=== PATIENT | female | born 1945 | race Hispanic/Latino ===

== ENCOUNTER 2018-08-16 10:21 | Inpatient (IN) | payer MEDICARE, OTHER ==
[2018-08-16 10:22] VITALS: BMI 50.1
[2018-08-16] MEDS ORDERED: Tranexamic Acid 1,000 MG in Sodium Chloride 0.9% 50 ML IV STA (11:57)
[2018-08-16 12:41] LABS: BASO # 0.1 K/uL (0.0-0.2); BASO % 1.1 % (0.0-2.0); EOS # 0.2 K/uL (0.0-0.7); EOS % 2.8 % (0.0-4.0); HEMOGLOBIN 9.1 g/dL (11.0-16.0); LYMPH # 1.7 K/uL (1.0-4.3); LYMPH % 23.5 % (20.0-40.0); MEAN CELL VOLUME 94.6 fL (81.0-99.0); MEAN CORPUSCULAR HEMOGLOBIN 31.5 pg (27.0-31.0); MEAN CORPUSCULAR HGB CONC 33.3 g/dL (33.0-37.0); MEAN PLATELET VOLUME 9.6 fL (7.2-11.7); MONO # 0.5 K/uL (0.0-0.8); MONO % 6.7 % (0.0-10.0); NEUT # 4.9 K/uL (1.8-7.0); NEUT % 65.9 % (50.0-75.0); NRBC % 0.1 % (0.0-2.0); RBC 2.9 Mil/uL (3.80-5.20); WHITE BLOOD COUNT 7.4 K/uL (4.8-10.8)
--- NOTE | 2018-08-16 12:41 | RAD ---
Date of service: 08/16/2018 PROCEDURE: CHEST RADIOGRAPH, 1 VIEW HISTORY: chest pain COMPARISON: 11/30/2017 FINDINGS: LUNGS: Right basilar opacity silhouetting right heart border and right hemidiaphragm. Likely pleural effusion. Cannot rule out superimposed consolidation. No left pleural effusion. No pneumothorax.. PLEURA: No pneumothorax or pleural fluid seen. CARDIOVASCULAR: No aortic atherosclerotic calcification present. Normal. OSSEOUS STRUCTURES: No significant abnormalities. VISUALIZED UPPER ABDOMEN: Normal. OTHER FINDINGS: None. IMPRESSION: Small right pleural effusion. Cannot rule out superimposed infiltrate.
--- NOTE | 2018-08-16 12:42 | C.PDOC ---
History Of Present Illness 72 y/o female presents to ED complaining she had a dry nose and started having a nosebleed this morning. Patient was seen at a hospital in May for stroke. She is now on CPAP. Denies fever, cough, chest pain, SOB, nausea, or vomiting. States that she didnt wear CPAP last night because she noticed some dry blood. Time Seen by Provider: 08/16/18 10:41 Chief Complaint (Nursing): ENT Problem History Per: Patient History/Exam Limitations: None Onset/Duration Of Symptoms: Hrs Current Symptoms Are (Timing): Still Present Past Medical History Reviewed: Historical Data, Nursing Documentation, Vital Signs Vital Signs: Last Vital Signs Temp 97.1 F L 08/16/18 10:33 Pulse 109 H 08/16/18 10:33 Resp 22 08/16/18 10:33 BP Pulse Ox 87 L 08/16/18 11:10 Primary Care Provider: Demetrius Armstrong - Medical History PMH: Asthma, COPD, Emphysema, HTN, Hypercholesterolemia Denies: Depression - [facility] Procedures NEBULIZER THERAPY (04/03/12) Family History: States: No Known Family Hx - Social History Hx Tobacco Use: No Hx Alcohol Use: No Hx Substance Use: No - Immunization History Hx Tetanus Toxoid Vaccination: No Hx Influenza Vaccination: No Hx Pneumococcal Vaccination: No Review Of Systems Except As Marked, All Systems Reviewed And Found Negative. Constitutional: Negative for: Fever, Chills ENT: Positive for: Nose Discharge (nosebleed) Cardiovascular: Negative for: Chest Pain Respiratory: Negative for: Shortness of Breath Gastrointestinal: Negative for: Nausea, Vomiting Physical Exam - Physical Exam Appears: Non-toxic, No Acute Distress Skin: Warm, Dry Head: Normacephalic Eye(s): bilateral: Normal Inspection Nose: Other (bleeding from left nare) Oral Mucosa: Moist Neck: Supple Cardiovascular: Rhythm Regular, No Murmur Respiratory: Normal Breath Sounds, No Rales, No Rhonchi, No Wheezing Extremity: Bilateral: Atraumatic Neurological/Psych: Oriented x3, Normal Speech, Normal Cognition ED Course And Treatment - Laboratory Results Result Diagrams: 08/22/18 18:25 08/22/18 05:39 ECG: Interpreted By Me, Viewed By Me ECG Rhythm: Atrial Fibrillation (w/rvr) Interpretation Of ECG: Atrial fibrillation with RVR. No ST elevation. Rate From EC O2 Sat by Pulse Oximetry: 87 (RA) Pulse Ox Interpretation: Abnormal - Other Rad CXR X-Ray: Read By Radiologist Interpretation: FINDINGS: LUNGS: Right basilar opacity silhouetting right heart border and right hemidiaphragm. Likely pleural effusion. Cannot rule out superimposed consolidation. No left pleural effusion. No pneumothorax.. PLEURA: No pneumothorax or pleural fluid seen. CARDIOVASCULAR: No aortic atherosclerotic calcification present. Normal. OSSEOUS STRUCTURES: No significant abnormalities. VISUALIZED UPPER ABDOMEN: Normal. OTHER FINDINGS: None. IMPRESSION: Small right pleural effusion. Cannot rule out superimposed infiltrate. Critical Care Time - Critical Care Note Total Time (in mins): 150 Documented critical care: time excludes all time spent performing seperately billable procedures. Medical Decision Making Medical Decision Making: Plan: --Labs --EKG --Chest XR --Tranexamic acid Patient having nosebleed again. Bloodwork ordered. Hemoglobin at 3 in May. Patient is tachycardic and has a history of a-fib. 13:12 Dr. Abner Rodriguez accepts patient for admission. 13:[address] Nelson, wants 7.5 rhinorocket. 13:25 7.5 rhinorocket placed in left nare. Left nare still w/oozing. 13:40 D/w Dr. Nelson who states he will come see patient. Requests abx. Dr. Nelson came to ED to evaluate patient. Placed device. Bleeding subsided. Patient w/2 episodes of rectal bleeding in ED. Patient denies abdominal pain. Labs significant for hgb of 9.1. 15:[address] Frazier, interventional neurologist, who will evaluate patient as inpatient. 15:[address] Augustine, disability insurance hearing officer preparation room manager, will come see patient. 16:05 Dr. Augustine recommends 2 units of FFP and will admit patient to the unit overnight. Disposition Counseled Patient/Family Regarding: Studies Performed, Diagnosis - Disposition Disposition: HOSPITALIZED Disposition Time: 16:00 Condition: STABLE - Clinical Impression Clinical Impression: Nasal hemorrhage, GIB (gastrointestinal bleeding), Afib - Scribe Statement The provider has reviewed the documentation as recorded by the Jessica Ortiz Provider Attestation: All medical record entries made by the Jessica were at my direction and personally dictated by me. I have reviewed the chart and agree that the record accurately reflects my personal performance of the history, physical exam, medical decision making, and the department course for this patient. I have also personally directed, reviewed, and agree with the discharge instructions and disposition.
[2018-08-16] MEDS ORDERED: TRANEXAMIC ACID TOP ONE (13:00)
[2018-08-16 13:53] LABS: ALB/GLOB RATIO 1.2 (1.0-2.1); ALBUMIN 3.4 g/dL (3.5-5.0); ALT/SGPT 16 U/L (9-52); AST/SGOT 32 U/L (14-36); BLOOD UREA NITROGEN 21 mg/dL (7-17); CALCIUM 9.3 mg/dl (8.6-10.4); GFR NON-AFRICAN AMERICAN 44
[2018-08-16] MEDS ORDERED: Clindamycin 600mg/50ml D5W 600 MG/50 ML VIAL IVPB SCH (15:30)
--- NOTE | 2018-08-16 16:11 | CP.PCM.CON ---
<RoslynTyler - Last Filed: 08/16/18 18:08> History of Present Illness - History of Present Illness History of Present Illness: PGY-1 Critical Care Consult Note for Dr. 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 Patient states she has not been on xarelto for weeks now because unable to fill out script. Bleeding persistent despite anterior and posterior packing. Patient to undergo b/l internal maxillary artery and L facial artery embolization. Will transfer FFP x2, pRBC x 1. To monitor in ICU. PMHx: as above PSHx: stent placement x 3, brain aneurysm repair, hysterectomy for ovarian cancer Allergies: PCN, Ambien, Benadryl Home Medications: need verification Social Hx: no alcohol, tobacco, illicit drug use Family Hx: unknown Psychology Lecturer: Dr. Wilkins Review of Systems - Review of Systems All systems: reviewed and no additional remarkable complaints except Review of Systems: as per HPI Past Patient History - Infectious Disease Hx of Infectious Diseases: None - Past Social History Smoking Status: Never Smoked - CARDIAC Hx Hypercholesterolemia: Yes Hx Hypertension: Yes - PULMONARY Hx Asthma: Yes Hx Chronic Obstructive Pulmonary Disease (COPD): Yes Hx Emphysema: Yes - NEUROLOGICAL HX Cerebrovascular Accident: Yes (lt side weak) - PSYCHIATRIC Hx Depression: No Hx Substance Use: No - SURGICAL HISTORY Hx Surgeries: Yes Other/Comment: Cardiac stents x 3 - ANESTHESIA Hx Anesthesia: Yes Hx Anesthesia Reactions: No Hx Malignant Hyperthermia: No Meds Allergies/Adverse Reactions: Allergies Allergy/AdvReac Type Severity Reaction Status Date / Time diphenhydramine Allergy Intermediate Verified 08/16/18 10:42 [From Benadryl] Penicillins Allergy Intermediate Verified 08/16/18 10:42 zolpidem [From Ambien] Allergy Intermediate Verified 08/16/18 10:42 - Medications Medications: Current Medications Clindamycin Phosphate (Cleocin 600mg/50ml Ns) 600 mg in 50 mls @ 100 mls/hr IVPB STAT ONE; Protocol Stop: 08/16/18 16:44 Physical Exam - Constitutional Appears: Non-toxic - Head Exam Head Exam: ATRAUMATIC, NORMAL INSPECTION, NORMOCEPHALIC - Eye Exam Eye Exam: EOMI, Normal appearance Pupil Exam: NORMAL ACCOMODATION - ENT Exam Additional comments: Bleeding from L nare internal packing inserted - Neck Exam Neck exam: Positive for: Normal Inspection - Respiratory Exam Respiratory Exam: Rales, NORMAL BREATHING PATTERN. absent: Accessory Muscle Use, Respiratory Distress - Cardiovascular Exam Cardiovascular Exam: Tachycardia, +S1, +S2 - GI/Abdominal Exam GI & Abdominal Exam: Normal Bowel Sounds, Soft - Extremities Exam Extremities exam: Positive for: normal capillary refill, normal inspection, pedal pulses present - Neurological Exam Neurological exam: Alert, Oriented x3 - Psychiatric Exam Psychiatric exam: Anxious - Skin Skin Exam: Normal Color, Warm Results - Vital Signs Recent Vital Signs: Last Vital Signs Temp 97.1 F L 08/16/18 10:33 Pulse 109 H 08/16/18 10:33 Resp 22 08/16/18 10:33 BP 106/70 08/16/18 12:00 Pulse Ox 87 L 08/16/18 16:06 - Labs Result Diagrams: 08/16/18 16:08 08/16/18 13:38 Labs: Laboratory Results - last 24 hr 08/16/18 08/16/18 08/16/18 12:29 12:29 13:38 WBC 7.4 RBC 2.90 L Hgb 9.1 L Hct 27.4 L MCV 94.6 MCH 31.5 H MCHC 33.3 RDW 16.0 H Plt Count 234 MPV 9.6 Neut % (Auto) 65.9 Lymph % (Auto) 23.5 [place] % (Auto) 6.7 Eos % (Auto) 2.8 Baso % (Auto) 1.1 Neut # (Auto) 4.9 Lymph # (Auto) 1.7 [place] # (Auto) 0.5 Eos # (Auto) 0.2 Baso # (Auto) 0.1 Sodium 142 Potassium 4.0 Chloride 97 L Carbon Dioxide 33 H Anion Gap 16 BUN 21 H Creatinine 1.2 Est GFR ( Amer) 54 Est GFR (Non-Af Amer) 44 Random Glucose 84 Calcium 9.3 Total Bilirubin 1.3 AST 32 ALT 16 Alkaline Phosphatase 121 Troponin I < 0.0120 Total Protein 6.3 Albumin 3.4 L Globulin 2.8 Albumin/Globulin Ratio 1.2 Blood Type O POSITIVE Antibody Screen Negative Assessment & Plan - Assessment and Plan (Free Text) Plan: Epistasis Active bleeding, acute -H/H: 01/03 -on home xarelto -Acute epistaxis of L nares with bleeding despite ant and posterior packing -to undergo bilateral internal maxillary artery embolization and left facial artery embolization CAD s/p stent placement Hx of AK Hx of CHF -Cardiology (Dr. Figueroa) consulted -verify home meds -f/u recs Infiltrate, Pleural Effusion -CXR: Small R pleural effusion, superimposed R infiltrate -aztreonam for empiric HCAP coverage d/t pcn allergy Case discussed with Dr. Davide Mcgowan DO, PGY-1 <Malik Augustine S - Last Filed: 08/16/18 18:37> Meds - Medications Medications: Current Medications Aztreonam 1 gm/ Sodium (Chloride) 100 mls @ 100 mls/hr IVPB Q8H SYED; Protocol Results - Vital Signs Recent Vital Signs: Last Vital Signs Temp 98 F 08/16/18 15:40 Pulse 128 H 08/16/18 16:45 Resp 24 08/16/18 16:45 BP 134/89 08/16/18 16:45 Pulse Ox 87 L 08/16/18 17:33 - Labs Result Diagrams: 08/16/18 16:08 08/16/18 13:38 Labs: Laboratory Results - last 24 hr 08/16/18 08/16/18 08/16/18 12:29 12:29 13:38 WBC 7.4 RBC 2.90 L Hgb 9.1 L Hct 27.4 L MCV 94.6 MCH 31.5 H MCHC 33.3 RDW 16.0 H Plt Count 234 MPV 9.6 Neut % (Auto) 65.9 Lymph % (Auto) 23.5 [place] % (Auto) 6.7 Eos % (Auto) 2.8 Baso % (Auto) 1.1 Neut # (Auto) 4.9 Lymph # (Auto) 1.7 [place] # (Auto) 0.5 Eos # (Auto) 0.2 Baso # (Auto) 0.1 PT INR APTT Sodium 142 Potassium 4.0 Chloride 97 L Carbon Dioxide 33 H Anion Gap 16 BUN 21 H Creatinine 1.2 Est GFR ( Amer) 54 Est GFR (Non-Af Amer) 44 Random Glucose 84 Calcium 9.3 Total Bilirubin 1.3 AST 32 ALT 16 Alkaline Phosphatase 121 Troponin I < 0.0120 Total Protein 6.3 Albumin 3.4 L Globulin 2.8 Albumin/Globulin Ratio 1.2 Blood Type O POSITIVE Antibody Screen Negative 08/16/18 08/16/18 16:08 16:08 WBC 8.6 RBC 2.92 L Hgb 9.0 L Hct 27.7 L MCV 94.7 MCH 30.9 MCHC 32.6 L RDW 15.8 H Plt Count 263 MPV 9.1 Neut % (Auto) 69.4 Lymph % (Auto) 21.1 [place] % (Auto) 7.0 Eos % (Auto) 1.7 Baso % (Auto) 0.8 Neut # (Auto) 6.0 Lymph # (Auto) 1.8 [place] # (Auto) 0.6 Eos # (Auto) 0.1 Baso # (Auto) 0.1 PT 16.1 H INR 1.5 APTT 32.3 Sodium Potassium Chloride Carbon Dioxide Anion Gap BUN Creatinine Est GFR ( Amer) Est GFR (Non-Af Amer) Random Glucose Calcium Total Bilirubin AST ALT Alkaline Phosphatase Troponin I Total Protein Albumin Globulin Albumin/Globulin Ratio Blood Type Antibody Screen Attending/Attestation - Attestation I have personally seen and examined this patient.: Yes I have fully participated in the care of the patient.: Yes I have reviewed all pertinent clinical information: Yes Notes (Text): 08/16/18 18:22 Patient seen and examined 72-year-old female with history of atrial fibrillation on Xarelto admitted with epistaxis and rectal bleeding Seen by neuro interventional and the plan is for embolization of the maxillary and facial artery for epistaxis GI consult for rectal bleeding Transfuse packed RBCs Protonix Monitor CBC every 4 to 6 hours
[2018-08-16 16:14] LABS: BASO # 0.1 K/uL (0.0-0.2); BASO % 0.8 % (0.0-2.0); EOS # 0.1 K/uL (0.0-0.7); EOS % 1.7 % (0.0-4.0); LYMPH # 1.8 K/uL (1.0-4.3); LYMPH % 21.1 % (20.0-40.0); MEAN CELL VOLUME 94.7 fL (81.0-99.0); MEAN CORPUSCULAR HEMOGLOBIN 30.9 pg (27.0-31.0); MEAN CORPUSCULAR HGB CONC 32.6 g/dL (33.0-37.0); MEAN PLATELET VOLUME 9.1 fL (7.2-11.7); MONO # 0.6 K/uL (0.0-0.8); NEUT % 69.4 % (50.0-75.0); RBC 2.92 Mil/uL (3.80-5.20); RED CELL DISTRIBUTION WIDTH 15.8 % (11.5-14.5); WHITE BLOOD COUNT 8.6 K/uL (4.8-10.8)
[2018-08-16] MEDS ORDERED: Clindamycin 600mg/50ml NS 600 MG/50 ML BAG IVPB ONE ×2 (16:15→16:23)
[2018-08-16 16:22] LABS: INR 1.5; PARTIAL THROMBOPLASTIN TIME 32.3 SECONDS (21-34); PROTHROMBIN TIME 16.1 SECONDS (9.7-12.2)
[2018-08-16] MEDS ORDERED: Lidocaine 2% MPF (5 ml) Inj ONE (16:57)
[2018-08-16] MEDS ORDERED: Rocuronium 10 mg/ml (5 ml) ONE (17:30)
[2018-08-16] MEDS ORDERED: Midazolam 2 MG/2 ML VIAL ONE ×2 (17:30→20:26)
[2018-08-16] MEDS ORDERED: Succinylcholine Chloride 20 mg/ml Syr (5 ml) IV ONE (17:30)
[2018-08-16] MEDS ORDERED: Etomidate 20 mg/10ml Inj IV ONE (17:30)
[2018-08-16] MEDS ORDERED: ePHEDrine 50 mg/ml Inj ONE (17:31)
[2018-08-16] MEDS ORDERED: Albuterol HFA 90 mcg/actuation (8 g) ONE (17:31)
--- NOTE | 2018-08-16 17:41 | PCM.IRPREO ---
Pre Procedure Note - Previous Medical/Surgical History Cardiac: Hypertension, ASHD/CAD, Hx of CHF, Other (Atrial Fibrillation) Pulmonary: Emphysema/COPD, Dyspnea (dyspnea on exertion) Neuro: TIA/CVA (Prior aneurysm clipping 1981) Misc: Other (history of ovarian CA) Pain: 0. No Pain - Pre Procedure Were any radiologic studies performed in the last 12 months: Yes List of radiologic studies performed: CXR Was medical management performed in the past 24 months: Yes List of medical management performed: Recently admitted to [facility] for COPD exacerbation, CHF Clinical indication for the procedure: epistaxis Have risks and benefits been explained to the patient: Yes Risks and benefits been explained to the patient: Planned procedure, benefits, and risks including but not limitd to groin groin infection, arterial occlusion, injury, renal imapairment,CVA, resulting in irreversible neurological deficits and even were explained to in detail. She agrees to proceed and informed consent was obtained. Have alternatives to surgery explained to the patient as applicable: Yes - Allergies Allergies: Allergies diphenhydramine [From Benadryl] Allergy (Intermediate, Verified 08/16/18 10:42) Penicillins Allergy (Intermediate, Verified 08/16/18 10:42) zolpidem [From Ambien] Allergy (Intermediate, Verified 08/16/18 10:42) - Physical Exam Vital Signs: Vital Signs 08/16/18 08/16/18 08/16/18 10:33 11:10 12:00 Temperature 97.1 F L Pulse Rate 109 H Respiratory 22 Rate Blood Pressure 106/70 O2 Sat by Pulse 92 L 87 L Oximetry 08/16/18 08/16/18 08/16/18 14:00 14:30 15:40 Temperature 98 F Pulse Rate 120 H 120 H 119 H Respiratory 28 H 25 H 24 Rate Blood Pressure 126/69 142/82 106/79 O2 Sat by Pulse 92 L Oximetry 08/16/18 08/16/18 16:45 17:33 Temperature Pulse Rate 128 H Respiratory 24 Rate Blood Pressure 134/89 O2 Sat by Pulse 90 L 87 L Oximetry Mental Status: Alert & Oriented x3 Neuro: WNL Heart: Other (Atrial Fibrillation) Lungs: Other (SOB on exeration) - Specialist Directed Exam FIRE EATER: Other (Ovarian CA) - Impression Pt. Evaluated Today:Candidate for Anesthesia & Procedure: yes - Date & Time Date: 08/16/18 Time: 17:40
--- NOTE | 2018-08-16 17:41 | CP.PCM.CON ---
History of Present Illness - History of Present Illness History of Present Illness: 72 year old woman with history of Afib/copd/cad/htn/prior brain aneurysm /chf on eliquis with nose bleeding from the left nare. Despite packing posterior and anterior she continue to bleed She was seen by ent and embolization has been recomended. [facility] and chf Today she complains of continual bleeding and some sob on exertion She has had two prior stent CAd in 1996 Prior brain surgery 1981 at [facility] brain aneurysm Prior hysterectomy for ovarian CA Review of Systems - Review of Systems Systems not reviewed;Unavailable: Respiratory Distress Past Patient History - Infectious Disease Hx of Infectious Diseases: None - Past Medical History & Family History Past Medical History?: Yes - Past Social History Smoking Status: Former Smoker - CARDIAC Hx Cardiac Disorders: Yes Hx Atrial Fibrillation: Yes Hx Circulatory Problems: Yes Hx Congestive Heart Failure: Yes Hx Hypercholesterolemia: Yes Hx Hypertension: Yes - PULMONARY Hx Asthma: Yes Hx Chronic Obstructive Pulmonary Disease (COPD): Yes Hx Emphysema: Yes - NEUROLOGICAL HX Cerebrovascular Accident: Yes (lt side weak) - PSYCHIATRIC Hx Depression: No Hx Substance Use: No - SURGICAL HISTORY Hx Surgeries: Yes Hx Cardiac Catheterization: Yes Hx Hysterectomy: Yes Other/Comment: Cardiac stents x 3 - ANESTHESIA Hx Anesthesia: Yes Hx Anesthesia Reactions: No Hx Malignant Hyperthermia: No Meds Allergies/Adverse Reactions: Allergies Allergy/AdvReac Type Severity Reaction Status Date / Time diphenhydramine Allergy Intermediate Verified 08/16/18 10:42 [From Benadryl] Penicillins Allergy Intermediate Verified 08/16/18 10:42 zolpidem [From Ambien] Allergy Intermediate Verified 08/16/18 10:42 Physical Exam - Constitutional Appears: In Acute Distress Results - Vital Signs Recent Vital Signs: Last Vital Signs Temp 98 F 08/16/18 15:40 Pulse 128 H 08/16/18 16:45 Resp 24 08/16/18 16:45 BP 134/89 08/16/18 16:45 Pulse Ox 90 L 08/16/18 16:45 - Labs Result Diagrams: 08/16/18 16:08 08/16/18 13:38 Labs: Laboratory Results - last 24 hr 08/16/18 08/16/18 08/16/18 12:29 12:29 13:38 WBC 7.4 RBC 2.90 L Hgb 9.1 L Hct 27.4 L MCV 94.6 MCH 31.5 H MCHC 33.3 RDW 16.0 H Plt Count 234 MPV 9.6 Neut % (Auto) 65.9 Lymph % (Auto) 23.5 [place] % (Auto) 6.7 Eos % (Auto) 2.8 Baso % (Auto) 1.1 Neut # (Auto) 4.9 Lymph # (Auto) 1.7 [place] # (Auto) 0.5 Eos # (Auto) 0.2 Baso # (Auto) 0.1 PT INR APTT Sodium 142 Potassium 4.0 Chloride 97 L Carbon Dioxide 33 H Anion Gap 16 BUN 21 H Creatinine 1.2 Est GFR ( Amer) 54 Est GFR (Non-Af Amer) 44 Random Glucose 84 Calcium 9.3 Total Bilirubin 1.3 AST 32 ALT 16 Alkaline Phosphatase 121 Troponin I < 0.0120 Total Protein 6.3 Albumin 3.4 L Globulin 2.8 Albumin/Globulin Ratio 1.2 Blood Type O POSITIVE Antibody Screen Negative 08/16/18 08/16/18 16:08 16:08 WBC 8.6 RBC 2.92 L Hgb 9.0 L Hct 27.7 L MCV 94.7 MCH 30.9 MCHC 32.6 L RDW 15.8 H Plt Count 263 MPV 9.1 Neut % (Auto) 69.4 Lymph % (Auto) 21.1 [place] % (Auto) 7.0 Eos % (Auto) 1.7 Baso % (Auto) 0.8 Neut # (Auto) 6.0 Lymph # (Auto) 1.8 [place] # (Auto) 0.6 Eos # (Auto) 0.1 Baso # (Auto) 0.1 PT 16.1 H INR 1.5 APTT 32.3 Sodium Potassium Chloride Carbon Dioxide Anion Gap BUN Creatinine Est GFR ( Amer) Est GFR (Non-Af Amer) Random Glucose Calcium Total Bilirubin AST ALT Alkaline Phosphatase Troponin I Total Protein Albumin Globulin Albumin/Globulin Ratio Blood Type Antibody Screen - Impressions Impression: Acute epistaxis with bleeding despite ant and posterior packing for bilateral internal maxillary artery embolization and left facial artery embolization Risks and benefits discussed with son and patient and they understand the emergency nature if josé miguel procedure as well as possible risks including but not limited to stroke, failure to control bleeding , contrast injury and risks of general anesthesia They have agreed to proeed infromend consent signed
[2018-08-16] MEDS ORDERED: Piperacill/Tazo 3.375gm in Dex 3.375 GM/50 ML BAG IVPB SCH ×2 (18:00→19:00)
--- NOTE | 2018-08-16 18:00 | PCM.OP ---
Operative Report - Operative Report Date of Surgery/Procedure: 08/16/18 Time of Surgery/Procedure: 18:20 Surgeon: Dr.Jeffrey Frazier Anesthesia/Sedation: GETA Pre-Operative Diagnosis: Posterior epistaxis left Post-Operative Diagnosis: Same Indication for Surgery: episatxis Operative Findings: right ACOM aneurysm status post clip small residual ; right hypoplastic ICA Procedure/Operation Description: Cerebral and Head and Neck Angiogram with emboloization of left sphenopalatine artery. 3-5, 5-7 particles complete occlusion Estimated Blood Loss: 35cc Blood Replaced: none Complications: None Specimen: none Discharge & Condition: Transferred to ICU on ventilator, sedated
[2018-08-16] MEDS ORDERED: Esmolol 100 mg/10ml Inj IV ONE (18:06)
[2018-08-16] MEDS ORDERED: Labetalol 5mg/ml (4ml) ONE (18:07)
[2018-08-16] MEDS ORDERED: Iodixanol 320 MG/ML 200 ML BOTTLE IV ONE (18:19)
[2018-08-16] MEDS ORDERED: Absorbable Gelatin Sponge Size 12-7 ONE (18:52)
--- NOTE | 2018-08-16 19:10 | CP.PCM.HP ---
History of Present Illness - History of Present Illness History of Present Illness: 72-year-old female patient presents to the ED complaining of dry nose and started nosebleeding this morning.patient was seen in in the hospital for stroke in May.she is now on CPAP.she states that she did not wear CPAP last night because she noticed some dry blood.past medical history of trauma, COPD, emphysema, hypertension, hypercholesterolemia.no history of fever, chills, chest pain, shortness of breath, nausea, vomiting.no history of abdominal pain, headache, weakness, numbness. Past Medical History Reviewed: Historical Data, Nursing Documentation, Vital Signs Vital Signs: Last Vital Signs Temp 97.1 F L 08/16/18 10:33 Pulse 109 H 08/16/18 10:33 Resp 22 08/16/18 10:33 BP Pulse Ox 87 L 08/16/18 11:10 - Medical History PMH: Asthma, COPD, Emphysema, HTN, Hypercholesterolemia Denies: Depression - [facility] Procedures NEBULIZER THERAPY (04/03/12) Family History: States: No Known Family Hx - Social History Hx Tobacco Use: No Hx Alcohol Use: No Hx Substance Use: No - Immunization History Hx Tetanus Toxoid Vaccination: No Hx Influenza Vaccination: No Hx Pneumococcal Vaccination: No Review Of Systems Except As Marked, All Systems Reviewed And Found Negative. Constitutional: Negative for: Fever, Chills ENT: Positive for: Nose Discharge (nosebleed) Cardiovascular: Negative for: Chest Pain Respiratory: Negative for: Shortness of Breath Gastrointestinal: Negative for: Nausea, Vomiting Neuro - no headache,weakness,numbness. Past Patient History - Infectious Disease Hx of Infectious Diseases: None - Past Medical History & Family History Past Medical History?: Yes - Past Social History Smoking Status: Never Smoked - CARDIAC Hx Hypercholesterolemia: Yes Hx Hypertension: Yes - PULMONARY Hx Asthma: Yes Hx Chronic Obstructive Pulmonary Disease (COPD): Yes Hx Emphysema: Yes - NEUROLOGICAL HX Cerebrovascular Accident: Yes (lt side weak) - PSYCHIATRIC Hx Depression: No Hx Substance Use: No - SURGICAL HISTORY Hx Surgeries: Yes Other/Comment: Cardiac stents x 3 - ANESTHESIA Hx Anesthesia: Yes Hx Anesthesia Reactions: No Hx Malignant Hyperthermia: No Meds Home Medications: Home Medication List Medication Instructions Recorded Confirmed Type Albuterol/Ipratropium [Duoneb 3 3 ml INH RQ6 neb 08/28/18 Rx mg/0.5 mg (3 ml) UD] Apixaban [Eliquis] 2.5 mg PO BID tab 08/28/18 Rx Furosemide [Lasix] 40 mg PO DAILY 30 Days #30 tablet 08/28/18 Rx Methylprednisolone [Medrol Dose 4 mg PO DAILY #21 mg 08/28/18 Rx Pack (21 tabs)] Metoprolol Tartrate [Lopressor] 50 mg PO BID tab 08/28/18 Rx Pantoprazole [Protonix EC Tab] 40 mg PO BID ect 08/28/18 Rx Polyethylene Glycol/Polyvinyl 0 ml OU Q4H bottle 08/28/18 Rx [Artificial Tears] Sucralfate [Carafate Oral Susp] 1 gm PO TID udc 08/28/18 Rx diltiaZEM CD [Cardizem CD] 120 mg PO DAILY cap 08/28/18 Rx Allergies/Adverse Reactions: Allergies Allergy/AdvReac Type Severity Reaction Status Date / Time diphenhydramine Allergy Intermediate Verified 08/16/18 10:42 [From Benadryl] Penicillins Allergy Intermediate Verified 08/16/18 10:42 zolpidem [From Ambien] Allergy Intermediate Verified 08/16/18 10:42 Physical Exam - Constitutional Appears: Well - Head Exam Head Exam: ATRAUMATIC, NORMAL INSPECTION, NORMOCEPHALIC - Eye Exam Eye Exam: EOMI, Normal appearance, PERRL Pupil Exam: NORMAL ACCOMODATION, PERRL - ENT Exam ENT Exam: Mucous Membranes Moist, Normal Exam - Neck Exam Neck exam: Positive for: Normal Inspection - Respiratory Exam Respiratory Exam: Decreased Breath Sounds - Cardiovascular Exam Cardiovascular Exam: REGULAR RHYTHM, +S1, +S2 - GI/Abdominal Exam GI & Abdominal Exam: Diminished Bowel Sounds, Soft - Rectal Exam Rectal Exam: Deferred - Neurological Exam Neurological exam: Oriented x3 Results - Vital Signs Recent Vital Signs: Last Vital Signs Temp 98 F 08/16/18 15:40 Pulse 128 H 08/16/18 16:45 Resp 24 08/16/18 16:45 BP 134/89 08/16/18 16:45 Pulse Ox 87 L 08/16/18 18:25 - Labs Result Diagrams: 08/28/18 06:09 08/28/18 06:07 Labs: Laboratory Results - last 24 hr 08/16/18 08/16/18 08/16/18 12:29 12:29 13:38 WBC 7.4 RBC 2.90 L Hgb 9.1 L Hct 27.4 L MCV 94.6 MCH 31.5 H MCHC 33.3 RDW 16.0 H Plt Count 234 MPV 9.6 Neut % (Auto) 65.9 Lymph % (Auto) 23.5 [place] % (Auto) 6.7 Eos % (Auto) 2.8 Baso % (Auto) 1.1 Neut # (Auto) 4.9 Lymph # (Auto) 1.7 [place] # (Auto) 0.5 Eos # (Auto) 0.2 Baso # (Auto) 0.1 PT INR APTT Sodium 142 Potassium 4.0 Chloride 97 L Carbon Dioxide 33 H Anion Gap 16 BUN 21 H Creatinine 1.2 Est GFR ( Amer) 54 Est GFR (Non-Af Amer) 44 Random Glucose 84 Calcium 9.3 Total Bilirubin 1.3 AST 32 ALT 16 Alkaline Phosphatase 121 Troponin I < 0.0120 Total Protein 6.3 Albumin 3.4 L Globulin 2.8 Albumin/Globulin Ratio 1.2 Blood Type O POSITIVE Antibody Screen Negative 08/16/18 08/16/18 16:08 16:08 WBC 8.6 RBC 2.92 L Hgb 9.0 L Hct 27.7 L MCV 94.7 MCH 30.9 MCHC 32.6 L RDW 15.8 H Plt Count 263 MPV 9.1 Neut % (Auto) 69.4 Lymph % (Auto) 21.1 [place] % (Auto) 7.0 Eos % (Auto) 1.7 Baso % (Auto) 0.8 Neut # (Auto) 6.0 Lymph # (Auto) 1.8 [place] # (Auto) 0.6 Eos # (Auto) 0.1 Baso # (Auto) 0.1 PT 16.1 H INR 1.5 APTT 32.3 Sodium Potassium Chloride Carbon Dioxide Anion Gap BUN Creatinine Est GFR ( Amer) Est GFR (Non-Af Amer) Random Glucose Calcium Total Bilirubin AST ALT Alkaline Phosphatase Troponin I Total Protein Albumin Globulin Albumin/Globulin Ratio Blood Type Antibody Screen Assessment & Plan - Assessment and Plan (Free Text) Assessment: Plan WBC 6.2 Hemoglobin 9.1 Hematocrit 27.9 Platelets 196 Sodium 144 Potassium 3.8 Bicarbonate 23 BUN 26 Creatinine 1.2 Glucose 91 ECGatrial fibrillation with RVR, no ST elevation, rate 120 O2 saturation by pulse oximetry is 87 at room air Chest x-raysmall right pleural effusion, cannot rule out superimposed infiltrate. Moderate to high complexity of care. Plan of care discussed with patient &/or next family & staff. Medications reviewed and reconciled. Labs reviewed. Vitals reviewed.
[2018-08-16] MEDS ORDERED: Iodixanol 320 MG/ML 100 ML BOTTLE IV ONE (19:18)
[2018-08-16] MEDS ORDERED: Vancomycin 1 GM 1 GM/250 ML BAG IVPB STA (20:07)
[2018-08-16] MEDS ORDERED: Midazolam 50 mg/10 ml 100 MG in Dextrose 5% In Water 80 ML IV SCH (20:15)
--- NOTE | 2018-08-16 20:15 | CP.PCM.PN ---
Subjective - Date & Time of Evaluation Date of Evaluation: 08/16/18 Time of Evaluation: 20:10 - Subjective Subjective: Patient seen post [id number]. intubated, not responsive. limited ROS. as per report: episode of SVT during procedure requiring esmolol, patient robles b/l femoral site clean dressing. IV contrast used for procedure. CXR pending Objective - Vital Signs/Intake and Output Vital Signs (last 24 hours): Temp Pulse Resp BP Pulse Ox 98 F 128 H 26 H 134/89 87 L 08/16/18 15:40 08/16/18 16:45 08/16/18 17:20 08/16/18 16:45 08/16/18 18:25 Intake and Output: 08/16/18 08/17/18 18:59 06:59 Intake Total 1400 Output Total 1800 Balance -400 - Medications Medications: Current Medications Aztreonam 1 gm/ Sodium (Chloride) 100 mls @ 100 mls/hr IVPB Q8H SYED; Protocol Fentanyl Citrate 2,500 mcg/ (Sodium Chloride) 250 mls @ 14.15 mls/hr IV .[id number] SYED; Protocol Midazolam HCl 100 mg/ Dextrose 100 mls @ 1.42 mls/hr IV .Q24H SYED; Protocol Sodium Chloride (Sodium Chloride 0.9%) 1,000 mls @ 75 mls/hr IV .[id number] SYED Pantoprazole Sodium (Protonix Inj) 40 mg IVP Q12H SYED - Labs Labs: 08/16/18 16:08 08/16/18 13:38 PT 16.1 SECONDS (9.7-12.2) H 08/16/18 16:08 INR 1.5 08/16/18 16:08 APTT 32.3 SECONDS (21-34) 08/16/18 16:08 - Constitutional Appears: Well - Head Exam Head Exam: ATRAUMATIC, NORMAL INSPECTION - ENT Exam ENT Exam: Mucous Membranes Moist - Respiratory Exam Respiratory Exam: NORMAL BREATHING PATTERN - Cardiovascular Exam Cardiovascular Exam: Irregular Rhythm, +S1, +S2 - GI/Abdominal Exam GI & Abdominal Exam: Soft, Normal Bowel Sounds. absent: Tenderness, Organomegaly - Extremities Exam Extremities Exam: Normal Inspection - Neurological Exam Neurological Exam: Altered - Skin Skin Exam: Normal Color, Warm Assessment and Plan - Assessment and Plan (Free Text) Assessment: Respiratory failure: Continue ventilation to keep spo2 >92 and pH b/w 7.35-7.45, obtain CXR eval position of et tube, pending ABG -Nasal packing: continue empriical abx, GPC coverage with linezolid (allergic to PCN), + aztreonam, obtain blood culture and serial lactic -check serial lactic -at risk of CAD: hold antiplatelet given severe nose bleeding, continue av lane justo, obtain EKG and trop -A-fib: lopressor IV, holad AC -possible Gi bleed: IV PPI -DVT pxp scds -PUD rx protonix -BGM Q6hrs, ISS lispro -PAtient remains hemodyamcially stable and on ventilator, will continue ventilator until nose bleeding controlled and has stopped. -cc time 40 minutes -prognosis guarded as multiple diagnostic tests pending
[2018-08-16 21:02] LABS: BASO # 0.1 K/uL (0.0-0.2); BASO % 0.9 % (0.0-2.0); EOS # 0.1 K/uL (0.0-0.7); HEMOGLOBIN 8.3 g/dL (11.0-16.0); LYMPH # 1.6 K/uL (1.0-4.3); LYMPH % 25.9 % (20.0-40.0); MEAN CORPUSCULAR HGB CONC 31.9 g/dL (33.0-37.0); MEAN PLATELET VOLUME 9.2 fL (7.2-11.7); MONO # 0.4 K/uL (0.0-0.8); MONO % 6.4 % (0.0-10.0); NEUT % 65.8 % (50.0-75.0); RBC 2.76 Mil/uL (3.80-5.20); RED CELL DISTRIBUTION WIDTH 15.9 % (11.5-14.5); WHITE BLOOD COUNT 6.1 K/uL (4.8-10.8)
[2018-08-16] MEDS ORDERED: Midazolam 2 MG/2 ML VIAL IVP ONE (21:07)
[2018-08-16] MEDS ORDERED: Metoprolol 1 mg/ml Inj IVP ONE (21:15)
[2018-08-16 21:19] LABS: INR 1.4; PARTIAL THROMBOPLASTIN TIME 31.9 SECONDS (21-34); PROTHROMBIN TIME 15.3 SECONDS (9.7-12.2)
[2018-08-16] MEDS: Sodium Chloride 0.9% 1,000 ML IV SCH (21:20)
[2018-08-16 21:23] LABS: ALB/GLOB RATIO 1.1 (1.0-2.1); ALT/SGPT 24 U/L (9-52); AST/SGOT 28 U/L (14-36); BLOOD UREA NITROGEN 22 mg/dL (7-17); CALCIUM 8.7 mg/dl (8.6-10.4); GFR NON-AFRICAN AMERICAN 55
[2018-08-16 21:32] LABS: B-TYPE NATRIURETIC PEPTIDE 5000 pg/mL (0-900)
[2018-08-16] MEDS: Pantoprazole 80 MG in Sodium Chloride 0.9% 100 ML IVP SCH (21:45)
[2018-08-16] MEDS: Aztreonam 1 GM in Sodium Chloride 0.9% 100 ML IVPB SCH (22:02)
[2018-08-16] MEDS: Midazolam 50 mg/10 ml 100 MG in Dextrose 5% In Water 80 ML IV SCH (23:20)
--- NOTE | 2018-08-17 00:42 | OP ---
PROCEDURE DATE: 08/16/2018 PREPROCEDURE DIAGNOSIS: Epistaxis, posterior pack. POSTPROCEDURE DIAGNOSIS: Epistaxis, posterior pack. SURGEON: Huseyin Nelson MD DESCRIPTION OF PROCEDURE: The patient was placed in a seated position. Suction was used to suction out any blood product of the left naris which was where the bleeding was. A Jarvis balloon was inserted in the left nasal cavity. The balloon was placed in the nasopharynx and inflated. Xeroform gauze was used to pack the nose once again from posterior to anterior direction. Bleeding was controlled. The balloon was loosely packed. Clamp was placed on the Jarvis to secure it in position making sure not to touch the nasal ala. Huseyin Nelson MD
[2018-08-17] MEDS: Aztreonam 1 GM in Sodium Chloride 0.9% 100 ML IVPB SCH ×3 (03:19→18:04)
[2018-08-17 05:25] LABS: ABG ALLEN TEST POS; ARTERIAL BLOOD GAS HCO3 31.5 mmol/L (21-28); ARTERIAL BLOOD GAS HEMOGLOBIN 8.6 g/dL (11.7-17.4); ARTERIAL BLOOD GAS O2 SAT 100.1 % (95-98); ARTERIAL BLOOD GAS PCO2 38 mm/Hg (35-45); ARTERIAL BLOOD GAS PH 7.53 (7.35-7.45); ARTERIAL BLOOD GAS PO2 298 mm/Hg (80-100)
[2018-08-17 06:03] LABS: INR 1.3; PARTIAL THROMBOPLASTIN TIME 29.9 SECONDS (21-34); PROTHROMBIN TIME 14.3 SECONDS (9.7-12.2)
[2018-08-17 06:04] LABS: BASO % 0.6 % (0.0-2.0); EOS # 0.2 K/uL (0.0-0.7); EOS % 3.1 % (0.0-4.0); HEMOGLOBIN 8.7 g/dL (11.0-16.0); LYMPH # 1.4 K/uL (1.0-4.3); LYMPH % 23.2 % (20.0-40.0); MEAN CELL VOLUME 95.8 fL (81.0-99.0); MEAN CORPUSCULAR HEMOGLOBIN 32.4 pg (27.0-31.0); MEAN CORPUSCULAR HGB CONC 33.9 g/dL (33.0-37.0); MEAN PLATELET VOLUME 9.3 fL (7.2-11.7); MONO # 0.4 K/uL (0.0-0.8); MONO % 6.9 % (0.0-10.0); NEUT % 66.2 % (50.0-75.0); RBC 2.7 Mil/uL (3.80-5.20); RED CELL DISTRIBUTION WIDTH 15.5 % (11.5-14.5); WHITE BLOOD COUNT 6.1 K/uL (4.8-10.8)
[2018-08-17 06:15] LABS: ALBUMIN 2.6 g/dL (3.5-5.0); CALCIUM 8.6 mg/dl (8.6-10.4)
[2018-08-17] MEDS: Pantoprazole 80 MG in Sodium Chloride 0.9% 100 ML IVP SCH (06:25)
--- NOTE | 2018-08-17 08:42 | CP.PCM.CON ---
<Felix Blackman - Last Filed: 08/17/18 10:53> History of Present Illness - History of Present Illness History of Present Illness: PGY-4 GI Fellow Consult Note Patient is a 72-year-old female with a past medical history of CAD status post stents, myocardial infarction in 2016 and 2019, CVA x2 with residual left hemiparesis, brain aneurysm s/p surgery, CHF, AF on rivaroxaban, ovarian cancer status post hysterectomy, presenting with nose bleed. The following obtained from chart review and hospital staff due to patient being integrated during encounter. Patient reportedly began to experience nose bleed from the left nare in the morning of 08/16/18. She presented to the ED but failed local conservative nasal packing. Therefore, she was referred to interventional radiology for embolization of culprit vessels. She was intubated for procedure but unfortunately remains intubated post procedure. While she was in the emergency room, dark stool was noted concerning for melena; therefore, GI was consulted for concerns of GI bleed. During my encounter, pt remains sedated and intubated on ventilator. Per nursing, 2 BMs overnight, unclear if bloody or not. 1 unit PRBC with Hgb 8.3 -> 8.7. Rectal exam with dark red blood. Unable to attain review of systems due to clinical condition Medical history: see above Surgical history: cardiac stents, brain aneurysm repair, hysterectomy for ovarian cancer; Unknown Endoscopic history Medications: reviewed and chart Family history: unknown Social history: negative x3 Allergies: penicillin, Ambien, diphenhydramine Past Patient History - Infectious Disease Hx of Infectious Diseases: None - Past Medical History & Family History Past Medical History?: Yes - Past Social History Smoking Status: Never Smoked - CARDIAC Hx Hypercholesterolemia: Yes Hx Hypertension: Yes - PULMONARY Hx Asthma: Yes Hx Chronic Obstructive Pulmonary Disease (COPD): Yes Hx Emphysema: Yes - NEUROLOGICAL HX Cerebrovascular Accident: Yes (lt side weak) - MUSCULOSKELETAL/RHEUMATOLOGICAL Hx Falls: No - PSYCHIATRIC Hx Depression: No Hx Substance Use: No - SURGICAL HISTORY Hx Surgeries: Yes Other/Comment: Cardiac stents x 3 - ANESTHESIA Hx Anesthesia: Yes Hx Anesthesia Reactions: No Hx Malignant Hyperthermia: No Meds Allergies/Adverse Reactions: Allergies Allergy/AdvReac Type Severity Reaction Status Date / Time diphenhydramine Allergy Intermediate Verified 08/16/18 10:42 [From Benadryl] Penicillins Allergy Intermediate Verified 08/16/18 10:42 zolpidem [From Ambien] Allergy Intermediate Verified 08/16/18 10:42 - Medications Medications: Current Medications Hydralazine HCl (Apresoline) 10 mg IVP Q2H PRN PRN Reason: other Last Admin: 08/16/18 22:44 Dose: 10 mg Aztreonam 1 gm/ Sodium (Chloride) 100 mls @ 100 mls/hr IVPB Q8H SYED; Protocol Last Admin: 08/17/18 03:19 Dose: 100 mls/hr Sodium Chloride (Sodium Chloride 0.9%) 1,000 mls @ 75 mls/hr IV .[id number] SYED Last Admin: 08/16/18 21:20 Dose: 75 mls/hr Pantoprazole Sodium 80 mg/ (Sodium Chloride) 100 mls @ 10 mls/hr IVP .Q10H SYED Last Admin: 08/17/18 06:25 Dose: 10 mls/hr Fentanyl Citrate 2,500 mcg/ (Sodium Chloride) 250 mls @ 15.2 mls/hr IV .[id number] SYED; Protocol Last Admin: 08/16/18 23:20 Dose: 2 mcg/kg/hr, 15.2 mls/hr Midazolam HCl 100 mg/ Dextrose 100 mls @ 1.52 mls/hr IV .Q24H SYED; Protocol Last Titration: 08/17/18 00:58 Dose: 0.03 mg/kg/hr, 3 mls/hr Physical Exam - Constitutional Appears: In Acute Distress, Chronically Ill - Head Exam Additional comments: nasal packing in place - ENT Exam ENT Exam: Mucous Membranes Dry Additional comments: Et tube in place - Respiratory Exam Additional comments: CTA anteriorly, symmetric expansion - Cardiovascular Exam Cardiovascular Exam: Tachycardia. absent: REGULAR RHYTHM Additional comments: Irregularly irregular rate and rhythm - GI/Abdominal Exam GI & Abdominal Exam: Distended, Hernia (midline/LLQ reducible), Mass ((due to hernia)), Normal Bowel Sounds, Soft. absent: Bruit, Diminished Bowel Sounds, Firm, Guarding, Rigid, Tenderness - Rectal Exam Additional comments: liquid dark red stool in bed and on bharathi-rectal area; no obvious masses palpated - Extremities Exam Extremities exam: Positive for: normal inspection, pedal edema (trace bilateral LE edema) - Neurological Exam Additional comments: sedated, on vent - Skin Skin Exam: Dry, Warm Results - Vital Signs Recent Vital Signs: Last Vital Signs Temp 98.6 F 08/17/18 08:00 Pulse 89 08/17/18 08:04 Resp 20 08/17/18 08:04 BP 111/78 08/17/18 08:04 Pulse Ox 100 08/17/18 08:04 - Labs Result Diagrams: 08/17/18 05:52 08/17/18 05:47 Labs: Laboratory Results - last 24 hr 08/16/18 08/16/18 08/16/18 12:29 12:29 13:38 WBC 7.4 RBC 2.90 L Hgb 9.1 L Hct 27.4 L MCV 94.6 MCH 31.5 H MCHC 33.3 RDW 16.0 H Plt Count 234 MPV 9.6 Neut % (Auto) 65.9 Lymph % (Auto) 23.5 [place] % (Auto) 6.7 Eos % (Auto) 2.8 Baso % (Auto) 1.1 Neut # (Auto) 4.9 Lymph # (Auto) 1.7 [place] # (Auto) 0.5 Eos # (Auto) 0.2 Baso # (Auto) 0.1 PT INR APTT Fibrinogen Puncture Site pCO2 pO2 HCO3 ABG pH ABG Total CO2 ABG O2 Saturation ABG Base Excess ABG Hemoglobin ABG Carboxyhemoglobin POC ABG HHb (Measured) ABG Methemoglobin Dom Test A-a O2 Difference Respiratory Index Hgb O2 Saturation Vent Mode Mechanical Rate FiO2 Tidal Volume PEEP Sodium 142 Potassium 4.0 Chloride 97 L Carbon Dioxide 33 H Anion Gap 16 BUN 21 H Creatinine 1.2 Est GFR ( Amer) 54 Est GFR (Non-Af Amer) 44 Random Glucose 84 Lactic Acid Calcium 9.3 Phosphorus Magnesium Total Bilirubin 1.3 AST 32 ALT 16 Alkaline Phosphatase 121 Troponin I < 0.0120 NT-Pro-B Natriuret Pep Total Protein 6.3 Albumin 3.4 L Globulin 2.8 Albumin/Globulin Ratio 1.2 Blood Type O POSITIVE Antibody Screen Negative 08/16/18 08/16/18 08/16/18 16:08 16:08 20:54 WBC 8.6 RBC 2.92 L Hgb 9.0 L Hct 27.7 L MCV 94.7 MCH 30.9 MCHC 32.6 L RDW 15.8 H Plt Count 263 MPV 9.1 Neut % (Auto) 69.4 Lymph % (Auto) 21.1 [place] % (Auto) 7.0 Eos % (Auto) 1.7 Baso % (Auto) 0.8 Neut # (Auto) 6.0 Lymph # (Auto) 1.8 [place] # (Auto) 0.6 Eos # (Auto) 0.1 Baso # (Auto) 0.1 PT 16.1 H INR 1.5 APTT 32.3 Fibrinogen Puncture Site pCO2 pO2 HCO3 ABG pH ABG Total CO2 ABG O2 Saturation ABG Base Excess ABG Hemoglobin ABG Carboxyhemoglobin POC ABG HHb (Measured) ABG Methemoglobin Dom Test A-a O2 Difference Respiratory Index Hgb O2 Saturation Vent Mode Mechanical Rate FiO2 Tidal Volume PEEP Sodium 142 Potassium 3.6 Chloride 101 Carbon Dioxide 29 Anion Gap 16 BUN 22 H Creatinine 1.0 Est GFR ( Amer) > 60 Est GFR (Non-Af Amer) 55 Random Glucose 77 Lactic Acid Calcium 8.7 Phosphorus 2.6 Magnesium 1.8 Total Bilirubin 1.4 H AST 28 ALT 24 Alkaline Phosphatase 113 Troponin I < 0.0120 NT-Pro-B Natriuret Pep 5000 H Total Protein 5.8 L Albumin 3.0 L Globulin 2.8 Albumin/Globulin Ratio 1.1 Blood Type Antibody Screen 08/16/18 08/16/18 08/16/18 20:54 20:54 20:54 WBC 6.1 RBC 2.76 L Hgb 8.3 L Hct 26.0 L MCV 94.0 MCH 30.0 MCHC 31.9 L RDW 15.9 H Plt Count 209 MPV 9.2 Neut % (Auto) 65.8 Lymph % (Auto) 25.9 [place] % (Auto) 6.4 Eos % (Auto) 1.0 Baso % (Auto) 0.9 Neut # (Auto) 4.0 Lymph # (Auto) 1.6 [place] # (Auto) 0.4 Eos # (Auto) 0.1 Baso # (Auto) 0.1 PT 15.3 H INR 1.4 APTT 31.9 Fibrinogen 185 L Puncture Site pCO2 pO2 HCO3 ABG pH ABG Total CO2 ABG O2 Saturation ABG Base Excess ABG Hemoglobin ABG Carboxyhemoglobin POC ABG HHb (Measured) ABG Methemoglobin Dom Test A-a O2 Difference Respiratory Index Hgb O2 Saturation Vent Mode Mechanical Rate FiO2 Tidal Volume PEEP Sodium Potassium Chloride Carbon Dioxide Anion Gap BUN Creatinine Est GFR ( Amer) Est GFR (Non-Af Amer) Random Glucose Lactic Acid 1.3 Calcium Phosphorus Magnesium Total Bilirubin AST ALT Alkaline Phosphatase Troponin I NT-Pro-B Natriuret Pep Total Protein Albumin Globulin Albumin/Globulin Ratio Blood Type Antibody Screen 08/17/18 08/17/18 08/17/18 04:55 05:47 05:52 WBC 6.1 RBC 2.70 L Hgb 8.7 L Hct 25.8 L MCV 95.8 MCH 32.4 H MCHC 33.9 RDW 15.5 H Plt Count 198 MPV 9.3 Neut % (Auto) 66.2 Lymph % (Auto) 23.2 [place] % (Auto) 6.9 Eos % (Auto) 3.1 Baso % (Auto) 0.6 Neut # (Auto) 4.0 Lymph # (Auto) 1.4 [place] # (Auto) 0.4 Eos # (Auto) 0.2 Baso # (Auto) 0.0 PT INR APTT Fibrinogen Puncture Site Rr pCO2 38 pO2 298 H HCO3 31.5 H ABG pH 7.53 H ABG Total CO2 33.0 H ABG O2 Saturation 100.1 H ABG Base Excess 8.4 H ABG Hemoglobin 8.6 L ABG Carboxyhemoglobin 1.8 H POC ABG HHb (Measured) -0.1 L ABG Methemoglobin 0.6 Dom Test Pos A-a O2 Difference 368.0 Respiratory Index 1.2 Hgb O2 Saturation 97.7 Vent Mode Prvc Mechanical Rate 20 FiO2 100.0 Tidal Volume 450 PEEP 5 Sodium 142 Potassium 3.3 L Chloride 103 Carbon Dioxide 30 Anion Gap 12 BUN 22 H Creatinine 1.1 Est GFR ( Amer) 59 Est GFR (Non-Af Amer) 49 Random Glucose 74 Lactic Acid Calcium 8.6 Phosphorus 2.7 Magnesium 1.8 Total Bilirubin 1.4 H AST 23 ALT 25 Alkaline Phosphatase 97 Troponin I NT-Pro-B Natriuret Pep Total Protein 5.2 L Albumin 2.6 L Globulin 2.6 Albumin/Globulin Ratio 1.0 Blood Type Antibody Screen 08/17/18 08/17/18 05:52 06:18 WBC RBC Hgb Hct MCV MCH MCHC RDW Plt Count MPV Neut % (Auto) Lymph % (Auto) [place] % (Auto) Eos % (Auto) Baso % (Auto) Neut # (Auto) Lymph # (Auto) [place] # (Auto) Eos # (Auto) Baso # (Auto) PT 14.3 H INR 1.3 APTT 29.9 Fibrinogen Puncture Site pCO2 pO2 HCO3 ABG pH ABG Total CO2 ABG O2 Saturation ABG Base Excess ABG Hemoglobin ABG Carboxyhemoglobin POC ABG HHb (Measured) ABG Methemoglobin Dom Test A-a O2 Difference Respiratory Index Hgb O2 Saturation Vent Mode Mechanical Rate FiO2 Tidal Volume PEEP Sodium Potassium Chloride Carbon Dioxide Anion Gap BUN Creatinine Est GFR ( Amer) Est GFR (Non-Af Amer) Random Glucose Lactic Acid 0.6 L Calcium Phosphorus Magnesium Total Bilirubin AST ALT Alkaline Phosphatase Troponin I NT-Pro-B Natriuret Pep Total Protein Albumin Globulin Albumin/Globulin Ratio Blood Type Antibody Screen Assessment & Plan - Assessment and Plan (Free Text) Assessment: 72 yo female with a history of CAD s/p stents, CVA with left hemiparesis, AF on rivaroxaban (but reportedly not taking for weeks), presenting with refractory epistaxis s/p embolization culprit vessels. GI consulted for possible GI bleed. # Hematochezia: Dark red blood on rectal exam. Tachycardic but vitals stable otherwise. Hgb 8.3 -> 8.7 post-transfusion. Suspect related to severe epistaxis, but should bleeding persist and Hgb decline will consider ruling out true upper GI source with EGD. # Acute Hypoxic Respiratory Failure: Likely due to aspiration PNA with severe epistaxis. Plan: - Cont PPI gtt - Monitor Hgb daily, more frequent should bleeding recur - Will consider EGD on Sunday pending clinical course - OK for NG and TFs if desired by primary team - Abx, vent management per primay - Will cont to follow Pt seen and examined with Dr. Mejias; please see attestation for further recs/changes. <Mariann Mejias - Last Filed: 08/17/18 12:49> Meds - Medications Medications: Current Medications Hydralazine HCl (Apresoline) 10 mg IVP Q2H PRN PRN Reason: other Last Admin: 08/16/18 22:44 Dose: 10 mg Aztreonam 1 gm/ Sodium (Chloride) 100 mls @ 100 mls/hr IVPB Q8H SYED; Protocol Last Admin: 08/17/18 11:13 Dose: 100 mls/hr Sodium Chloride (Sodium Chloride 0.9%) 1,000 mls @ 75 mls/hr IV .[id number] SYED Last Admin: 08/17/18 11:13 Dose: Not Given Fentanyl Citrate 2,500 mcg/ (Sodium Chloride) 250 mls @ 15.2 mls/hr IV .[id number] SYED; Protocol Last Titration: 08/17/18 11:25 Dose: 1.5 mcg/kg/hr, 11.4 mls/hr Midazolam HCl 100 mg/ Dextrose 100 mls @ 1.52 mls/hr IV .Q24H SYED; Protocol Last Titration: 08/17/18 11:36 Dose: 0.02 mg/kg/hr, 1.52 mls/hr Pantoprazole Sodium 80 mg/ (Sodium Chloride) 100 mls @ 10 mls/hr IVPB .Q10H SYED Results - Vital Signs Recent Vital Signs: Last Vital Signs Temp 98.6 F 08/17/18 08:00 Pulse 93 H 08/17/18 10:03 Resp 20 08/17/18 10:03 BP 137/79 08/17/18 10:03 Pulse Ox 100 08/17/18 10:03 - Labs Result Diagrams: 08/17/18 05:52 08/17/18 05:47 Labs: Laboratory Results - last 24 hr 08/16/18 08/16/18 08/16/18 12:29 13:38 16:08 WBC RBC Hgb Hct MCV MCH MCHC RDW Plt Count MPV Neut % (Auto) Lymph % (Auto) [place] % (Auto) Eos % (Auto) Baso % (Auto) Neut # (Auto) Lymph # (Auto) [place] # (Auto) Eos # (Auto) Baso # (Auto) PT 16.1 H INR 1.5 APTT 32.3 Fibrinogen Puncture Site pCO2 pO2 HCO3 ABG pH ABG Total CO2 ABG O2 Saturation ABG Base Excess ABG Hemoglobin ABG Carboxyhemoglobin POC ABG HHb (Measured) ABG Methemoglobin Dom Test A-a O2 Difference Respiratory Index Hgb O2 Saturation Vent Mode Mechanical Rate FiO2 Tidal Volume PEEP Sodium 142 Potassium 4.0 Chloride 97 L Carbon Dioxide 33 H Anion Gap 16 BUN 21 H Creatinine 1.2 Est GFR ( Amer) 54 Est GFR (Non-Af Amer) 44 Random Glucose 84 Lactic Acid Calcium 9.3 Phosphorus Magnesium Total Bilirubin 1.3 AST 32 ALT 16 Alkaline Phosphatase 121 Troponin I < 0.0120 NT-Pro-B Natriuret Pep Total Protein 6.3 Albumin 3.4 L Globulin 2.8 Albumin/Globulin Ratio 1.2 Blood Type O POSITIVE Antibody Screen Negative 08/16/18 08/16/18 08/16/18 16:08 20:54 20:54 WBC 8.6 6.1 RBC 2.92 L 2.76 L Hgb 9.0 L 8.3 L Hct 27.7 L 26.0 L MCV 94.7 94.0 MCH 30.9 30.0 MCHC 32.6 L 31.9 L RDW 15.8 H 15.9 H Plt Count 263 209 MPV 9.1 9.2 Neut % (Auto) 69.4 65.8 Lymph % (Auto) 21.1 25.9 [place] % (Auto) 7.0 6.4 Eos % (Auto) 1.7 1.0 Baso % (Auto) 0.8 0.9 Neut # (Auto) 6.0 4.0 Lymph # (Auto) 1.8 1.6 [place] # (Auto) 0.6 0.4 Eos # (Auto) 0.1 0.1 Baso # (Auto) 0.1 0.1 PT INR APTT Fibrinogen Puncture Site pCO2 pO2 HCO3 ABG pH ABG Total CO2 ABG O2 Saturation ABG Base Excess ABG Hemoglobin ABG Carboxyhemoglobin POC ABG HHb (Measured) ABG Methemoglobin Dom Test A-a O2 Difference Respiratory Index Hgb O2 Saturation Vent Mode Mechanical Rate FiO2 Tidal Volume PEEP Sodium 142 Potassium 3.6 Chloride 101 Carbon Dioxide 29 Anion Gap 16 BUN 22 H Creatinine 1.0 Est GFR ( Amer) > 60 Est GFR (Non-Af Amer) 55 Random Glucose 77 Lactic Acid Calcium 8.7 Phosphorus 2.6 Magnesium 1.8 Total Bilirubin 1.4 H AST 28 ALT 24 Alkaline Phosphatase 113 Troponin I < 0.0120 NT-Pro-B Natriuret Pep 5000 H Total Protein 5.8 L Albumin 3.0 L Globulin 2.8 Albumin/Globulin Ratio 1.1 Blood Type Antibody Screen 05/01/2508/16/18 08/17/18 20:54 20:54 04:55 WBC RBC Hgb Hct MCV MCH MCHC RDW Plt Count MPV Neut % (Auto) Lymph % (Auto) [place] % (Auto) Eos % (Auto) Baso % (Auto) Neut # (Auto) Lymph # (Auto) [place] # (Auto) Eos # (Auto) Baso # (Auto) PT 15.3 H INR 1.4 APTT 31.9 Fibrinogen 185 L Puncture Site Rr pCO2 38 pO2 298 H HCO3 31.5 H ABG pH 7.53 H ABG Total CO2 33.0 H ABG O2 Saturation 100.1 H ABG Base Excess 8.4 H ABG Hemoglobin 8.6 L ABG Carboxyhemoglobin 1.8 H POC ABG HHb (Measured) -0.1 L ABG Methemoglobin 0.6 Dom Test Pos A-a O2 Difference 368.0 Respiratory Index 1.2 Hgb O2 Saturation 97.7 Vent Mode Prvc Mechanical Rate 20 FiO2 100.0 Tidal Volume 450 PEEP 5 Sodium Potassium Chloride Carbon Dioxide Anion Gap BUN Creatinine Est GFR ( Amer) Est GFR (Non-Af Amer) Random Glucose Lactic Acid 1.3 Calcium Phosphorus Magnesium Total Bilirubin AST ALT Alkaline Phosphatase Troponin I NT-Pro-B Natriuret Pep Total Protein Albumin Globulin Albumin/Globulin Ratio Blood Type Antibody Screen 08/17/18 08/17/18 08/17/18 05:47 05:52 05:52 WBC 6.1 RBC 2.70 L Hgb 8.7 L Hct 25.8 L MCV 95.8 MCH 32.4 H MCHC 33.9 RDW 15.5 H Plt Count 198 MPV 9.3 Neut % (Auto) 66.2 Lymph % (Auto) 23.2 [place] % (Auto) 6.9 Eos % (Auto) 3.1 Baso % (Auto) 0.6 Neut # (Auto) 4.0 Lymph # (Auto) 1.4 [place] # (Auto) 0.4 Eos # (Auto) 0.2 Baso # (Auto) 0.0 PT 14.3 H INR 1.3 APTT 29.9 Fibrinogen Puncture Site pCO2 pO2 HCO3 ABG pH ABG Total CO2 ABG O2 Saturation ABG Base Excess ABG Hemoglobin ABG Carboxyhemoglobin POC ABG HHb (Measured) ABG Methemoglobin Dom Test A-a O2 Difference Respiratory Index Hgb O2 Saturation Vent Mode Mechanical Rate FiO2 Tidal Volume PEEP Sodium 142 Potassium 3.3 L Chloride 103 Carbon Dioxide 30 Anion Gap 12 BUN 22 H Creatinine 1.1 Est GFR ( Amer) 59 Est GFR (Non-Af Amer) 49 Random Glucose 74 Lactic Acid Calcium 8.6 Phosphorus 2.7 Magnesium 1.8 Total Bilirubin 1.4 H AST 23 ALT 25 Alkaline Phosphatase 97 Troponin I NT-Pro-B Natriuret Pep Total Protein 5.2 L Albumin 2.6 L Globulin 2.6 Albumin/Globulin Ratio 1.0 Blood Type Antibody Screen 08/17/18 06:18 WBC RBC Hgb Hct MCV MCH MCHC RDW Plt Count MPV Neut % (Auto) Lymph % (Auto) [place] % (Auto) Eos % (Auto) Baso % (Auto) Neut # (Auto) Lymph # (Auto) [place] # (Auto) Eos # (Auto) Baso # (Auto) PT INR APTT Fibrinogen Puncture Site pCO2 pO2 HCO3 ABG pH ABG Total CO2 ABG O2 Saturation ABG Base Excess ABG Hemoglobin ABG Carboxyhemoglobin POC ABG HHb (Measured) ABG Methemoglobin Dom Test A-a O2 Difference Respiratory Index Hgb O2 Saturation Vent Mode Mechanical Rate FiO2 Tidal Volume PEEP Sodium Potassium Chloride Carbon Dioxide Anion Gap BUN Creatinine Est GFR ( Amer) Est GFR (Non-Af Amer) Random Glucose Lactic Acid 0.6 L Calcium Phosphorus Magnesium Total Bilirubin AST ALT Alkaline Phosphatase Troponin I NT-Pro-B Natriuret Pep Total Protein Albumin Globulin Albumin/Globulin Ratio Blood Type Antibody Screen Attending/Attestation - Attestation I have personally seen and examined this patient.: Yes I have fully participated in the care of the patient.: Yes I have reviewed all pertinent clinical information: Yes Notes (Text): 08/17/18 12:43 I have seen and examined the pt with the GI fellow. This is a 72 yo F w/ PMH of CAD s/p stents, CVA w/ L hemiparesis, AF on rivaroxaban (though held recently) who initially p/w refractory epistaxis, requiring embolization of the L sphenopalatine artery, now with some episodes of melena, r/o GIB. Pt received 1U RBC with only slight increase in Hb. No repeated episodes of melena and HD stable though remains intubated. Suspect most of the bleeding 2/2 prior blood from epistaxis - this should eventually slow down as she was just embolized yesterday and this may all be old blood. Continue to monitor H/H. PPI gtt for now (though would decrease to PPI IV bid if Hb remains stable and no evidence of further GIB). Ok to insert OGT if needed.
--- NOTE | 2018-08-17 09:43 | CP.CCUPN ---
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 Patient admitted to the emergency room with the epistaxis, the bleeding was uncontrollable. Following that the patient undergone internal maxillary artery, left facial artery embolization. Patient received FFP, 1 unit of PRBC. The bleeding currently stopped as well. Patient was intubated Patient is currently sedated As of the information was reviewed in the chart. On examination: Vital signs currently stable. Sedated with fentanyl, Versed. On low-dose Levophed. Protonix drip. Chest bilateral good air entry, wheezing bilaterally noted. Heart sounds are regular Abdomen soft. Patient has a lower abdominal likely midline hernia noted. Patient also has melena just now. Patient was seen by buyer liaison. Labs chemistry nonspecific Low potassium Mild elevation of the bilirubin Hemoglobin 8.7 ABG reviewed Chest x-ray showing right midlung infiltrative changes Assessment and recommendation: 72-year-old female with multiple medical issues atherosclerotic heart disease stent history of brain aneurysm status post intervention admitted with the big epistaxis. Transfusion. Status post embolization. Aspiration pneumonia likely now. With possible midlung infiltrate on the right lung We will get the GI evaluation for possible upper endoscopy if needed. Meanwhile we will continue the supportive treatment. Full support ventilation. Reduce the oxygen level. Acute respiratory failure on ventilator. Monitor the hemoglobin level Transfusion as needed. Continue the Protonix drip. Overall prognosis is guarded condition is critical and will follow the patient CCU Objective - Vital Signs / Intake & Output Vital Signs (Last 4 hours): Vital Signs Temp Pulse Resp BP Pulse Ox 08/17/18 08:04 89 20 111/78 100 08/17/18 08:00 98.6 F 08/17/18 07:03 94 H 20 123/78 100 08/17/18 06:03 141/84 08/17/18 06:02 94 H 20 100 08/17/18 06:00 94 H 20 100 Intake and Output (Last 8hrs): Intake & Output 08/16/18 08/17/18 08/17/18 22:59 06:59 14:59 Intake Total 170 1147.6 204.4 Output Total 450 Balance 170 697.6 204.4 Weight 167 lb 8.821 oz 168 lb Intake: IV 0 Intake, IV Amount 170 822.6 204.4 Left Antecubital 121.6 Left Hand 150 Left Hand Y Port 21 20 Right AC Y Port 20 80 30.4 Right Antecubital 150 600 4 Oral 0 0 0 Blood Product 325 Red Blood Cells Cpd As1 325 Lr Unit [id number] Output: Urine 450 Straight 450 Other: # Bowel Movements 1 1 - Medications Active Medications: Active Medications Generic Name Dose Route Start Last Admin Trade Name Freq PRN Reason Stop Dose Admin Hydralazine HCl 10 mg 08/16/18 22:40 08/16/18 22:44 Apresoline IVP 10 mg Q2H PRN Administration other Aztreonam 1 gm/ Sodium 100 mls @ 100 mls/hr 08/16/18 19:00 08/17/18 03:19 Chloride IVPB 100 mls/hr Q8H SYED Administration Protocol Sodium Chloride 1,000 mls @ 75 mls/hr 08/16/18 20:15 08/16/18 21:20 Sodium Chloride 0.9% IV 75 mls/hr .[id number] SYED Administration Pantoprazole Sodium 80 mg/ 100 mls @ 10 mls/hr 08/16/18 20:30 08/17/18 06:25 Sodium Chloride IVP 10 mls/hr .Q10H SYED Administration 8 MG/HR Fentanyl Citrate 2,500 mcg/ 250 mls @ 15.2 mls/hr 08/16/18 23:15 08/16/18 23:20 Sodium Chloride IV 2 mcg/kg/hr .[id number] SYED 15.2 mls/hr Administration Protocol 2 MCG/KG/HR Midazolam HCl 100 mg/ Dextrose 100 mls @ 1.52 mls/hr 08/16/18 23:15 08/17/18 00:58 IV 0.03 mg/kg/hr .Q24H SYED 3 mls/hr Titration Protocol 0.02 MG/KG/HR - Patient Studies Lab Studies: Lab Studies 08/17/18 08/17/18 08/17/18 Range/Units 06:18 05:52 05:52 WBC 6.1 (4.8-10.8) K/uL RBC 2.70 L (3.80-5.20) Mil/uL Hgb 8.7 L (11.0-16.0) g/dL Hct 25.8 L (34.0-47.0) % MCV 95.8 (81.0-99.0) fL MCH 32.4 H (27.0-31.0) pg MCHC 33.9 (33.0-37.0) g/dL RDW 15.5 H (11.5-14.5) % Plt Count 198 (130-400) K/uL MPV 9.3 (7.2-11.7) fL Neut % (Auto) 66.2 (50.0-75.0) % Lymph % (Auto) 23.2 (20.0-40.0) % Martin % (Auto) 6.9 (0.0-10.0) % Eos % (Auto) 3.1 (0.0-4.0) % Baso % (Auto) 0.6 (0.0-2.0) % Neut # (Auto) 4.0 (1.8-7.0) K/uL Lymph # (Auto) 1.4 (1.0-4.3) K/uL Martin # (Auto) 0.4 (0.0-0.8) K/uL Eos # (Auto) 0.2 (0.0-0.7) K/uL Baso # (Auto) 0.0 (0.0-0.2) K/uL PT 14.3 H (9.7-12.2) SECONDS INR 1.3 APTT 29.9 (21-34) SECONDS Fibrinogen (200-400) mg/dL Puncture Site pCO2 (35-45) mm/Hg pO2 (80-100) mm/Hg HCO3 (21-28) mmol/L ABG pH (7.35-7.45) ABG Total CO2 (22-28) mmol/L ABG O2 Saturation (95-98) % ABG Base Excess (-2.0-3.0) mmol/L ABG Hemoglobin (11.7-17.4) g/dL ABG Carboxyhemoglobin (0.5-1.5) % POC ABG HHb (Measured) (0.0-5.0) % ABG Methemoglobin (0.0-3.0) % Dom Test A-a O2 Difference mm/Hg Respiratory Index Hgb O2 Saturation (95.0-98.0) % Vent Mode Mechanical Rate FiO2 % Tidal Volume PEEP Sodium (132-148) mmol/L Potassium (3.6-5.2) mmol/L Chloride (98-107) mmol/L Carbon Dioxide (22-30) mmol/L Anion Gap (10-20) BUN (7-17) mg/dL Creatinine (0.7-1.2) mg/dL Est GFR ( Amer) Est GFR (Non-Af Amer) Random Glucose (65-105) mg/dL Lactic Acid 0.6 L (0.7-2.1) mmol/L Calcium (8.6-10.4) mg/dl Phosphorus (2.5-4.5) mg/dL Magnesium (1.6-2.3) mg/dL Total Bilirubin (0.2-1.3) mg/dL AST (14-36) U/L ALT (9-52) U/L Alkaline Phosphatase (38-126) U/L Troponin I (0.00-0.120) ng/mL NT-Pro-B Natriuret Pep (0-900) pg/mL Total Protein (6.3-8.3) g/dL Albumin (3.5-5.0) g/dL Globulin (2.2-3.9) gm/dL Albumin/Globulin Ratio (1.0-2.1) Blood Type Antibody Screen 08/17/18 08/17/18 08/16/18 Range/Units 05:47 04:55 20:54 WBC (4.8-10.8) K/uL RBC (3.80-5.20) Mil/uL Hgb (11.0-16.0) g/dL Hct (34.0-47.0) % MCV (81.0-99.0) fL MCH (27.0-31.0) pg MCHC (33.0-37.0) g/dL RDW (11.5-14.5) % Plt Count (130-400) K/uL MPV (7.2-11.7) fL Neut % (Auto) (50.0-75.0) % Lymph % (Auto) (20.0-40.0) % Martin % (Auto) (0.0-10.0) % Eos % (Auto) (0.0-4.0) % Baso % (Auto) (0.0-2.0) % Neut # (Auto) (1.8-7.0) K/uL Lymph # (Auto) (1.0-4.3) K/uL Martin # (Auto) (0.0-0.8) K/uL Eos # (Auto) (0.0-0.7) K/uL Baso # (Auto) (0.0-0.2) K/uL PT (9.7-12.2) SECONDS INR APTT (21-34) SECONDS Fibrinogen (200-400) mg/dL Puncture Site Rr pCO2 38 (35-45) mm/Hg pO2 298 H (80-100) mm/Hg HCO3 31.5 H (21-28) mmol/L ABG pH 7.53 H (7.35-7.45) ABG Total CO2 33.0 H (22-28) mmol/L ABG O2 Saturation 100.1 H (95-98) % ABG Base Excess 8.4 H (-2.0-3.0) mmol/L ABG Hemoglobin 8.6 L (11.7-17.4) g/dL ABG Carboxyhemoglobin 1.8 H (0.5-1.5) % POC ABG HHb (Measured) -0.1 L (0.0-5.0) % ABG Methemoglobin 0.6 (0.0-3.0) % Dom Test Pos A-a O2 Difference 368.0 mm/Hg Respiratory Index 1.2 Hgb O2 Saturation 97.7 (95.0-98.0) % Vent Mode Prvc Mechanical Rate 20 FiO2 100.0 % Tidal Volume 450 PEEP 5 Sodium 142 (132-148) mmol/L Potassium 3.3 L (3.6-5.2) mmol/L Chloride 103 (98-107) mmol/L Carbon Dioxide 30 (22-30) mmol/L Anion Gap 12 (10-20) BUN 22 H (7-17) mg/dL Creatinine 1.1 (0.7-1.2) mg/dL Est GFR ( Amer) 59 Est GFR (Non-Af Amer) 49 Random Glucose 74 (65-105) mg/dL Lactic Acid 1.3 (0.7-2.1) mmol/L Calcium 8.6 (8.6-10.4) mg/dl Phosphorus 2.7 (2.5-4.5) mg/dL Magnesium 1.8 (1.6-2.3) mg/dL Total Bilirubin 1.4 H (0.2-1.3) mg/dL AST 23 (14-36) U/L ALT 25 (9-52) U/L Alkaline Phosphatase 97 (38-126) U/L Troponin I (0.00-0.120) ng/mL NT-Pro-B Natriuret Pep (0-900) pg/mL Total Protein 5.2 L (6.3-8.3) g/dL Albumin 2.6 L (3.5-5.0) g/dL Globulin 2.6 (2.2-3.9) gm/dL Albumin/Globulin Ratio 1.0 (1.0-2.1) Blood Type Antibody Screen 08/16/18 08/16/18 08/16/18 Range/Units 20:54 20:54 20:54 WBC 6.1 (4.8-10.8) K/uL RBC 2.76 L (3.80-5.20) Mil/uL Hgb 8.3 L (11.0-16.0) g/dL Hct 26.0 L (34.0-47.0) % MCV 94.0 (81.0-99.0) fL MCH 30.0 (27.0-31.0) pg MCHC 31.9 L (33.0-37.0) g/dL RDW 15.9 H (11.5-14.5) % Plt Count 209 (130-400) K/uL MPV 9.2 (7.2-11.7) fL Neut % (Auto) 65.8 (50.0-75.0) % Lymph % (Auto) 25.9 (20.0-40.0) % Martin % (Auto) 6.4 (0.0-10.0) % Eos % (Auto) 1.0 (0.0-4.0) % Baso % (Auto) 0.9 (0.0-2.0) % Neut # (Auto) 4.0 (1.8-7.0) K/uL Lymph # (Auto) 1.6 (1.0-4.3) K/uL Martin # (Auto) 0.4 (0.0-0.8) K/uL Eos # (Auto) 0.1 (0.0-0.7) K/uL Baso # (Auto) 0.1 (0.0-0.2) K/uL PT 15.3 H (9.7-12.2) SECONDS INR 1.4 APTT 31.9 (21-34) SECONDS Fibrinogen 185 L (200-400) mg/dL Puncture Site pCO2 (35-45) mm/Hg pO2 (80-100) mm/Hg HCO3 (21-28) mmol/L ABG pH (7.35-7.45) ABG Total CO2 (22-28) mmol/L ABG O2 Saturation (95-98) % ABG Base Excess (-2.0-3.0) mmol/L ABG Hemoglobin (11.7-17.4) g/dL ABG Carboxyhemoglobin (0.5-1.5) % POC ABG HHb (Measured) (0.0-5.0) % ABG Methemoglobin (0.0-3.0) % Dom Test A-a O2 Difference mm/Hg Respiratory Index Hgb O2 Saturation (95.0-98.0) % Vent Mode Mechanical Rate FiO2 % Tidal Volume PEEP Sodium 142 (132-148) mmol/L Potassium 3.6 (3.6-5.2) mmol/L Chloride 101 (98-107) mmol/L Carbon Dioxide 29 (22-30) mmol/L Anion Gap 16 (10-20) BUN 22 H (7-17) mg/dL Creatinine 1.0 (0.7-1.2) mg/dL Est GFR ( Amer) > 60 Est GFR (Non-Af Amer) 55 Random Glucose 77 (65-105) mg/dL Lactic Acid (0.7-2.1) mmol/L Calcium 8.7 (8.6-10.4) mg/dl Phosphorus 2.6 (2.5-4.5) mg/dL Magnesium 1.8 (1.6-2.3) mg/dL Total Bilirubin 1.4 H (0.2-1.3) mg/dL AST 28 (14-36) U/L ALT 24 (9-52) U/L Alkaline Phosphatase 113 (38-126) U/L Troponin I < 0.0120 (0.00-0.120) ng/mL NT-Pro-B Natriuret Pep 5000 H (0-900) pg/mL Total Protein 5.8 L (6.3-8.3) g/dL Albumin 3.0 L (3.5-5.0) g/dL Globulin 2.8 (2.2-3.9) gm/dL Albumin/Globulin Ratio 1.1 (1.0-2.1) Blood Type Antibody Screen 08/16/18 08/16/18 08/16/18 Range/Units 16:08 16:08 13:38 WBC 8.6 (4.8-10.8) K/uL RBC 2.92 L (3.80-5.20) Mil/uL Hgb 9.0 L (11.0-16.0) g/dL Hct 27.7 L (34.0-47.0) % MCV 94.7 (81.0-99.0) fL MCH 30.9 (27.0-31.0) pg MCHC 32.6 L (33.0-37.0) g/dL RDW 15.8 H (11.5-14.5) % Plt Count 263 (130-400) K/uL MPV 9.1 (7.2-11.7) fL Neut % (Auto) 69.4 (50.0-75.0) % Lymph % (Auto) 21.1 (20.0-40.0) % Martin % (Auto) 7.0 (0.0-10.0) % Eos % (Auto) 1.7 (0.0-4.0) % Baso % (Auto) 0.8 (0.0-2.0) % Neut # (Auto) 6.0 (1.8-7.0) K/uL Lymph # (Auto) 1.8 (1.0-4.3) K/uL Martin # (Auto) 0.6 (0.0-0.8) K/uL Eos # (Auto) 0.1 (0.0-0.7) K/uL Baso # (Auto) 0.1 (0.0-0.2) K/uL PT 16.1 H (9.7-12.2) SECONDS INR 1.5 APTT 32.3 (21-34) SECONDS Fibrinogen (200-400) mg/dL Puncture Site pCO2 (35-45) mm/Hg pO2 (80-100) mm/Hg HCO3 (21-28) mmol/L ABG pH (7.35-7.45) ABG Total CO2 (22-28) mmol/L ABG O2 Saturation (95-98) % ABG Base Excess (-2.0-3.0) mmol/L ABG Hemoglobin (11.7-17.4) g/dL ABG Carboxyhemoglobin (0.5-1.5) % POC ABG HHb (Measured) (0.0-5.0) % ABG Methemoglobin (0.0-3.0) % Dom Test A-a O2 Difference mm/Hg Respiratory Index Hgb O2 Saturation (95.0-98.0) % Vent Mode Mechanical Rate FiO2 % Tidal Volume PEEP Sodium 142 (132-148) mmol/L Potassium 4.0 (3.6-5.2) mmol/L Chloride 97 L (98-107) mmol/L Carbon Dioxide 33 H (22-30) mmol/L Anion Gap 16 (10-20) BUN 21 H (7-17) mg/dL Creatinine 1.2 (0.7-1.2) mg/dL Est GFR ( Amer) 54 Est GFR (Non-Af Amer) 44 Random Glucose 84 (65-105) mg/dL Lactic Acid (0.7-2.1) mmol/L Calcium 9.3 (8.6-10.4) mg/dl Phosphorus (2.5-4.5) mg/dL Magnesium (1.6-2.3) mg/dL Total Bilirubin 1.3 (0.2-1.3) mg/dL AST 32 (14-36) U/L ALT 16 (9-52) U/L Alkaline Phosphatase 121 (38-126) U/L Troponin I < 0.0120 (0.00-0.120) ng/mL NT-Pro-B Natriuret Pep (0-900) pg/mL Total Protein 6.3 (6.3-8.3) g/dL Albumin 3.4 L (3.5-5.0) g/dL Globulin 2.8 (2.2-3.9) gm/dL Albumin/Globulin Ratio 1.2 (1.0-2.1) Blood Type Antibody Screen 08/16/18 08/16/18 Range/Units 12:29 12:29 WBC 7.4 (4.8-10.8) K/uL RBC 2.90 L (3.80-5.20) Mil/uL Hgb 9.1 L (11.0-16.0) g/dL Hct 27.4 L (34.0-47.0) % MCV 94.6 (81.0-99.0) fL MCH 31.5 H (27.0-31.0) pg MCHC 33.3 (33.0-37.0) g/dL RDW 16.0 H (11.5-14.5) % Plt Count 234 (130-400) K/uL MPV 9.6 (7.2-11.7) fL Neut % (Auto) 65.9 (50.0-75.0) % Lymph % (Auto) 23.5 (20.0-40.0) % Martin % (Auto) 6.7 (0.0-10.0) % Eos % (Auto) 2.8 (0.0-4.0) % Baso % (Auto) 1.1 (0.0-2.0) % Neut # (Auto) 4.9 (1.8-7.0) K/uL Lymph # (Auto) 1.7 (1.0-4.3) K/uL Martin # (Auto) 0.5 (0.0-0.8) K/uL Eos # (Auto) 0.2 (0.0-0.7) K/uL Baso # (Auto) 0.1 (0.0-0.2) K/uL PT (9.7-12.2) SECONDS INR APTT (21-34) SECONDS Fibrinogen (200-400) mg/dL Puncture Site pCO2 (35-45) mm/Hg pO2 (80-100) mm/Hg HCO3 (21-28) mmol/L ABG pH (7.35-7.45) ABG Total CO2 (22-28) mmol/L ABG O2 Saturation (95-98) % ABG Base Excess (-2.0-3.0) mmol/L ABG Hemoglobin (11.7-17.4) g/dL ABG Carboxyhemoglobin (0.5-1.5) % POC ABG HHb (Measured) (0.0-5.0) % ABG Methemoglobin (0.0-3.0) % Dom Test A-a O2 Difference mm/Hg Respiratory Index Hgb O2 Saturation (95.0-98.0) % Vent Mode Mechanical Rate FiO2 % Tidal Volume PEEP Sodium (132-148) mmol/L Potassium (3.6-5.2) mmol/L Chloride (98-107) mmol/L Carbon Dioxide (22-30) mmol/L Anion Gap (10-20) BUN (7-17) mg/dL Creatinine (0.7-1.2) mg/dL Est GFR ( Amer) Est GFR (Non-Af Amer) Random Glucose (65-105) mg/dL Lactic Acid (0.7-2.1) mmol/L Calcium (8.6-10.4) mg/dl Phosphorus (2.5-4.5) mg/dL Magnesium (1.6-2.3) mg/dL Total Bilirubin (0.2-1.3) mg/dL AST (14-36) U/L ALT (9-52) U/L Alkaline Phosphatase (38-126) U/L Troponin I (0.00-0.120) ng/mL NT-Pro-B Natriuret Pep (0-900) pg/mL Total Protein (6.3-8.3) g/dL Albumin (3.5-5.0) g/dL Globulin (2.2-3.9) gm/dL Albumin/Globulin Ratio (1.0-2.1) Blood Type O POSITIVE Antibody Screen Negative Laboratory Results - last 24 hr 08/16/18 08/16/18 08/16/18 12:29 12:29 13:38 WBC 7.4 RBC 2.90 L Hgb 9.1 L Hct 27.4 L MCV 94.6 MCH 31.5 H MCHC 33.3 RDW 16.0 H Plt Count 234 MPV 9.6 Neut % (Auto) 65.9 Lymph % (Auto) 23.5 Martin % (Auto) 6.7 Eos % (Auto) 2.8 Baso % (Auto) 1.1 Neut # (Auto) 4.9 Lymph # (Auto) 1.7 Martin # (Auto) 0.5 Eos # (Auto) 0.2 Baso # (Auto) 0.1 PT INR APTT Fibrinogen Puncture Site pCO2 pO2 HCO3 ABG pH ABG Total CO2 ABG O2 Saturation ABG Base Excess ABG Hemoglobin ABG Carboxyhemoglobin POC ABG HHb (Measured) ABG Methemoglobin Dom Test A-a O2 Difference Respiratory Index Hgb O2 Saturation Vent Mode Mechanical Rate FiO2 Tidal Volume PEEP Sodium 142 Potassium 4.0 Chloride 97 L Carbon Dioxide 33 H Anion Gap 16 BUN 21 H Creatinine 1.2 Est GFR ( Amer) 54 Est GFR (Non-Af Amer) 44 Random Glucose 84 Lactic Acid Calcium 9.3 Phosphorus Magnesium Total Bilirubin 1.3 AST 32 ALT 16 Alkaline Phosphatase 121 Troponin I < 0.0120 NT-Pro-B Natriuret Pep Total Protein 6.3 Albumin 3.4 L Globulin 2.8 Albumin/Globulin Ratio 1.2 Blood Type O POSITIVE Antibody Screen Negative 08/16/18 08/16/18 08/16/18 16:08 16:08 20:54 WBC 8.6 RBC 2.92 L Hgb 9.0 L Hct 27.7 L MCV 94.7 MCH 30.9 MCHC 32.6 L RDW 15.8 H Plt Count 263 MPV 9.1 Neut % (Auto) 69.4 Lymph % (Auto) 21.1 Martin % (Auto) 7.0 Eos % (Auto) 1.7 Baso % (Auto) 0.8 Neut # (Auto) 6.0 Lymph # (Auto) 1.8 Martin # (Auto) 0.6 Eos # (Auto) 0.1 Baso # (Auto) 0.1 PT 16.1 H INR 1.5 APTT 32.3 Fibrinogen Puncture Site pCO2 pO2 HCO3 ABG pH ABG Total CO2 ABG O2 Saturation ABG Base Excess ABG Hemoglobin ABG Carboxyhemoglobin POC ABG HHb (Measured) ABG Methemoglobin Dom Test A-a O2 Difference Respiratory Index Hgb O2 Saturation Vent Mode Mechanical Rate FiO2 Tidal Volume PEEP Sodium 142 Potassium 3.6 Chloride 101 Carbon Dioxide 29 Anion Gap 16 BUN 22 H Creatinine 1.0 Est GFR ( Amer) > 60 Est GFR (Non-Af Amer) 55 Random Glucose 77 Lactic Acid Calcium 8.7 Phosphorus 2.6 Magnesium 1.8 Total Bilirubin 1.4 H AST 28 ALT 24 Alkaline Phosphatase 113 Troponin I < 0.0120 NT-Pro-B Natriuret Pep 5000 H Total Protein 5.8 L Albumin 3.0 L Globulin 2.8 Albumin/Globulin Ratio 1.1 Blood Type Antibody Screen 08/16/18 08/16/18 08/16/18 20:54 20:54 20:54 WBC 6.1 RBC 2.76 L Hgb 8.3 L Hct 26.0 L MCV 94.0 MCH 30.0 MCHC 31.9 L RDW 15.9 H Plt Count 209 MPV 9.2 Neut % (Auto) 65.8 Lymph % (Auto) 25.9 Martin % (Auto) 6.4 Eos % (Auto) 1.0 Baso % (Auto) 0.9 Neut # (Auto) 4.0 Lymph # (Auto) 1.6 Martin # (Auto) 0.4 Eos # (Auto) 0.1 Baso # (Auto) 0.1 PT 15.3 H INR 1.4 APTT 31.9 Fibrinogen 185 L Puncture Site pCO2 pO2 HCO3 ABG pH ABG Total CO2 ABG O2 Saturation ABG Base Excess ABG Hemoglobin ABG Carboxyhemoglobin POC ABG HHb (Measured) ABG Methemoglobin Dom Test A-a O2 Difference Respiratory Index Hgb O2 Saturation Vent Mode Mechanical Rate FiO2 Tidal Volume PEEP Sodium Potassium Chloride Carbon Dioxide Anion Gap BUN Creatinine Est GFR ( Amer) Est GFR (Non-Af Amer) Random Glucose Lactic Acid 1.3 Calcium Phosphorus Magnesium Total Bilirubin AST ALT Alkaline Phosphatase Troponin I NT-Pro-B Natriuret Pep Total Protein Albumin Globulin Albumin/Globulin Ratio Blood Type Antibody Screen 08/17/18 08/17/18 08/17/18 04:55 05:47 05:52 WBC 6.1 RBC 2.70 L Hgb 8.7 L Hct 25.8 L MCV 95.8 MCH 32.4 H MCHC 33.9 RDW 15.5 H Plt Count 198 MPV 9.3 Neut % (Auto) 66.2 Lymph % (Auto) 23.2 Martin % (Auto) 6.9 Eos % (Auto) 3.1 Baso % (Auto) 0.6 Neut # (Auto) 4.0 Lymph # (Auto) 1.4 Martin # (Auto) 0.4 Eos # (Auto) 0.2 Baso # (Auto) 0.0 PT INR APTT Fibrinogen Puncture Site Rr pCO2 38 pO2 298 H HCO3 31.5 H ABG pH 7.53 H ABG Total CO2 33.0 H ABG O2 Saturation 100.1 H ABG Base Excess 8.4 H ABG Hemoglobin 8.6 L ABG Carboxyhemoglobin 1.8 H POC ABG HHb (Measured) -0.1 L ABG Methemoglobin 0.6 Dom Test Pos A-a O2 Difference 368.0 Respiratory Index 1.2 Hgb O2 Saturation 97.7 Vent Mode Prvc Mechanical Rate 20 FiO2 100.0 Tidal Volume 450 PEEP 5 Sodium 142 Potassium 3.3 L Chloride 103 Carbon Dioxide 30 Anion Gap 12 BUN 22 H Creatinine 1.1 Est GFR ( Amer) 59 Est GFR (Non-Af Amer) 49 Random Glucose 74 Lactic Acid Calcium 8.6 Phosphorus 2.7 Magnesium 1.8 Total Bilirubin 1.4 H AST 23 ALT 25 Alkaline Phosphatase 97 Troponin I NT-Pro-B Natriuret Pep Total Protein 5.2 L Albumin 2.6 L Globulin 2.6 Albumin/Globulin Ratio 1.0 Blood Type Antibody Screen 08/17/18 08/17/18 05:52 06:18 WBC RBC Hgb Hct MCV MCH MCHC RDW Plt Count MPV Neut % (Auto) Lymph % (Auto) Martin % (Auto) Eos % (Auto) Baso % (Auto) Neut # (Auto) Lymph # (Auto) Martin # (Auto) Eos # (Auto) Baso # (Auto) PT 14.3 H INR 1.3 APTT 29.9 Fibrinogen Puncture Site pCO2 pO2 HCO3 ABG pH ABG Total CO2 ABG O2 Saturation ABG Base Excess ABG Hemoglobin ABG Carboxyhemoglobin POC ABG HHb (Measured) ABG Methemoglobin Dom Test A-a O2 Difference Respiratory Index Hgb O2 Saturation Vent Mode Mechanical Rate FiO2 Tidal Volume PEEP Sodium Potassium Chloride Carbon Dioxide Anion Gap BUN Creatinine Est GFR ( Amer) Est GFR (Non-Af Amer) Random Glucose Lactic Acid 0.6 L Calcium Phosphorus Magnesium Total Bilirubin AST ALT Alkaline Phosphatase Troponin I NT-Pro-B Natriuret Pep Total Protein Albumin Globulin Albumin/Globulin Ratio Blood Type Antibody Screen Radiology Impressions: Radiology Impressions Chest X-Ray 08/16/18 12:04 IMPRESSION: Small right pleural effusion. Cannot rule out superimposed infiltrate. EKG/Cardiology Studies: Cardiology / EKG Studies 08/16/18 12:04 ELECTROCARDIOGRAM Stat Comment: Mode Of Transportation: BED Reason For Exam: chest pain Fingerstick Blood Sugar Results: 96 Critical Care Progress Note - Nutrition Nutrition: Nutrition Category Date Time Status NPO Diet [DIET] Diets 08/16/18 Breakfast Active
[2018-08-17] MEDS: Sodium Chloride 0.9% 1,000 ML IV SCH ×3 (11:13→23:36)
--- NOTE | 2018-08-17 11:19 | CT ---
Date of service: 08/17/2018 PROCEDURE: CT HEAD WITHOUT CONTRAST. HISTORY: Dizziness COMPARISON: None available. TECHNIQUE: Axial computed tomography images were obtained through the head/brain without intravenous contrast. Radiation dose: Total exam DLP = 1536.12 mGy-cm. This CT exam was performed using one or more of the following dose reduction techniques: Automated exposure control, adjustment of the mA and/or kV according to patient size, and/or use of iterative reconstruction technique. FINDINGS: HEMORRHAGE: No acute parenchymal, subarachnoid or extra-axial hemorrhage. BRAIN: There is diffuse homogeneous appearance of the brain parenchyma with loss of the corticomedullary distinction. Findings suggest underlying sequela of global hypoxia. Clinical correlation recommended. There also appears to be underlying mild to moderate periventricular white matter ischemic changes seen extending peripherally Moderate generalized volume loss VENTRICLES: No obstructive hydrocephalus. CALVARIUM: There are no acute calvarial fractures. PARANASAL SINUSES: Unremarkable as visualized. No significant inflammatory changes. MASTOID AIR CELLS: Unremarkable as visualized. No inflammatory changes. OTHER FINDINGS: None. IMPRESSION: No acute intracranial hemorrhage. Diffuse homogeneous appearance of the brain parenchyma with loss of the corticomedullary distinction. Findings suggest underlying global hypoxia. Clinical correlation recommended. There are also underlying chronic white matter ischemic changes seen. Note that these findings were placed in PA review folder for follow up. Case also discussed with ER ANGEL Balderrama at 10:50 a.m. with written down and read back verification. Case also discussed with ICU Call Center Recruiter Dr. Viera at 11:15 a.m.
--- NOTE | 2018-08-17 13:54 | RAD ---
Date of service: 08/17/2018 HISTORY: Intubated COMPARISON: Comparison chest dated 08/16/2018 TECHNIQUE: 1 view obtained. FINDINGS: In situ ETT, tip of which lies approximately 5.5 cm above [place]. LUNGS: Mild central pulmonary congestion. Bilateral lower lobe alveolar-type infiltrates and bilateral effusions right larger than left. PLEURA: As above. Pneumothorax apparent. CARDIOVASCULAR: Heart remains markedly enlarged. There is aortic atherosclerotic calcification present. OSSEOUS STRUCTURES: No significant abnormalities. VISUALIZED UPPER ABDOMEN: Normal. OTHER FINDINGS: None. IMPRESSION: ETT as above. Marked cardiomegaly. Mild central pulmonary vascular congestion with bilateral lower lobe alveolar-type infiltrates and bilateral effusions right larger than left.
--- NOTE | 2018-08-17 14:04 | RAD ---
Date of service: 08/16/2018 HISTORY: Eval ET Tube COMPARISON: Chest dated 08/16/2018 at 1230 hr TECHNIQUE: 1 view obtained. FINDINGS: In situ ETT, tip of which lies approximately 5.5 cm above [place]. LUNGS: Right lower lobe atelectasis or infiltrate with small effusion PLEURA: No significant pleural effusion identified, no pneumothorax apparent. CARDIOVASCULAR: Heart remains enlarged. Aortic atherosclerotic calcification present. Normal cardiac size. No pulmonary vascular congestion. OSSEOUS STRUCTURES: Mild multilevel degenerative spondylosis of the thoracic spine VISUALIZED UPPER ABDOMEN: Normal. OTHER FINDINGS: None. IMPRESSION: ETT as above. Right lower lobe atelectasis or infiltrate with small effusion
[2018-08-17] MEDS: Pantoprazole 80 MG in Sodium Chloride 0.9% 100 ML IVPB SCH ×2 (15:25→23:49)
--- NOTE | 2018-08-17 16:03 | CP.PCM.PN ---
Subjective - Date & Time of Evaluation Date of Evaluation: 08/17/18 - Subjective Subjective: patient examined today no nausea no vomitnig no shortness of breath no dizzienss no diarrhea no fever Objective - Vital Signs/Intake and Output Vital Signs (last 24 hours): Temp Pulse Resp BP Pulse Ox 98.7 F 107 H 20 134/80 100 08/17/18 12:00 08/17/18 14:03 08/17/18 14:03 08/17/18 14:03 08/17/18 14:03 Intake and Output: 08/17/18 08/17/18 06:59 18:59 Intake Total 1317.6 1188.6 Output Total 450 Balance 867.6 1188.6 - Medications Medications: Current Medications Hydralazine HCl (Apresoline) 10 mg IVP Q2H PRN PRN Reason: other Last Admin: 08/16/18 22:44 Dose: 10 mg Aztreonam 1 gm/ Sodium (Chloride) 100 mls @ 100 mls/hr IVPB Q8H SYED; Protocol Last Admin: 08/17/18 11:13 Dose: 100 mls/hr Sodium Chloride (Sodium Chloride 0.9%) 1,000 mls @ 75 mls/hr IV .[id number] SYED Last Admin: 08/17/18 11:13 Dose: Not Given Fentanyl Citrate 2,500 mcg/ (Sodium Chloride) 250 mls @ 15.2 mls/hr IV .[id number] SYED; Protocol Last Titration: 08/17/18 13:28 Dose: 0.5 mcg/kg/hr, 3.8 mls/hr Midazolam HCl 100 mg/ Dextrose 100 mls @ 1.52 mls/hr IV .Q24H SYED; Protocol Last Titration: 08/17/18 14:16 Dose: 0.01 mg/kg/hr, 0.76 mls/hr Pantoprazole Sodium 80 mg/ (Sodium Chloride) 100 mls @ 10 mls/hr IVPB .Q10H SYED Last Admin: 08/17/18 15:25 Dose: 10 mls/hr - Labs Labs: 08/17/18 05:52 08/17/18 05:47 PT 14.3 SECONDS (9.7-12.2) H 08/17/18 05:52 INR 1.3 08/17/18 05:52 APTT 29.9 SECONDS (21-34) 08/17/18 05:52 - Constitutional Appears: Well - Head Exam Head Exam: ATRAUMATIC, NORMAL INSPECTION, NORMOCEPHALIC - Eye Exam Eye Exam: EOMI, Normal appearance, PERRL Pupil Exam: NORMAL ACCOMODATION, PERRL - ENT Exam ENT Exam: Mucous Membranes Moist, Normal Exam - Neck Exam Neck Exam: Full ROM, Normal Inspection. absent: Lymphadenopathy - Respiratory Exam Respiratory Exam: Decreased Breath Sounds - Cardiovascular Exam Cardiovascular Exam: REGULAR RHYTHM, +S1, +S2 - Rectal Exam Rectal Exam: Deferred - Neurological Exam Neurological Exam: Oriented x3 Assessment and Plan (1) Afib Status: Acute (2) GIB (gastrointestinal bleeding) Status: Acute (3) Hx of coronary artery disease Status: Acute (4) Hx of laparoscopic gastric banding Status: Acute (5) Nasal hemorrhage Status: Acute (6) Noncompliance with medication treatment due to overuse of medication Status: Acute (7) Rectal bleeding Status: Acute (8) Osteoarthritis Status: Acute - Assessment and Plan (Free Text) Plan: Hemoglobin 8.7 Hematocrit 25.8 Potassium 3.3 BUN 22 apresoline aztreonam fentanyl citrate midazolam hcl pantoprazole sodiun sodium chloride plan discussed with patient and family moderate to severe complexity of care labs reviewed vitals reviewed medications reviewed
--- NOTE | 2018-08-17 16:41 | CT ---
Date of service: 08/17/2018 PROCEDURE: CT HEAD WITHOUT CONTRAST. HISTORY: Anoxia? COMPARISON: None available. TECHNIQUE: Axial computed tomography images were obtained through the head/brain without intravenous contrast. Radiation dose: Total exam DLP = 1226.46 mGy-cm. This CT exam was performed using one or more of the following dose reduction techniques: Automated exposure control, adjustment of the mA and/or kV according to patient size, and/or use of iterative reconstruction technique. FINDINGS: HEMORRHAGE: No acute parenchymal, subarachnoid or extra-axial hemorrhage. 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 Note that this aneurysm clip results in fairly significant streak and beam hardening artifact obscuring surrounding soft tissue detail. The possibility of residual aneurysm or aneurysm neck not excluded There are encephalomalacia changes seen in the right frontal lobe with extension and inferior and posterior extension involving the right basal ganglia. Moderate to significant asymmetric generalized volume loss right cerebral hemisphere greater than left. VENTRICLES: No obstructive hydrocephalus. CALVARIUM: Right-sided pterional craniotomy defect. PARANASAL SINUSES: There is subtotal opacification of the paranasal sinuses.. Hyperdense material within both nasal cavities felt to represent blood laden gauze in this patient with a history of epistaxis. MASTOID AIR CELLS: Unremarkable as visualized. No inflammatory changes. OTHER FINDINGS: None. IMPRESSION: Redemonstrated is in situ aneurysm clip in the in the expected location of the anterior communicating artery. Note that this aneurysm clip results in fairly significant streak and beam hardening artifact obscuring surrounding soft tissue detail. The possibility of residual aneurysm or aneurysm neck not excluded There are encephalomalacia changes seen in the right frontal lobe with extension and inferior and posterior extension involving the right basal ganglia. Moderate to significant asymmetric generalized volume loss right cerebral hemisphere greater than left. encephalomalacia changes seen in the right frontal lobe with extension and inferior and posterior extension involving the right basal ganglia. Moderate to significant asymmetric generalized volume loss right cerebral hemisphere greater than left There is subtotal opacification of the paranasal sinuses.. Hyperdense material within both nasal cavities felt to represent blood laden gauze in this patient with a history of epistaxis.
[2018-08-17 20:52] LABS: BASO # 0.1 K/uL (0.0-0.2); BASO % 0.8 % (0.0-2.0); EOS # 0.2 K/uL (0.0-0.7); EOS % 2.4 % (0.0-4.0); HEMOGLOBIN 9.1 g/dL (11.0-16.0); LYMPH # 1.3 K/uL (1.0-4.3); LYMPH % 15.8 % (20.0-40.0); MEAN CELL VOLUME 96.8 fL (81.0-99.0); MEAN CORPUSCULAR HEMOGLOBIN 31.7 pg (27.0-31.0); MEAN CORPUSCULAR HGB CONC 32.7 g/dL (33.0-37.0); MEAN PLATELET VOLUME 9.1 fL (7.2-11.7); MONO # 0.6 K/uL (0.0-0.8); MONO % 6.9 % (0.0-10.0); NEUT # 5.9 K/uL (1.8-7.0); NEUT % 74.1 % (50.0-75.0); NRBC % 0.1 % (0.0-2.0); RBC 2.89 Mil/uL (3.80-5.20); RED CELL DISTRIBUTION WIDTH 16.4 % (11.5-14.5)
[2018-08-17] MEDS: Midazolam 50 mg/10 ml 100 MG in Dextrose 5% In Water 80 ML IV SCH (23:50)
[2018-08-18] MEDS: Aztreonam 1 GM in Sodium Chloride 0.9% 100 ML IVPB SCH ×3 (03:00→18:11)
[2018-08-18 05:38] LABS: ABG ALLEN TEST POS; ARTERIAL BLOOD GAS HCO3 28.4 mmol/L (21-28); ARTERIAL BLOOD GAS HEMOGLOBIN 10.2 g/dL (11.7-17.4); ARTERIAL BLOOD GAS O2 SAT 98.3 % (95-98); ARTERIAL BLOOD GAS PCO2 43 mm/Hg (35-45); ARTERIAL BLOOD GAS PH 7.44 (7.35-7.45); ARTERIAL BLOOD GAS PO2 85 mm/Hg (80-100); ARTERIAL BLOOD GAS TCO2 30.5 mmol/L (22-28)
[2018-08-18 05:42] LABS: BASO # 0.1 K/uL (0.0-0.2); BASO % 0.6 % (0.0-2.0); EOS # 0.2 K/uL (0.0-0.7); EOS % 2.6 % (0.0-4.0); HEMOGLOBIN 8.7 g/dL (11.0-16.0); LYMPH # 1.4 K/uL (1.0-4.3); LYMPH % 17.2 % (20.0-40.0); MEAN CELL VOLUME 96.2 fL (81.0-99.0); MEAN CORPUSCULAR HEMOGLOBIN 31.3 pg (27.0-31.0); MEAN CORPUSCULAR HGB CONC 32.5 g/dL (33.0-37.0); MONO # 0.5 K/uL (0.0-0.8); MONO % 6.9 % (0.0-10.0); NEUT # 5.7 K/uL (1.8-7.0); NEUT % 72.7 % (50.0-75.0); RBC 2.78 Mil/uL (3.80-5.20); RED CELL DISTRIBUTION WIDTH 16.1 % (11.5-14.5); WHITE BLOOD COUNT 7.8 K/uL (4.8-10.8)
[2018-08-18 06:15] LABS: ALBUMIN 2.6 g/dL (3.5-5.0); ALT/SGPT 18 U/L (9-52); AST/SGOT 29 U/L (14-36); BLOOD UREA NITROGEN 22 mg/dL (7-17); CALCIUM 7.9 mg/dl (8.6-10.4); GFR NON-AFRICAN AMERICAN 55
[2018-08-18] MEDS: Pantoprazole 80 MG in Sodium Chloride 0.9% 100 ML IVPB SCH ×2 (08:00→11:29)
--- NOTE | 2018-08-18 09:29 | CP.CCUPN ---
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 Patient admitted to the emergency room with the epistaxis, the bleeding was uncontrollable. Following that the patient undergone internal maxillary artery, left facial artery embolization. Patient received FFP, 1 unit of PRBC. Patient yesterday had a CT scan of the head nonspecific. She has aneurysmal clips in that. Yesterday the oxygen was decreased from 100% to 60%. The whole night she was doing well. There was no fever. Patient had an episode of melena On examination: Vital signs currently stable. Sedated with fentanyl, Versed. Protonix drip. Chest bilateral good air entry, wheezing bilaterally noted. Heart sounds are regular Abdomen soft. Patient has a lower abdominal likely midline hernia noted. Patient also has melena just now. I reviewed the patient's labs. Labs are nonspecific. Hemoglobin is on the low side, will monitor. Chest x-ray right middle lung infiltrate noted. Bilateral lower lung atelectasis. Assessment and recommendation: 72-year-old female with multiple medical issues atherosclerotic heart disease stent history of brain aneurysm status post intervention admitted with the big epistaxis. Transfusion. Status post embolization. Aspiration pneumonia likely now. With possible midlung infiltrate on the right lung Likely aspiration pneumonia. Will get a CT scan of the chest. Magnesium and potassium supplemented. On antibiotic. Discontinue fentanyl drip. Reduce the IV fluid, will start the patient on GI feeding. Weaning as tolerated CCU Objective - Vital Signs / Intake & Output Vital Signs (Last 4 hours): Vital Signs Temp Pulse Resp BP Pulse Ox 08/18/18 08:03 101 H 20 143/77 94 L 08/18/18 08:00 98.4 F 08/18/18 07:03 100 H 20 141/93 H 98 08/18/18 06:03 138/94 H 08/18/18 06:00 97 H 20 97 Intake and Output (Last 8hrs): Intake & Output 08/17/18 08/18/18 08/18/18 22:59 06:59 14:59 Intake Total 756.0 903.4 193.8 Output Total 251 Balance 756.0 652.4 193.8 Weight 175 lb Intake: IV 34 36 100 Intake, IV Amount 722.0 867.4 93.8 Left Hand 575 700 75 Left Hand Y Port 80 90 10 Right AC Y Port 59.2 66.6 7.6 Right Antecubital 7.8 10.8 1.2 Output: Urine 250 Urine, Voided 250 Urine/Stool Mix 1 Other: # Voids Urine, Voided 1 # Bowel Movements 1 - Medications Active Medications: Active Medications Generic Name Dose Route Start Last Admin Trade Name Freq PRN Reason Stop Dose Admin Albuterol/Ipratropium 3 ml 08/18/18 14:00 Duoneb 3 Mg/0.5 Mg (3 Ml) Ud INH RQ6 SYED Aztreonam 1 gm/ Sodium 100 mls @ 100 mls/hr 08/16/18 19:00 08/18/18 03:00 Chloride IVPB 100 mls/hr Q8H SYED Administration Protocol Midazolam HCl 100 mg/ Dextrose 100 mls @ 1.52 mls/hr 08/16/18 23:15 08/17/18 23:50 IV 0.02 mg/kg/hr .Q24H SYED 1.52 mls/hr Administration Protocol 0.02 MG/KG/HR Pantoprazole Sodium 80 mg/ 100 mls @ 10 mls/hr 08/17/18 11:00 08/18/18 08:00 Sodium Chloride IVPB 10 mls/hr .Q10H SYED Administration 8 MG/HR Magnesium Sulfate/Dextrose 1 gm in 100 mls @ 200 mls/hr 08/18/18 09:22 Magnesium Sulfate 1 Gm/100 Ml D5w IVPB 08/18/18 09:51 ONCE ONE Potassium Chloride 20 meq in 100 mls @ 50 mls/hr 08/18/18 09:22 Potassium Chloride 20 Meq/100 Ml IVPB 08/18/18 11:21 ONCE ONE Metoprolol Tartrate 25 mg 08/18/18 10:00 Lopressor PO BID SYED - Patient Studies Lab Studies: Microbiology Studies 08/16/18 20:30 Blood Culture - Preliminary Blood NO GROWTH AFTER 24 HOURS 08/16/18 20:30 Blood Culture - Preliminary Blood NO GROWTH AFTER 24 HOURS Lab Studies 08/18/18 08/18/18 08/18/18 Range/Units 05:37 05:37 05:15 WBC 7.8 (4.8-10.8) K/uL RBC 2.78 L (3.80-5.20) Mil/uL Hgb 8.7 L (11.0-16.0) g/dL Hct 26.7 L (34.0-47.0) % MCV 96.2 (81.0-99.0) fL MCH 31.3 H (27.0-31.0) pg MCHC 32.5 L (33.0-37.0) g/dL RDW 16.1 H (11.5-14.5) % Plt Count 182 (130-400) K/uL MPV 9.0 (7.2-11.7) fL Neut % (Auto) 72.7 (50.0-75.0) % Lymph % (Auto) 17.2 L (20.0-40.0) % Knox % (Auto) 6.9 (0.0-10.0) % Eos % (Auto) 2.6 (0.0-4.0) % Baso % (Auto) 0.6 (0.0-2.0) % Neut # (Auto) 5.7 (1.8-7.0) K/uL Lymph # (Auto) 1.4 (1.0-4.3) K/uL Knox # (Auto) 0.5 (0.0-0.8) K/uL Eos # (Auto) 0.2 (0.0-0.7) K/uL Baso # (Auto) 0.1 (0.0-0.2) K/uL Puncture Site Rr pCO2 43 (35-45) mm/Hg pO2 85 (80-100) mm/Hg HCO3 28.4 H (21-28) mmol/L ABG pH 7.44 (7.35-7.45) ABG Total CO2 30.5 H (22-28) mmol/L ABG O2 Saturation 98.3 H (95-98) % ABG Base Excess 4.5 H (-2.0-3.0) mmol/L ABG Hemoglobin 10.2 L (11.7-17.4) g/dL ABG Carboxyhemoglobin 2.5 H (0.5-1.5) % POC ABG HHb (Measured) 1.6 (0.0-5.0) % ABG Methemoglobin 1.0 (0.0-3.0) % Dom Test Pos A-a O2 Difference 289.0 mm/Hg Respiratory Index 3.4 Hgb O2 Saturation 94.9 L (95.0-98.0) % Vent Mode Prvc Mechanical Rate 20 FiO2 60.0 % Tidal Volume 450 PEEP 5 Sodium 144 (132-148) mmol/L Potassium 3.4 L (3.6-5.2) mmol/L Chloride 107 (98-107) mmol/L Carbon Dioxide 25 (22-30) mmol/L Anion Gap 15 (10-20) BUN 22 H (7-17) mg/dL Creatinine 1.0 (0.7-1.2) mg/dL Est GFR ( Amer) > 60 Est GFR (Non-Af Amer) 55 Random Glucose 66 (65-105) mg/dL Calcium 7.9 L (8.6-10.4) mg/dl Phosphorus 3.3 (2.5-4.5) mg/dL Magnesium 1.7 (1.6-2.3) mg/dL Total Bilirubin 1.4 H (0.2-1.3) mg/dL AST 29 (14-36) U/L ALT 18 (9-52) U/L Alkaline Phosphatase 92 (38-126) U/L Total Protein 5.2 L (6.3-8.3) g/dL Albumin 2.6 L (3.5-5.0) g/dL Globulin 2.6 (2.2-3.9) gm/dL Albumin/Globulin Ratio 1.0 (1.0-2.1) 08/17/18 Range/Units 20:48 WBC 8.0 (4.8-10.8) K/uL RBC 2.89 L (3.80-5.20) Mil/uL Hgb 9.1 L (11.0-16.0) g/dL Hct 27.9 L (34.0-47.0) % MCV 96.8 (81.0-99.0) fL MCH 31.7 H (27.0-31.0) pg MCHC 32.7 L (33.0-37.0) g/dL RDW 16.4 H (11.5-14.5) % Plt Count 183 (130-400) K/uL MPV 9.1 (7.2-11.7) fL Neut % (Auto) 74.1 (50.0-75.0) % Lymph % (Auto) 15.8 L (20.0-40.0) % Knox % (Auto) 6.9 (0.0-10.0) % Eos % (Auto) 2.4 (0.0-4.0) % Baso % (Auto) 0.8 (0.0-2.0) % Neut # (Auto) 5.9 (1.8-7.0) K/uL Lymph # (Auto) 1.3 (1.0-4.3) K/uL Knox # (Auto) 0.6 (0.0-0.8) K/uL Eos # (Auto) 0.2 (0.0-0.7) K/uL Baso # (Auto) 0.1 (0.0-0.2) K/uL Puncture Site pCO2 (35-45) mm/Hg pO2 (80-100) mm/Hg HCO3 (21-28) mmol/L ABG pH (7.35-7.45) ABG Total CO2 (22-28) mmol/L ABG O2 Saturation (95-98) % ABG Base Excess (-2.0-3.0) mmol/L ABG Hemoglobin (11.7-17.4) g/dL ABG Carboxyhemoglobin (0.5-1.5) % POC ABG HHb (Measured) (0.0-5.0) % ABG Methemoglobin (0.0-3.0) % Dom Test A-a O2 Difference mm/Hg Respiratory Index Hgb O2 Saturation (95.0-98.0) % Vent Mode Mechanical Rate FiO2 % Tidal Volume PEEP Sodium (132-148) mmol/L Potassium (3.6-5.2) mmol/L Chloride (98-107) mmol/L Carbon Dioxide (22-30) mmol/L Anion Gap (10-20) BUN (7-17) mg/dL Creatinine (0.7-1.2) mg/dL Est GFR ( Amer) Est GFR (Non-Af Amer) Random Glucose (65-105) mg/dL Calcium (8.6-10.4) mg/dl Phosphorus (2.5-4.5) mg/dL Magnesium (1.6-2.3) mg/dL Total Bilirubin (0.2-1.3) mg/dL AST (14-36) U/L ALT (9-52) U/L Alkaline Phosphatase (38-126) U/L Total Protein (6.3-8.3) g/dL Albumin (3.5-5.0) g/dL Globulin (2.2-3.9) gm/dL Albumin/Globulin Ratio (1.0-2.1) Laboratory Results - last 24 hr 08/17/18 08/18/18 08/18/18 20:48 05:15 05:37 WBC 8.0 7.8 RBC 2.89 L 2.78 L Hgb 9.1 L 8.7 L Hct 27.9 L 26.7 L MCV 96.8 96.2 MCH 31.7 H 31.3 H MCHC 32.7 L 32.5 L RDW 16.4 H 16.1 H Plt Count 183 182 MPV 9.1 9.0 Neut % (Auto) 74.1 72.7 Lymph % (Auto) 15.8 L 17.2 L Knox % (Auto) 6.9 6.9 Eos % (Auto) 2.4 2.6 Baso % (Auto) 0.8 0.6 Neut # (Auto) 5.9 5.7 Lymph # (Auto) 1.3 1.4 Knox # (Auto) 0.6 0.5 Eos # (Auto) 0.2 0.2 Baso # (Auto) 0.1 0.1 Puncture Site Rr pCO2 43 pO2 85 HCO3 28.4 H ABG pH 7.44 ABG Total CO2 30.5 H ABG O2 Saturation 98.3 H ABG Base Excess 4.5 H ABG Hemoglobin 10.2 L ABG Carboxyhemoglobin 2.5 H POC ABG HHb (Measured) 1.6 ABG Methemoglobin 1.0 Dom Test Pos A-a O2 Difference 289.0 Respiratory Index 3.4 Hgb O2 Saturation 94.9 L Vent Mode Prvc Mechanical Rate 20 FiO2 60.0 Tidal Volume 450 PEEP 5 Sodium Potassium Chloride Carbon Dioxide Anion Gap BUN Creatinine Est GFR ( Amer) Est GFR (Non-Af Amer) Random Glucose Calcium Phosphorus Magnesium Total Bilirubin AST ALT Alkaline Phosphatase Total Protein Albumin Globulin Albumin/Globulin Ratio 08/18/18 05:37 WBC RBC Hgb Hct MCV MCH MCHC RDW Plt Count MPV Neut % (Auto) Lymph % (Auto) Knox % (Auto) Eos % (Auto) Baso % (Auto) Neut # (Auto) Lymph # (Auto) Knox # (Auto) Eos # (Auto) Baso # (Auto) Puncture Site pCO2 pO2 HCO3 ABG pH ABG Total CO2 ABG O2 Saturation ABG Base Excess ABG Hemoglobin ABG Carboxyhemoglobin POC ABG HHb (Measured) ABG Methemoglobin Dom Test A-a O2 Difference Respiratory Index Hgb O2 Saturation Vent Mode Mechanical Rate FiO2 Tidal Volume PEEP Sodium 144 Potassium 3.4 L Chloride 107 Carbon Dioxide 25 Anion Gap 15 BUN 22 H Creatinine 1.0 Est GFR ( Amer) > 60 Est GFR (Non-Af Amer) 55 Random Glucose 66 Calcium 7.9 L Phosphorus 3.3 Magnesium 1.7 Total Bilirubin 1.4 H AST 29 ALT 18 Alkaline Phosphatase 92 Total Protein 5.2 L Albumin 2.6 L Globulin 2.6 Albumin/Globulin Ratio 1.0 Radiology Impressions: Radiology Impressions Head CT 08/16/18 13:33 IMPRESSION: No acute intracranial hemorrhage. Diffuse homogeneous appearance of the brain parenchyma with loss of the corticomedullary distinction. Findings suggest underlying global hypoxia. Clinical correlation recommended. There are also underlying chronic white matter ischemic changes seen. Note that these findings were placed in PA review folder for follow up. Case also discussed with ER ANGEL Balderrama at 10:50 a.m. with written down and read back verification. Case also discussed with ICU [employer] Receiver Dr. Viera at 11:15 a.m. Chest X-Ray 08/16/18 20:04 IMPRESSION: ETT as above. Right lower lobe atelectasis or infiltrate with small effusion Head CT 08/17/18 12:54 IMPRESSION: Redemonstrated is in situ aneurysm clip in the in the expected location of the anterior communicating artery. Note that this aneurysm clip results in fairly significant streak and beam hardening artifact obscuring surrounding soft tissue detail. The possibility of residual aneurysm or aneurysm neck not excluded There are encephalomalacia changes seen in the right frontal lobe with extension and inferior and posterior extension involving the right basal ganglia. Moderate to significant asymmetric generalized volume loss right cerebral hemisphere greater than left. encephalomalacia changes seen in the right frontal lobe with extension and inferior and posterior extension involving the right basal ganglia. Moderate to significant asymmetric generalized volume loss right cerebral hemisphere greater than left There is subtotal opacification of the paranasal sinuses.. Hyperdense material within both nasal cavities felt to represent blood laden gauze in this patient with a history of epistaxis. Chest X-Ray 08/17/18 13:26 IMPRESSION: ETT as above. Marked cardiomegaly. Mild central pulmonary vascular congestion with bilateral lower lobe alveolar-type infiltrates and bilateral effusions right larger than left. Fingerstick Blood Sugar Results: 80
[2018-08-18] MEDS ORDERED: Magnesium Sulfate 1 gm in D5W 1 GM/100 ML BAG IVPB ONE (09:30)
--- NOTE | 2018-08-18 10:13 | CP.PCM.PN ---
<Felix Blackman - Last Filed: 08/18/18 11:47> Subjective - Date & Time of Evaluation Date of Evaluation: 08/18/18 Time of Evaluation: 09:15 - Subjective Subjective: PGY-4 GI Fellow Prog Note Pt lying in bed on vent when seen this AM. Nursing states only one small dark red BM in last 24 hrs. Hgb and vitals stable without further transfusions. Unable to obtain ROS due to clinical condition Objective - Vital Signs/Intake and Output Vital Signs (last 24 hours): Temp Pulse Resp BP Pulse Ox 98.4 F 105 H 19 141/81 96 08/18/18 08:00 08/18/18 09:03 08/18/18 09:03 08/18/18 09:03 08/18/18 09:03 Intake and Output: 08/18/18 08/18/18 06:59 18:59 Intake Total 1227.8 283.8 Output Total 251 Balance 976.8 283.8 - Medications Medications: Current Medications Albuterol/Ipratropium (Duoneb 3 Mg/0.5 Mg (3 Ml) Ud) 3 ml INH RQ6 SYED Aztreonam 1 gm/ Sodium (Chloride) 100 mls @ 100 mls/hr IVPB Q8H [facility]ED; Protocol Last Admin: 08/18/18 03:00 Dose: 100 mls/hr Midazolam HCl 100 mg/ Dextrose 100 mls @ 1.52 mls/hr IV .Q24H SYED; Protocol Last Admin: 08/17/18 23:50 Dose: 0.02 mg/kg/hr, 1.52 mls/hr Pantoprazole Sodium 80 mg/ (Sodium Chloride) 100 mls @ 10 mls/hr IVPB .Q10H SYED Last Admin: 08/18/18 08:00 Dose: 10 mls/hr Potassium Chloride (Potassium Chloride 20 Meq/100 Ml) 20 meq in 100 mls @ 50 mls/hr IVPB ONCE ONE Stop: 08/18/18 11:29 Metoprolol Tartrate (Lopressor) 25 mg PO BID SYED - Labs Labs: 08/18/18 05:37 08/18/18 05:37 PT 14.3 SECONDS (9.7-12.2) H 08/17/18 05:52 INR 1.3 08/17/18 05:52 APTT 29.9 SECONDS (21-34) 08/17/18 05:52 - Constitutional Appears: Chronically Ill, Other (intubated on vent) - Head Exam Additional comments: nasal packing/tubing in place - ENT Exam ENT Exam: Mucous Membranes Dry Additional comments: ET tube in place - Cardiovascular Exam Additional comments: irregularly irregular rate and rhythm - GI/Abdominal Exam GI & Abdominal Exam: Soft, Mass (LLQ/suprabuic reducible hernia), Normal Bowel Sounds. absent: Bruit, Distended, Firm, Guarding, Rigid, Tenderness Assessment and Plan - Assessment and Plan (Free Text) Assessment: 72 yo female with a history of CAD s/p stents, CVA with left hemiparesis, AF on rivaroxaban (but reportedly not taking for weeks), presenting with refractory epistaxis s/p embolization culprit vessels. GI consulted for possible GI bleed. # Hematochezia: Dark red blood on rectal exam. Tachycardic but vitals stable otherwise. Hgb 8.3 -> 8.7 post-transfusion. Suspect related to severe epistaxis, but should bleeding persist and Hgb decline will consider ruling out true upper GI source with EGD. # Acute Hypoxic Respiratory Failure: Likely due to aspiration PNA with severe epistaxis. Plan: - Cont PPI gtt -> q 12 hrs iv - Monitor Hgb daily, more frequent should bleeding recur - Will consider EGD on Sunday pending clinical course - Abx, vent management per primay - Will cont to follow Pt seen and examined with Dr. Mejias; please see attestation for further recs/changes. <Mariann Mejias - Last Filed: 08/18/18 14:33> Objective - Vital Signs/Intake and Output Vital Signs (last 24 hours): Temp Pulse Resp BP Pulse Ox 98.2 F 99 H 19 126/106 H 95 08/18/18 12:00 08/18/18 14:05 08/18/18 14:05 08/18/18 14:05 08/18/18 14:05 Intake and Output: 08/18/18 08/18/18 06:59 18:59 Intake Total 1227.8 708.6 Output Total 251 Balance 976.8 708.6 - Medications Medications: Current Medications Albuterol/Ipratropium (Duoneb 3 Mg/0.5 Mg (3 Ml) Ud) 3 ml INH RQ6 SYED Last Admin: 08/18/18 13:05 Dose: 3 ml Aztreonam 1 gm/ Sodium (Chloride) 100 mls @ 100 mls/hr IVPB Q8H [facility]; Protocol Last Admin: 08/18/18 11:40 Dose: 100 mls/hr Midazolam HCl 100 mg/ Dextrose 100 mls @ 1.52 mls/hr IV .Q24H [facility]; Protocol Last Titration: 08/18/18 09:55 Dose: 0.03 mg/kg/hr, 2.28 mls/hr Metoprolol Tartrate (Lopressor) 25 mg PO BID SYED Last Admin: 08/18/18 10:35 Dose: 25 mg Pantoprazole Sodium (Protonix Inj) 40 mg IVP Q12H [facility] - Labs Labs: 08/18/18 05:37 08/18/18 05:37 PT 14.3 SECONDS (9.7-12.2) H 08/17/18 05:52 INR 1.3 08/17/18 05:52 APTT 29.9 SECONDS (21-34) 08/17/18 05:52 Attending/Attestation - Attestation I have personally seen and examined this patient.: Yes I have fully participated in the care of the patient.: Yes I have reviewed all pertinent clinical information, including history, physical exam and plan: Yes Notes (Text): 08/18/18 14:31 I have seen and examined the pt with the GI fellow. Hb stable. Smaller amt of melenic stool this am, vitals stable. OGT placed w/o complication. Recommend decrease to PPI IV bid and ok to start feeds.
--- NOTE | 2018-08-18 12:59 | CP.PCM.CON ---
History of Present Illness - History of Present Illness History of Present Illness: ASKED TO SEE PT BY DR MADRID IN CARDIOLOGY COVERAGE. PT SEEN IN ICU ON 08/17/18 AT 3PM. SON AT BEDSIDE. PT PRESENTED WITH SEVERE NASAL HEMORRHAGE AND RECTAL BLEEDING. SIGNIFICANT ANEMIA NOTED. PT TAKEN FOR BL MAXILLARY ARTERY EMBOLIZATION. ALL ANTICOAG AND ANTIPLTS HELD. PT CURRENTLY INTUBATED AND SEDATED. NASAL PACKING. CONTINUES TO BLEED FROM RECTUM. MONITOR SHOWS AFIB AT 90-100 BPM. CXR REVEALS BL EFFUSIONS. FLUID IN FISSURES AND POSSIBLE INFILTRATES. NO FEVER/CHILLS OR LEUKOCYTOSIS. HX IS PER CHART AND SON GIVEN PTS CONDITION. Past Patient History - Infectious Disease Hx of Infectious Diseases: None - Past Medical History & Family History Past Medical History?: Yes - Past Social History Smoking Status: Never Smoked - CARDIAC Hx Hypercholesterolemia: Yes Hx Hypertension: Yes - PULMONARY Hx Asthma: Yes Hx Chronic Obstructive Pulmonary Disease (COPD): Yes Hx Emphysema: Yes - NEUROLOGICAL HX Cerebrovascular Accident: Yes (lt side weak) - MUSCULOSKELETAL/RHEUMATOLOGICAL Hx Falls: No - PSYCHIATRIC Hx Depression: No Hx Substance Use: No - SURGICAL HISTORY Hx Surgeries: Yes Other/Comment: Cardiac stents x 3 - ANESTHESIA Hx Anesthesia: Yes Hx Anesthesia Reactions: No Hx Malignant Hyperthermia: No Meds Allergies/Adverse Reactions: Allergies Allergy/AdvReac Type Severity Reaction Status Date / Time diphenhydramine Allergy Intermediate Verified 08/16/18 10:42 [From Benadryl] Penicillins Allergy Intermediate Verified 08/16/18 10:42 zolpidem [From Ambien] Allergy Intermediate Verified 08/16/18 10:42 - Medications Medications: Current Medications Albuterol/Ipratropium (Duoneb 3 Mg/0.5 Mg (3 Ml) Ud) 3 ml INH RQ6 [facility]ED Aztreonam 1 gm/ Sodium (Chloride) 100 mls @ 100 mls/hr IVPB Q8H [facility]; Protocol Last Admin: 08/18/18 11:40 Dose: 100 mls/hr Midazolam HCl 100 mg/ Dextrose 100 mls @ 1.52 mls/hr IV .Q24H [facility]; Protocol Last Admin: 08/17/18 23:50 Dose: 0.02 mg/kg/hr, 1.52 mls/hr Metoprolol Tartrate (Lopressor) 25 mg PO BID SYED Last Admin: 08/18/18 10:35 Dose: 25 mg Pantoprazole Sodium (Protonix Inj) 40 mg IVP Q12H [facility] Results - Vital Signs Recent Vital Signs: Last Vital Signs Temp 98.2 F 08/18/18 12:00 Pulse 99 H 08/18/18 12:04 Resp 22 08/18/18 12:04 BP 147/68 08/18/18 12:04 Pulse Ox 96 08/18/18 12:04 - Labs Result Diagrams: 08/18/18 05:37 08/18/18 05:37 Labs: Laboratory Results - last 24 hr 08/17/18 08/18/18 08/18/18 20:48 05:15 05:37 WBC 8.0 7.8 RBC 2.89 L 2.78 L Hgb 9.1 L 8.7 L Hct 27.9 L 26.7 L MCV 96.8 96.2 MCH 31.7 H 31.3 H MCHC 32.7 L 32.5 L RDW 16.4 H 16.1 H Plt Count 183 182 MPV 9.1 9.0 Neut % (Auto) 74.1 72.7 Lymph % (Auto) 15.8 L 17.2 L [place] % (Auto) 6.9 6.9 Eos % (Auto) 2.4 2.6 Baso % (Auto) 0.8 0.6 Neut # (Auto) 5.9 5.7 Lymph # (Auto) 1.3 1.4 [place] # (Auto) 0.6 0.5 Eos # (Auto) 0.2 0.2 Baso # (Auto) 0.1 0.1 Puncture Site Rr pCO2 43 pO2 85 HCO3 28.4 H ABG pH 7.44 ABG Total CO2 30.5 H ABG O2 Saturation 98.3 H ABG Base Excess 4.5 H ABG Hemoglobin 10.2 L ABG Carboxyhemoglobin 2.5 H POC ABG HHb (Measured) 1.6 ABG Methemoglobin 1.0 Dom Test Pos A-a O2 Difference 289.0 Respiratory Index 3.4 Hgb O2 Saturation 94.9 L Vent Mode Prvc Mechanical Rate 20 FiO2 60.0 Tidal Volume 450 PEEP 5 Sodium Potassium Chloride Carbon Dioxide Anion Gap BUN Creatinine Est GFR ( Amer) Est GFR (Non-Af Amer) Random Glucose Calcium Phosphorus Magnesium Total Bilirubin AST ALT Alkaline Phosphatase Total Protein Albumin Globulin Albumin/Globulin Ratio 08/18/18 05:37 WBC RBC Hgb Hct MCV MCH MCHC RDW Plt Count MPV Neut % (Auto) Lymph % (Auto) [place] % (Auto) Eos % (Auto) Baso % (Auto) Neut # (Auto) Lymph # (Auto) [place] # (Auto) Eos # (Auto) Baso # (Auto) Puncture Site pCO2 pO2 HCO3 ABG pH ABG Total CO2 ABG O2 Saturation ABG Base Excess ABG Hemoglobin ABG Carboxyhemoglobin POC ABG HHb (Measured) ABG Methemoglobin Dom Test A-a O2 Difference Respiratory Index Hgb O2 Saturation Vent Mode Mechanical Rate FiO2 Tidal Volume PEEP Sodium 144 Potassium 3.4 L Chloride 107 Carbon Dioxide 25 Anion Gap 15 BUN 22 H Creatinine 1.0 Est GFR ( Amer) > 60 Est GFR (Non-Af Amer) 55 Random Glucose 66 Calcium 7.9 L Phosphorus 3.3 Magnesium 1.7 Total Bilirubin 1.4 H AST 29 ALT 18 Alkaline Phosphatase 92 Total Protein 5.2 L Albumin 2.6 L Globulin 2.6 Albumin/Globulin Ratio 1.0
[2018-08-18] MEDS: Albuterol-Ipratrop 3 mg / 0.5 (3 ml) UD INH SCH ×2 (13:05→19:25)
--- NOTE | 2018-08-18 14:12 | CT ---
Date of service: 08/18/2018 PROCEDURE: CT Chest without contrast HISTORY: Pneumonia COMPARISON: Comparison made with prior chest radiograph dated 2018 at 6:56 a.m. TECHNIQUE: Contiguous axial images were obtained through the chest without intravenous contrast enhancement. Sagittal and coronal reconstructions were performed. Radiation dose: Total exam DLP = 779.66 mGy-cm. This CT exam was performed using one or more of the following dose reduction techniques: Automated exposure control, adjustment of the mA and/or kV according to patient size, and/or use of iterative reconstruction technique. FINDINGS: In situ ETT, tip of which lies approximately 3.4 cm above [place]. NGT is present the tip of which is located within the stomach. Gastric band hardware is present. LUNGS: There are bilateral effusions and bibasilar atelectasis and or infiltrates. Underlying mild pulmonary venous congestive changes also felt to be present. MEDIASTINUM: Heart is markedly enlarged. There is a medium-sized pericardial effusion. Ascending thoracic aorta measures approximately 3.0 cm and descending thoracic aorta measures approximately 2.4 cm. Mild aortic atherosclerotic calcification pulmonary trunk measures approximately 3.5 cm; rule out underlying pulmonary arterial hypertension. Trachea midline and patent with in situ ETT as above. Multiple small nonspecific mediastinal lymph nodes are present PLEURA: As above. No pneumothorax. BONES: Mild multilevel degenerative spondylosis of the thoracic spine no acute compression fractures no retropulsed fragments. UPPER ABDOMEN: Grossly unremarkable. OTHER FINDINGS: None. IMPRESSION: Bilateral effusions and bibasilar atelectasis and/or infiltrates. Pulmonary venous congestion. Marked cardiomegaly with medium-sized pericardial effusion. Findings suggest underlying pulmonary arterial hypertension. ETT and NGT as above. In situ gastric band hardware.
--- NOTE | 2018-08-18 15:11 | RAD ---
Date of service: 08/18/2018 HISTORY: Follow up on intubated patient COMPARISON: Comparison made with prior chest radiograph 08/17/2018. TECHNIQUE: 1 view obtained. FINDINGS: In situ ETT, tip of which lies approximately 3.9 cm above [place] LUNGS: Persistent mild pulmonary venous congestive changes with bilateral lower lobe alveolar-type infiltrates and bilateral effusions. PLEURA: As above. Pneumothorax apparent. CARDIOVASCULAR: Marked cardiomegaly.. Aortic atherosclerotic calcification present. OSSEOUS STRUCTURES: No significant abnormalities. VISUALIZED UPPER ABDOMEN: Normal. OTHER FINDINGS: None. IMPRESSION: Persistent mild pulmonary venous congestive changes with bilateral lower lobe alveolar-type infiltrates and bilateral effusions.
--- NOTE | 2018-08-18 15:33 | CP.PCM.PN ---
Subjective - Date & Time of Evaluation Date of Evaluation: 08/18/18 - Subjective Subjective: patient examined today no nausea no vomitng no dizziness no diarrhea no fever no shortness of breath Objective - Vital Signs/Intake and Output Vital Signs (last 24 hours): Temp Pulse Resp BP Pulse Ox 98.2 F 86 20 130/59 L 96 08/18/18 12:00 08/18/18 15:04 08/18/18 15:04 08/18/18 15:04 08/18/18 15:04 Intake and Output: 08/18/18 08/18/18 06:59 18:59 Intake Total 1227.8 747.2 Output Total 251 Balance 976.8 747.2 - Medications Medications: Current Medications Albuterol/Ipratropium (Duoneb 3 Mg/0.5 Mg (3 Ml) Ud) 3 ml INH RQ6 SYED Last Admin: 08/18/18 13:05 Dose: 3 ml Aztreonam 1 gm/ Sodium (Chloride) 100 mls @ 100 mls/hr IVPB Q8H [facility]; Protocol Last Admin: 08/18/18 11:40 Dose: 100 mls/hr Midazolam HCl 100 mg/ Dextrose 100 mls @ 1.52 mls/hr IV .Q24H [facility]; Protocol Last Titration: 08/18/18 14:30 Dose: 0.06 mg/kg/hr, 4.56 mls/hr Metoprolol Tartrate (Lopressor) 25 mg PO BID SYED Last Admin: 08/18/18 10:35 Dose: 25 mg Pantoprazole Sodium (Protonix Inj) 40 mg IVP Q12H [facility] - Labs Labs: 08/18/18 05:37 08/18/18 05:37 PT 14.3 SECONDS (9.7-12.2) H 08/17/18 05:52 INR 1.3 08/17/18 05:52 APTT 29.9 SECONDS (21-34) 08/17/18 05:52 - Constitutional Appears: Well - Head Exam Head Exam: ATRAUMATIC, NORMAL INSPECTION, NORMOCEPHALIC - Eye Exam Eye Exam: EOMI, Normal appearance, PERRL Pupil Exam: NORMAL ACCOMODATION, PERRL - ENT Exam ENT Exam: Mucous Membranes Moist, Normal Exam - Neck Exam Neck Exam: Full ROM, Normal Inspection. absent: Lymphadenopathy - Respiratory Exam Respiratory Exam: Decreased Breath Sounds - Cardiovascular Exam Cardiovascular Exam: REGULAR RHYTHM, +S1, +S2 - GI/Abdominal Exam GI & Abdominal Exam: Soft, Diminished Bowel Sounds - Rectal Exam Rectal Exam: Deferred - Neurological Exam Neurological Exam: Oriented x3 Assessment and Plan (1) Afib Status: Acute (2) GIB (gastrointestinal bleeding) Status: Acute (3) Hx of coronary artery disease Status: Acute (4) Hx of laparoscopic gastric banding Status: Acute (5) Nasal hemorrhage Status: Acute (6) Noncompliance with medication treatment due to overuse of medication Status: Acute (7) Rectal bleeding Status: Acute (8) Osteoarthritis Status: Acute - Assessment and Plan (Free Text) Plan: plan discussed with patient and family moderate complexity of care labs reviewed vitals reviewed Hemoglobin 8.7 hematocrit 26.7 BUN 22 Potassium 3.4 medications reviewed aztreonam duoneb lopressor midazolam hcl protonix inj
[2018-08-19] MEDS: Albuterol-Ipratrop 3 mg / 0.5 (3 ml) UD INH SCH ×4 (02:28→20:22)
[2018-08-19] MEDS: Aztreonam 1 GM in Sodium Chloride 0.9% 100 ML IVPB SCH ×3 (02:36→18:46)
[2018-08-19] MEDS: Midazolam 50 mg/10 ml 100 MG in Dextrose 5% In Water 80 ML IV SCH ×2 (03:16→23:14)
[2018-08-19 05:45] LABS: BASO % 0.5 % (0.0-2.0); EOS # 0.3 K/uL (0.0-0.7); EOS % 3.1 % (0.0-4.0); HEMOGLOBIN 8.5 g/dL (11.0-16.0); LYMPH # 1.1 K/uL (1.0-4.3); MEAN CELL VOLUME 97.3 fL (81.0-99.0); MEAN CORPUSCULAR HEMOGLOBIN 32.3 pg (27.0-31.0); MEAN CORPUSCULAR HGB CONC 33.2 g/dL (33.0-37.0); MEAN PLATELET VOLUME 9.4 fL (7.2-11.7); MONO # 0.5 K/uL (0.0-0.8); MONO % 5.9 % (0.0-10.0); NEUT # 6.2 K/uL (1.8-7.0); NEUT % 76.5 % (50.0-75.0); NRBC % 0.1 % (0.0-2.0); RBC 2.63 Mil/uL (3.80-5.20); RED CELL DISTRIBUTION WIDTH 16.4 % (11.5-14.5); WHITE BLOOD COUNT 8.1 K/uL (4.8-10.8)
[2018-08-19 05:52] LABS: ABG ALLEN TEST POS; ARTERIAL BLOOD GAS HCO3 26.4 mmol/L (21-28); ARTERIAL BLOOD GAS HEMOGLOBIN 9.2 g/dL (11.7-17.4); ARTERIAL BLOOD GAS O2 SAT 98.6 % (95-98); ARTERIAL BLOOD GAS PCO2 35 mm/Hg (35-45); ARTERIAL BLOOD GAS PH 7.47 (7.35-7.45); ARTERIAL BLOOD GAS PO2 83 mm/Hg (80-100); ARTERIAL BLOOD GAS TCO2 26.6 mmol/L (22-28)
[2018-08-19 06:03] LABS: ALBUMIN 2.7 g/dL (3.5-5.0); CALCIUM 8.2 mg/dl (8.6-10.4)
--- NOTE | 2018-08-19 07:53 | CP.PCM.PN ---
<Liz Cole - Last Filed: 08/19/18 08:59> Subjective - Date & Time of Evaluation Date of Evaluation: 08/19/18 Time of Evaluation: 07:15 - Subjective Subjective: GI Fellow PGY5 Progress Note Pt seen and evaluated at bedside, pt intubated on MV, BL rhinorockets. Tolerated TF, Per nursing no reported melena overnight. ROS: A 12pt ROS was negative except as above. Objective - Vital Signs/Intake and Output Vital Signs (last 24 hours): Temp Pulse Resp BP Pulse Ox 98.8 F 110 H 20 154/89 H 97 08/19/18 04:00 08/19/18 06:00 08/19/18 06:00 08/19/18 05:53 08/19/18 06:00 Intake and Output: 08/19/18 08/19/18 06:59 18:59 Intake Total 765.5 Output Total 500 Balance 265.5 - Medications Medications: Current Medications Albuterol/Ipratropium (Duoneb 3 Mg/0.5 Mg (3 Ml) Ud) 3 ml INH RQ6 [facility]ED Last Admin: 08/19/18 07:36 Dose: 3 ml Aztreonam 1 gm/ Sodium (Chloride) 100 mls @ 100 mls/hr IVPB Q8H [facility]; Protocol Last Admin: 08/19/18 02:36 Dose: 100 mls/hr Midazolam HCl 100 mg/ Dextrose 100 mls @ 1.52 mls/hr IV .Q24H [facility]; Protocol Last Titration: 08/19/18 03:59 Dose: 0.04 mg/kg/hr, 3.04 mls/hr Metoprolol Tartrate (Lopressor) 25 mg PO BID SYED Last Admin: 08/18/18 18:11 Dose: 25 mg Pantoprazole Sodium (Protonix Inj) 40 mg IVP Q12H [facility] Last Admin: 08/18/18 21:02 Dose: 40 mg - Labs Labs: 08/19/18 05:36 08/19/18 05:36 PT 14.3 SECONDS (9.7-12.2) H 08/17/18 05:52 INR 1.3 08/17/18 05:52 APTT 29.9 SECONDS (21-34) 08/17/18 05:52 - Constitutional Appears: Toxic, No Acute Distress, Chronically Ill - Head Exam Head Exam: ATRAUMATIC, NORMAL INSPECTION, NORMOCEPHALIC - ENT Exam ENT Exam: Mucous Membranes Dry Additional comments: BL rhinorockets, periorbital edema - Neck Exam Neck Exam: Full ROM, Normal Inspection - Respiratory Exam Respiratory Exam: Clear to Ausculation Bilateral, NORMAL BREATHING PATTERN - Cardiovascular Exam Cardiovascular Exam: Tachycardia, +S1, +S2 - GI/Abdominal Exam GI & Abdominal Exam: Soft, Normal Bowel Sounds. absent: Distended, Firm, Guarding, Tenderness - Rectal Exam Rectal Exam: Deferred - Extremities Exam Extremities Exam: Normal Inspection - Skin Skin Exam: Abrasion, Dry, Intact, Normal Color, Warm Assessment and Plan - Assessment and Plan (Free Text) Assessment: 72 yo female with a history of CAD s/p stents, CVA with left hemiparesis, AF on rivaroxaban (but reportedly not taking for weeks), presenting with refractory epistaxis s/p embolization culprit vessels. GI consulted for possible GI bleed. Dark red blood on rectal exam. Tachycardic but vitals stable otherwise.Hgb 8.3 - > 8.7 post-1U transfusion. 1. Epistaxis 2. Hematochezia: Suspect related to severe , but should bleeding persist and Hgb decline will consider ruling out true upper GI source with EGD. 3. Acute Hypoxic Respiratory Failure Plan: - Cont PPI IV BID - Monitor Hgb daily, Hgb stable - No further rectal bleeding - VDRF likely due to aspiration PNA with severe epistaxis - No plan for EGD at this time - Abx, vent management per primary - Continue TF - Will cont to follow <Calderon Welsh - Last Filed: 08/19/18 09:54> Objective - Vital Signs/Intake and Output Vital Signs (last 24 hours): Temp Pulse Resp BP Pulse Ox 99.2 F 117 H 20 139/78 95 08/19/18 08:00 08/19/18 09:00 08/19/18 09:00 08/19/18 09:11 08/19/18 09:00 Intake and Output: 08/19/18 08/19/18 06:59 18:59 Intake Total 765.5 129 Output Total 500 Balance 265.5 129 - Medications Medications: Current Medications Acetylcysteine (Acetylcysteine 20%) 4 ml INH RQ6 SYED Albuterol/Ipratropium (Duoneb 3 Mg/0.5 Mg (3 Ml) Ud) 3 ml INH RQ6 SYED Last Admin: 08/19/18 07:36 Dose: 3 ml Heparin Sodium (Porcine) (Heparin) 5,000 units SC Q8 SYED Aztreonam 1 gm/ Sodium (Chloride) 100 mls @ 100 mls/hr IVPB Q8H [facility]; Protocol Last Admin: 08/19/18 02:36 Dose: 100 mls/hr Midazolam HCl 100 mg/ Dextrose 100 mls @ 1.52 mls/hr IV .Q24H [facility]; Protocol Last Titration: 08/19/18 03:59 Dose: 0.04 mg/kg/hr, 3.04 mls/hr Metoprolol Tartrate (Lopressor) 50 mg PO BID SYED Pantoprazole Sodium (Protonix Inj) 40 mg IVP Q12H [facility] Last Admin: 08/19/18 09:11 Dose: 40 mg - Labs Labs: 08/19/18 05:36 08/19/18 05:36 PT 14.3 SECONDS (9.7-12.2) H 08/17/18 05:52 INR 1.3 08/17/18 05:52 APTT 29.9 SECONDS (21-34) 08/17/18 05:52 Attending/Attestation - Attestation I have personally seen and examined this patient.: Yes I have fully participated in the care of the patient.: Yes I have reviewed all pertinent clinical information, including history, physical exam and plan: Yes Notes (Text): 08/19/18 09:51 I have seen and examined patient with GI fellow. No acute events overnight, she remains intubated and sedated in intensive care unit. As per nursing staff, no bowel movements over past 48 hours. Tolerating tube feeding without difficulty. CAD s/p stent Atrial fibrillation on eliquis (held) Anemia Epistaxis CVA Respiratory failure s/p intubation, pneumonia - Continue with tube feeding as tolerated, monitor for residuals - H/H stable, continue to monitor - Continue with PPI therapy in ventilator dependant patient for prophylaxis - Follow up ENT recommendations - Will continue to monitor patient clinical course
--- NOTE | 2018-08-19 08:03 | CP.PCM.PN ---
Subjective - Date & Time of Evaluation Date of Evaluation: 08/19/18 Time of Evaluation: 07:59 - Subjective Subjective: Patient is intubated and not bleeding form the nose. Further history can not be obtained. Nasal pack removed head: atraumatic face: can not be assessed const: well fed com: can not assess external nose and ears: abrasion noted on left inferior nasal passage at entrance of passage nose: no epistaxis, no masses, deviated septum oc/op: no bloody PND, limited exam due to og and et tubes lips/gums: no masses, no lesions neck: supple lymph: no lad thyroid: no goiter a/p: nasal abrasions deviated septum epistaxis resolved Objective - Vital Signs/Intake and Output Vital Signs (last 24 hours): Temp Pulse Resp BP Pulse Ox 98.8 F 110 H 20 154/89 H 97 08/19/18 04:00 08/19/18 06:00 08/19/18 06:00 08/19/18 05:53 08/19/18 06:00 Intake and Output: 08/19/18 08/19/18 06:59 18:59 Intake Total 765.5 Output Total 500 Balance 265.5 - Medications Medications: Current Medications Albuterol/Ipratropium (Duoneb 3 Mg/0.5 Mg (3 Ml) Ud) 3 ml INH RQ6 [facility] Last Admin: 08/19/18 07:36 Dose: 3 ml Aztreonam 1 gm/ Sodium (Chloride) 100 mls @ 100 mls/hr IVPB Q8H [facility]; Protocol Last Admin: 08/19/18 02:36 Dose: 100 mls/hr Midazolam HCl 100 mg/ Dextrose 100 mls @ 1.52 mls/hr IV .Q24H [facility]; Protocol Last Titration: 08/19/18 03:59 Dose: 0.04 mg/kg/hr, 3.04 mls/hr Metoprolol Tartrate (Lopressor) 25 mg PO BID SYED Last Admin: 08/18/18 18:11 Dose: 25 mg Pantoprazole Sodium (Protonix Inj) 40 mg IVP Q12H [facility] Last Admin: 08/18/18 21:02 Dose: 40 mg - Labs Labs: 08/19/18 05:36 08/19/18 05:36 PT 14.3 SECONDS (9.7-12.2) H 08/17/18 05:52 INR 1.3 08/17/18 05:52 APTT 29.9 SECONDS (21-34) 08/17/18 05:52
[2018-08-19] MEDS: Acetylcysteine 20% Inhal Soln (4ml) INH SCH ×3 (10:12→20:22)
[2018-08-19] MEDS: Aritificial Tears (15ml) OU SCH ×4 (11:00→21:51)
--- NOTE | 2018-08-19 11:40 | CP.CCUPN ---
CCU Subjective - Physician Review Subjective (Free Text): 08/19/18 11:32 PGY-1 Critical Care Progress Note for Dr. Viera Patient seen and examined at bedside this AM. 72 yo female with pmhx of CAD s/p stent placement, hx of NM, CHF, hx of CVA with residual L weakness, brain aneurysm, afib on home xarelto Admitted to ER with uncontrollable epistaxis, acute blood loss s/p L internal maxillary artery, L facial artery embolization Had episode of melena Received FFP x2, pRBC x1 Bleeding under control, nasal packing removed Likely aspiration pneumonia now c/w IV aztreonam Follow up ID recs, given medication allergies Extensive b/l pleural effusion on CT scan, possible midlung infiltrate on R lung Currently on mechanical ventilation 450/100/20/5 Sedated, versed gtt Tube feeds, f/u further GI recs CCU Objective - Vital Signs / Intake & Output Vital Signs (Last 4 hours): Vital Signs Temp Pulse Resp BP Pulse Ox 08/19/18 10:00 96 H 20 137/89 97 08/19/18 09:11 139/78 08/19/18 09:00 117 H 20 139/78 95 08/19/18 08:53 139/78 08/19/18 08:00 99.2 F 115 H 21 170/86 H 95 Intake and Output (Last 8hrs): Intake & Output 08/18/18 08/19/18 08/19/18 22:59 06:59 14:59 Intake Total 421.5 532.0 272 Output Total 250 500 Balance 171.5 32.0 272 Weight 77.564 kg Intake: IV 79 Intake, IV Amount 131.5 133.0 12 Right Antecubital 18.0 Right Distal Port Forearm 100 100 Right Proximal Port 13.5 33.0 12 Forearm Tube Feeding 290 320 160 Albumin 100 Output: Urine 250 500 Urine, Voided 250 500 Other: # Voids Urine, Voided 1 # Bowel Movements 0 - Physical Exam Physical Exam Limitations: Positive for: Altered Mental Status Head: Positive for: Atraumatic, Normocephalic Respiratory/Chest: Positive for: Good Air Exchange, Wheezes Cardiovascular: Positive for: Regular Rate and Rhythm, Normal S1, S2 Abdomen: Positive for: Normal Bowel Sounds. Negative for: Distention Upper Extremity: Positive for: Normal Inspection, NORMAL PULSES. Negative for: Cyanosis, Edema Lower Extremity: Positive for: Normal Inspection, NORMAL PULSES. Negative for: Edema Skin: Positive for: Warm, Dry, Normal Color - Medications Active Medications: Active Medications Generic Name Dose Route Start Last Admin Trade Name Freq PRN Reason Stop Dose Admin Acetylcysteine 4 ml 08/19/18 09:45 Acetylcysteine 20% INH RQ6 SYED Albuterol/Ipratropium 3 ml 08/18/18 14:00 08/19/18 07:36 Duoneb 3 Mg/0.5 Mg (3 Ml) Ud INH 3 ml RQ6 SYED Administration Artificial Tears 0 ml 08/19/18 10:00 08/19/18 11:00 Artificial Tears OU 1 drop Q4H [facility]ED Administration Heparin Sodium (Porcine) 5,000 units 08/19/18 14:00 Heparin SC Q8 SYED Aztreonam 1 gm/ Sodium 100 mls @ 100 mls/hr 08/16/18 19:00 08/19/18 11:19 Chloride IVPB 100 mls/hr Q8H [facility]ED Administration Protocol Midazolam HCl 100 mg/ Dextrose 100 mls @ 1.52 mls/hr 08/16/18 23:15 08/19/18 03:59 IV 0.04 mg/kg/hr .Q24H SYED 3.04 mls/hr Titration Protocol 0.02 MG/KG/HR Clindamycin Phosphate 600 mg/ 54 mls @ 100 mls/hr 08/19/18 14:00 Sodium Chloride IVPB Q8H [facility]ED Protocol Metoprolol Tartrate 50 mg 08/19/18 09:32 08/19/18 11:00 Lopressor PO 50 mg BID SYED Administration Pantoprazole Sodium 40 mg 08/18/18 22:00 08/19/18 09:11 Protonix Inj IVP 40 mg Q12H [facility]ED Administration - Patient Studies Lab Studies: Microbiology Studies 08/18/18 14:59 Gram Stain - Final Trachasp 08/16/18 20:30 Blood Culture - Preliminary Blood NO GROWTH AFTER 48 HOURS 08/16/18 20:30 Blood Culture - Preliminary Blood NO GROWTH AFTER 48 HOURS Lab Studies 08/19/18 08/19/18 08/19/18 Range/Units 05:36 05:36 05:28 WBC 8.1 (4.8-10.8) K/uL RBC 2.63 L (3.80-5.20) Mil/uL Hgb 8.5 L (11.0-16.0) g/dL Hct 25.6 L (34.0-47.0) % MCV 97.3 (81.0-99.0) fL MCH 32.3 H (27.0-31.0) pg MCHC 33.2 (33.0-37.0) g/dL RDW 16.4 H (11.5-14.5) % Plt Count 182 (130-400) K/uL MPV 9.4 (7.2-11.7) fL Neut % (Auto) 76.5 H (50.0-75.0) % Lymph % (Auto) 14.0 L (20.0-40.0) % [place] % (Auto) 5.9 (0.0-10.0) % Eos % (Auto) 3.1 (0.0-4.0) % Baso % (Auto) 0.5 (0.0-2.0) % Neut # (Auto) 6.2 (1.8-7.0) K/uL Lymph # (Auto) 1.1 (1.0-4.3) K/uL [place] # (Auto) 0.5 (0.0-0.8) K/uL Eos # (Auto) 0.3 (0.0-0.7) K/uL Baso # (Auto) 0.0 (0.0-0.2) K/uL Puncture Site Lr pCO2 35 (35-45) mm/Hg pO2 83 (80-100) mm/Hg HCO3 26.4 (21-28) mmol/L ABG pH 7.47 H (7.35-7.45) ABG Total CO2 26.6 (22-28) mmol/L ABG O2 Saturation 98.6 H (95-98) % ABG Base Excess 1.9 (-2.0-3.0) mmol/L ABG Hemoglobin 9.2 L (11.7-17.4) g/dL ABG Carboxyhemoglobin 2.3 H (0.5-1.5) % POC ABG HHb (Measured) 1.4 (0.0-5.0) % ABG Methemoglobin 0.9 (0.0-3.0) % Dom Test Pos A-a O2 Difference 230.0 mm/Hg Respiratory Index 2.8 Hgb O2 Saturation 95.4 (95.0-98.0) % Vent Mode Prvc Mechanical Rate 20 FiO2 50.0 % Tidal Volume 450 Sodium 144 (132-148) mmol/L Potassium 3.8 (3.6-5.2) mmol/L Chloride 112 H (98-107) mmol/L Carbon Dioxide 25 (22-30) mmol/L Anion Gap 11 (10-20) BUN 24 H (7-17) mg/dL Creatinine 1.1 (0.7-1.2) mg/dL Est GFR ( Amer) 59 Est GFR (Non-Af Amer) 49 Random Glucose 107 H D (65-105) mg/dL Calcium 8.2 L (8.6-10.4) mg/dl Phosphorus 3.6 (2.5-4.5) mg/dL Magnesium 2.1 (1.6-2.3) mg/dL Total Bilirubin 1.1 (0.2-1.3) mg/dL AST 24 (14-36) U/L ALT 15 (9-52) U/L Alkaline Phosphatase 105 (38-126) U/L Total Protein 5.3 L (6.3-8.3) g/dL Albumin 2.7 L (3.5-5.0) g/dL Globulin 2.6 (2.2-3.9) gm/dL Albumin/Globulin Ratio 1.0 (1.0-2.1) Laboratory Results - last 24 hr 08/19/18 08/19/18 08/19/18 05:28 05:36 05:36 WBC 8.1 RBC 2.63 L Hgb 8.5 L Hct 25.6 L MCV 97.3 MCH 32.3 H MCHC 33.2 RDW 16.4 H Plt Count 182 MPV 9.4 Neut % (Auto) 76.5 H Lymph % (Auto) 14.0 L [place] % (Auto) 5.9 Eos % (Auto) 3.1 Baso % (Auto) 0.5 Neut # (Auto) 6.2 Lymph # (Auto) 1.1 [place] # (Auto) 0.5 Eos # (Auto) 0.3 Baso # (Auto) 0.0 Puncture Site Lr pCO2 35 pO2 83 HCO3 26.4 ABG pH 7.47 H ABG Total CO2 26.6 ABG O2 Saturation 98.6 H ABG Base Excess 1.9 ABG Hemoglobin 9.2 L ABG Carboxyhemoglobin 2.3 H POC ABG HHb (Measured) 1.4 ABG Methemoglobin 0.9 Dom Test Pos A-a O2 Difference 230.0 Respiratory Index 2.8 Hgb O2 Saturation 95.4 Vent Mode Prvc Mechanical Rate 20 FiO2 50.0 Tidal Volume 450 Sodium 144 Potassium 3.8 Chloride 112 H Carbon Dioxide 25 Anion Gap 11 BUN 24 H Creatinine 1.1 Est GFR ( Amer) 59 Est GFR (Non-Af Amer) 49 Random Glucose 107 H D Calcium 8.2 L Phosphorus 3.6 Magnesium 2.1 Total Bilirubin 1.1 AST 24 ALT 15 Alkaline Phosphatase 105 Total Protein 5.3 L Albumin 2.7 L Globulin 2.6 Albumin/Globulin Ratio 1.0 Radiology Impressions: Radiology Impressions Chest X-Ray 08/18/18 06:00 IMPRESSION: Persistent mild pulmonary venous congestive changes with bilateral lower lobe alveolar-type infiltrates and bilateral effusions. Chest CT 08/18/18 09:21 IMPRESSION: Bilateral effusions and bibasilar atelectasis and/or infiltrates. Pulmonary venous congestion. Marked cardiomegaly with medium-sized pericardial effusion. Findings suggest underlying pulmonary arterial hypertension. ETT and NGT as above. In situ gastric band hardware. Fingerstick Blood Sugar Results: 115 Review of Systems - Review of Systems Systems not reviewed;Unavailable: Intubated
--- NOTE | 2018-08-19 11:53 | RAD ---
HISTORY: pna COMPARISON: Chest x-ray performed 08/18/18 TECHNIQUE: Chest, one view. FINDINGS: Examination limited by habitus. Endotracheal tube terminates approximately 4.7 cm above the [place]. Nasogastric tube extends expected location of the stomach. LUNGS: Moderate interstitial prominence may reflect infection or edema. Small bilateral pleural effusions and/or consolidations. No definite pneumothorax. CARDIOVASCULAR: Cardiomegaly. Atherosclerotic calcifications of the aorta. OSSEOUS STRUCTURES: Osseous demineralization. Degenerative changes. VISUALIZED UPPER ABDOMEN: Unremarkable. OTHER FINDINGS: None. IMPRESSION: Cardiomegaly. Endotracheal tube terminates approximately 4.7 cm above the [place]. Nasogastric tube extends expected location of the stomach. Moderate interstitial prominence may reflect infection or edema. Small bilateral pleural effusions and/or consolidations.
--- NOTE | 2018-08-19 13:34 | CARD ---
APPROVED REPORT Date of service: 08/16/2018 EKG Measurement Heart [id number] <Conclusion> Atrial fibrillation with rapid ventricular response Cannot rule out Anterior infarct, age undetermined Abnormal ECG
--- NOTE | 2018-08-19 15:14 | CP.PCM.PN ---
Subjective - Date & Time of Evaluation Date of Evaluation: 08/19/18 Time of Evaluation: 13:40 - Subjective Subjective: [facility] Dr.Jeffrey Freddie Rivera Consolmaines MSNA, AGNP-BC, FRONT MAN Post- Embolization Day 3 is a 72 year old female with PmHx CAD s/p stent, CA. CHF,CVA residual weakness left side, prior brain aneurysm, Ovarian CA, AFIB on eliquis uncontrolled epistaxis from left nare reported to ED. Status post cerebral head and neck angiogram with embolization left sphenopalatine artery with complete occlusion. One episode of melena > 48hrs ago was transfused with FFPx2 and PRBCx1. Ventilator dependant likely aspiration pneumonia, remains on midazolam IV for sedation. Objective - Vital Signs/Intake and Output Vital Signs (last 24 hours): Temp Pulse Resp BP Pulse Ox 99.3 F 87 18 121/68 98 08/19/18 12:00 08/19/18 14:00 08/19/18 14:00 08/19/18 14:00 08/19/18 14:00 Intake and Output: 08/19/18 08/19/18 06:59 18:59 Intake Total 765.5 531 Output Total 500 Balance 265.5 531 - Medications Medications: Current Medications Acetylcysteine (Acetylcysteine 20%) 4 ml INH RQ6 [facility] Last Admin: 08/19/18 13:12 Dose: 4 ml Albuterol/Ipratropium (Duoneb 3 Mg/0.5 Mg (3 Ml) Ud) 3 ml INH RQ6 [facility] Last Admin: 08/19/18 13:11 Dose: 3 ml Artificial Tears (Artificial Tears) 0 ml OU Q4H [facility] Last Admin: 08/19/18 14:31 Dose: 1 drop Heparin Sodium (Porcine) (Heparin) 5,000 units SC Q8 [facility] Last Admin: 08/19/18 14:30 Dose: 5,000 units Aztreonam 1 gm/ Sodium (Chloride) 100 mls @ 100 mls/hr IVPB Q8H [facility]; Protocol Last Admin: 08/19/18 11:19 Dose: 100 mls/hr Midazolam HCl 100 mg/ Dextrose 100 mls @ 1.52 mls/hr IV .Q24H [facility]; Protocol Last Titration: 08/19/18 03:59 Dose: 0.04 mg/kg/hr, 3.04 mls/hr Clindamycin Phosphate 600 mg/ (Sodium Chloride) 54 mls @ 100 mls/hr IVPB Q8H [facility]; Protocol Last Admin: 08/19/18 14:30 Dose: 100 mls/hr Metoprolol Tartrate (Lopressor) 50 mg PO BID [facility] Last Admin: 08/19/18 11:00 Dose: 50 mg Pantoprazole Sodium (Protonix Inj) 40 mg IVP Q12H [facility] Last Admin: 08/19/18 09:11 Dose: 40 mg - Labs Labs: 08/19/18 05:36 08/19/18 05:36 PT 14.3 SECONDS (9.7-12.2) H 08/17/18 05:52 INR 1.3 08/17/18 05:52 APTT 29.9 SECONDS (21-34) 08/17/18 05:52 - Constitutional Appears: Other (sedated) - Head Exam Head Exam: ATRAUMATIC (mydriasis) - Eye Exam Pupil Exam: NORMAL ACCOMODATION - Respiratory Exam Respiratory Exam: Decreased Breath Sounds - Rectal Exam Rectal Exam: Deferred - Neurological Exam Neuro motor strength exam: Left Upper Extremity: 4 (s/p CVA), Right Upper Extremity: 5, Left Lower Extremity: 4 (4.5 minimal weakness s/p CVA), Right Lower Extremity: 5 Assessment and Plan - Assessment and Plan (Free Text) Assessment: 72 year old female s/p embolization of left sphenopalatine artery with complete occlusion. S/p one episode of melena >48 hours ago, no active bleeding noted. Right groin s/p access site with no dressing, bleeding, ecchymosis, redness or edema. Neurovascular assesment WNL. Remains intubated likely aspiration pneumonia. Plan: 1- Continue supportive care 2- continue neuro assessment per unit protocal 3- If I can be of further assistance please contact 45 min spent in assessment, plan and documentation of ICU patient
--- NOTE | 2018-08-19 19:43 | CP.PCM.CON ---
History of Present Illness - History of Present Illness History of Present Illness: dictated Past Patient History - Infectious Disease Hx of Infectious Diseases: None - Past Medical History & Family History Past Medical History?: Yes - Past Social History Smoking Status: Never Smoked - CARDIAC Hx Hypercholesterolemia: Yes Hx Hypertension: Yes - PULMONARY Hx Asthma: Yes Hx Chronic Obstructive Pulmonary Disease (COPD): Yes Hx Emphysema: Yes - NEUROLOGICAL HX Cerebrovascular Accident: Yes (lt side weak) - MUSCULOSKELETAL/RHEUMATOLOGICAL Hx Falls: No - PSYCHIATRIC Hx Depression: No Hx Substance Use: No - SURGICAL HISTORY Hx Surgeries: Yes Other/Comment: Cardiac stents x 3 - ANESTHESIA Hx Anesthesia: Yes Hx Anesthesia Reactions: No Hx Malignant Hyperthermia: No Meds Allergies/Adverse Reactions: Allergies Allergy/AdvReac Type Severity Reaction Status Date / Time diphenhydramine Allergy Intermediate Verified 08/16/18 10:42 [From Benadryl] Penicillins Allergy Intermediate Verified 08/16/18 10:42 zolpidem [From Ambien] Allergy Intermediate Verified 08/16/18 10:42 - Medications Medications: Current Medications Acetylcysteine (Acetylcysteine 20%) 4 ml INH RQ6 [facility] Last Admin: 08/19/18 13:12 Dose: 4 ml Albuterol/Ipratropium (Duoneb 3 Mg/0.5 Mg (3 Ml) Ud) 3 ml INH RQ6 [facility] Last Admin: 08/19/18 13:11 Dose: 3 ml Artificial Tears (Artificial Tears) 0 ml OU Q4H [facility] Last Admin: 08/19/18 17:15 Dose: 1 drop Heparin Sodium (Porcine) (Heparin) 5,000 units SC Q8 [facility] Last Admin: 08/19/18 14:30 Dose: 5,000 units Aztreonam 1 gm/ Sodium (Chloride) 100 mls @ 100 mls/hr IVPB Q8H [facility]; Protocol Last Admin: 08/19/18 18:46 Dose: 100 mls/hr Midazolam HCl 100 mg/ Dextrose 100 mls @ 1.52 mls/hr IV .Q24H [facility]; Protocol Last Titration: 08/19/18 17:16 Dose: 0.05 mg/kg/hr, 3.8 mls/hr Clindamycin Phosphate 600 mg/ (Sodium Chloride) 54 mls @ 100 mls/hr IVPB Q8H [facility]; Protocol Last Admin: 08/19/18 14:30 Dose: 100 mls/hr Metoprolol Tartrate (Lopressor) 50 mg PO BID [facility] Last Admin: 08/19/18 17:15 Dose: 50 mg Pantoprazole Sodium (Protonix Inj) 40 mg IVP Q12H [facility] Last Admin: 08/19/18 09:11 Dose: 40 mg Results - Vital Signs Recent Vital Signs: Last Vital Signs Temp 98.7 F 08/19/18 16:00 Pulse 86 08/19/18 19:00 Resp 20 08/19/18 19:00 BP 115/66 08/19/18 19:00 Pulse Ox 99 08/19/18 19:00 - Labs Result Diagrams: 08/19/18 05:36 08/19/18 05:36 Labs: Laboratory Results - last 24 hr 08/19/18 08/19/18 08/19/18 05:28 05:36 05:36 WBC 8.1 RBC 2.63 L Hgb 8.5 L Hct 25.6 L MCV 97.3 MCH 32.3 H MCHC 33.2 RDW 16.4 H Plt Count 182 MPV 9.4 Neut % (Auto) 76.5 H Lymph % (Auto) 14.0 L [place] % (Auto) 5.9 Eos % (Auto) 3.1 Baso % (Auto) 0.5 Neut # (Auto) 6.2 Lymph # (Auto) 1.1 [place] # (Auto) 0.5 Eos # (Auto) 0.3 Baso # (Auto) 0.0 Puncture Site Lr pCO2 35 pO2 83 HCO3 26.4 ABG pH 7.47 H ABG Total CO2 26.6 ABG O2 Saturation 98.6 H ABG Base Excess 1.9 ABG Hemoglobin 9.2 L ABG Carboxyhemoglobin 2.3 H POC ABG HHb (Measured) 1.4 ABG Methemoglobin 0.9 Dom Test Pos A-a O2 Difference 230.0 Respiratory Index 2.8 Hgb O2 Saturation 95.4 Vent Mode Prvc Mechanical Rate 20 FiO2 50.0 Tidal Volume 450 Sodium 144 Potassium 3.8 Chloride 112 H Carbon Dioxide 25 Anion Gap 11 BUN 24 H Creatinine 1.1 Est GFR ( Amer) 59 Est GFR (Non-Af Amer) 49 Random Glucose 107 H D Calcium 8.2 L Phosphorus 3.6 Magnesium 2.1 Total Bilirubin 1.1 AST 24 ALT 15 Alkaline Phosphatase 105 Total Protein 5.3 L Albumin 2.7 L Globulin 2.6 Albumin/Globulin Ratio 1.0
[2018-08-19] MEDS: Propofol 10 mg/ml 1,000 MG/100 ML VIAL IV PRN (21:17)
--- NOTE | 2018-08-19 21:26 | CP.PCM.PN ---
Subjective - Date & Time of Evaluation Date of Evaluation: 08/19/18 - Subjective Subjective: patient examined today Still intubated received FFP Received PRBCs Nasal plaquing removed bleeding under control Follow-up with multiple consultations CMV mode with a tidal volume of 4 5000% FiO2 20 rate and 5 of PEEP sedated on Versed drip for feeding no vomiting Objective - Vital Signs/Intake and Output Vital Signs (last 24 hours): Temp Pulse Resp BP Pulse Ox 98.7 F 89 20 133/78 98 08/19/18 16:00 08/19/18 20:00 08/19/18 20:00 08/19/18 20:00 08/19/18 20:00 Intake and Output: 08/19/18 08/20/18 18:59 06:59 Intake Total 871 89 Output Total 400 Balance 471 89 - Medications Medications: Current Medications Acetylcysteine (Acetylcysteine 20%) 4 ml INH RQ6 [facility] Last Admin: 08/19/18 20:22 Dose: 4 ml Albuterol/Ipratropium (Duoneb 3 Mg/0.5 Mg (3 Ml) Ud) 3 ml INH RQ6 [facility] Last Admin: 08/19/18 20:22 Dose: 3 ml Artificial Tears (Artificial Tears) 0 ml OU Q4H [facility] Last Admin: 08/19/18 17:15 Dose: 1 drop Heparin Sodium (Porcine) (Heparin) 5,000 units SC Q8 [facility] Last Admin: 08/19/18 14:30 Dose: 5,000 units Aztreonam 1 gm/ Sodium (Chloride) 100 mls @ 100 mls/hr IVPB Q8H [facility]; Protocol Last Admin: 08/19/18 18:46 Dose: 100 mls/hr Midazolam HCl 100 mg/ Dextrose 100 mls @ 1.52 mls/hr IV .Q24H [facility]; Protocol Last Titration: 08/19/18 21:15 Dose: 0.1 mg/kg/hr, 7.6 mls/hr Clindamycin Phosphate 600 mg/ (Sodium Chloride) 54 mls @ 100 mls/hr IVPB Q8H [facility]; Protocol Last Admin: 08/19/18 14:30 Dose: 100 mls/hr Propofol (Diprivan) 1,000 mg in 100 mls @ 2.327 mls/hr IV .Q24H PR[facility]; Protocol PRN Reason: Agitation Last Admin: 08/19/18 21:17 Dose: 5 mcg/kg/min, 2.327 mls/hr Metoprolol Tartrate (Lopressor) 50 mg PO BID [facility] Last Admin: 08/19/18 17:15 Dose: 50 mg Pantoprazole Sodium (Protonix Inj) 40 mg IVP Q12H [facility] Last Admin: 08/19/18 09:11 Dose: 40 mg - Labs Labs: 08/19/18 05:36 08/19/18 05:36 PT 14.3 SECONDS (9.7-12.2) H 08/17/18 05:52 INR 1.3 08/17/18 05:52 APTT 29.9 SECONDS (21-34) 08/17/18 05:52 - Constitutional Appears: Well - Head Exam Head Exam: ATRAUMATIC, NORMAL INSPECTION, NORMOCEPHALIC - Eye Exam Eye Exam: EOMI, Normal appearance, PERRL Pupil Exam: NORMAL ACCOMODATION, PERRL - ENT Exam ENT Exam: Mucous Membranes Moist, Normal Exam - Neck Exam Neck Exam: Full ROM, Normal Inspection. absent: Lymphadenopathy - Respiratory Exam Respiratory Exam: Decreased Breath Sounds - Cardiovascular Exam Cardiovascular Exam: REGULAR RHYTHM, +S1, +S2 - GI/Abdominal Exam GI & Abdominal Exam: Soft, Diminished Bowel Sounds - Rectal Exam Rectal Exam: Deferred - Neurological Exam Neurological Exam: Oriented x3 Assessment and Plan (1) Afib Status: Acute (2) GIB (gastrointestinal bleeding) Status: Acute (3) Hx of coronary artery disease Status: Acute (4) Hx of laparoscopic gastric banding Status: Acute (5) Nasal hemorrhage Status: Acute (6) Noncompliance with medication treatment due to overuse of medication Status: Acute (7) Rectal bleeding Status: Acute (8) Osteoarthritis Status: Acute - Assessment and Plan (Free Text) Plan: plan discussed with patient moderate complexity of care labs reviewed medications reviewed vitals reviewed Hemoglobin 8.5 Hematocrit 25.6 BUN 24 Glucose 157 acelytcysteine 20% artificial tears aztreonam clindamycin phosphate diprivan duoneb heparin lopressor midazolam protonix inj
--- NOTE | 2018-08-19 23:19 | CP.PCM.PN ---
Subjective - Date & Time of Evaluation Date of Evaluation: 08/19/18 Time of Evaluation: 14:00 - Subjective Subjective: pt intubated and sedated. no further bleeding. I obtained pts med list via dr farah office. pt was instructed to take asa and xarelto. Pt was taking those and plavix and voltaren. pt with infiltrates likely due to either aspiration of gastric contents or blood or both. Objective - Vital Signs/Intake and Output Vital Signs (last 24 hours): Temp Pulse Resp BP Pulse Ox 97.7 F 77 20 116/68 98 08/19/18 20:00 08/19/18 23:00 08/19/18 23:00 08/19/18 22:53 08/19/18 23:00 Intake and Output: 08/19/18 08/20/18 18:59 06:59 Intake Total 871 225.6 Output Total 400 Balance 471 225.6 - Medications Medications: Current Medications Acetylcysteine (Acetylcysteine 20%) 4 ml INH RQ6 [facility] Last Admin: 08/19/18 20:22 Dose: 4 ml Albuterol/Ipratropium (Duoneb 3 Mg/0.5 Mg (3 Ml) Ud) 3 ml INH RQ6 [facility] Last Admin: 08/19/18 20:22 Dose: 3 ml Artificial Tears (Artificial Tears) 0 ml OU Q4H [facility] Last Admin: 08/19/18 21:51 Dose: 2 drop Heparin Sodium (Porcine) (Heparin) 5,000 units SC Q8 [facility] Last Admin: 08/19/18 21:51 Dose: 5,000 units Aztreonam 1 gm/ Sodium (Chloride) 100 mls @ 100 mls/hr IVPB Q8H [facility]; Protocol Last Admin: 08/19/18 18:46 Dose: 100 mls/hr Midazolam HCl 100 mg/ Dextrose 100 mls @ 1.52 mls/hr IV .Q24H [facility]; Protocol Last Titration: 08/19/18 21:46 Dose: 0.08 mg/kg/hr, 6.08 mls/hr Clindamycin Phosphate 600 mg/ (Sodium Chloride) 54 mls @ 100 mls/hr IVPB Q8H [facility]; Protocol Last Admin: 08/19/18 21:52 Dose: 100 mls/hr Propofol (Diprivan) 1,000 mg in 100 mls @ 2.327 mls/hr IV .Q24H [facility]; Protocol PRN Reason: Agitation Last Admin: 08/19/18 21:17 Dose: 5 mcg/kg/min, 2.327 mls/hr Metoprolol Tartrate (Lopressor) 50 mg PO BID [facility] Last Admin: 08/19/18 17:15 Dose: 50 mg Pantoprazole Sodium (Protonix Inj) 40 mg IVP Q12H [facility] Last Admin: 08/19/18 21:51 Dose: 40 mg - Labs Labs: 08/19/18 05:36 08/19/18 05:36 PT 14.3 SECONDS (9.7-12.2) H 08/17/18 05:52 INR 1.3 08/17/18 05:52 APTT 29.9 SECONDS (21-34) 08/17/18 05:52 Assessment and Plan (1) Nasal hemorrhage Status: Acute (2) Rectal bleeding Status: Acute (3) Afib Status: Acute (4) Noncompliance with medication treatment due to overuse of medication Status: Acute (5) Hx of laparoscopic gastric banding Status: Acute (6) Hx of coronary artery disease Status: Acute - Assessment and Plan (Free Text) Plan: continues to need vent support. we can reattempt asa at this point while monitoring hb. then reintroduce anticoagulation. pt should get eval for watchman. total care time 65 min
[2018-08-20] MEDS: Acetylcysteine 20% Inhal Soln (4ml) INH SCH ×2 (01:34→07:53)
[2018-08-20] MEDS: Albuterol-Ipratrop 3 mg / 0.5 (3 ml) UD INH SCH ×4 (01:34→19:25)
[2018-08-20] MEDS: Aztreonam 1 GM in Sodium Chloride 0.9% 100 ML IVPB SCH ×3 (02:03→18:00)
[2018-08-20] MEDS: Aritificial Tears (15ml) OU SCH ×6 (02:04→21:44)
[2018-08-20 06:03] LABS: BASO # 0.1 K/uL (0.0-0.2); BASO % 0.9 % (0.0-2.0); EOS # 0.4 K/uL (0.0-0.7); EOS % 6.3 % (0.0-4.0); HEMOGLOBIN 9.5 g/dL (11.0-16.0); LYMPH # 1.4 K/uL (1.0-4.3); MEAN CELL VOLUME 97.4 fL (81.0-99.0); MEAN CORPUSCULAR HEMOGLOBIN 32.1 pg (27.0-31.0); MEAN PLATELET VOLUME 9.3 fL (7.2-11.7); MONO # 0.4 K/uL (0.0-0.8); MONO % 6.6 % (0.0-10.0); NEUT # 3.9 K/uL (1.8-7.0); NEUT % 64.2 % (50.0-75.0); NRBC % 0.1 % (0.0-2.0); RBC 2.96 Mil/uL (3.80-5.20); RED CELL DISTRIBUTION WIDTH 17.1 % (11.5-14.5); WHITE BLOOD COUNT 6.1 K/uL (4.8-10.8)
[2018-08-20 06:21] LABS: ALBUMIN 2.7 g/dL (3.5-5.0); CALCIUM 8.3 mg/dl (8.6-10.4)
[2018-08-20 06:24] LABS: ABG ALLEN TEST POS; ARTERIAL BLOOD GAS HCO3 28.5 mmol/L (21-28); ARTERIAL BLOOD GAS HEMOGLOBIN 8.5 g/dL (11.7-17.4); ARTERIAL BLOOD GAS O2 SAT 97.4 % (95-98); ARTERIAL BLOOD GAS PCO2 37 mm/Hg (35-45); ARTERIAL BLOOD GAS PH 7.49 (7.35-7.45); ARTERIAL BLOOD GAS PO2 71 mm/Hg (80-100); ARTERIAL BLOOD GAS TCO2 29.3 mmol/L (22-28)
--- NOTE | 2018-08-20 06:33 | CON ---
DATE: 08/19/2018 INFECTIOUS DISEASE CONSULTATION REQUESTED BY: Addison Rodriguez MD HISTORY OF PRESENT ILLNESS: This patient is a 72-year-old female. She is intubated and presently in ICU. I am asked to evaluate for IV antibiotics as she remains intubated. Most of the history is taken from the chart. She has past medical history of coronary artery disease, has history of ME two times and history of stent placement in 04/2018 and in 2016. She also has CVA with brain aneurysms, has left-sided residual weakness, brain aneurysm, congestive heart failure, atrial fibrillation. She was on blood thinners and was brought to the emergency room with epistaxis of the left side and the packing has just been removed at this time. She was having uncontrolled bleeding. Actually, it is written that the patient said that she was not on Xarelto because she could not fill up the prescription but she probably was on other anticoagulants. The patient had to undergo urgent embolization of the left facial sphenopalatine artery, the procedure was done on 08/16/2018, and the patient's hemoglobin and hematocrit they are monitoring. She is in critical care, which she could not be extubated after the procedure, and I am asked to evaluate for IV antibiotic. PAST MEDICAL HISTORY: Not significant for any infections but has significant past medical history as dictated of atrial fibrillation, ME, and coronary artery disease with stents, brain aneurysms, CHF, hypercholesterolemia, hypertension, cardiac robins. Pulmonary, she has asthma and COPD and history of emphysema. She has had stroke with left-sided residual weakness. Muscular, no history of falls. Psych, she has no history of depression or substance abuse. SURGICAL HISTORY: Significant for cardiac stents x3, anesthesia. ALLERGIES: SHE IS DIPHENHYDRAMINE, PENICILLIN, AND ZOLPIDEM. MEDICATIONS: At the present time include Azactam. She is on acetylcysteine. She is on albuterol, DuoNeb, on artificial tears. She is on pantoprazole, metoprolol, and potassium is one time and she is sedated with midazolam. She is on heparin subcutaneous and I added clindamycin. She was on Azactam today. REVIEW OF SYSTEMS: Unable to obtain as she is sedated. PHYSICAL EXAMINATION: VITAL SIGNS: Temperature, she is actually afebrile, 98.7 today; pulse is 81, blood pressure 124/58, respriations are 18, she is on mechanical ventilator. HEENT: Head is atraumatic and normocephalic. She remains sedated. Her nasal packing was removed but there is a scab underneath the left nasal opening. She remains intubated. NECK: Supple. JVP is flat. LUNGS: Have decreased breath sounds bilaterally. HEART: S1, S2, atrial fib. ABDOMEN: Soft, flabby, nontender. EXTREMITIES: Have no edema. NEUROLOGIC: She is status post sphenopalatine artery with complete occlusion done and she came in with severe epistaxis. LABORATORY DATA: Her white count is 8.1, hemoglobin 8.5, hematocrit is 25.6, platelet count is 182. Chemistry shows sodium 144, potassium 3.8, chlorides are 112, CO2 is 25, BUN is 24, creatinine is 1.1. Her chest x-ray shows cardiomegaly, ET tube terminates 4.7 cm above the [place], NG tube extends exact lotion of the stomach, moderate interstitial prominence may reflect infection or edema. Small bilateral pleural effusion and/or consolidation and she also had a chest CT done, which was done yesterday. Chest CT was noted, which shows bilateral effusion and bilateral atelectasis and/or infiltrate, underlying mild pulmonary venous congestive changes also felt to be present and medium size precardinal effusion, ascending thoracic aorta 3 and descending aorta measures approximately 2.4 and they suggest pulmonary arterial hypertension also. IMPRESSION: So, my impression is that this patient has cardiac history and she has atrial fibrillation. She has history of being on anticoagulants, came in with severe anemia and epistaxis and is now intubated, has history of emphysema also, has bilateral atelectasis and infiltrates. PLAN: Suggest at this time to add clindamycin, which I added to cover for aspiration pneumonia and I was waiting for the sputum culture. We will continue with Azactam and clindamycin at this time as she is allergic to penicillin. Blood cultures from 08/16/2018 were negative. She may have aspiration. We will follow with the other consultants. Devon León MD [facility] # [id number]
--- NOTE | 2018-08-20 07:28 | CP.PCM.PN ---
<Douglas,Liz - Last Filed: 08/20/18 07:29> Subjective - Date & Time of Evaluation Date of Evaluation: 08/20/18 Time of Evaluation: 07:00 - Subjective Subjective: GI Fellow PGY5 Progress Note Pt seen and evaluated at bedside, pt intubated on MV. Tolerated TF, Per nursing no reported melena overnight. ROS: A 12pt ROS was negative except as above. Objective - Vital Signs/Intake and Output Vital Signs (last 24 hours): Temp Pulse Resp BP Pulse Ox 97.6 F 95 H 20 129/79 100 08/20/18 04:00 08/20/18 07:00 08/20/18 07:00 08/20/18 06:14 08/20/18 07:00 Intake and Output: 08/20/18 08/20/18 06:59 18:59 Intake Total 779.7 44.7 Output Total 200 Balance 579.7 44.7 - Medications Medications: Current Medications Acetylcysteine (Acetylcysteine 20%) 4 ml INH RQ6 SYED Last Admin: 08/20/18 01:34 Dose: 4 ml Albuterol/Ipratropium (Duoneb 3 Mg/0.5 Mg (3 Ml) Ud) 3 ml INH RQ6 SYED Last Admin: 08/20/18 01:34 Dose: 3 ml Artificial Tears (Artificial Tears) 0 ml OU Q4H SYED Last Admin: 08/20/18 05:38 Dose: 2 drop Heparin Sodium (Porcine) (Heparin) 5,000 units SC Q8 SYED Last Admin: 08/20/18 05:39 Dose: 5,000 units Aztreonam 1 gm/ Sodium (Chloride) 100 mls @ 100 mls/hr IVPB Q8H SYED; Protocol Last Admin: 08/20/18 02:03 Dose: 100 mls/hr Midazolam HCl 100 mg/ Dextrose 100 mls @ 1.52 mls/hr IV .Q24H SYED; Protocol Last Titration: 08/20/18 02:08 Dose: 0 mg/kg/hr, 0 mls/hr Clindamycin Phosphate 600 mg/ (Sodium Chloride) 54 mls @ 100 mls/hr IVPB Q8H SYED; Protocol Last Admin: 08/20/18 05:38 Dose: 100 mls/hr Propofol (Diprivan) 1,000 mg in 100 mls @ 2.327 mls/hr IV .Q24H PRN; Protocol PRN Reason: Agitation Last Titration: 08/20/18 04:30 Dose: 10 mcg/kg/min, 4.654 mls/hr Metoprolol Tartrate (Lopressor) 50 mg PO BID [facility] Last Admin: 08/19/18 17:15 Dose: 50 mg Pantoprazole Sodium (Protonix Inj) 40 mg IVP Q12H [facility] Last Admin: 08/19/18 21:51 Dose: 40 mg - Labs Labs: 08/20/18 05:58 08/20/18 05:58 PT 14.3 SECONDS (9.7-12.2) H 08/17/18 05:52 INR 1.3 08/17/18 05:52 APTT 29.9 SECONDS (21-34) 08/17/18 05:52 - Constitutional Appears: Non-toxic, Agitated - Head Exam Head Exam: ATRAUMATIC, NORMAL INSPECTION, NORMOCEPHALIC - Eye Exam Eye Exam: EOMI, Normal appearance, PERRL - ENT Exam ENT Exam: Mucous Membranes Dry - Neck Exam Neck Exam: Full ROM, Normal Inspection - Respiratory Exam Respiratory Exam: Decreased Breath Sounds, Rhonchi, Respiratory Distress - Cardiovascular Exam Cardiovascular Exam: Tachycardia, +S1, +S2 - GI/Abdominal Exam GI & Abdominal Exam: Soft, Normal Bowel Sounds. absent: Distended, Firm, Guarding, Rigid - Rectal Exam Rectal Exam: Deferred - Extremities Exam Extremities Exam: Full ROM, Normal Inspection - Skin Skin Exam: Dry, Intact, Normal Color, Warm Assessment and Plan - Assessment and Plan (Free Text) Assessment: 72 yo female with a history of CAD s/p stents, CVA with left hemiparesis, AF on rivaroxaban (but reportedly not taking for weeks), presenting with refractory epistaxis s/p embolization culprit vessels. GI consulted for possible GI bleed. Dark red blood on rectal exam. Tachycardic but vitals stable otherwise.Hgb 8.3 - > 8.7 post-1U transfusion. 1. Epistaxis 2. Hematochezia 3. Acute Hypoxic Respiratory Failure Plan: - Chnage PPI IV BID to Daily - Monitor Hgb daily, Hgb stable - No further rectal bleeding - VDRF likely due to aspiration PNA with severe epistaxis - No plan for EGD at this time - Abx, vent management per primary - Continue TF - Should bleeding persist and Hgb decline will consider ruling out true upper GI source with EGD - Please call with any questions or concerns <Calderon Welsh - Last Filed: 08/20/18 08:54> Objective - Vital Signs/Intake and Output Vital Signs (last 24 hours): Temp Pulse Resp BP Pulse Ox 98.2 F 97 H 19 137/78 100 08/20/18 08:00 08/20/18 08:00 08/20/18 08:00 08/20/18 08:00 08/20/18 08:00 Intake and Output: 08/20/18 08/20/18 06:59 18:59 Intake Total 779.7 94.1 Output Total 200 Balance 579.7 94.1 - Medications Medications: Current Medications Acetylcysteine (Acetylcysteine 20%) 4 ml INH RQ6 SYED Last Admin: 08/20/18 07:53 Dose: 4 ml Albuterol/Ipratropium (Duoneb 3 Mg/0.5 Mg (3 Ml) Ud) 3 ml INH RQ6 SYED Last Admin: 08/20/18 07:52 Dose: 3 ml Artificial Tears (Artificial Tears) 0 ml OU Q4H SYED Last Admin: 08/20/18 05:38 Dose: 2 drop Heparin Sodium (Porcine) (Heparin) 5,000 units SC Q8 SYED Last Admin: 08/20/18 05:39 Dose: 5,000 units Aztreonam 1 gm/ Sodium (Chloride) 100 mls @ 100 mls/hr IVPB Q8H SYED; Protocol Last Admin: 08/20/18 02:03 Dose: 100 mls/hr Midazolam HCl 100 mg/ Dextrose 100 mls @ 1.52 mls/hr IV .Q24H SYED; Protocol Last Titration: 08/20/18 02:08 Dose: 0 mg/kg/hr, 0 mls/hr Clindamycin Phosphate 600 mg/ (Sodium Chloride) 54 mls @ 100 mls/hr IVPB Q8H SYED; Protocol Last Admin: 08/20/18 05:38 Dose: 100 mls/hr Propofol (Diprivan) 1,000 mg in 100 mls @ 2.327 mls/hr IV .Q24H PRN; Protocol PRN Reason: Agitation Last Titration: 08/20/18 04:30 Dose: 10 mcg/kg/min, 4.654 mls/hr Metoprolol Tartrate (Lopressor) 50 mg PO BID [facility] Last Admin: 08/19/18 17:15 Dose: 50 mg Pantoprazole Sodium (Protonix Inj) 40 mg IVP Q12H [facility] Last Admin: 08/19/18 21:51 Dose: 40 mg - Labs Labs: 08/20/18 05:58 08/20/18 05:58 PT 14.3 SECONDS (9.7-12.2) H 08/17/18 05:52 INR 1.3 08/17/18 05:52 APTT 29.9 SECONDS (21-34) 08/17/18 05:52 Attending/Attestation - Attestation I have personally seen and examined this patient.: Yes I have fully participated in the care of the patient.: Yes I have reviewed all pertinent clinical information, including history, physical exam and plan: Yes Notes (Text): 08/20/18 08:48 I have seen and examined patient. She remains intubated and sedated in intensive care unit. No acute events overnight, she had one dark brown colored bowel movement yesterday as per nursing staff. Tolerating OGT feeding without difficulty, no reported abdominal pain, vomiting. CAD s/p stent CVA Atrial fibrillation on eliquis (held) Epistaxis - resolved Respiratory failure, s/p intubation - Continue with tube feeding as tolerated - Continue with PPI therapy - H/H stable, no features of overt GI bleeding noted - Continue with antibiotics and ventilator management as per critical care team - No planned GI intervention at this time, will sign off case. Please reconsult as necessary, thank you.
--- NOTE | 2018-08-20 10:30 | CP.CCUPN ---
<Tyler Mcgowan - Last Filed: 08/20/18 10:27> CCU Subjective - Physician Review Subjective (Free Text): 08/20/18 10:27 PGY-1 Critical Care Progress Note for Dr. Augustine Patient seen and examined at bedside this AM. 72 yo female with pmhx of CAD s/p stent placement, hx of MA, CHF, hx of CVA with residual L weakness, brain aneurysm, afib on home xarelto Admitted to ER with uncontrollable epistaxis, acute blood loss s/p L internal maxillary artery, L facial artery embolization Had episode of melena, since resolved Received FFP x2, pRBC x1 Bleeding under control, nasal packing removed Likely aspiration pneumonia now on IV aztreonam, clindamycin for possible aspiration Extensive b/l pleural effusion on CT scan, possible midlung infiltrate on R lung IR consulted for thoracentesis of effusions (Dr. Polk) Currently on mechanical ventilation 450/100/20/5 Sedated, versed gtt Tube feeds, f/u further GI recs CCU Objective - Vital Signs / Intake & Output Vital Signs (Last 4 hours): Vital Signs Temp Pulse Resp BP Pulse Ox 08/20/18 09:00 99 H 20 119/67 98 08/20/18 08:00 98.2 F 93 H 20 137/78 100 08/20/18 07:00 93 H 20 141/78 100 Intake and Output (Last 8hrs): Intake & Output 08/19/18 08/20/18 08/20/18 22:59 06:59 14:59 Intake Total 450.3 549.4 138.1 Output Total 400 200 Balance 50.3 349.4 138.1 Weight 77.578 kg Intake: IV 54 45 30 Intake, IV Amount 76.3 184.4 28.1 Left Hand 50 150 Right Distal Port Forearm 2.3 27.4 28.1 Right Proximal Port 24 7 Forearm Tube Feeding 320 320 80 Output: Urine 400 200 Urine, Voided 400 200 Other: # Voids Urine, Voided 2 - Physical Exam Head: Positive for: Atraumatic, Normocephalic Respiratory/Chest: Positive for: Good Air Exchange, Wheezes Cardiovascular: Positive for: Regular Rate and Rhythm, Normal S1, S2 Abdomen: Positive for: Normal Bowel Sounds. Negative for: Distention Upper Extremity: Positive for: Normal Inspection, NORMAL PULSES. Negative for: Cyanosis, Edema Lower Extremity: Positive for: Normal Inspection, NORMAL PULSES. Negative for: Edema Skin: Positive for: Warm, Dry, Normal Color - Medications Active Medications: Active Medications Generic Name Dose Route Start Last Admin Trade Name Freq PRN Reason Stop Dose Admin Acetylcysteine 4 ml 08/19/18 09:45 08/20/18 07:53 Acetylcysteine 20% INH 4 ml RQ6 SYED Administration Albuterol/Ipratropium 3 ml 08/18/18 14:00 08/20/18 07:52 Duoneb 3 Mg/0.5 Mg (3 Ml) Ud INH 3 ml RQ6 SYED Administration Artificial Tears 0 ml 08/19/18 10:00 08/20/18 09:54 Artificial Tears OU 1 drop Q4H SYED Administration Heparin Sodium (Porcine) 5,000 units 08/19/18 14:00 08/20/18 05:39 Heparin SC 5,000 units Q8 SYED Administration Aztreonam 1 gm/ Sodium 100 mls @ 100 mls/hr 08/16/18 19:00 08/20/18 02:03 Chloride IVPB 100 mls/hr Q8H SYED Administration Protocol Midazolam HCl 100 mg/ Dextrose 100 mls @ 1.52 mls/hr 08/16/18 23:15 08/20/18 02:08 IV 0 mg/kg/hr .Q24H SYED 0 mls/hr Titration Protocol 0.02 MG/KG/HR Clindamycin Phosphate 600 mg/ 54 mls @ 100 mls/hr 08/19/18 14:00 08/20/18 05:38 Sodium Chloride IVPB 100 mls/hr Q8H SYED Administration Protocol Propofol 1,000 mg in 100 mls @ 2.327 mls/hr 08/19/18 21:09 08/20/18 08:30 Diprivan IV 30 mcg/kg/min .Q24H PRN 13.962 mls/hr Agitation Titration Protocol 5 MCG/KG/MIN Metoprolol Tartrate 50 mg 08/19/18 09:32 08/20/18 09:56 Lopressor PO 50 mg BID SYED Administration Pantoprazole Sodium 40 mg 08/18/18 22:00 08/20/18 09:56 Protonix Inj IVP 40 mg Q12H SYED Administration - Patient Studies Lab Studies: Microbiology Studies 08/16/18 20:30 Blood Culture - Preliminary Blood NO GROWTH AFTER 3 DAYS 08/16/18 20:30 Blood Culture - Preliminary Blood NO GROWTH AFTER 3 DAYS 08/18/18 14:59 Gram Stain - Final Trachasp Sputum Culture - Preliminary NORMAL ORAL HIEU Lab Studies 08/20/18 08/20/18 08/20/18 Range/Units 05:58 05:58 05:21 WBC 6.1 (4.8-10.8) K/uL RBC 2.96 L (3.80-5.20) Mil/uL Hgb 9.5 L (11.0-16.0) g/dL Hct 28.9 L (34.0-47.0) % MCV 97.4 (81.0-99.0) fL MCH 32.1 H (27.0-31.0) pg MCHC 33.0 (33.0-37.0) g/dL RDW 17.1 H (11.5-14.5) % Plt Count 171 (130-400) K/uL MPV 9.3 (7.2-11.7) fL Neut % (Auto) 64.2 (50.0-75.0) % Lymph % (Auto) 22.0 (20.0-40.0) % Worth % (Auto) 6.6 (0.0-10.0) % Eos % (Auto) 6.3 H (0.0-4.0) % Baso % (Auto) 0.9 (0.0-2.0) % Neut # (Auto) 3.9 (1.8-7.0) K/uL Lymph # (Auto) 1.4 (1.0-4.3) K/uL Worth # (Auto) 0.4 (0.0-0.8) K/uL Eos # (Auto) 0.4 (0.0-0.7) K/uL Baso # (Auto) 0.1 (0.0-0.2) K/uL Puncture Site Rr pCO2 37 (35-45) mm/Hg pO2 71 L (80-100) mm/Hg HCO3 28.5 H (21-28) mmol/L ABG pH 7.49 H (7.35-7.45) ABG Total CO2 29.3 H (22-28) mmol/L ABG O2 Saturation 97.4 (95-98) % ABG Base Excess 4.6 H (-2.0-3.0) mmol/L ABG Hemoglobin 8.5 L (11.7-17.4) g/dL ABG Carboxyhemoglobin 2.0 H (0.5-1.5) % POC ABG HHb (Measured) 2.5 (0.0-5.0) % ABG Methemoglobin 1.1 (0.0-3.0) % Dom Test Pos A-a O2 Difference 239.0 mm/Hg Respiratory Index 3.4 Hgb O2 Saturation 94.5 L (95.0-98.0) % Vent Mode Prvc Mechanical Rate 20 FiO2 50.0 % Tidal Volume 450 PEEP 5 Sodium 146 (132-148) mmol/L Potassium 3.8 (3.6-5.2) mmol/L Chloride 113 H (98-107) mmol/L Carbon Dioxide 25 (22-30) mmol/L Anion Gap 12 (10-20) BUN 25 H (7-17) mg/dL Creatinine 1.1 (0.7-1.2) mg/dL Est GFR ( Amer) 59 Est GFR (Non-Af Amer) 49 Random Glucose 99 (65-105) mg/dL Calcium 8.3 L (8.6-10.4) mg/dl Phosphorus 3.6 (2.5-4.5) mg/dL Magnesium 2.3 (1.6-2.3) mg/dL Total Bilirubin 1.1 (0.2-1.3) mg/dL AST 21 (14-36) U/L ALT 15 (9-52) U/L Alkaline Phosphatase 119 (38-126) U/L Total Protein 5.4 L (6.3-8.3) g/dL Albumin 2.7 L (3.5-5.0) g/dL Globulin 2.7 (2.2-3.9) gm/dL Albumin/Globulin Ratio 1.0 (1.0-2.1) Laboratory Results - last 24 hr 08/20/18 08/20/18 08/20/18 05:21 05:58 05:58 WBC 6.1 RBC 2.96 L Hgb 9.5 L Hct 28.9 L MCV 97.4 MCH 32.1 H MCHC 33.0 RDW 17.1 H Plt Count 171 MPV 9.3 Neut % (Auto) 64.2 Lymph % (Auto) 22.0 Worth % (Auto) 6.6 Eos % (Auto) 6.3 H Baso % (Auto) 0.9 Neut # (Auto) 3.9 Lymph # (Auto) 1.4 Worth # (Auto) 0.4 Eos # (Auto) 0.4 Baso # (Auto) 0.1 Puncture Site Rr pCO2 37 pO2 71 L HCO3 28.5 H ABG pH 7.49 H ABG Total CO2 29.3 H ABG O2 Saturation 97.4 ABG Base Excess 4.6 H ABG Hemoglobin 8.5 L ABG Carboxyhemoglobin 2.0 H POC ABG HHb (Measured) 2.5 ABG Methemoglobin 1.1 Dom Test Pos A-a O2 Difference 239.0 Respiratory Index 3.4 Hgb O2 Saturation 94.5 L Vent Mode Prvc Mechanical Rate 20 FiO2 50.0 Tidal Volume 450 PEEP 5 Sodium 146 Potassium 3.8 Chloride 113 H Carbon Dioxide 25 Anion Gap 12 BUN 25 H Creatinine 1.1 Est GFR ( Amer) 59 Est GFR (Non-Af Amer) 49 Random Glucose 99 Calcium 8.3 L Phosphorus 3.6 Magnesium 2.3 Total Bilirubin 1.1 AST 21 ALT 15 Alkaline Phosphatase 119 Total Protein 5.4 L Albumin 2.7 L Globulin 2.7 Albumin/Globulin Ratio 1.0 Radiology Impressions: Radiology Impressions Chest X-Ray 08/19/18 09:29 IMPRESSION: Cardiomegaly. Endotracheal tube terminates approximately 4.7 cm above the [place]. Nasogastric tube extends expected location of the stomach. Moderate interstitial prominence may reflect infection or edema. Small bilateral pleural effusions and/or consolidations. Fingerstick Blood Sugar Results: 102 <Malik Augustine S - Last Filed: 08/20/18 18:45> CCU Subjective - Physician Review Critical Care Time Spent (in minutes): 45 CCU Objective - Vital Signs / Intake & Output Vital Signs (Last 4 hours): Vital Signs Temp Pulse Resp BP Pulse Ox 08/20/18 18:00 97 H 20 142/82 100 08/20/18 17:00 89 20 143/95 H 100 08/20/18 16:00 98.5 F 87 20 132/92 H 100 08/20/18 15:00 88 20 124/76 99 Intake and Output (Last 8hrs): Intake & Output 08/20/18 08/20/18 08/20/18 06:59 14:59 22:59 Intake Total 549.4 828.1 311.4 Output Total 200 450 Balance 349.4 828.1 -138.6 Weight 171 lb 0.5 oz Intake: IV 45 60 100 Intake, IV Amount 184.4 248.1 51.4 Left Hand 150 150 Right Distal Port Forearm 27.4 98.1 51.4 Right Proximal Port 7 Forearm Tube Feeding 320 320 160 Other 200 Output: Urine 200 450 Urethral (Jarvis) 450 Urine, Voided 200 Other: # Voids Urine, Voided 2 - Medications Active Medications: Active Medications Generic Name Dose Route Start Last Admin Trade Name Freq PRN Reason Stop Dose Admin Albuterol/Ipratropium 3 ml 08/18/18 14:00 08/20/18 14:23 Duoneb 3 Mg/0.5 Mg (3 Ml) Ud INH 3 ml RQ6 SYED Administration Artificial Tears 0 ml 08/19/18 10:00 08/20/18 17:30 Artificial Tears OU 1 drop Q4H SYED Administration Heparin Sodium (Porcine) 5,000 units 08/19/18 14:00 08/20/18 14:32 Heparin SC 5,000 units Q8 SYED Administration Aztreonam 1 gm/ Sodium 100 mls @ 100 mls/hr 08/16/18 19:00 08/20/18 18:00 Chloride IVPB 100 mls/hr Q8H SYED Administration Protocol Midazolam HCl 100 mg/ Dextrose 100 mls @ 1.52 mls/hr 08/16/18 23:15 08/20/18 02:08 IV 0 mg/kg/hr .Q24H SYED 0 mls/hr Titration Protocol 0.02 MG/KG/HR Clindamycin Phosphate 600 mg/ 54 mls @ 100 mls/hr 08/19/18 14:00 08/20/18 14:29 Sodium Chloride IVPB 100 mls/hr Q8H SYED Administration Protocol Propofol 1,000 mg in 100 mls @ 2.327 mls/hr 08/19/18 21:09 08/20/18 16:45 Diprivan IV 25 mcg/kg/min .Q24H PRN 11.635 mls/hr Agitation Administration Protocol 5 MCG/KG/MIN Metoprolol Tartrate 50 mg 08/19/18 09:32 08/20/18 17:32 Lopressor PO 50 mg BID SYED Administration Pantoprazole Sodium 40 mg 08/18/18 22:00 08/20/18 09:56 Protonix Inj IVP 40 mg Q12H SYED Administration - Patient Studies Lab Studies: Microbiology Studies 08/18/18 14:59 Gram Stain - Final Trachasp Sputum Culture - Final NORMAL ORAL HIEU 08/16/18 20:30 Blood Culture - Preliminary Blood NO GROWTH AFTER 3 DAYS 08/16/18 20:30 Blood Culture - Preliminary Blood NO GROWTH AFTER 3 DAYS Lab Studies 08/20/18 08/20/18 08/20/18 Range/Units 05:58 05:58 05:21 WBC 6.1 (4.8-10.8) K/uL RBC 2.96 L (3.80-5.20) Mil/uL Hgb 9.5 L (11.0-16.0) g/dL Hct 28.9 L (34.0-47.0) % MCV 97.4 (81.0-99.0) fL MCH 32.1 H (27.0-31.0) pg MCHC 33.0 (33.0-37.0) g/dL RDW 17.1 H (11.5-14.5) % Plt Count 171 (130-400) K/uL MPV 9.3 (7.2-11.7) fL Neut % (Auto) 64.2 (50.0-75.0) % Lymph % (Auto) 22.0 (20.0-40.0) % Worth % (Auto) 6.6 (0.0-10.0) % Eos % (Auto) 6.3 H (0.0-4.0) % Baso % (Auto) 0.9 (0.0-2.0) % Neut # (Auto) 3.9 (1.8-7.0) K/uL Lymph # (Auto) 1.4 (1.0-4.3) K/uL Worth # (Auto) 0.4 (0.0-0.8) K/uL Eos # (Auto) 0.4 (0.0-0.7) K/uL Baso # (Auto) 0.1 (0.0-0.2) K/uL Puncture Site Rr pCO2 37 (35-45) mm/Hg pO2 71 L (80-100) mm/Hg HCO3 28.5 H (21-28) mmol/L ABG pH 7.49 H (7.35-7.45) ABG Total CO2 29.3 H (22-28) mmol/L ABG O2 Saturation 97.4 (95-98) % ABG Base Excess 4.6 H (-2.0-3.0) mmol/L ABG Hemoglobin 8.5 L (11.7-17.4) g/dL ABG Carboxyhemoglobin 2.0 H (0.5-1.5) % POC ABG HHb (Measured) 2.5 (0.0-5.0) % ABG Methemoglobin 1.1 (0.0-3.0) % Dom Test Pos A-a O2 Difference 239.0 mm/Hg Respiratory Index 3.4 Hgb O2 Saturation 94.5 L (95.0-98.0) % Vent Mode Prvc Mechanical Rate 20 FiO2 50.0 % Tidal Volume 450 PEEP 5 Sodium 146 (132-148) mmol/L Potassium 3.8 (3.6-5.2) mmol/L Chloride 113 H (98-107) mmol/L Carbon Dioxide 25 (22-30) mmol/L Anion Gap 12 (10-20) BUN 25 H (7-17) mg/dL Creatinine 1.1 (0.7-1.2) mg/dL Est GFR ( Amer) 59 Est GFR (Non-Af Amer) 49 Random Glucose 99 (65-105) mg/dL Calcium 8.3 L (8.6-10.4) mg/dl Phosphorus 3.6 (2.5-4.5) mg/dL Magnesium 2.3 (1.6-2.3) mg/dL Total Bilirubin 1.1 (0.2-1.3) mg/dL AST 21 (14-36) U/L ALT 15 (9-52) U/L Alkaline Phosphatase 119 (38-126) U/L Total Protein 5.4 L (6.3-8.3) g/dL Albumin 2.7 L (3.5-5.0) g/dL Globulin 2.7 (2.2-3.9) gm/dL Albumin/Globulin Ratio 1.0 (1.0-2.1) Laboratory Results - last 24 hr 08/20/18 08/20/18 08/20/18 05:21 05:58 05:58 WBC 6.1 RBC 2.96 L Hgb 9.5 L Hct 28.9 L MCV 97.4 MCH 32.1 H MCHC 33.0 RDW 17.1 H Plt Count 171 MPV 9.3 Neut % (Auto) 64.2 Lymph % (Auto) 22.0 Worth % (Auto) 6.6 Eos % (Auto) 6.3 H Baso % (Auto) 0.9 Neut # (Auto) 3.9 Lymph # (Auto) 1.4 Worth # (Auto) 0.4 Eos # (Auto) 0.4 Baso # (Auto) 0.1 Puncture Site Rr pCO2 37 pO2 71 L HCO3 28.5 H ABG pH 7.49 H ABG Total CO2 29.3 H ABG O2 Saturation 97.4 ABG Base Excess 4.6 H ABG Hemoglobin 8.5 L ABG Carboxyhemoglobin 2.0 H POC ABG HHb (Measured) 2.5 ABG Methemoglobin 1.1 Dom Test Pos A-a O2 Difference 239.0 Respiratory Index 3.4 Hgb O2 Saturation 94.5 L Vent Mode Prvc Mechanical Rate 20 FiO2 50.0 Tidal Volume 450 PEEP 5 Sodium 146 Potassium 3.8 Chloride 113 H Carbon Dioxide 25 Anion Gap 12 BUN 25 H Creatinine 1.1 Est GFR ( Amer) 59 Est GFR (Non-Af Amer) 49 Random Glucose 99 Calcium 8.3 L Phosphorus 3.6 Magnesium 2.3 Total Bilirubin 1.1 AST 21 ALT 15 Alkaline Phosphatase 119 Total Protein 5.4 L Albumin 2.7 L Globulin 2.7 Albumin/Globulin Ratio 1.0 Radiology Impressions: Radiology Impressions Chest X-Ray 08/20/18 06:00 IMPRESSION: Cardiomegaly and pulmonary venous congestion. Cardiomegaly and shape compatible with pericardial effusion-please note the above and mention of prior pericardial effusion on the chest without contrast study from 08/18/2018. The pulmonary venous congestion appears increased with relative ground-glass opacity-concerning for greater pulmonary edema in the left mid lung zone. Discoid atelectasis left mid to lower lung zone. Small bilateral pleural effusions-similar. Other findings as above. Attending/Attestation - Attestation I have personally seen and examined this patient.: Yes I have fully participated in the care of the patient.: Yes I have reviewed all pertinent clinical information: Yes Notes (Text): 08/20/18 18:43 Patient seen and examined in the intensive care unit. Case discussed with housestaff in the morning rounds. Remained intubated on ventilatory support Bilateral pleural effusion not amenable 2 thoracentesis by IR Continue present treatment including antibiotics for now Wean as tolerated
[2018-08-20] MEDS ORDERED: Lidocaine 2% MPF (5 ml) Inj ONE (10:59)
[2018-08-20] MEDS: Propofol 10 mg/ml 1,000 MG/100 ML VIAL IV PRN ×3 (11:00→23:09)
--- NOTE | 2018-08-20 14:03 | PCM.OP ---
Operative Report - Operative Report Date of Surgery/Procedure: 08/16/18 Time of Surgery/Procedure: 18:00 Surgeon: Alex Frazier Anesthesia/Sedation: General anesthesia Pre-Operative Diagnosis: SEVERE POSTERIOR EPISTAXIS FROM THE LEFT NASAL CAVITY REFRACTORY TO PACKING Post-Operative Diagnosis: SEVERE POSTERIOR EPISTAXIS FROM THE LEFT NASAL CAVITY REFRACTORY TO PACKING Indication for Surgery: Acute blood loss Operative Findings: PRE-OPERATIVE DIAGNOSIS: SEVERE POSTERIOR EPISTAXIS FROM THE LEFT NASAL CAVITY REFRACTORY TO PACKING POST OPERATIVE DIAGNOSIS: SEVERE POSTERIOR EPISTAXIS FROM THE LEFT NASAL CAVITY REFRACTORY TO PACKING PROCEDURE: Cerebral Angiogram Embolization For Epistaxis DATE OF SERVICE: August 16, 2018 SURGEON: Dr. Alex Frazier CONSENT: Informed consent was obtained for the procedure from the patient after discussing the nature of the proposed procedure the possible risks and benefits. Specific risks mentioned the patient include risk of ischemic stroke vascular injury. After I answered all questions written informed consent was obtained. ANESTHESIA: GENERAL ANESTHESIA INTRODUCTION: After the patient was placed under anesthesia, both groins were prepped and draped in the usual sterile fashion. A timeout procedure was documented, the patient's name date of and medical record number as well as the procedures to be performed was confirmed by the entire team, after everyone in the room agreed, the procedure continued. Using sterile Seldinger technique the right common femoral artery was punctured using a micro puncture needle. Over a 0.18 mm wire a 5 Wolof sheath was introduced into the artery and then hooked up to a continuous heparinized flush system. Via the sheath a 5 Wolof Darby Catheter was introduced over a 0.35 Terumo glide wire, into the double aorta the catheter was than double flushed and subsequently hooked up to a separate continuous heparinized flush system. The following vessels were than sequentially selected. Digital angiographic acquisitions were than obtained: VESSELS SELECTED: Left common carotid artery was selected cervical views were obtained. Left internal carotid artery was selected intracranial views were obtained. The left subclavian artery was selected cervical views were obtained. The left external carotid artery was selected head and neck views were obtained. The right common carotid artery was selected cervical and intracranial views were obtained. The right internal carotid artery was selected intracranial views including high definition magnified images of the intracranial circulation was obtained. The right external carotid artery was selected head and neck views were obtained The right vertebral artery was selected and and intracranial views were obtained. The left vertebral artery was selected intracranial views were obtained. DIAGNOSTIC IMAGING FINDINGS: Injection of left common carotid artery with cervical views of this is antegrade. The common internal and external carotid arteries is no significant arterial stenosis. Catheterization of left internal carotid artery with intracranial views demonstrates that there is antegrade flow with filling primarily of left middle cerebral artery. There is a hypoplastic left M1 segment of the anterior cerebral artery. There is good filling of the intracranial circulation without evidence of abnormality. There, Shekhar is and then fighting arises from the internal carotid artery in its normal location. Injection of the left external carotid artery with head and neck views of this is normal appearance the head and neck vasculature no evidence arteriovenous shunting or active extravasation. The middle meningeal artery is normal in size and nature. Intervention: at this point to the velocity micro catheter with a synchro two glide wire was advanced into the external carotid artery and then subsequently the distal external/internal maxillary artery was catheterized. Hand injection using a micro catheter was performed demonstrating a good filling of the nasal vasculature with visualization of the posterior seen a palatine and medial and lateral nasal arteries which are within normal limits a definite extravasation is not identified. The micro catheter was advanced to the level of the junction of the spindle palatine artery and the medial lateral nasal arteries at which point em bolization through the velocity micro catheter was used using 300 to 500 m particles of OPTi spheres followed by 500 to 700 m particles of embolus spheres until it was complete hemostasis of the external carotid distal internal maxillary artery circulation. Post embolization repeat arteriogram was then performed demonstrating that there is no significant nasal blush visualized at this time. The micro catheter was removed. The diagnostic catheter was then placed into the right common carotid artery with cervical views were performed. Injection of the right common carotid artery cervical views of this is normal appearance the common internal and external carotid artery no significant access is evident. The catheter was then placed in the right internal carotid artery where AP lateral and high magnification intracranial views were obtained. There is a previous craniotomy in the right with previous clipping of the aneurysm probably looking of the answer to indicate segment. Injection of the right internal carotid artery with intracranial views and high definition magnified imaging demonstrates that there is a filling of the anterior communicating artery across the anterior communicating artery there are two clips. 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 Segment of recurrence probably measures 2.2 mm x 2.5 mm. Has relatively wide neck status. Catheter was in place in the external carotid artery angiographic injection was performed demonstrating antegrade flow with filling of the external carotid artery and his branches. Theres a hypoplastic distal internal maxillary artery in the side with artery and significant amount of flow to the nasal arteries... Do to the hypoplastic nature of the right distal internal maxillary artery a decision was made not embolize the patient was examined under anesthesia no active extravasation was noted at this time. The procedures and completed a Wolof angio seal was used obtained hemostasis. IMPRESSION: SUCCESSFUL EMBOLIZATION OF LEFT INTERNAL MAXILLARY SINGLE PEPTIDE BRANCHES USING COMBINATION OF 3 300 TO 500 M OPTI SPHERES AND 500 TO 700 EMBOLUS SPHERES Sincerely, Alex Frazier MD. [facility] Procedure/Operation Description: xx Estimated Blood Loss: 20 Milliliters Complications: None Discharge & Condition: Transferred to intensive care unit remaining Intubated
--- NOTE | 2018-08-20 16:07 | RAD ---
Date of service: 08/20/2018 HISTORY: Intubated COMPARISON: 08/19/2018 TECHNIQUE: 1 view obtained. FINDINGS: LUNGS: Slight interval increased ground-glass opacity left perihilar region. Left mid to lower lung zone lateral subsegmental discoid atelectasis similar. Endotracheal tube tip approximately 4 cm cephalad to [place]. PLEURA: Bilateral pleural effusions similar each side believed small no pneumothorax seen. CARDIOVASCULAR: There is presence of aortic atherosclerotic calcification on x-ray. Marked cardiomegaly-similar- pericardial effusion compatible with this please note this was mention on the chest without contrast study from 08/18/2018 Moderate pulmonary venous congestion-some interval increased pulmonary edema around the left hilum suspect OSSEOUS STRUCTURES: Thoraco lumbar spondylosis. Bilateral shoulder arthrosis. VISUALIZED UPPER ABDOMEN: Nasogastric tube coursing near stomach-bariatric lap band here procedure likely. Part of this bariatric surgery perhaps are reservoir suggested on the right as before. Correlate clinically this area is incompletely visualized. OTHER FINDINGS: None. IMPRESSION: Cardiomegaly and pulmonary venous congestion. Cardiomegaly and shape compatible with pericardial effusion-please note the above and mention of prior pericardial effusion on the chest without contrast study from 08/18/2018. The pulmonary venous congestion appears increased with relative ground-glass opacity-concerning for greater pulmonary edema in the left mid lung zone. Discoid atelectasis left mid to lower lung zone. Small bilateral pleural effusions-similar. Other findings as above.
--- NOTE | 2018-08-20 17:32 | PQF ---
PROVIDER RESPONSE TEXT: Epistaxis/ rectal Bleeding due to Extrinsic Circulating Anticoagulant Xarelto treated Holding AC , Bl ood Transfusion and Embolization for control of bleeding REVIEWER QUERY TEXT: Clarification of Clinical Diagnostic Findings Please clarify documentation or clinical relevance for the clinical / diagnostic findings or whether those are insignificant or unable to be further specified. Epistaxis/ rectal Bleeding due to Extrinsic Circulating Anticoagulant Xarelto treated Holding AC , Blood Transfusion and Embolization for control of bleeding . -Other Explanation. -Unable to Determine. The patient's Clinical Indicators include: Clinical Findings: Hx of Afib on Anticoagulant Xarelto. Treatment : Hold AC,Contrl Bleeding , Embolization of Maxillary Artery Risk factor: Extrinsic AC Xarelto Query created by: Cheryl Loaiza on 08/20/2018 4:39 PM Electronically signed by: Wen JONES 08/20/2018 5:29 PM
--- NOTE | 2018-08-20 17:45 | CARD ---
APPROVED REPORT Date of service: 08/20/2018 EXAM: Two-dimensional and M-mode echocardiogram with Doppler and color Doppler. Other Information Quality : GoodRhythm : INDICATION Pericardial Effusion Dyspnea Pleural Effusion Echo Enhancing Agent Indication: Rule Out Septal Defect Agent/Amount Used: Agitated Saline 2D DIMENSIONS IVSd1.0 (0.7-1.1cm)LVDd4.2 (3.9-5.9cm) PWd1.2 (0.7-1.1cm)LA [id number] (18-58mL) LVDs3.1 (2.5-4.0cm)FS (%) 25.4 % LVEF (%)50.4 (>50%)LVEF (Gaines's)45.38 % M-Mode DIMENSIONS Left Atrium (MM)4.63 (2.5-4.0cm)IVSd1.17 (0.7-1.1cm) Aortic Root2.59 (2.2-3.7cm)LVDd4.59 (4.0-5.6cm) Aortic Cusp Exc.2.11 (1.5-2.0cm)PWd1.02 (0.7-1.1cm) FS (%) 26 %LVDs3.39 (2.0-3.8cm) LVEF (%)51 (>50%) Aortic Valve AI P 1/2 [id number] Mitral Valve MV E Lbudlwsd672.7cm/sE/A ratio0.0 TDI Lateral E' Peak V8.13cm/sMedial E' Peak V7.06cm/sE/Lateral E'13.7 E/Medial E'15.8 Tricuspid Valve TR Peak Gsgpirny870sg/sTR Peak Gr.[id number] LEFT VENTRICLE The Left Ventricle is borderline dilated. There is normal left ventricular wall thickness. Left ventricle systolic function is mildly impaired. The Ejection Fraction is - 45% There is normal LV segmental wall motion. Grade III- restrictive diastolic dysfunction. RIGHT VENTRICLE The right ventricle is mildlyto moderately dilated. Systolic function is mildly reduced. ATRIA The left atrium is severely dilated. The right atrium is moderately dilated. There is a small to moderate secundum type atrial septal defect with left to right shunt AORTIC VALVE The aortic valve is normal in structure. There is a mild aortic regurgitation. There is no aortic valvular stenosis. MITRAL VALVE The mitral valve is normal in structure. Mitral regurgitation is mild. TRICUSPID VALVE The tricuspid valve is normal in structure. There is mild to moderate tricuspid regurgitation. Right ventricular systolic pressure is estimated at - 41 mmHg. There is mild-moderate pulmonary hypertension. PULMONIC VALVE The pulmonary valve is normal in structure. There is trace to mild pulmonic valvular regurgitation. GREAT VESSELS The aortic root is normal in size. The aortic root displays mild sclerocalcific changes. The IVC was not visualized. PERICARDIAL EFFUSION There is a small pericardial effusion. No evidence of tamponade. There is a left pleural effusion. <Conclusion> Left ventricle systolic function is mildly to modertaely impaired. The Ejection Fraction is - 45% Grade III diastolic dysfunction- restrictive diastolic dysfunction. The right ventricle is mildlyto moderately dilated. Systolic function is mildly reduced. Moderate to severe bi-atrial dilatation. There is a small to moderate secundum type atrial septal defect with left to right shunt There is a mild mitral and aortic regurgitation. There is mild to moderate tricuspid regurgitation. Right ventricular systolic pressure is estimated at - 41 mmHg compatible with mild-moderate pulmonary hypertension. There is a small pericardial effusion. No evidence of tamponade. There is a left pleural effusion.
--- NOTE | 2018-08-20 19:28 | CP.PCM.PN ---
Subjective - Date & Time of Evaluation Date of Evaluation: 08/20/18 - Subjective Subjective: patient seen today no fever no vomiting no diarrhea no shortness of breath Objective - Vital Signs/Intake and Output Vital Signs (last 24 hours): Temp Pulse Resp BP Pulse Ox 98.5 F 84 21 119/64 100 08/20/18 16:00 08/20/18 19:00 08/20/18 19:00 08/20/18 19:00 08/20/18 19:00 Intake and Output: 08/20/18 08/21/18 18:59 06:59 Intake Total 1239.5 51.7 Output Total 450 Balance 789.5 51.7 - Medications Medications: Current Medications Albuterol/Ipratropium (Duoneb 3 Mg/0.5 Mg (3 Ml) Ud) 3 ml INH RQ6 SYED Last Admin: 08/20/18 19:25 Dose: 3 ml Artificial Tears (Artificial Tears) 0 ml OU Q4H SYED Last Admin: 08/20/18 17:30 Dose: 1 drop Heparin Sodium (Porcine) (Heparin) 5,000 units SC Q8 SYED Last Admin: 08/20/18 14:32 Dose: 5,000 units Aztreonam 1 gm/ Sodium (Chloride) 100 mls @ 100 mls/hr IVPB Q8H SYED; Protocol Last Admin: 08/20/18 18:00 Dose: 100 mls/hr Midazolam HCl 100 mg/ Dextrose 100 mls @ 1.52 mls/hr IV .Q24H SYED; Protocol Last Titration: 08/20/18 02:08 Dose: 0 mg/kg/hr, 0 mls/hr Clindamycin Phosphate 600 mg/ (Sodium Chloride) 54 mls @ 100 mls/hr IVPB Q8H SYED; Protocol Last Admin: 08/20/18 14:29 Dose: 100 mls/hr Propofol (Diprivan) 1,000 mg in 100 mls @ 2.327 mls/hr IV .Q24H PRN; Protocol PRN Reason: Agitation Last Admin: 08/20/18 16:45 Dose: 25 mcg/kg/min, 11.635 mls/hr Metoprolol Tartrate (Lopressor) 50 mg PO BID SYED Last Admin: 08/20/18 17:32 Dose: 50 mg Pantoprazole Sodium (Protonix Inj) 40 mg IVP Q12H [facility] Last Admin: 08/20/18 09:56 Dose: 40 mg - Labs Labs: 08/20/18 05:58 08/20/18 05:58 PT 14.3 SECONDS (9.7-12.2) H 08/17/18 05:52 INR 1.3 08/17/18 05:52 APTT 29.9 SECONDS (21-34) 08/17/18 05:52 - Constitutional Appears: Well - Head Exam Head Exam: ATRAUMATIC, NORMAL INSPECTION, NORMOCEPHALIC - Eye Exam Eye Exam: EOMI, Normal appearance, PERRL Pupil Exam: NORMAL ACCOMODATION, PERRL - ENT Exam ENT Exam: Mucous Membranes Moist, Normal Exam - Neck Exam Neck Exam: Full ROM, Normal Inspection. absent: Lymphadenopathy - Respiratory Exam Respiratory Exam: Decreased Breath Sounds - Cardiovascular Exam Cardiovascular Exam: +S1, +S2 - GI/Abdominal Exam GI & Abdominal Exam: Soft, Diminished Bowel Sounds - Rectal Exam Rectal Exam: Deferred - Neurological Exam Neurological Exam: Oriented x3 Assessment and Plan (1) Afib Status: Acute (2) GIB (gastrointestinal bleeding) Status: Acute (3) Hx of coronary artery disease Status: Acute (4) Hx of laparoscopic gastric banding Status: Acute (5) Nasal hemorrhage Status: Acute (6) Noncompliance with medication treatment due to overuse of medication Status: Acute (7) Rectal bleeding Status: Acute (8) Osteoarthritis Status: Acute - Assessment and Plan (Free Text) Plan: Hemoglobin 9.5 Hematocrit 28.9 BUN 25 acelytcysteine 20% artificial tears aztreonam clindamycin phosphate diprivan duoneb heparin lopressor midazolam protonix inj plan discussed with patient moderate complexity of care labs reviewed medications reviewed vitals reviewed
[2018-08-21] MEDS: Aritificial Tears (15ml) OU SCH ×6 (02:00→21:16)
[2018-08-21] MEDS: Albuterol-Ipratrop 3 mg / 0.5 (3 ml) UD INH SCH ×4 (02:50→19:36)
[2018-08-21] MEDS: Aztreonam 1 GM in Sodium Chloride 0.9% 100 ML IVPB SCH ×3 (03:00→18:26)
[2018-08-21] MEDS: Midazolam 50 mg/10 ml 100 MG in Dextrose 5% In Water 80 ML IV SCH (04:00)
[2018-08-21] MEDS: Propofol 10 mg/ml 1,000 MG/100 ML VIAL IV PRN ×3 (05:24→19:45)
[2018-08-21] MEDS: Acetylcysteine 20% Inhal Soln (4ml) INH SCH (05:37)
[2018-08-21 05:48] LABS: ABG ALLEN TEST POS; ARTERIAL BLOOD GAS HCO3 27.5 mmol/L (21-28); ARTERIAL BLOOD GAS HEMOGLOBIN 8.7 g/dL (11.7-17.4); ARTERIAL BLOOD GAS O2 SAT 98.2 % (95-98); ARTERIAL BLOOD GAS PCO2 35 mm/Hg (35-45); ARTERIAL BLOOD GAS PH 7.49 (7.35-7.45); ARTERIAL BLOOD GAS PO2 83 mm/Hg (80-100); ARTERIAL BLOOD GAS TCO2 27.8 mmol/L (22-28)
[2018-08-21 05:51] LABS: BASO % 0.9 % (0.0-2.0); EOS # 0.5 K/uL (0.0-0.7); EOS % 9.3 % (0.0-4.0); LYMPH # 1.1 K/uL (1.0-4.3); LYMPH % 20.1 % (20.0-40.0); MEAN PLATELET VOLUME 10.4 fL (7.2-11.7); MONO # 0.4 K/uL (0.0-0.8); MONO % 6.4 % (0.0-10.0); NEUT # 3.5 K/uL (1.8-7.0); NEUT % 63.3 % (50.0-75.0); NRBC % 0.2 % (0.0-2.0); RBC 2.56 Mil/uL (3.80-5.20); RED CELL DISTRIBUTION WIDTH 17.7 % (11.5-14.5); WHITE BLOOD COUNT 5.5 K/uL (4.8-10.8)
[2018-08-21 06:21] LABS: HEMOGLOBIN 8.4 g/dL (11.0-16.0)
[2018-08-21 06:22] LABS: MEAN CORPUSCULAR HEMOGLOBIN 32.8 pg (27.0-31.0); MEAN CORPUSCULAR HGB CONC 33.4 g/dL (33.0-37.0)
[2018-08-21 07:19] LABS: ALT/SGPT 18 U/L (9-52); AST/SGOT 26 U/L (14-36); BLOOD UREA NITROGEN 26 mg/dL (7-17); CALCIUM 7.7 mg/dl (8.6-10.4); GFR NON-AFRICAN AMERICAN 55
--- NOTE | 2018-08-21 07:53 | RAD ---
Date of service: 08/21/2018 HISTORY: Intubated COMPARISON: Portable chest 08/20/2018 7:03 a.m.. TECHNIQUE: 1 view obtained. FINDINGS: LUNGS: Endotracheal and nasogastric tubes are not significantly changed in position. Opacity at the bilateral bases unchanged reflecting probable atelectasis though pneumonia is not excluded. PLEURA: Bilateral pleural effusions are not excluded. No pneumothorax bilaterally. CARDIOVASCULAR: Calcific atherosclerotic changes are seen related to the thoracic aorta. Cardiomegaly is unchanged with apparent diminishing pulmonary vascular congestion. OSSEOUS STRUCTURES: No significant abnormalities. VISUALIZED UPPER ABDOMEN: Normal. OTHER FINDINGS: None. IMPRESSION: Cardiomegaly stable with diminishing pulmonary vascular congestion. Bilateral basilar airspace disease and effusions are not excluded. No pneumothorax bilaterally.
--- NOTE | 2018-08-21 10:32 | CT ---
Date of service: 08/21/2018 PROCEDURE: CT Chest without contrast HISTORY: Shortness of breath, congestion. Questionable infiltrate COMPARISON: August 21, 2018.Single-view chest 08/18/2018 CT thorax. TECHNIQUE: Contiguous axial images were obtained through the chest without intravenous contrast enhancement. Sagittal and coronal reconstructions were performed. Radiation dose: Total exam DLP = 857.87 mGy-cm. This CT exam was performed using one or more of the following dose reduction techniques: Automated exposure control, adjustment of the mA and/or kV according to patient size, and/or use of iterative reconstruction technique. FINDINGS: LUNGS: Progressive consolidative changes primarily in the right middle lobe. Stable lower lobe infiltrates. MEDIASTINUM: Unremarkable thoracic aorta. No aneurysm. Cardiomegaly/pericardial effusion stable findings. Dilated main pulmonary artery consistent with pulmonary arterial hypertension (3.65 cm). No lymphadenopathy. Atherosclerotic calcifications identified primarily aortic arch. PLEURA: Stable bilateral pleural effusions. BONES: No fracture. No destructive lesion. UPPER ABDOMEN: Redemonstration of lap band and associated paraffin hien.. OTHER FINDINGS: Stable, satisfactory position ventilatory, nasogastric apparatus. IMPRESSION: 1. New right middle lobe infiltrate. 2. Stable lower lobe infiltrates. 3. Stable bilateral pleural effusions. 4. Cardiomegaly, pericardial effusion without evidence congestive heart failure. 5. Satisfactory/stable appearance of endotracheal tube and nasogastric tube. 6. Additional benign and/or incidental findings described above.
--- NOTE | 2018-08-21 10:38 | CP.CCUPN ---
<Tyler Mcgowan - Last Filed: 08/21/18 11:41> CCU Subjective - Physician Review Subjective (Free Text): 08/21/18 10:31 PGY-1 Critical Care Progress Note for Dr. Augustine Patient seen and examined at bedside this AM. 72 yo female with pmhx of CAD s/p stent placement, hx of NH, CHF, hx of CVA with residual L weakness, brain aneurysm, afib on home xarelto Admitted to ER with uncontrollable epistaxis, acute blood loss s/p L internal maxillary artery, L facial artery embolization Had episode of melena, since resolved Received FFP x2, pRBC x1 Mechanical vent 450/50/20/5 Sedated, on propofol gtt Bloody secretions noted per nursing, possibly from ET vs nares? Bilateral pleural effusions not amenable to thoracentesis per IR Repeat CT chest seemingly unchanged Plan for bronchoscopy this afternoon CCU Objective - Vital Signs / Intake & Output Vital Signs (Last 4 hours): Vital Signs Temp Pulse Resp BP Pulse Ox 08/21/18 10:14 133 H 24 126/81 99 08/21/18 10:08 120 H 16 08/21/18 09:00 129 H 18 98 08/21/18 08:54 129 H 20 130/66 97 08/21/18 08:00 98.1 F 110 H 21 100 08/21/18 07:53 109 H 20 148/80 100 08/21/18 07:00 111 H 17 99 08/21/18 06:53 115 H 21 141/83 100 Intake and Output (Last 8hrs): Intake & Output 08/20/18 08/21/18 08/21/18 22:59 06:59 14:59 Intake Total 750.5 702 162 Output Total 450 500 109 Balance 300.5 202 53 Weight 78.154 kg Intake: IV 180 120 Intake, IV Amount 150.5 262 42 Left Hand 50 150 0 Right Distal Port Forearm 100.5 112 42 Right Proximal Port 0 Forearm Tube Feeding 320 320 120 Other 100 Output: Urine 450 500 109 Urethral (Jarvis) 450 500 109 Other: # Voids Urine, Voided 0 # Bowel Movements 0 0 - Physical Exam Head: Positive for: Atraumatic, Normocephalic Respiratory/Chest: Positive for: Good Air Exchange, Wheezes Cardiovascular: Positive for: Regular Rate and Rhythm, Normal S1, S2 Abdomen: Positive for: Normal Bowel Sounds. Negative for: Distention Upper Extremity: Positive for: Normal Inspection, NORMAL PULSES. Negative for: Cyanosis, Edema Lower Extremity: Positive for: Normal Inspection, NORMAL PULSES. Negative for: Edema Skin: Positive for: Warm, Dry, Normal Color - Medications Active Medications: Active Medications Generic Name Dose Route Start Last Admin Trade Name Freq PRN Reason Stop Dose Admin Albuterol/Ipratropium 3 ml 08/18/18 14:00 08/21/18 07:49 Duoneb 3 Mg/0.5 Mg (3 Ml) Ud INH 3 ml RQ6 SYED Administration Artificial Tears 0 ml 08/19/18 10:00 08/21/18 05:21 Artificial Tears OU 2 drop Q4H SYED Administration Heparin Sodium (Porcine) 5,000 units 08/19/18 14:00 08/21/18 05:21 Heparin SC 5,000 units Q8 SYED Administration Aztreonam 1 gm/ Sodium 100 mls @ 100 mls/hr 08/16/18 19:00 08/21/18 03:00 Chloride IVPB 100 mls/hr Q8H SYED Administration Protocol Midazolam HCl 100 mg/ Dextrose 100 mls @ 1.52 mls/hr 08/16/18 23:15 08/21/18 04:00 IV Not Given .Q24H SYED Protocol 0.02 MG/KG/HR Clindamycin Phosphate 600 mg/ 54 mls @ 100 mls/hr 08/19/18 14:00 08/21/18 05:21 Sodium Chloride IVPB 100 mls/hr Q8H SYED Administration Protocol Propofol 1,000 mg in 100 mls @ 2.327 mls/hr 08/19/18 21:09 08/21/18 05:24 Diprivan IV 30 mcg/kg/min .Q24H PRN 13.962 mls/hr Agitation Administration Protocol 5 MCG/KG/MIN Metoprolol Tartrate 50 mg 08/19/18 09:32 08/20/18 17:32 Lopressor PO 50 mg BID SYED Administration Pantoprazole Sodium 40 mg 08/18/18 22:00 08/20/18 21:43 Protonix Inj IVP 40 mg Q12H SYED Administration - Patient Studies Lab Studies: Microbiology Studies 08/16/18 20:30 Blood Culture - Preliminary Blood NO GROWTH AFTER 4 DAYS 08/16/18 20:30 Blood Culture - Preliminary Blood NO GROWTH AFTER 4 DAYS 08/18/18 14:59 Gram Stain - Final Trachasp Sputum Culture - Final NORMAL ORAL HIEU Lab Studies 08/21/18 08/21/18 08/21/18 Range/Units 06:58 05:48 05:25 WBC 5.5 (4.8-10.8) K/uL RBC 2.56 L (3.80-5.20) Mil/uL Hgb 8.4 L (11.0-16.0) g/dL Hct 25.1 L (34.0-47.0) % MCV 98.0 (81.0-99.0) fL MCH 32.8 H (27.0-31.0) pg MCHC 33.4 (33.0-37.0) g/dL RDW 17.7 H (11.5-14.5) % Plt Count 163 (130-400) K/uL MPV 10.4 (7.2-11.7) fL Neut % (Auto) 63.3 (50.0-75.0) % Lymph % (Auto) 20.1 (20.0-40.0) % [place] % (Auto) 6.4 (0.0-10.0) % Eos % (Auto) 9.3 H (0.0-4.0) % Baso % (Auto) 0.9 (0.0-2.0) % Neut # (Auto) 3.5 (1.8-7.0) K/uL Lymph # (Auto) 1.1 (1.0-4.3) K/uL [place] # (Auto) 0.4 (0.0-0.8) K/uL Eos # (Auto) 0.5 (0.0-0.7) K/uL Baso # (Auto) 0.0 (0.0-0.2) K/uL Puncture Site Rr pCO2 35 (35-45) mm/Hg pO2 83 (80-100) mm/Hg HCO3 27.5 (21-28) mmol/L ABG pH 7.49 H (7.35-7.45) ABG Total CO2 27.8 (22-28) mmol/L ABG O2 Saturation 98.2 H (95-98) % ABG Base Excess 3.3 H (-2.0-3.0) mmol/L ABG Hemoglobin 8.7 L (11.7-17.4) g/dL ABG Carboxyhemoglobin 2.0 H (0.5-1.5) % POC ABG HHb (Measured) 1.7 (0.0-5.0) % ABG Methemoglobin 0.8 (0.0-3.0) % Dom Test Pos A-a O2 Difference 230.0 mm/Hg Respiratory Index 2.8 Hgb O2 Saturation 95.4 (95.0-98.0) % Vent Mode Prvc Mechanical Rate 20 FiO2 50.0 % Tidal Volume 450 PEEP 5 Sodium 138 (132-148) mmol/L Potassium 4.3 (3.6-5.2) mmol/L Chloride 105 (98-107) mmol/L Carbon Dioxide 21 L (22-30) mmol/L Anion Gap 16 (10-20) BUN 26 H (7-17) mg/dL Creatinine 1.0 (0.7-1.2) mg/dL Est GFR ( Amer) > 60 Est GFR (Non-Af Amer) 55 Random Glucose 72 D (65-105) mg/dL Calcium 7.7 L (8.6-10.4) mg/dl Phosphorus 4.9 H (2.5-4.5) mg/dL Magnesium 2.3 (1.6-2.3) mg/dL Total Bilirubin 0.6 (0.2-1.3) mg/dL AST 26 (14-36) U/L ALT 18 (9-52) U/L Alkaline Phosphatase 134 H (38-126) U/L Total Protein 6.0 L (6.3-8.3) g/dL Albumin 3.0 L (3.5-5.0) g/dL Globulin 3.0 (2.2-3.9) gm/dL Albumin/Globulin Ratio 1.0 (1.0-2.1) Laboratory Results - last 24 hr 08/21/18 08/21/18 08/21/18 05:25 05:48 06:58 WBC 5.5 RBC 2.56 L Hgb 8.4 L Hct 25.1 L MCV 98.0 MCH 32.8 H MCHC 33.4 RDW 17.7 H Plt Count 163 MPV 10.4 Neut % (Auto) 63.3 Lymph % (Auto) 20.1 [place] % (Auto) 6.4 Eos % (Auto) 9.3 H Baso % (Auto) 0.9 Neut # (Auto) 3.5 Lymph # (Auto) 1.1 [place] # (Auto) 0.4 Eos # (Auto) 0.5 Baso # (Auto) 0.0 Puncture Site Rr pCO2 35 pO2 83 HCO3 27.5 ABG pH 7.49 H ABG Total CO2 27.8 ABG O2 Saturation 98.2 H ABG Base Excess 3.3 H ABG Hemoglobin 8.7 L ABG Carboxyhemoglobin 2.0 H POC ABG HHb (Measured) 1.7 ABG Methemoglobin 0.8 Dom Test Pos A-a O2 Difference 230.0 Respiratory Index 2.8 Hgb O2 Saturation 95.4 Vent Mode Prvc Mechanical Rate 20 FiO2 50.0 Tidal Volume 450 PEEP 5 Sodium 138 Potassium 4.3 Chloride 105 Carbon Dioxide 21 L Anion Gap 16 BUN 26 H Creatinine 1.0 Est GFR ( Amer) > 60 Est GFR (Non-Af Amer) 55 Random Glucose 72 D Calcium 7.7 L Phosphorus 4.9 H Magnesium 2.3 Total Bilirubin 0.6 AST 26 ALT 18 Alkaline Phosphatase 134 H Total Protein 6.0 L Albumin 3.0 L Globulin 3.0 Albumin/Globulin Ratio 1.0 Radiology Impressions: Radiology Impressions Chest X-Ray 08/20/18 06:00 IMPRESSION: Cardiomegaly and pulmonary venous congestion. Cardiomegaly and shape compatible with pericardial effusion-please note the above and mention of prior pericardial effusion on the chest without contrast study from 08/18/2018. The pulmonary venous congestion appears increased with relative ground-glass opacity-concerning for greater pulmonary edema in the left mid lung zone. Discoid atelectasis left mid to lower lung zone. Small bilateral pleural effusions-similar. Other findings as above. Chest X-Ray 08/21/18 06:00 IMPRESSION: Cardiomegaly stable with diminishing pulmonary vascular congestion. Bilateral basilar airspace disease and effusions are not excluded. No pneumothorax bilaterally. Fingerstick Blood Sugar Results: 73 <Malik Augustine S - Last Filed: 08/21/18 16:40> CCU Subjective - Physician Review Critical Care Time Spent (in minutes): 40 CCU Objective - Vital Signs / Intake & Output Vital Signs (Last 4 hours): Vital Signs Temp Pulse Resp BP Pulse Ox 08/21/18 16:00 98.3 F 110 H 20 94 L 08/21/18 15:00 103 H 26 H 97 08/21/18 14:53 110 H 22 127/64 100 08/21/18 14:00 106 H 20 100 08/21/18 13:53 96 H 20 115/61 100 08/21/18 13:36 98 H 20 120/68 99 08/21/18 13:00 88 20 99 08/21/18 12:53 104 H 20 112/70 99 Intake and Output (Last 8hrs): Intake & Output 08/21/18 08/21/18 08/21/18 06:59 14:59 22:59 Intake Total 702 682 158 Output Total 500 262 102 Balance 202 420 56 Weight 172 lb 4.8 oz Intake: IV 120 100 Intake, IV Amount 262 262 78 Left Hand 150 0 0 Right Distal Port Forearm 112 112 28 Right Proximal Port 150 50 Forearm Tube Feeding 320 320 80 Output: Urine 500 262 102 Urethral (Jarvis) 500 262 102 Other: # Voids Urine, Voided 0 0 # Bowel Movements 0 0 0 - Medications Active Medications: Active Medications Generic Name Dose Route Start Last Admin Trade Name Freq PRN Reason Stop Dose Admin Albuterol/Ipratropium 3 ml 08/18/18 14:00 08/21/18 13:39 Duoneb 3 Mg/0.5 Mg (3 Ml) Ud INH 3 ml RQ6 SYED Administration Artificial Tears 0 ml 08/19/18 10:00 08/21/18 14:50 Artificial Tears OU 2 drop Q4H SYED Administration Heparin Sodium (Porcine) 5,000 units 08/19/18 14:00 08/21/18 14:00 Heparin SC Not Given Q8 SYED Aztreonam 1 gm/ Sodium 100 mls @ 100 mls/hr 08/16/18 19:00 08/21/18 10:52 Chloride IVPB 100 mls/hr Q8H SYED Administration Protocol Midazolam HCl 100 mg/ Dextrose 100 mls @ 1.52 mls/hr 08/16/18 23:15 08/21/18 04:00 IV Not Given .Q24H SYED Protocol 0.02 MG/KG/HR Clindamycin Phosphate 600 mg/ 54 mls @ 100 mls/hr 08/19/18 14:00 08/21/18 05:21 Sodium Chloride IVPB 100 mls/hr Q8H SYED Administration Protocol Propofol 1,000 mg in 100 mls @ 2.327 mls/hr 08/19/18 21:09 08/21/18 12:42 Diprivan IV 30 mcg/kg/min .Q24H PRN 13.962 mls/hr Agitation Administration Protocol 5 MCG/KG/MIN Metoprolol Tartrate 50 mg 08/19/18 09:32 08/21/18 10:54 Lopressor PO 50 mg BID SYED Administration Pantoprazole Sodium 40 mg 08/18/18 22:00 08/21/18 10:53 Protonix Inj IVP 40 mg Q12H SYED Administration - Patient Studies Lab Studies: Microbiology Studies 08/16/18 20:30 Blood Culture - Preliminary Blood NO GROWTH AFTER 4 DAYS 08/16/18 20:30 Blood Culture - Preliminary Blood NO GROWTH AFTER 4 DAYS Lab Studies 08/21/18 08/21/18 08/21/18 Range/Units 15:28 06:58 05:48 WBC 8.5 D 5.5 (4.8-10.8) K/uL RBC 2.74 L 2.56 L (3.80-5.20) Mil/uL Hgb 8.7 L 8.4 L (11.0-16.0) g/dL Hct 26.3 L 25.1 L (34.0-47.0) % MCV 96.0 D 98.0 (81.0-99.0) fL MCH 31.8 H 32.8 H (27.0-31.0) pg MCHC 33.1 33.4 (33.0-37.0) g/dL RDW 17.1 H 17.7 H (11.5-14.5) % Plt Count 206 163 (130-400) K/uL MPV 9.8 10.4 (7.2-11.7) fL Neut % (Auto) 76.1 H 63.3 (50.0-75.0) % Lymph % (Auto) 11.9 L 20.1 (20.0-40.0) % [place] % (Auto) 5.4 6.4 (0.0-10.0) % Eos % (Auto) 6.1 H 9.3 H (0.0-4.0) % Baso % (Auto) 0.5 0.9 (0.0-2.0) % Neut # (Auto) 6.4 3.5 (1.8-7.0) K/uL Lymph # (Auto) 1.0 1.1 (1.0-4.3) K/uL [place] # (Auto) 0.5 0.4 (0.0-0.8) K/uL Eos # (Auto) 0.5 0.5 (0.0-0.7) K/uL Baso # (Auto) 0.0 0.0 (0.0-0.2) K/uL Puncture Site pCO2 (35-45) mm/Hg pO2 (80-100) mm/Hg HCO3 (21-28) mmol/L ABG pH (7.35-7.45) ABG Total CO2 (22-28) mmol/L ABG O2 Saturation (95-98) % ABG Base Excess (-2.0-3.0) mmol/L ABG Hemoglobin (11.7-17.4) g/dL ABG Carboxyhemoglobin (0.5-1.5) % POC ABG HHb (Measured) (0.0-5.0) % ABG Methemoglobin (0.0-3.0) % Dom Test A-a O2 Difference mm/Hg Respiratory Index Hgb O2 Saturation (95.0-98.0) % Vent Mode Mechanical Rate FiO2 % Tidal Volume PEEP Sodium 138 (132-148) mmol/L Potassium 4.3 (3.6-5.2) mmol/L Chloride 105 (98-107) mmol/L Carbon Dioxide 21 L (22-30) mmol/L Anion Gap 16 (10-20) BUN 26 H (7-17) mg/dL Creatinine 1.0 (0.7-1.2) mg/dL Est GFR ( Amer) > 60 Est GFR (Non-Af Amer) 55 Random Glucose 72 D (65-105) mg/dL Calcium 7.7 L (8.6-10.4) mg/dl Phosphorus 4.9 H (2.5-4.5) mg/dL Magnesium 2.3 (1.6-2.3) mg/dL Total Bilirubin 0.6 (0.2-1.3) mg/dL AST 26 (14-36) U/L ALT 18 (9-52) U/L Alkaline Phosphatase 134 H (38-126) U/L Total Protein 6.0 L (6.3-8.3) g/dL Albumin 3.0 L (3.5-5.0) g/dL Globulin 3.0 (2.2-3.9) gm/dL Albumin/Globulin Ratio 1.0 (1.0-2.1) 08/21/18 Range/Units 05:25 WBC (4.8-10.8) K/uL RBC (3.80-5.20) Mil/uL Hgb (11.0-16.0) g/dL Hct (34.0-47.0) % MCV (81.0-99.0) fL MCH (27.0-31.0) pg MCHC (33.0-37.0) g/dL RDW (11.5-14.5) % Plt Count (130-400) K/uL MPV (7.2-11.7) fL Neut % (Auto) (50.0-75.0) % Lymph % (Auto) (20.0-40.0) % [place] % (Auto) (0.0-10.0) % Eos % (Auto) (0.0-4.0) % Baso % (Auto) (0.0-2.0) % Neut # (Auto) (1.8-7.0) K/uL Lymph # (Auto) (1.0-4.3) K/uL [place] # (Auto) (0.0-0.8) K/uL Eos # (Auto) (0.0-0.7) K/uL Baso # (Auto) (0.0-0.2) K/uL Puncture Site Rr pCO2 35 (35-45) mm/Hg pO2 83 (80-100) mm/Hg HCO3 27.5 (21-28) mmol/L ABG pH 7.49 H (7.35-7.45) ABG Total CO2 27.8 (22-28) mmol/L ABG O2 Saturation 98.2 H (95-98) % ABG Base Excess 3.3 H (-2.0-3.0) mmol/L ABG Hemoglobin 8.7 L (11.7-17.4) g/dL ABG Carboxyhemoglobin 2.0 H (0.5-1.5) % POC ABG HHb (Measured) 1.7 (0.0-5.0) % ABG Methemoglobin 0.8 (0.0-3.0) % Dom Test Pos A-a O2 Difference 230.0 mm/Hg Respiratory Index 2.8 Hgb O2 Saturation 95.4 (95.0-98.0) % Vent Mode Prvc Mechanical Rate 20 FiO2 50.0 % Tidal Volume 450 PEEP 5 Sodium (132-148) mmol/L Potassium (3.6-5.2) mmol/L Chloride (98-107) mmol/L Carbon Dioxide (22-30) mmol/L Anion Gap (10-20) BUN (7-17) mg/dL Creatinine (0.7-1.2) mg/dL Est GFR ( Amer) Est GFR (Non-Af Amer) Random Glucose (65-105) mg/dL Calcium (8.6-10.4) mg/dl Phosphorus (2.5-4.5) mg/dL Magnesium (1.6-2.3) mg/dL Total Bilirubin (0.2-1.3) mg/dL AST (14-36) U/L ALT (9-52) U/L Alkaline Phosphatase (38-126) U/L Total Protein (6.3-8.3) g/dL Albumin (3.5-5.0) g/dL Globulin (2.2-3.9) gm/dL Albumin/Globulin Ratio (1.0-2.1) Laboratory Results - last 24 hr 08/21/18 08/21/18 08/21/18 05:25 05:48 06:58 WBC 5.5 RBC 2.56 L Hgb 8.4 L Hct 25.1 L MCV 98.0 MCH 32.8 H MCHC 33.4 RDW 17.7 H Plt Count 163 MPV 10.4 Neut % (Auto) 63.3 Lymph % (Auto) 20.1 [place] % (Auto) 6.4 Eos % (Auto) 9.3 H Baso % (Auto) 0.9 Neut # (Auto) 3.5 Lymph # (Auto) 1.1 [place] # (Auto) 0.4 Eos # (Auto) 0.5 Baso # (Auto) 0.0 Puncture Site Rr pCO2 35 pO2 83 HCO3 27.5 ABG pH 7.49 H ABG Total CO2 27.8 ABG O2 Saturation 98.2 H ABG Base Excess 3.3 H ABG Hemoglobin 8.7 L ABG Carboxyhemoglobin 2.0 H POC ABG HHb (Measured) 1.7 ABG Methemoglobin 0.8 Dom Test Pos A-a O2 Difference 230.0 Respiratory Index 2.8 Hgb O2 Saturation 95.4 Vent Mode Prvc Mechanical Rate 20 FiO2 50.0 Tidal Volume 450 PEEP 5 Sodium 138 Potassium 4.3 Chloride 105 Carbon Dioxide 21 L Anion Gap 16 BUN 26 H Creatinine 1.0 Est GFR ( Amer) > 60 Est GFR (Non-Af Amer) 55 Random Glucose 72 D Calcium 7.7 L Phosphorus 4.9 H Magnesium 2.3 Total Bilirubin 0.6 AST 26 ALT 18 Alkaline Phosphatase 134 H Total Protein 6.0 L Albumin 3.0 L Globulin 3.0 Albumin/Globulin Ratio 1.0 08/21/18 15:28 WBC 8.5 D RBC 2.74 L Hgb 8.7 L Hct 26.3 L MCV 96.0 D MCH 31.8 H MCHC 33.1 RDW 17.1 H Plt Count 206 MPV 9.8 Neut % (Auto) 76.1 H Lymph % (Auto) 11.9 L [place] % (Auto) 5.4 Eos % (Auto) 6.1 H Baso % (Auto) 0.5 Neut # (Auto) 6.4 Lymph # (Auto) 1.0 [place] # (Auto) 0.5 Eos # (Auto) 0.5 Baso # (Auto) 0.0 Puncture Site pCO2 pO2 HCO3 ABG pH ABG Total CO2 ABG O2 Saturation ABG Base Excess ABG Hemoglobin ABG Carboxyhemoglobin POC ABG HHb (Measured) ABG Methemoglobin Dom Test A-a O2 Difference Respiratory Index Hgb O2 Saturation Vent Mode Mechanical Rate FiO2 Tidal Volume PEEP Sodium Potassium Chloride Carbon Dioxide Anion Gap BUN Creatinine Est GFR ( Amer) Est GFR (Non-Af Amer) Random Glucose Calcium Phosphorus Magnesium Total Bilirubin AST ALT Alkaline Phosphatase Total Protein Albumin Globulin Albumin/Globulin Ratio Radiology Impressions: Radiology Impressions Joint Effusion US 08/20/18 10:54 IMPRESSION: Very small amount of right and left pleural fluid. Chest X-Ray 08/21/18 06:00 IMPRESSION: Cardiomegaly stable with diminishing pulmonary vascular congestion. Bilateral basilar airspace disease and effusions are not excluded. No pneumothorax bilaterally. Chest CT 08/21/18 09:22 IMPRESSION: 1. New right middle lobe infiltrate. 2. Stable lower lobe infiltrates. 3. Stable bilateral pleural effusions. 4. Cardiomegaly, pericardial effusion without evidence congestive heart failure. 5. Satisfactory/stable appearance of endotracheal tube and nasogastric tube. 6. Additional benign and/or incidental findings described above. Attending/Attestation - Attestation I have personally seen and examined this patient.: Yes I have fully participated in the care of the patient.: Yes I have reviewed all pertinent clinical information: Yes Notes (Text): 08/21/18 16:38 Patient seen and examined in the intensive care unit. Case discussed with lizabeth mittal in the morning rounds. On ventilatory support and sedated on to prevent Open eyes to stimuli Copious amount of blood-tinged secretions from the ET tube Status post bronchoscopy and blood noted in all the airways Follow-up CBC Tranexamic acid On antibiotics as per infectious disease
--- NOTE | 2018-08-21 12:29 | US ---
Date of service: 08/20/2018 PROCEDURE: Limited ultrasound of chest for purposes of thoracentesis. HISTORY: Pleural effusion, intubated COMPARISON: TECHNIQUE: Sonographic evaluation of the chest performed for purposes of thoracentesis using curvilinear probe. FINDINGS: There is very small amount of right and left pleural effusion. The month of pleural fluid is insufficient for thoracentesis given patient's positionand inability to move patient. IMPRESSION: Very small amount of right and left pleural fluid.
[2018-08-21] MEDS ORDERED: EPINEPHrine 1 mg/ml (1:1000) Inj ONE (13:50)
[2018-08-21] MEDS ORDERED: Lidocaine Hydrochloride 15 ML INJ ONE (13:50)
[2018-08-21] MEDS ORDERED: Sodium Chloride 0.9% 0 ML IV ONE (13:50)
[2018-08-21 15:39] LABS: BASO % 0.5 % (0.0-2.0); EOS # 0.5 K/uL (0.0-0.7); EOS % 6.1 % (0.0-4.0); HEMOGLOBIN 8.7 g/dL (11.0-16.0); LYMPH % 11.9 % (20.0-40.0); MEAN CORPUSCULAR HEMOGLOBIN 31.8 pg (27.0-31.0); MEAN CORPUSCULAR HGB CONC 33.1 g/dL (33.0-37.0); MEAN PLATELET VOLUME 9.8 fL (7.2-11.7); MONO # 0.5 K/uL (0.0-0.8); MONO % 5.4 % (0.0-10.0); NEUT # 6.4 K/uL (1.8-7.0); NEUT % 76.1 % (50.0-75.0); RBC 2.74 Mil/uL (3.80-5.20); RED CELL DISTRIBUTION WIDTH 17.1 % (11.5-14.5)
[2018-08-21 15:41] LABS: WHITE BLOOD COUNT 8.5 K/uL (4.8-10.8)
--- NOTE | 2018-08-21 19:46 | CP.PCM.PN ---
Subjective - Date & Time of Evaluation Date of Evaluation: 08/21/18 - Subjective Subjective: patient examined today no nausea no vomiting no diarrhea no fever no dizziness no shortness of breath Objective - Vital Signs/Intake and Output Vital Signs (last 24 hours): Temp Pulse Resp BP Pulse Ox 98.3 F 116 H 20 123/65 100 08/21/18 16:00 08/21/18 18:00 08/21/18 18:00 08/21/18 17:53 08/21/18 18:00 Intake and Output: 08/21/18 08/22/18 18:59 06:59 Intake Total 788 Output Total 454 Balance 334 - Medications Medications: Current Medications Albuterol/Ipratropium (Duoneb 3 Mg/0.5 Mg (3 Ml) Ud) 3 ml INH RQ6 SYED Last Admin: 08/21/18 19:36 Dose: 3 ml Artificial Tears (Artificial Tears) 0 ml OU Q4H SYED Last Admin: 08/21/18 18:27 Dose: 2 drop Heparin Sodium (Porcine) (Heparin) 5,000 units SC Q8 SYED Last Admin: 08/21/18 14:00 Dose: Not Given Aztreonam 1 gm/ Sodium (Chloride) 100 mls @ 100 mls/hr IVPB Q8H SYED; Protocol Last Admin: 08/21/18 18:26 Dose: 100 mls/hr Midazolam HCl 100 mg/ Dextrose 100 mls @ 1.52 mls/hr IV .Q24H SYED; Protocol Last Admin: 08/21/18 04:00 Dose: Not Given Clindamycin Phosphate 600 mg/ (Sodium Chloride) 54 mls @ 100 mls/hr IVPB Q8H SYED; Protocol Last Admin: 08/21/18 05:21 Dose: 100 mls/hr Propofol (Diprivan) 1,000 mg in 100 mls @ 2.327 mls/hr IV .Q24H PRN; Protocol PRN Reason: Agitation Last Admin: 08/21/18 12:42 Dose: 30 mcg/kg/min, 13.962 mls/hr Metoprolol Tartrate (Lopressor) 50 mg PO BID SYED Last Admin: 08/21/18 18:27 Dose: 50 mg Pantoprazole Sodium (Protonix Inj) 40 mg IVP Q12H SYED Last Admin: 08/21/18 10:53 Dose: 40 mg - Labs Labs: 08/21/18 15:28 08/21/18 06:58 PT 14.3 SECONDS (9.7-12.2) H 08/17/18 05:52 INR 1.3 08/17/18 05:52 APTT 29.9 SECONDS (21-34) 08/17/18 05:52 - Constitutional Appears: Well - Head Exam Head Exam: ATRAUMATIC, NORMAL INSPECTION, NORMOCEPHALIC - Eye Exam Eye Exam: EOMI, Normal appearance, PERRL Pupil Exam: NORMAL ACCOMODATION, PERRL - ENT Exam ENT Exam: Mucous Membranes Moist, Normal Exam - Neck Exam Neck Exam: Full ROM, Normal Inspection. absent: Lymphadenopathy - Respiratory Exam Respiratory Exam: Decreased Breath Sounds - Cardiovascular Exam Cardiovascular Exam: REGULAR RHYTHM, +S1, +S2 - GI/Abdominal Exam GI & Abdominal Exam: Soft, Diminished Bowel Sounds - Rectal Exam Rectal Exam: Deferred - Neurological Exam Neurological Exam: Oriented x3 Assessment and Plan (1) Afib Status: Acute (2) GIB (gastrointestinal bleeding) Status: Acute (3) Hx of coronary artery disease Status: Acute (4) Hx of laparoscopic gastric banding Status: Acute (5) Nasal hemorrhage Status: Acute (6) Noncompliance with medication treatment due to overuse of medication Status: Acute (7) Rectal bleeding Status: Acute (8) Osteoarthritis Status: Acute - Assessment and Plan (Free Text) Plan: plan discussed with patient moderate complexity of care medication reviewed vitals reviewed labs reviewed Hemoglobin 8.6 Hematocrit 26.3 BUN 26 artifical tears azreonam clindamycin phosphate diprivan duoneb heparin lopressor midazolam hcl protonix inj
[2018-08-21] MEDS ORDERED: Acetaminophen 650mg/20.3ml solution UD NG PRN ×2 (20:43→21:00)
--- NOTE | 2018-08-21 21:53 | CP.PCM.PN ---
Subjective - Date & Time of Evaluation Date of Evaluation: 08/21/18 Time of Evaluation: 14:00 - Subjective Subjective: dictated Objective - Vital Signs/Intake and Output Vital Signs (last 24 hours): Temp Pulse Resp BP Pulse Ox 101.1 F H 117 H 21 105/51 L 95 08/21/18 21:00 08/21/18 20:52 08/21/18 20:52 08/21/18 20:52 08/21/18 20:52 Intake and Output: 08/21/18 08/22/18 18:59 06:59 Intake Total 788 352 Output Total 454 125 Balance 334 227 - Medications Medications: Current Medications Acetaminophen (Tylenol 325mg Tab) 650 mg NG Q6 PRN PRN Reason: TEMP>100.4 Last Admin: 08/21/18 21:00 Dose: 650 mg Albuterol/Ipratropium (Duoneb 3 Mg/0.5 Mg (3 Ml) Ud) 3 ml INH RQ6 SYED Last Admin: 08/21/18 19:36 Dose: 3 ml Artificial Tears (Artificial Tears) 0 ml OU Q4H SYED Last Admin: 08/21/18 21:16 Dose: 2 drop Heparin Sodium (Porcine) (Heparin) 5,000 units SC Q8 SYED Last Admin: 08/21/18 14:00 Dose: Not Given Aztreonam 1 gm/ Sodium (Chloride) 100 mls @ 100 mls/hr IVPB Q8H SYED; Protocol Last Admin: 08/21/18 18:26 Dose: 100 mls/hr Midazolam HCl 100 mg/ Dextrose 100 mls @ 1.52 mls/hr IV .Q24H SYED; Protocol Last Admin: 08/21/18 04:00 Dose: Not Given Clindamycin Phosphate 600 mg/ (Sodium Chloride) 54 mls @ 100 mls/hr IVPB Q8H SYED; Protocol Last Admin: 08/21/18 21:09 Dose: 100 mls/hr Propofol (Diprivan) 1,000 mg in 100 mls @ 2.327 mls/hr IV .Q24H PRN; Protocol PRN Reason: Agitation Last Admin: 08/21/18 19:45 Dose: 30 mcg/kg/min, 13.962 mls/hr Metoprolol Tartrate (Lopressor) 50 mg PO BID SYED Last Admin: 08/21/18 18:27 Dose: 50 mg Pantoprazole Sodium (Protonix Inj) 40 mg IVP Q12H SYED Last Admin: 08/21/18 21:08 Dose: 40 mg - Labs Labs: 08/21/18 15:28 08/21/18 06:58 PT 14.3 SECONDS (9.7-12.2) H 08/17/18 05:52 INR 1.3 08/17/18 05:52 APTT 29.9 SECONDS (21-34) 08/17/18 05:52
[2018-08-21] MEDS: Vancomycin 1 gm/NS 200 ml 1 GM/200 ML BAG IVPB SCH (23:00)
[2018-08-22] MEDS: Albuterol-Ipratrop 3 mg / 0.5 (3 ml) UD INH SCH ×4 (01:07→19:11)
[2018-08-22] MEDS: Aritificial Tears (15ml) OU SCH ×6 (01:34→22:20)
[2018-08-22] MEDS: Aztreonam 1 GM in Sodium Chloride 0.9% 100 ML IVPB SCH ×3 (02:02→18:20)
[2018-08-22] MEDS: Propofol 10 mg/ml 1,000 MG/100 ML VIAL IV PRN ×3 (02:04→21:27)
--- NOTE | 2018-08-22 02:04 | PN ---
DATE: 08/21/2018 INFECTIOUS DISEASE FOLLOWUP SUBJECTIVE: I saw the patient today at [address] Augustine was planning to do a bronchoscopy on her as she has been still bleeding. She has been on home Xarelto, came in and is being followed here. When I saw her, she did not have any fever. PHYSICAL EXAMINATION: VITAL SIGNS: T-max was 99, heart rate however was 110 and respirations were 20, saturation 94% on the ventilator setting. GENERAL: She remains sedated. NECK: Supple. LUNGS: Have decreased breath sounds. HEART: S1, S2, is tachy. ABDOMEN: Nontender. EXTREMITIES: Have Venodyne protectors. LABORATORY DATA: Labs are noted. Labs show white count is 8.5 today, hemoglobin 8.7, hemoglobin max was 9.5 yesterday and today, it is 8.7. Chemistry shows sodium 138, potassium 4.3, chloride 105, CO2 is 21 and creatinine is 1 and at the time I am dictating, she is having 101 fever. She is on Azactam 1 g every 12 hours and she is on clindamycin. So, we will add some vancomycin at this time. She also had a CAT scan done yesterday and the CAT scan showed cardiomegaly and dilated main pulmonary artery consistent with pulmonary arterial hypertension, no lymphadenopathy and new right middle lobe infiltrate, stable lower lobe infiltrate, stable bilateral pleural effusion, cardiomegaly, pericardial effusion without evidence of congestive failure and satisfactory stable appearance of the ET tube and NG tube, benign and incidental finding described as above. ASSESSMENT AND PLAN: So, at this time, she is actively bleeding and is also febrile at this time. She is on clindamycin as well as Azactam. Needs to be monitored closely and we will add vancomycin at this time to cover further. We will follow with the other consultants as she is still not improving. We will follow. Devon León MD
[2018-08-22 05:47] LABS: BASO % 0.9 % (0.0-2.0); EOS # 0.4 K/uL (0.0-0.7); EOS % 6.6 % (0.0-4.0); HEMOGLOBIN 7.9 g/dL (11.0-16.0); LYMPH # 1.2 K/uL (1.0-4.3); MEAN CELL VOLUME 97.1 fL (81.0-99.0); MEAN CORPUSCULAR HEMOGLOBIN 31.9 pg (27.0-31.0); MEAN CORPUSCULAR HGB CONC 32.8 g/dL (33.0-37.0); MEAN PLATELET VOLUME 10.1 fL (7.2-11.7); MONO # 0.3 K/uL (0.0-0.8); MONO % 5.8 % (0.0-10.0); NEUT # 3.7 K/uL (1.8-7.0); NEUT % 65.7 % (50.0-75.0); RBC 2.49 Mil/uL (3.80-5.20); WHITE BLOOD COUNT 5.7 K/uL (4.8-10.8)
[2018-08-22 06:02] LABS: ALBUMIN 2.6 g/dL (3.5-5.0); CALCIUM 7.9 mg/dl (8.6-10.4)
[2018-08-22 06:13] LABS: ABG ALLEN TEST POS; ARTERIAL BLOOD GAS HCO3 26.3 mmol/L (21-28); ARTERIAL BLOOD GAS HEMOGLOBIN 7.9 g/dL (11.7-17.4); ARTERIAL BLOOD GAS O2 SAT 99.2 % (95-98); ARTERIAL BLOOD GAS PCO2 36 mm/Hg (35-45); ARTERIAL BLOOD GAS PH 7.46 (7.35-7.45); ARTERIAL BLOOD GAS PO2 99 mm/Hg (80-100); ARTERIAL BLOOD GAS TCO2 26.7 mmol/L (22-28)
--- NOTE | 2018-08-22 08:39 | OP ---
PROCEDURE DATE: 08/21/2018 PROCEDURE: Fiberoptic bronchoscopy with bronchoalveolar lavage. INDICATION: Hemoptysis and bleeding through the ET tube. Fiberoptic bronchoscopy procedure was done after obtaining consent from the family, explaining risks and benefits. The bronchoscope was passed through the ET tube into the trachea. Fresh blood noted into the trachea which was suctioned out. Later, the bronchoscope passed from the right side, diffuse small amount of blood noted throughout in the upper, lower lobe. Later, the bronchoscope pulled back and passed from the right side and same finding noted. No endobronchial lesion seen. A small amount of bleeding noted but no large amount of blood noted. Bronchoalveolar lavage done. The patient tolerated the procedure well. No complications. Malik Augustine MD
--- NOTE | 2018-08-22 12:23 | RAD ---
Date of service: 08/22/2018 HISTORY: on vent COMPARISON: 08/21/2018 TECHNIQUE: 1 view obtained. FINDINGS: LUNGS: No active pulmonary disease. PLEURA: Possible small bilateral pleural effusion. No pneumothorax. CARDIOVASCULAR: There is atherosclerotic calcification of the thoracic aorta. Cardiomegaly. Mild congestive change. Endotracheal tube unchanged in position. OSSEOUS STRUCTURES: No significant abnormalities. VISUALIZED UPPER ABDOMEN: Normal. OTHER FINDINGS: None. IMPRESSION: Cardiomegaly and mild congestive change. Small bilateral pleural effusion. ET tube unchanged.
[2018-08-22] MEDS: Vancomycin 1 gm/NS 200 ml 1 GM/200 ML BAG IVPB SCH (12:28)
--- NOTE | 2018-08-22 14:16 | CP.CCUPN ---
<Rudi Dangelo - Last Filed: 08/22/18 14:51> CCU Objective - Vital Signs / Intake & Output Vital Signs (Last 4 hours): Vital Signs Temp Pulse Resp BP Pulse Ox 08/22/18 14:23 88 10 L 116/68 96 08/22/18 14:08 90 13 123/74 97 08/22/18 14:00 83 20 98 08/22/18 13:53 90 20 110/59 L 96 08/22/18 13:39 80 18 114/69 96 08/22/18 13:24 87 15 129/67 100 08/22/18 13:17 98.5 F 92 H 18 146/92 H 100 08/22/18 13:08 88 11 L 132/74 97 08/22/18 13:00 83 13 98 08/22/18 12:53 82 20 129/70 98 08/22/18 12:38 87 20 124/75 99 08/22/18 12:23 80 20 126/68 97 08/22/18 12:08 78 17 128/67 98 08/22/18 12:00 98.4 F 78 13 99 08/22/18 11:53 86 11 L 132/77 99 08/22/18 11:38 98.4 F 84 21 131/78 98 08/22/18 11:23 80 19 113/61 98 08/22/18 11:18 113/59 L 08/22/18 11:08 98.7 F 81 20 113/59 L 99 08/22/18 11:00 74 20 99 08/22/18 10:53 98.5 F 78 19 108/65 98 Intake and Output (Last 8hrs): Intake & Output 08/21/18 08/22/18 08/22/18 22:59 06:59 14:59 Intake Total 602 895.9 1068.4 Output Total 347 295 435 Balance 255 600.9 633.4 Weight 174 lb 9.6 oz Intake: IV 100 100 110 Intake, IV Amount 212 445.9 153.4 Left Forearm 53.4 Left Hand 50 350 Left Wrist 100 Right Distal Port Forearm 112 95.9 Right Proximal Port 50 Forearm Right Wrist 0 Oral 160 Tube Feeding 200 320 320 Blood Product 325 Red Blood Cells Cpd As1 325 Lr Unit [id number] Other 90 30 Output: Urine 347 295 435 Urethral (Jarvis) 347 295 435 Other: # Voids Urine, Voided 0 # Bowel Movements 0 0 1 - Medications Active Medications: Active Medications Generic Name Dose Route Start Last Admin Trade Name Freq PRN Reason Stop Dose Admin Acetaminophen 650 mg 08/21/18 21:00 08/21/18 21:00 Tylenol 325mg Tab NG 650 mg Q6 PRN Administration TEMP>100.4 Albuterol/Ipratropium 3 ml 08/18/18 14:00 08/22/18 13:10 Duoneb 3 Mg/0.5 Mg (3 Ml) Ud INH 3 ml RQ6 SYED Administration Artificial Tears 0 ml 08/19/18 10:00 08/22/18 14:30 Artificial Tears OU 1 drop Q4H SYED Administration Furosemide 20 mg 08/22/18 11:15 08/22/18 11:18 Lasix IVP 20 mg DAILY SYED Administration Heparin Sodium (Porcine) 5,000 units 08/19/18 14:00 08/21/18 14:00 Heparin SC Not Given Q8 SYED Aztreonam 1 gm/ Sodium 100 mls @ 100 mls/hr 08/16/18 19:00 08/22/18 10:07 Chloride IVPB 100 mls/hr Q8H SYED Administration Protocol Propofol 1,000 mg in 100 mls @ 2.327 mls/hr 08/19/18 21:09 08/22/18 13:18 Diprivan IV 20 mcg/kg/min .Q24H PRN 9.308 mls/hr Agitation Titration Protocol 5 MCG/KG/MIN Tigecycline 100 mg/ Sodium 100 mls @ 100 mls/hr 08/22/18 16:00 Chloride IVPB 08/22/18 16:59 ONCE ONE Protocol Tigecycline 50 mg/ Dextrose 100 mls @ 100 mls/hr 08/23/18 04:00 IVPB Q12H SYED Protocol Metoprolol Tartrate 50 mg 08/19/18 09:32 08/22/18 09:43 Lopressor PO 50 mg BID SYED Administration Pantoprazole Sodium 40 mg 08/18/18 22:00 08/22/18 09:42 Protonix Inj IVP 40 mg Q12H SYED Administration - Patient Studies Lab Studies: Microbiology Studies 08/20/18 18:19 Urine Culture - Final Urine,Catheterized Vancomycin Resistant E.faecium 08/21/18 15:18 Gram Stain - Final Other: Please Indicate Body Fluid Culture - Preliminary Coagulase Neg Staphylococcus 08/16/18 20:30 Blood Culture - Final Blood NO GROWTH AFTER 5 DAYS Gram Stain - Final TEST NOT PERFORMED 08/16/18 20:30 Blood Culture - Final Blood NO GROWTH AFTER 5 DAYS Gram Stain - Final TEST NOT PERFORMED Lab Studies 08/22/18 08/22/18 08/22/18 Range/Units 09:37 09:37 05:41 WBC (4.8-10.8) K/uL RBC (3.80-5.20) Mil/uL Hgb (11.0-16.0) g/dL Hct (34.0-47.0) % MCV (81.0-99.0) fL MCH (27.0-31.0) pg MCHC (33.0-37.0) g/dL RDW (11.5-14.5) % Plt Count (130-400) K/uL MPV (7.2-11.7) fL Neut % (Auto) (50.0-75.0) % Lymph % (Auto) (20.0-40.0) % Lares % (Auto) (0.0-10.0) % Eos % (Auto) (0.0-4.0) % Baso % (Auto) (0.0-2.0) % Neut # (Auto) (1.8-7.0) K/uL Lymph # (Auto) (1.0-4.3) K/uL Lares # (Auto) (0.0-0.8) K/uL Eos # (Auto) (0.0-0.7) K/uL Baso # (Auto) (0.0-0.2) K/uL Fibrinogen 388 (200-400) mg/dL Puncture Site Rr pCO2 36 (35-45) mm/Hg pO2 99 (80-100) mm/Hg HCO3 26.3 (21-28) mmol/L ABG pH 7.46 H (7.35-7.45) ABG Total CO2 26.7 (22-28) mmol/L ABG O2 Saturation 99.2 H (95-98) % ABG Base Excess 1.7 (-2.0-3.0) mmol/L ABG Hemoglobin 7.9 L (11.7-17.4) g/dL ABG Carboxyhemoglobin 1.9 H (0.5-1.5) % POC ABG HHb (Measured) 0.8 (0.0-5.0) % ABG Methemoglobin 1.4 (0.0-3.0) % Dom Test Pos A-a O2 Difference 213.0 mm/Hg Respiratory Index 2.2 Hgb O2 Saturation 95.8 (95.0-98.0) % Vent Mode Prvc Mechanical Rate 20 FiO2 50.0 % Tidal Volume 450 PEEP 5 Sodium (132-148) mmol/L Potassium (3.6-5.2) mmol/L Chloride (98-107) mmol/L Carbon Dioxide (22-30) mmol/L Anion Gap (10-20) BUN (7-17) mg/dL Creatinine (0.7-1.2) mg/dL Est GFR ( Amer) Est GFR (Non-Af Amer) Random Glucose (65-105) mg/dL Calcium (8.6-10.4) mg/dl Phosphorus (2.5-4.5) mg/dL Magnesium (1.6-2.3) mg/dL Total Bilirubin (0.2-1.3) mg/dL AST (14-36) U/L ALT (9-52) U/L Alkaline Phosphatase (38-126) U/L Total Protein (6.3-8.3) g/dL Albumin (3.5-5.0) g/dL Globulin (2.2-3.9) gm/dL Albumin/Globulin Ratio (1.0-2.1) Blood Type O POSITIVE Antibody Screen Negative 08/22/18 08/22/18 08/21/18 Range/Units 05:39 05:39 15:28 WBC 5.7 8.5 D (4.8-10.8) K/uL RBC 2.49 L 2.74 L (3.80-5.20) Mil/uL Hgb 7.9 L 8.7 L (11.0-16.0) g/dL Hct 24.2 L 26.3 L (34.0-47.0) % MCV 97.1 96.0 D (81.0-99.0) fL MCH 31.9 H 31.8 H (27.0-31.0) pg MCHC 32.8 L 33.1 (33.0-37.0) g/dL RDW 17.0 H 17.1 H (11.5-14.5) % Plt Count 186 206 (130-400) K/uL MPV 10.1 9.8 (7.2-11.7) fL Neut % (Auto) 65.7 76.1 H (50.0-75.0) % Lymph % (Auto) 21.0 11.9 L (20.0-40.0) % Lares % (Auto) 5.8 5.4 (0.0-10.0) % Eos % (Auto) 6.6 H 6.1 H (0.0-4.0) % Baso % (Auto) 0.9 0.5 (0.0-2.0) % Neut # (Auto) 3.7 6.4 (1.8-7.0) K/uL Lymph # (Auto) 1.2 1.0 (1.0-4.3) K/uL Lares # (Auto) 0.3 0.5 (0.0-0.8) K/uL Eos # (Auto) 0.4 0.5 (0.0-0.7) K/uL Baso # (Auto) 0.0 0.0 (0.0-0.2) K/uL Fibrinogen (200-400) mg/dL Puncture Site pCO2 (35-45) mm/Hg pO2 (80-100) mm/Hg HCO3 (21-28) mmol/L ABG pH (7.35-7.45) ABG Total CO2 (22-28) mmol/L ABG O2 Saturation (95-98) % ABG Base Excess (-2.0-3.0) mmol/L ABG Hemoglobin (11.7-17.4) g/dL ABG Carboxyhemoglobin (0.5-1.5) % POC ABG HHb (Measured) (0.0-5.0) % ABG Methemoglobin (0.0-3.0) % Dom Test A-a O2 Difference mm/Hg Respiratory Index Hgb O2 Saturation (95.0-98.0) % Vent Mode Mechanical Rate FiO2 % Tidal Volume PEEP Sodium 144 (132-148) mmol/L Potassium 3.8 (3.6-5.2) mmol/L Chloride 112 H (98-107) mmol/L Carbon Dioxide 23 (22-30) mmol/L Anion Gap 12 (10-20) BUN 26 H (7-17) mg/dL Creatinine 1.2 (0.7-1.2) mg/dL Est GFR ( Amer) 54 Est GFR (Non-Af Amer) 44 Random Glucose 91 D (65-105) mg/dL Calcium 7.9 L (8.6-10.4) mg/dl Phosphorus 4.8 H (2.5-4.5) mg/dL Magnesium 2.4 H (1.6-2.3) mg/dL Total Bilirubin 0.8 (0.2-1.3) mg/dL AST 26 (14-36) U/L ALT 17 (9-52) U/L Alkaline Phosphatase 137 H (38-126) U/L Total Protein 5.3 L (6.3-8.3) g/dL Albumin 2.6 L (3.5-5.0) g/dL Globulin 2.7 (2.2-3.9) gm/dL Albumin/Globulin Ratio 1.0 (1.0-2.1) Blood Type Antibody Screen Laboratory Results - last 24 hr 08/21/18 08/22/18 08/22/18 15:28 05:39 05:39 WBC 8.5 D 5.7 RBC 2.74 L 2.49 L Hgb 8.7 L 7.9 L Hct 26.3 L 24.2 L MCV 96.0 D 97.1 MCH 31.8 H 31.9 H MCHC 33.1 32.8 L RDW 17.1 H 17.0 H Plt Count 206 186 MPV 9.8 10.1 Neut % (Auto) 76.1 H 65.7 Lymph % (Auto) 11.9 L 21.0 Lares % (Auto) 5.4 5.8 Eos % (Auto) 6.1 H 6.6 H Baso % (Auto) 0.5 0.9 Neut # (Auto) 6.4 3.7 Lymph # (Auto) 1.0 1.2 Lares # (Auto) 0.5 0.3 Eos # (Auto) 0.5 0.4 Baso # (Auto) 0.0 0.0 Fibrinogen Puncture Site pCO2 pO2 HCO3 ABG pH ABG Total CO2 ABG O2 Saturation ABG Base Excess ABG Hemoglobin ABG Carboxyhemoglobin POC ABG HHb (Measured) ABG Methemoglobin Dom Test A-a O2 Difference Respiratory Index Hgb O2 Saturation Vent Mode Mechanical Rate FiO2 Tidal Volume PEEP Sodium 144 Potassium 3.8 Chloride 112 H Carbon Dioxide 23 Anion Gap 12 BUN 26 H Creatinine 1.2 Est GFR ( Amer) 54 Est GFR (Non-Af Amer) 44 Random Glucose 91 D Calcium 7.9 L Phosphorus 4.8 H Magnesium 2.4 H Total Bilirubin 0.8 AST 26 ALT 17 Alkaline Phosphatase 137 H Total Protein 5.3 L Albumin 2.6 L Globulin 2.7 Albumin/Globulin Ratio 1.0 Blood Type Antibody Screen 08/22/18 08/22/18 08/22/18 05:41 09:37 09:37 WBC RBC Hgb Hct MCV MCH MCHC RDW Plt Count MPV Neut % (Auto) Lymph % (Auto) Lares % (Auto) Eos % (Auto) Baso % (Auto) Neut # (Auto) Lymph # (Auto) Lares # (Auto) Eos # (Auto) Baso # (Auto) Fibrinogen 388 Puncture Site Rr pCO2 36 pO2 99 HCO3 26.3 ABG pH 7.46 H ABG Total CO2 26.7 ABG O2 Saturation 99.2 H ABG Base Excess 1.7 ABG Hemoglobin 7.9 L ABG Carboxyhemoglobin 1.9 H POC ABG HHb (Measured) 0.8 ABG Methemoglobin 1.4 Dom Test Pos A-a O2 Difference 213.0 Respiratory Index 2.2 Hgb O2 Saturation 95.8 Vent Mode Prvc Mechanical Rate 20 FiO2 50.0 Tidal Volume 450 PEEP 5 Sodium Potassium Chloride Carbon Dioxide Anion Gap BUN Creatinine Est GFR ( Amer) Est GFR (Non-Af Amer) Random Glucose Calcium Phosphorus Magnesium Total Bilirubin AST ALT Alkaline Phosphatase Total Protein Albumin Globulin Albumin/Globulin Ratio Blood Type O POSITIVE Antibody Screen Negative Radiology Impressions: Radiology Impressions Chest X-Ray 08/22/18 07:00 IMPRESSION: Cardiomegaly and mild congestive change. Small bilateral pleural effusion. ET tube unchanged. Attending/Attestation - Attestation I have personally seen and examined this patient.: Yes I have fully participated in the care of the patient.: Yes I have reviewed all pertinent clinical information: Yes Notes (Text): 08/22/18 14:42 I have seen and examined the patient. Medical records, lab studies, and imaging were reviewed by me and a management plan was formulated on multidisciplinary rounds with resident Dr. Mcgowan. I agree with their documented assessment and plan. Patient has pulmonary edema, will start diuresis. Patient's nasal epistaxis has been controlled. Blood seen in bronchi during bronch yesterday, but bloody sputum decreasing with continual lavage. Re-consulting GI for possible EGD, r/o gastric ulcer for recent episodes of melena. Melena is also possibly from digestion of blood during heavy period of epistaxis. Transfusing 1 unit PRBC, will monitor for recurrent h/h drop. Held sedation to start PS trials. Patient will have to retry a/c for stroke prophylaxis at a later date, if ever. May always be high risk for rebleed. Critical Care Time 35 minutes. Multi-disciplinary rounds were performed with house staff, nursing, speech therapy, respiratory therapy, pharmacy and nutrition with integrated input from the primary team/attending and other consulting services. The documented time is cumulative and includes review of patient data/exams/labs/chart review and examination of the patient on rounds and throughout the day; time is exclusive of any procedures or teaching time. <Tyler Mcgowan - Last Filed: 08/22/18 16:50> CCU Subjective - Physician Review Subjective (Free Text): 08/22/18 14:15 PGY-1 Critical Care Progress Note for Dr. Dangelo Patient seen and examined at bedside this AM. 72 yo female with pmhx of CAD s/p stent placement, hx of OR, CHF, hx of CVA with residual L weakness, brain aneurysm, afib on home xarelto Admitted to ER with uncontrollable epistaxis, acute blood loss s/p L internal maxillary artery, L facial artery embolization Had episode of melena in ED, since resolved Received FFP x2, pRBC x1 in ED Mechanical vent 450/50/20/5 Propofol gtt held for PS trials Pulmonary edema noted on CXR, will start lasix Blood seen during bronchoscopy (08/21), bloody sputum secretions less with periodic lavage Drop in Hb today to 7.9, will transfuse 1 additional unit pRBC, reconsult GI for possible EGD eval Continue to monitor H/H CCU Objective - Vital Signs / Intake & Output Vital Signs (Last 4 hours): Vital Signs Temp Pulse Resp BP Pulse Ox 08/22/18 13:17 98.5 F 92 H 16 146/92 H 08/22/18 12:53 82 20 129/70 98 08/22/18 12:38 87 20 124/75 99 08/22/18 12:23 80 20 126/68 97 08/22/18 12:08 78 17 128/67 98 08/22/18 12:00 98.4 F 78 13 99 08/22/18 11:53 86 11 L 132/77 99 08/22/18 11:38 98.4 F 84 21 131/78 98 08/22/18 11:23 80 19 113/61 98 08/22/18 11:18 113/59 L 08/22/18 11:08 98.7 F 81 20 113/59 L 99 08/22/18 11:00 74 20 99 08/22/18 10:53 98.5 F 78 19 108/65 98 08/22/18 10:38 98.6 F 81 20 114/62 99 Intake and Output (Last 8hrs): Intake & Output 08/21/18 08/22/18 08/22/18 22:59 06:59 14:59 Intake Total 602 895.9 1028.4 Output Total 347 295 285 Balance 255 600.9 743.4 Weight 79.197 kg Intake: IV 100 100 110 Intake, IV Amount 212 445.9 153.4 Left Forearm 53.4 Left Hand 50 350 Left Wrist 100 Right Distal Port Forearm 112 95.9 Right Proximal Port 50 Forearm Right Wrist 0 Oral 160 Tube Feeding 200 320 280 Blood Product 325 Red Blood Cells Cpd As1 325 Lr Unit [id number] Other 90 30 Output: Urine 347 295 285 Urethral (Jarvis) 347 295 285 Other: # Voids Urine, Voided 0 # Bowel Movements 0 0 0 - Physical Exam Head: Positive for: Atraumatic, Normocephalic Respiratory/Chest: Positive for: Good Air Exchange, Wheezes Cardiovascular: Positive for: Regular Rate and Rhythm, Normal S1, S2 Abdomen: Positive for: Normal Bowel Sounds. Negative for: Distention Upper Extremity: Positive for: Normal Inspection, NORMAL PULSES. Negative for: Cyanosis, Edema Lower Extremity: Positive for: Normal Inspection, NORMAL PULSES. Negative for: Edema Skin: Positive for: Warm, Dry, Normal Color - Medications Active Medications: Active Medications Generic Name Dose Route Start Last Admin Trade Name Freq PRN Reason Stop Dose Admin Acetaminophen 650 mg 08/21/18 21:00 08/21/18 21:00 Tylenol 325mg Tab NG 650 mg Q6 PRN Administration TEMP>100.4 Albuterol/Ipratropium 3 ml 08/18/18 14:00 08/22/18 13:10 Duoneb 3 Mg/0.5 Mg (3 Ml) Ud INH 3 ml RQ6 SYED Administration Artificial Tears 0 ml 08/19/18 10:00 08/22/18 09:43 Artificial Tears OU 1 drop Q4H SYED Administration Furosemide 20 mg 08/22/18 11:15 08/22/18 11:18 Lasix IVP 20 mg DAILY SYED Administration Heparin Sodium (Porcine) 5,000 units 08/19/18 14:00 08/21/18 14:00 Heparin SC Not Given Q8 SYED Aztreonam 1 gm/ Sodium 100 mls @ 100 mls/hr 08/16/18 19:00 08/22/18 10:07 Chloride IVPB 100 mls/hr Q8H SYED Administration Protocol Propofol 1,000 mg in 100 mls @ 2.327 mls/hr 08/19/18 21:09 08/22/18 13:18 Diprivan IV 20 mcg/kg/min .Q24H PRN 9.308 mls/hr Agitation Titration Protocol 5 MCG/KG/MIN Tigecycline 100 mg/ Sodium 100 mls @ 100 mls/hr 08/22/18 16:00 Chloride IVPB 08/22/18 16:59 ONCE ONE Protocol Tigecycline 50 mg/ Dextrose 100 mls @ 100 mls/hr 08/23/18 04:00 IVPB Q12H SYED Protocol Metoprolol Tartrate 50 mg 08/19/18 09:32 08/22/18 09:43 Lopressor PO 50 mg BID SYED Administration Pantoprazole Sodium 40 mg 08/18/18 22:00 08/22/18 09:42 Protonix Inj IVP 40 mg Q12H SYED Administration - Patient Studies Lab Studies: Microbiology Studies 08/20/18 18:19 Urine Culture - Final Urine,Catheterized Vancomycin Resistant E.faecium 08/21/18 15:18 Gram Stain - Final Other: Please Indicate Body Fluid Culture - Preliminary Coagulase Neg Staphylococcus 08/16/18 20:30 Blood Culture - Final Blood NO GROWTH AFTER 5 DAYS Gram Stain - Final TEST NOT PERFORMED 08/16/18 20:30 Blood Culture - Final Blood NO GROWTH AFTER 5 DAYS Gram Stain - Final TEST NOT PERFORMED Lab Studies 08/22/18 08/22/18 08/22/18 Range/Units 09:37 09:37 05:41 WBC (4.8-10.8) K/uL RBC (3.80-5.20) Mil/uL Hgb (11.0-16.0) g/dL Hct (34.0-47.0) % MCV (81.0-99.0) fL MCH (27.0-31.0) pg MCHC (33.0-37.0) g/dL RDW (11.5-14.5) % Plt Count (130-400) K/uL MPV (7.2-11.7) fL Neut % (Auto) (50.0-75.0) % Lymph % (Auto) (20.0-40.0) % Lares % (Auto) (0.0-10.0) % Eos % (Auto) (0.0-4.0) % Baso % (Auto) (0.0-2.0) % Neut # (Auto) (1.8-7.0) K/uL Lymph # (Auto) (1.0-4.3) K/uL Lares # (Auto) (0.0-0.8) K/uL Eos # (Auto) (0.0-0.7) K/uL Baso # (Auto) (0.0-0.2) K/uL Fibrinogen 388 (200-400) mg/dL Puncture Site Rr pCO2 36 (35-45) mm/Hg pO2 99 (80-100) mm/Hg HCO3 26.3 (21-28) mmol/L ABG pH 7.46 H (7.35-7.45) ABG Total CO2 26.7 (22-28) mmol/L ABG O2 Saturation 99.2 H (95-98) % ABG Base Excess 1.7 (-2.0-3.0) mmol/L ABG Hemoglobin 7.9 L (11.7-17.4) g/dL ABG Carboxyhemoglobin 1.9 H (0.5-1.5) % POC ABG HHb (Measured) 0.8 (0.0-5.0) % ABG Methemoglobin 1.4 (0.0-3.0) % Dom Test Pos A-a O2 Difference 213.0 mm/Hg Respiratory Index 2.2 Hgb O2 Saturation 95.8 (95.0-98.0) % Vent Mode Prvc Mechanical Rate 20 FiO2 50.0 % Tidal Volume 450 PEEP 5 Sodium (132-148) mmol/L Potassium (3.6-5.2) mmol/L Chloride (98-107) mmol/L Carbon Dioxide (22-30) mmol/L Anion Gap (10-20) BUN (7-17) mg/dL Creatinine (0.7-1.2) mg/dL Est GFR ( Amer) Est GFR (Non-Af Amer) Random Glucose (65-105) mg/dL Calcium (8.6-10.4) mg/dl Phosphorus (2.5-4.5) mg/dL Magnesium (1.6-2.3) mg/dL Total Bilirubin (0.2-1.3) mg/dL AST (14-36) U/L ALT (9-52) U/L Alkaline Phosphatase (38-126) U/L Total Protein (6.3-8.3) g/dL Albumin (3.5-5.0) g/dL Globulin (2.2-3.9) gm/dL Albumin/Globulin Ratio (1.0-2.1) Blood Type O POSITIVE Antibody Screen Negative 08/22/18 08/22/18 08/21/18 Range/Units 05:39 05:39 15:28 WBC 5.7 8.5 D (4.8-10.8) K/uL RBC 2.49 L 2.74 L (3.80-5.20) Mil/uL Hgb 7.9 L 8.7 L (11.0-16.0) g/dL Hct 24.2 L 26.3 L (34.0-47.0) % MCV 97.1 96.0 D (81.0-99.0) fL MCH 31.9 H 31.8 H (27.0-31.0) pg MCHC 32.8 L 33.1 (33.0-37.0) g/dL RDW 17.0 H 17.1 H (11.5-14.5) % Plt Count 186 206 (130-400) K/uL MPV 10.1 9.8 (7.2-11.7) fL Neut % (Auto) 65.7 76.1 H (50.0-75.0) % Lymph % (Auto) 21.0 11.9 L (20.0-40.0) % Lares % (Auto) 5.8 5.4 (0.0-10.0) % Eos % (Auto) 6.6 H 6.1 H (0.0-4.0) % Baso % (Auto) 0.9 0.5 (0.0-2.0) % Neut # (Auto) 3.7 6.4 (1.8-7.0) K/uL Lymph # (Auto) 1.2 1.0 (1.0-4.3) K/uL Lares # (Auto) 0.3 0.5 (0.0-0.8) K/uL Eos # (Auto) 0.4 0.5 (0.0-0.7) K/uL Baso # (Auto) 0.0 0.0 (0.0-0.2) K/uL Fibrinogen (200-400) mg/dL Puncture Site pCO2 (35-45) mm/Hg pO2 (80-100) mm/Hg HCO3 (21-28) mmol/L ABG pH (7.35-7.45) ABG Total CO2 (22-28) mmol/L ABG O2 Saturation (95-98) % ABG Base Excess (-2.0-3.0) mmol/L ABG Hemoglobin (11.7-17.4) g/dL ABG Carboxyhemoglobin (0.5-1.5) % POC ABG HHb (Measured) (0.0-5.0) % ABG Methemoglobin (0.0-3.0) % Dom Test A-a O2 Difference mm/Hg Respiratory Index Hgb O2 Saturation (95.0-98.0) % Vent Mode Mechanical Rate FiO2 % Tidal Volume PEEP Sodium 144 (132-148) mmol/L Potassium 3.8 (3.6-5.2) mmol/L Chloride 112 H (98-107) mmol/L Carbon Dioxide 23 (22-30) mmol/L Anion Gap 12 (10-20) BUN 26 H (7-17) mg/dL Creatinine 1.2 (0.7-1.2) mg/dL Est GFR ( Amer) 54 Est GFR (Non-Af Amer) 44 Random Glucose 91 D (65-105) mg/dL Calcium 7.9 L (8.6-10.4) mg/dl Phosphorus 4.8 H (2.5-4.5) mg/dL Magnesium 2.4 H (1.6-2.3) mg/dL Total Bilirubin 0.8 (0.2-1.3) mg/dL AST 26 (14-36) U/L ALT 17 (9-52) U/L Alkaline Phosphatase 137 H (38-126) U/L Total Protein 5.3 L (6.3-8.3) g/dL Albumin 2.6 L (3.5-5.0) g/dL Globulin 2.7 (2.2-3.9) gm/dL Albumin/Globulin Ratio 1.0 (1.0-2.1) Blood Type Antibody Screen Laboratory Results - last 24 hr 08/21/18 08/22/18 08/22/18 15:28 05:39 05:39 WBC 8.5 D 5.7 RBC 2.74 L 2.49 L Hgb 8.7 L 7.9 L Hct 26.3 L 24.2 L MCV 96.0 D 97.1 MCH 31.8 H 31.9 H MCHC 33.1 32.8 L RDW 17.1 H 17.0 H Plt Count 206 186 MPV 9.8 10.1 Neut % (Auto) 76.1 H 65.7 Lymph % (Auto) 11.9 L 21.0 Lares % (Auto) 5.4 5.8 Eos % (Auto) 6.1 H 6.6 H Baso % (Auto) 0.5 0.9 Neut # (Auto) 6.4 3.7 Lymph # (Auto) 1.0 1.2 Lares # (Auto) 0.5 0.3 Eos # (Auto) 0.5 0.4 Baso # (Auto) 0.0 0.0 Fibrinogen Puncture Site pCO2 pO2 HCO3 ABG pH ABG Total CO2 ABG O2 Saturation ABG Base Excess ABG Hemoglobin ABG Carboxyhemoglobin POC ABG HHb (Measured) ABG Methemoglobin Dom Test A-a O2 Difference Respiratory Index Hgb O2 Saturation Vent Mode Mechanical Rate FiO2 Tidal Volume PEEP Sodium 144 Potassium 3.8 Chloride 112 H Carbon Dioxide 23 Anion Gap 12 BUN 26 H Creatinine 1.2 Est GFR ( Amer) 54 Est GFR (Non-Af Amer) 44 Random Glucose 91 D Calcium 7.9 L Phosphorus 4.8 H Magnesium 2.4 H Total Bilirubin 0.8 AST 26 ALT 17 Alkaline Phosphatase 137 H Total Protein 5.3 L Albumin 2.6 L Globulin 2.7 Albumin/Globulin Ratio 1.0 Blood Type Antibody Screen 08/22/18 08/22/18 08/22/18 05:41 09:37 09:37 WBC RBC Hgb Hct MCV MCH MCHC RDW Plt Count MPV Neut % (Auto) Lymph % (Auto) Lares % (Auto) Eos % (Auto) Baso % (Auto) Neut # (Auto) Lymph # (Auto) Lares # (Auto) Eos # (Auto) Baso # (Auto) Fibrinogen 388 Puncture Site Rr pCO2 36 pO2 99 HCO3 26.3 ABG pH 7.46 H ABG Total CO2 26.7 ABG O2 Saturation 99.2 H ABG Base Excess 1.7 ABG Hemoglobin 7.9 L ABG Carboxyhemoglobin 1.9 H POC ABG HHb (Measured) 0.8 ABG Methemoglobin 1.4 Dom Test Pos A-a O2 Difference 213.0 Respiratory Index 2.2 Hgb O2 Saturation 95.8 Vent Mode Prvc Mechanical Rate 20 FiO2 50.0 Tidal Volume 450 PEEP 5 Sodium Potassium Chloride Carbon Dioxide Anion Gap BUN Creatinine Est GFR ( Amer) Est GFR (Non-Af Amer) Random Glucose Calcium Phosphorus Magnesium Total Bilirubin AST ALT Alkaline Phosphatase Total Protein Albumin Globulin Albumin/Globulin Ratio Blood Type O POSITIVE Antibody Screen Negative Radiology Impressions: Radiology Impressions Chest X-Ray 08/22/18 07:00 IMPRESSION: Cardiomegaly and mild congestive change. Small bilateral pleural effusion. ET tube unchanged. Fingerstick Blood Sugar Results: 104 Review of Systems - Review of Systems All systems: reviewed and no additional remarkable complaints except Review of Systems: as per HPI
[2018-08-22 18:51] LABS: BASO # 0.1 K/uL (0.0-0.2); BASO % 1.2 % (0.0-2.0); EOS # 0.5 K/uL (0.0-0.7); EOS % 8.7 % (0.0-4.0); HEMOGLOBIN 9.1 g/dL (11.0-16.0); LYMPH # 1.1 K/uL (1.0-4.3); LYMPH % 17.9 % (20.0-40.0); MEAN CELL VOLUME 96.7 fL (81.0-99.0); MEAN CORPUSCULAR HEMOGLOBIN 31.4 pg (27.0-31.0); MEAN CORPUSCULAR HGB CONC 32.5 g/dL (33.0-37.0); MEAN PLATELET VOLUME 10.2 fL (7.2-11.7); MONO # 0.3 K/uL (0.0-0.8); MONO % 5.5 % (0.0-10.0); NEUT # 4.1 K/uL (1.8-7.0); NEUT % 66.7 % (50.0-75.0); RBC 2.89 Mil/uL (3.80-5.20); RED CELL DISTRIBUTION WIDTH 17.6 % (11.5-14.5); WHITE BLOOD COUNT 6.2 K/uL (4.8-10.8)
--- NOTE | 2018-08-22 19:08 | CP.PCM.PN ---
Subjective - Date & Time of Evaluation Date of Evaluation: 08/22/18 - Subjective Subjective: patient examined today no nausea no vomiting no fever no dizziness no diarrhea no shortness of breath Objective - Vital Signs/Intake and Output Vital Signs (last 24 hours): Temp Pulse Resp BP Pulse Ox 97.8 F 99 H 19 133/80 96 08/22/18 16:00 08/22/18 18:00 08/22/18 18:00 08/22/18 17:54 08/22/18 18:00 Intake and Output: 08/22/18 08/23/18 18:59 06:59 Intake Total 1595.6 Output Total 1300 Balance 295.6 - Medications Medications: Current Medications Acetaminophen (Tylenol 325mg Tab) 650 mg NG Q6 PRN PRN Reason: TEMP>100.4 Last Admin: 08/21/18 21:00 Dose: 650 mg Albuterol/Ipratropium (Duoneb 3 Mg/0.5 Mg (3 Ml) Ud) 3 ml INH RQ6 [facility] Last Admin: 08/22/18 13:10 Dose: 3 ml Artificial Tears (Artificial Tears) 0 ml OU Q4H [facility] Last Admin: 08/22/18 18:20 Dose: 1 drop Furosemide (Lasix) 20 mg IVP DAILY [facility] Last Admin: 08/22/18 11:18 Dose: 20 mg Heparin Sodium (Porcine) (Heparin) 5,000 units SC Q8 [facility] Last Admin: 08/21/18 14:00 Dose: Not Given Aztreonam 1 gm/ Sodium (Chloride) 100 mls @ 100 mls/hr IVPB Q8H [facility]; Protocol Last Admin: 08/22/18 18:20 Dose: 100 mls/hr Propofol (Diprivan) 1,000 mg in 100 mls @ 2.327 mls/hr IV .Q24H PRN; Protocol PRN Reason: Agitation Last Titration: 08/22/18 13:18 Dose: 20 mcg/kg/min, 9.308 mls/hr Tigecycline 50 mg/ Dextrose 100 mls @ 100 mls/hr IVPB Q12H [facility]; Protocol Metoprolol Tartrate (Lopressor) 50 mg PO BID [facility] Last Admin: 08/22/18 18:20 Dose: 50 mg Pantoprazole Sodium (Protonix Inj) 40 mg IVP Q12H [facility] Last Admin: 08/22/18 09:42 Dose: 40 mg - Labs Labs: 08/22/18 18:25 08/22/18 05:39 PT 14.3 SECONDS (9.7-12.2) H 08/17/18 05:52 INR 1.3 08/17/18 05:52 APTT 29.9 SECONDS (21-34) 08/17/18 05:52 - Constitutional Appears: Well - Head Exam Head Exam: ATRAUMATIC, NORMAL INSPECTION, NORMOCEPHALIC - Eye Exam Eye Exam: EOMI, Normal appearance, PERRL Pupil Exam: NORMAL ACCOMODATION, PERRL - ENT Exam ENT Exam: Mucous Membranes Moist, Normal Exam - Neck Exam Neck Exam: Full ROM, Normal Inspection. absent: Lymphadenopathy - Respiratory Exam Respiratory Exam: Decreased Breath Sounds - Cardiovascular Exam Cardiovascular Exam: REGULAR RHYTHM, +S1, +S2 - GI/Abdominal Exam GI & Abdominal Exam: Soft, Diminished Bowel Sounds - Rectal Exam Rectal Exam: Deferred - Neurological Exam Neurological Exam: Oriented x3 Assessment and Plan (1) Afib Status: Acute (2) GIB (gastrointestinal bleeding) Status: Acute (3) Hx of coronary artery disease Status: Acute (4) Hx of laparoscopic gastric banding Status: Acute (5) Nasal hemorrhage Status: Acute (6) Noncompliance with medication treatment due to overuse of medication Status: Acute (7) Rectal bleeding Status: Acute (8) Osteoarthritis Status: Acute - Assessment and Plan (Free Text) Plan: medications reviewed plan discussed with patient moderate complexity of care labs reviewed vitals reviewed Hemoglobin 9.1 Hematocrit 27.9 BUN 20 artificial tears deprivan duoneb heparin lasix lopressor protonix inj tylenol diprivan tigecycline
[2018-08-23] MEDS: Aritificial Tears (15ml) OU SCH ×6 (01:34→21:52)
[2018-08-23] MEDS: Aztreonam 1 GM in Sodium Chloride 0.9% 100 ML IVPB SCH ×3 (02:18→18:00)
[2018-08-23] MEDS: Albuterol-Ipratrop 3 mg / 0.5 (3 ml) UD INH SCH ×4 (02:19→19:18)
[2018-08-23] MEDS: Tigecycline 50 MG in Dextrose 5% In Water 100 ML IVPB SCH ×2 (04:19→16:07)
[2018-08-23] MEDS: Propofol 10 mg/ml 1,000 MG/100 ML VIAL IV PRN ×2 (04:24→13:41)
[2018-08-23 06:12] LABS: BASO # 0.1 K/uL (0.0-0.2); BASO % 1.1 % (0.0-2.0); EOS # 0.4 K/uL (0.0-0.7); HEMOGLOBIN 9.1 g/dL (11.0-16.0); LYMPH # 1.3 K/uL (1.0-4.3); LYMPH % 18.4 % (20.0-40.0); MEAN CELL VOLUME 95.5 fL (81.0-99.0); MEAN CORPUSCULAR HEMOGLOBIN 31.3 pg (27.0-31.0); MEAN CORPUSCULAR HGB CONC 32.8 g/dL (33.0-37.0); MEAN PLATELET VOLUME 10.2 fL (7.2-11.7); MONO # 0.4 K/uL (0.0-0.8); MONO % 5.7 % (0.0-10.0); NEUT # 4.7 K/uL (1.8-7.0); NEUT % 68.8 % (50.0-75.0); NRBC % 0.1 % (0.0-2.0); RBC 2.91 Mil/uL (3.80-5.20); RED CELL DISTRIBUTION WIDTH 17.4 % (11.5-14.5); WHITE BLOOD COUNT 6.9 K/uL (4.8-10.8)
[2018-08-23 06:23] LABS: ABG ALLEN TEST POS; ARTERIAL BLOOD GAS PCO2 34 mm/Hg (35-45); ARTERIAL BLOOD GAS PH 7.45 (7.35-7.45); ARTERIAL BLOOD GAS PO2 93 mm/Hg (80-100); ARTERIAL BLOOD GAS TCO2 24.6 mmol/L (22-28)
[2018-08-23 06:34] LABS: ALBUMIN 2.7 g/dL (3.5-5.0); CALCIUM 8.5 mg/dl (8.6-10.4)
[2018-08-23] MEDS ORDERED: MethylPREDNISolone 40 mg Vial IVP STA (08:12)
[2018-08-23] MEDS: Dexmedetomidine Hydrochloride 200 MCG in Sodium Chloride 0.9% 48 ML IV PRN ×2 (08:35→13:49)
--- NOTE | 2018-08-23 09:06 | RAD ---
Date of service: 08/23/2018 HISTORY: on vent COMPARISON: 08/22/2018 TECHNIQUE: 1 view obtained. FINDINGS: LUNGS: No pulmonary infiltrate. PLEURA: Moderate right pleural effusion. No left pleural effusion. No pneumothorax. CARDIOVASCULAR: ET tube and NG tube are unchanged. Cardiomegaly. Mild congestive change. There is atherosclerotic calcification of the thoracic aorta. OSSEOUS STRUCTURES: No significant abnormalities. VISUALIZED UPPER ABDOMEN: Normal. OTHER FINDINGS: None. IMPRESSION: Cardiomegaly. Moderate right pleural effusion. ET tube and NG tube unchanged.
--- NOTE | 2018-08-23 09:42 | CP.CCUPN ---
<Tyler Mcgowan - Last Filed: 08/23/18 12:49> CCU Subjective - Physician Review Subjective (Free Text): 08/23/18 09:42 PGY-1 Critical Care Progress Note for Dr. Rodriguez Patient seen and examined at bedside this AM. 72 yo female with pmhx of CAD s/p stent placement, hx of NC, CHF, hx of CVA with residual L weakness, brain aneurysm, afib on home xarelto Admitted to ER with uncontrollable epistaxis, acute blood loss s/p L internal maxillary artery, L facial artery embolization Had episode of melena in ED, since resolved Received additional unit of pRBC yesterday (08/22) with appropriate response Hb this AM remains stable Continue to monitor CCU Objective - Vital Signs / Intake & Output Vital Signs (Last 4 hours): Vital Signs Temp Pulse Resp BP Pulse Ox 08/23/18 09:00 114 H 20 94 L 08/23/18 08:55 109 H 21 124/67 95 08/23/18 08:00 98.6 F 108 H 13 95 08/23/18 07:54 107 H 11 L 134/80 96 08/23/18 06:54 100 H 20 145/79 98 08/23/18 05:54 96 H 17 145/79 98 Intake and Output (Last 8hrs): Intake & Output 08/22/18 08/23/18 08/23/18 22:59 06:59 14:59 Intake Total 829.1 762 110 Output Total 790 395 220 Balance 39.1 367 -110 Weight 78.88 kg Intake: IV 70 100 40 Intake, IV Amount 279.1 312 0 Left Forearm 79.1 112 0 Left Wrist 200 200 0 Right Wrist 0 0 Oral 130 30 Tube Feeding 320 320 40 Other 30 30 Output: Urine 790 395 220 Urethral (Jarvis) 790 395 220 Other: # Bowel Movements 0 1 0 - Physical Exam Head: Positive for: Atraumatic, Normocephalic Respiratory/Chest: Positive for: Good Air Exchange, Wheezes Cardiovascular: Positive for: Regular Rate and Rhythm, Normal S1, S2 Abdomen: Positive for: Normal Bowel Sounds. Negative for: Distention Upper Extremity: Positive for: Normal Inspection, NORMAL PULSES. Negative for: Cyanosis, Edema Lower Extremity: Positive for: Normal Inspection, NORMAL PULSES. Negative for: Edema Skin: Positive for: Warm, Dry, Normal Color - Medications Active Medications: Active Medications Generic Name Dose Route Start Last Admin Trade Name Freq PRN Reason Stop Dose Admin Acetaminophen 650 mg 08/21/18 21:00 08/21/18 21:00 Tylenol 325mg Tab NG 650 mg Q6 PRN Administration TEMP>100.4 Albuterol/Ipratropium 3 ml 08/18/18 14:00 08/23/18 07:55 Duoneb 3 Mg/0.5 Mg (3 Ml) Ud INH 3 ml RQ6 [facility] Administration Artificial Tears 0 ml 08/19/18 10:00 08/23/18 09:18 Artificial Tears OU Not Given Q4H [facility] Furosemide 20 mg 08/22/18 11:15 08/23/18 09:21 Lasix IVP Not Given DAILY [facility] Heparin Sodium (Porcine) 5,000 units 08/19/18 14:00 08/21/18 14:00 Heparin SC Not Given Q8 [facility] Aztreonam 1 gm/ Sodium 100 mls @ 100 mls/hr 08/16/18 19:00 08/23/18 02:18 Chloride IVPB 100 mls/hr Q8H [facility] Administration Protocol Propofol 1,000 mg in 100 mls @ 2.327 mls/hr 08/19/18 21:09 08/23/18 07:15 Diprivan IV 0 mcg/kg/min .Q24H PRN 0 mls/hr Agitation Titration Protocol 5 MCG/KG/MIN Tigecycline 50 mg/ Dextrose 100 mls @ 100 mls/hr 08/23/18 04:00 08/23/18 04:19 IVPB 100 mls/hr Q12H [facility] Administration Protocol Dexmedetomidine HCl 200 mcg/ 50 mls @ 3.94 mls/hr 08/23/18 07:24 08/23/18 08:35 Sodium Chloride IV 0.2 mcg/kg/hr TITR PRN 3.94 mls/hr Agitation Administration Protocol 0.2 MCG/KG/HR Metoprolol Tartrate 50 mg 08/19/18 09:32 08/23/18 09:19 Lopressor PO 50 mg BID [facility] Administration Pantoprazole Sodium 40 mg 08/18/18 22:00 08/23/18 09:18 Protonix Inj IVP 40 mg Q12H [facility] Administration - Patient Studies Lab Studies: Microbiology Studies 08/21/18 15:18 Gram Stain - Final Other: Please Indicate Body Fluid Culture - Final Coagulase Neg Staphylococcus 08/20/18 18:19 Urine Culture - Final Urine,Catheterized Vancomycin Resistant E.faecium Lab Studies 08/23/18 08/23/18 08/23/18 Range/Units 06:03 06:03 05:47 WBC 6.9 (4.8-10.8) K/uL RBC 2.91 L (3.80-5.20) Mil/uL Hgb 9.1 L (11.0-16.0) g/dL Hct 27.8 L (34.0-47.0) % MCV 95.5 (81.0-99.0) fL MCH 31.3 H (27.0-31.0) pg MCHC 32.8 L (33.0-37.0) g/dL RDW 17.4 H (11.5-14.5) % Plt Count 223 (130-400) K/uL MPV 10.2 (7.2-11.7) fL Neut % (Auto) 68.8 (50.0-75.0) % Lymph % (Auto) 18.4 L (20.0-40.0) % [place] % (Auto) 5.7 (0.0-10.0) % Eos % (Auto) 6.0 H (0.0-4.0) % Baso % (Auto) 1.1 (0.0-2.0) % Neut # (Auto) 4.7 (1.8-7.0) K/uL Lymph # (Auto) 1.3 (1.0-4.3) K/uL [place] # (Auto) 0.4 (0.0-0.8) K/uL Eos # (Auto) 0.4 (0.0-0.7) K/uL Baso # (Auto) 0.1 (0.0-0.2) K/uL Fibrinogen (200-400) mg/dL Puncture Site R r pCO2 34 L (35-45) mm/Hg pO2 93 (80-100) mm/Hg HCO3 25.0 (21-28) mmol/L ABG pH 7.45 (7.35-7.45) ABG Total CO2 24.6 (22-28) mmol/L ABG O2 Saturation 99.0 H (95-98) % ABG Base Excess 0.1 (-2.0-3.0) mmol/L Dom Test Pos ABG Potassium 3.8 (3.6-5.2) mmol/L A-a O2 Difference 221.0 mm/Hg Respiratory Index 2.4 Sodium 144 144.0 (132-148) mmol/l Chloride 111 H 114.0 H (98-107) mmol/L Glucose 78 (65-105) mg/dl Lactate 0.8 (0.7-2.1) mmol/L Vent Mode Prvc Mechanical Rate 20 FiO2 50.0 % Tidal Volume 450 PEEP 5 Potassium 3.9 (3.6-5.2) mmol/L Carbon Dioxide 24 (22-30) mmol/L Anion Gap 12 (10-20) BUN 27 H (7-17) mg/dL Creatinine 1.2 (0.7-1.2) mg/dL Est GFR ( Amer) 54 Est GFR (Non-Af Amer) 44 Random Glucose 80 (65-105) mg/dL Calcium 8.5 L (8.6-10.4) mg/dl Phosphorus 4.2 (2.5-4.5) mg/dL Magnesium 2.4 H (1.6-2.3) mg/dL Total Bilirubin 0.9 (0.2-1.3) mg/dL AST 37 H D (14-36) U/L ALT 21 (9-52) U/L Alkaline Phosphatase 134 H (38-126) U/L Total Protein 5.6 L (6.3-8.3) g/dL Albumin 2.7 L (3.5-5.0) g/dL Globulin 2.8 (2.2-3.9) gm/dL Albumin/Globulin Ratio 1.0 (1.0-2.1) Arterial Blood Potassium 3.8 (3.6-5.2) mmol/L Blood Type Antibody Screen 08/22/18 08/22/18 08/22/18 Range/Units 18:25 09:37 09:37 WBC 6.2 (4.8-10.8) K/uL RBC 2.89 L (3.80-5.20) Mil/uL Hgb 9.1 L (11.0-16.0) g/dL Hct 27.9 L (34.0-47.0) % MCV 96.7 (81.0-99.0) fL MCH 31.4 H (27.0-31.0) pg MCHC 32.5 L (33.0-37.0) g/dL RDW 17.6 H (11.5-14.5) % Plt Count 196 (130-400) K/uL MPV 10.2 (7.2-11.7) fL Neut % (Auto) 66.7 (50.0-75.0) % Lymph % (Auto) 17.9 L (20.0-40.0) % [place] % (Auto) 5.5 (0.0-10.0) % Eos % (Auto) 8.7 H (0.0-4.0) % Baso % (Auto) 1.2 (0.0-2.0) % Neut # (Auto) 4.1 (1.8-7.0) K/uL Lymph # (Auto) 1.1 (1.0-4.3) K/uL [place] # (Auto) 0.3 (0.0-0.8) K/uL Eos # (Auto) 0.5 (0.0-0.7) K/uL Baso # (Auto) 0.1 (0.0-0.2) K/uL Fibrinogen 388 (200-400) mg/dL Puncture Site pCO2 (35-45) mm/Hg pO2 (80-100) mm/Hg HCO3 (21-28) mmol/L ABG pH (7.35-7.45) ABG Total CO2 (22-28) mmol/L ABG O2 Saturation (95-98) % ABG Base Excess (-2.0-3.0) mmol/L Dom Test ABG Potassium (3.6-5.2) mmol/L A-a O2 Difference mm/Hg Respiratory Index Sodium (132-148) mmol/l Chloride (98-107) mmol/L Glucose (65-105) mg/dl Lactate (0.7-2.1) mmol/L Vent Mode Mechanical Rate FiO2 % Tidal Volume PEEP Potassium (3.6-5.2) mmol/L Carbon Dioxide (22-30) mmol/L Anion Gap (10-20) BUN (7-17) mg/dL Creatinine (0.7-1.2) mg/dL Est GFR ( Amer) Est GFR (Non-Af Amer) Random Glucose (65-105) mg/dL Calcium (8.6-10.4) mg/dl Phosphorus (2.5-4.5) mg/dL Magnesium (1.6-2.3) mg/dL Total Bilirubin (0.2-1.3) mg/dL AST (14-36) U/L ALT (9-52) U/L Alkaline Phosphatase (38-126) U/L Total Protein (6.3-8.3) g/dL Albumin (3.5-5.0) g/dL Globulin (2.2-3.9) gm/dL Albumin/Globulin Ratio (1.0-2.1) Arterial Blood Potassium (3.6-5.2) mmol/L Blood Type O POSITIVE Antibody Screen Negative Laboratory Results - last 24 hr 08/22/18 08/22/18 08/22/18 09:37 09:37 18:25 WBC 6.2 RBC 2.89 L Hgb 9.1 L Hct 27.9 L MCV 96.7 MCH 31.4 H MCHC 32.5 L RDW 17.6 H Plt Count 196 MPV 10.2 Neut % (Auto) 66.7 Lymph % (Auto) 17.9 L [place] % (Auto) 5.5 Eos % (Auto) 8.7 H Baso % (Auto) 1.2 Neut # (Auto) 4.1 Lymph # (Auto) 1.1 [place] # (Auto) 0.3 Eos # (Auto) 0.5 Baso # (Auto) 0.1 Fibrinogen 388 Puncture Site pCO2 pO2 HCO3 ABG pH ABG Total CO2 ABG O2 Saturation ABG Base Excess Dom Test ABG Potassium A-a O2 Difference Respiratory Index Sodium Chloride Glucose Lactate Vent Mode Mechanical Rate FiO2 Tidal Volume PEEP Potassium Carbon Dioxide Anion Gap BUN Creatinine Est GFR ( Amer) Est GFR (Non-Af Amer) Random Glucose Calcium Phosphorus Magnesium Total Bilirubin AST ALT Alkaline Phosphatase Total Protein Albumin Globulin Albumin/Globulin Ratio Arterial Blood Potassium Blood Type O POSITIVE Antibody Screen Negative 08/23/18 08/23/18 08/23/18 05:47 06:03 06:03 WBC 6.9 RBC 2.91 L Hgb 9.1 L Hct 27.8 L MCV 95.5 MCH 31.3 H MCHC 32.8 L RDW 17.4 H Plt Count 223 MPV 10.2 Neut % (Auto) 68.8 Lymph % (Auto) 18.4 L [place] % (Auto) 5.7 Eos % (Auto) 6.0 H Baso % (Auto) 1.1 Neut # (Auto) 4.7 Lymph # (Auto) 1.3 [place] # (Auto) 0.4 Eos # (Auto) 0.4 Baso # (Auto) 0.1 Fibrinogen Puncture Site R r pCO2 34 L pO2 93 HCO3 25.0 ABG pH 7.45 ABG Total CO2 24.6 ABG O2 Saturation 99.0 H ABG Base Excess 0.1 Dom Test Pos ABG Potassium 3.8 A-a O2 Difference 221.0 Respiratory Index 2.4 Sodium 144.0 144 Chloride 114.0 H 111 H Glucose 78 Lactate 0.8 Vent Mode Prvc Mechanical Rate 20 FiO2 50.0 Tidal Volume 450 PEEP 5 Potassium 3.9 Carbon Dioxide 24 Anion Gap 12 BUN 27 H Creatinine 1.2 Est GFR ( Amer) 54 Est GFR (Non-Af Amer) 44 Random Glucose 80 Calcium 8.5 L Phosphorus 4.2 Magnesium 2.4 H Total Bilirubin 0.9 AST 37 H D ALT 21 Alkaline Phosphatase 134 H Total Protein 5.6 L Albumin 2.7 L Globulin 2.8 Albumin/Globulin Ratio 1.0 Arterial Blood Potassium 3.8 Blood Type Antibody Screen Radiology Impressions: Radiology Impressions Chest X-Ray 08/22/18 07:00 IMPRESSION: Cardiomegaly and mild congestive change. Small bilateral pleural effusion. ET tube unchanged. Chest X-Ray 08/23/18 07:04 IMPRESSION: Cardiomegaly. Moderate right pleural effusion. ET tube and NG tube unchanged. Fingerstick Blood Sugar Results: 103 Review of Systems - Review of Systems All systems: reviewed and no additional remarkable complaints except Review of Systems: 12 pt ROS reviewed and negative except as per HPI Assessment/Plan - Assessment and Plan (Free Text) Plan: Neuro -on mechanical ventilation -sedated , on propofol gtt, precedex gtt Pulm -aspiration pneumonia -Blood seen during bronchoscopy (08/21), bloody sputum secretions less with periodic lavage -ID recs appreciated -c/w aztreonam, tygacil CV -hemodynamically stable, continue to monitor Heme -Hb stable s/p 1 additional unit pRBC tranfusion -continue to monitor Hb GI -melena resolved -reconsult GI for possible EGD -c/w protonix Renal -no acute issues Endo -no acute issues ID -VRE positive on urine culture, coag neg staph on blood culture -ID recs appreciated -c/w aztreonam, tygacil PPx, Diet, Disposition -DVT: scds -GI: protonix -Diet: tube feeds Case discussed with Dr. Michael Mcgowan DO, PGY-1 <Aquilino Rodriguez - Last Filed: 08/24/18 14:50> CCU Subjective - Physician Review Critical Care Time Spent (in minutes): 36 CCU Objective - Vital Signs / Intake & Output Vital Signs (Last 4 hours): Vital Signs Temp Pulse Resp BP Pulse Ox 08/24/18 14:00 93 H 25 H 94 L 08/24/18 13:54 97 H 27 H 111/67 93 L 08/24/18 13:00 85 27 H 95 08/24/18 12:54 87 23 122/83 95 08/24/18 12:00 99.3 F 87 19 93 L 08/24/18 11:54 82 20 125/75 94 L 08/24/18 11:00 86 18 94 L 08/24/18 10:54 87 20 135/83 95 Intake and Output (Last 8hrs): Intake & Output 08/23/18 08/24/18 08/24/18 22:59 06:59 14:59 Intake Total 828.8 502.0 334.8 Output Total 1120 230 705 Balance -291.2 272.0 -370.2 Weight 172 lb 14.4 oz Intake: IV 75 55 50 Intake, IV Amount 303.8 127.0 144.8 Left Forearm 0 Left Wrist 200 100 Right Wrist 103.8 127.0 35.4 Rt wrist y-site 9.4 Oral 130 Tube Feeding 320 320 80 Other 60 Output: Urine 1120 230 705 Urethral (Jarvis) 1120 230 705 Other: # Bowel Movements 0 - Medications Active Medications: Active Medications Generic Name Dose Route Start Last Admin Trade Name Freq PRN Reason Stop Dose Admin Acetaminophen 650 mg 08/21/18 21:00 08/21/18 21:00 Tylenol 325mg Tab NG 650 mg Q6 PRN Administration TEMP>100.4 Albuterol/Ipratropium 3 ml 08/18/18 14:00 08/24/18 13:10 Duoneb 3 Mg/0.5 Mg (3 Ml) Ud INH 3 ml RQ6 [facility] Administration Artificial Tears 0 ml 08/19/18 10:00 08/24/18 13:16 Artificial Tears OU 1 drop Q4H [facility] Administration Furosemide 20 mg 08/22/18 11:15 08/24/18 09:29 Lasix IVP 20 mg DAILY [facility] Administration Aztreonam 1 gm/ Sodium 100 mls @ 100 mls/hr 08/16/18 19:00 08/24/18 10:12 Chloride IVPB 100 mls/hr Q8H [facility] Administration Protocol Tigecycline 50 mg/ Dextrose 100 mls @ 100 mls/hr 08/23/18 04:00 08/24/18 04:13 IVPB 100 mls/hr Q12H [facility] Administration Protocol Methylprednisolone 60 mg 08/23/18 14:00 08/24/18 13:14 Solu-Medrol IVP 60 mg Q8 SYED Administration Metoprolol Tartrate 50 mg 08/19/18 09:32 08/24/18 09:29 Lopressor PO 50 mg BID [facility] Administration Pantoprazole Sodium 40 mg 08/18/18 22:00 08/24/18 09:29 Protonix Inj IVP 40 mg Q12H [facility] Administration - Patient Studies Lab Studies: Microbiology Studies 08/21/18 15:18 Gram Stain - Final Other: Please Indicate Body Fluid Culture - Final Coagulase Neg Staphylococcus Mycobacterial Culture - Preliminary 08/21/18 Unknown Fungal Culture - Preliminary Other: Please Indicate Lab Studies 08/24/18 08/24/18 08/24/18 Range/Units 06:21 06:21 06:05 WBC 4.9 (4.8-10.8) K/uL RBC 3.12 L (3.80-5.20) Mil/uL Hgb 9.8 L (11.0-16.0) g/dL Hct 29.9 L (34.0-47.0) % MCV 95.9 (81.0-99.0) fL MCH 31.3 H (27.0-31.0) pg MCHC 32.6 L (33.0-37.0) g/dL RDW 17.3 H (11.5-14.5) % Plt Count 235 (130-400) K/uL MPV 10.4 (7.2-11.7) fL Neut % (Auto) 81.5 H (50.0-75.0) % Lymph % (Auto) 14.8 L (20.0-40.0) % [place] % (Auto) 3.2 (0.0-10.0) % Eos % (Auto) 0.0 (0.0-4.0) % Baso % (Auto) 0.5 (0.0-2.0) % Neut # (Auto) 4.0 (1.8-7.0) K/uL Lymph # (Auto) 0.7 L (1.0-4.3) K/uL [place] # (Auto) 0.2 (0.0-0.8) K/uL Eos # (Auto) 0.0 (0.0-0.7) K/uL Baso # (Auto) 0.0 (0.0-0.2) K/uL Neutrophils % (Manual) (50-75) % Lymphocytes % (Manual) (20-40) % Monocytes % (Manual) (0-10) % Platelet Estimate (NORMAL) Polychromasia Hypochromasia (manual) Anisocytosis (manual) Puncture Site R bra pCO2 35 (35-45) mm/Hg pO2 63 L (80-100) mm/Hg HCO3 25.2 (21-28) mmol/L ABG pH 7.45 (7.35-7.45) ABG Total CO2 25.4 (22-28) mmol/L ABG O2 Saturation 94.5 L (95-98) % ABG Base Excess 0.5 (-2.0-3.0) mmol/L ABG Hemoglobin 9.5 L (11.7-17.4) g/dL ABG Carboxyhemoglobin 1.9 H (0.5-1.5) % POC ABG HHb (Measured) 5.3 H (0.0-5.0) % ABG Methemoglobin 0.9 (0.0-3.0) % Dom Test Na A-a O2 Difference 143.0 mm/Hg Respiratory Index 2.3 Hgb O2 Saturation 91.8 L (95.0-98.0) % Vent Mode Prvc Mechanical Rate 20 FiO2 35.0 % Tidal Volume 450 PEEP 5 Sodium 142 (132-148) mmol/L Potassium 4.4 (3.6-5.2) mmol/L Chloride 111 H (98-107) mmol/L Carbon Dioxide 23 (22-30) mmol/L Anion Gap 12 (10-20) BUN 39 H (7-17) mg/dL Creatinine 1.2 (0.7-1.2) mg/dL Est GFR ( Amer) 54 Est GFR (Non-Af Amer) 44 Random Glucose 152 H (65-105) mg/dL Calcium 8.7 (8.6-10.4) mg/dl Phosphorus 5.2 H (2.5-4.5) mg/dL Magnesium 2.5 H (1.6-2.3) mg/dL Total Bilirubin 0.6 (0.2-1.3) mg/dL AST 35 (14-36) U/L ALT 17 (9-52) U/L Alkaline Phosphatase 123 (38-126) U/L Total Protein 5.8 L (6.3-8.3) g/dL Albumin 2.9 L (3.5-5.0) g/dL Globulin 2.9 (2.2-3.9) gm/dL Albumin/Globulin Ratio 1.0 (1.0-2.1) 08/23/18 08/23/18 Range/Units 21:43 21:43 WBC 5.8 (4.8-10.8) K/uL RBC 2.96 L (3.80-5.20) Mil/uL Hgb 9.6 L (11.0-16.0) g/dL Hct 28.1 L (34.0-47.0) % MCV 95.1 (81.0-99.0) fL MCH 32.4 H (27.0-31.0) pg MCHC 34.1 (33.0-37.0) g/dL RDW 17.2 H (11.5-14.5) % Plt Count 232 (130-400) K/uL MPV 10.0 (7.2-11.7) fL Neut % (Auto) 90.1 H (50.0-75.0) % Lymph % (Auto) 8.4 L (20.0-40.0) % [place] % (Auto) 1.3 (0.0-10.0) % Eos % (Auto) 0.1 (0.0-4.0) % Baso % (Auto) 0.1 (0.0-2.0) % Neut # (Auto) 5.2 (1.8-7.0) K/uL Lymph # (Auto) 0.5 L (1.0-4.3) K/uL [place] # (Auto) 0.1 (0.0-0.8) K/uL Eos # (Auto) 0.0 (0.0-0.7) K/uL Baso # (Auto) 0.0 (0.0-0.2) K/uL Neutrophils % (Manual) 94 H (50-75) % Lymphocytes % (Manual) 5 L (20-40) % Monocytes % (Manual) 1 (0-10) % Platelet Estimate Normal (NORMAL) Polychromasia Slight Hypochromasia (manual) Slight Anisocytosis (manual) Slight Puncture Site pCO2 (35-45) mm/Hg pO2 (80-100) mm/Hg HCO3 (21-28) mmol/L ABG pH (7.35-7.45) ABG Total CO2 (22-28) mmol/L ABG O2 Saturation (95-98) % ABG Base Excess (-2.0-3.0) mmol/L ABG Hemoglobin (11.7-17.4) g/dL ABG Carboxyhemoglobin (0.5-1.5) % POC ABG HHb (Measured) (0.0-5.0) % ABG Methemoglobin (0.0-3.0) % Dom Test A-a O2 Difference mm/Hg Respiratory Index Hgb O2 Saturation (95.0-98.0) % Vent Mode Mechanical Rate FiO2 % Tidal Volume PEEP Sodium 141 (132-148) mmol/L Potassium 4.6 (3.6-5.2) mmol/L Chloride 109 H (98-107) mmol/L Carbon Dioxide 22 (22-30) mmol/L Anion Gap 14 (10-20) BUN 33 H (7-17) mg/dL Creatinine 1.1 (0.7-1.2) mg/dL Est GFR ( Amer) 59 Est GFR (Non-Af Amer) 49 Random Glucose 157 H D (65-105) mg/dL Calcium 8.6 (8.6-10.4) mg/dl Phosphorus 6.0 H (2.5-4.5) mg/dL Magnesium 2.4 H (1.6-2.3) mg/dL Total Bilirubin (0.2-1.3) mg/dL AST (14-36) U/L ALT (9-52) U/L Alkaline Phosphatase (38-126) U/L Total Protein (6.3-8.3) g/dL Albumin (3.5-5.0) g/dL Globulin (2.2-3.9) gm/dL Albumin/Globulin Ratio (1.0-2.1) Laboratory Results - last 24 hr 08/23/18 08/23/18 08/24/18 21:43 21:43 06:05 WBC 5.8 RBC 2.96 L Hgb 9.6 L Hct 28.1 L MCV 95.1 MCH 32.4 H MCHC 34.1 RDW 17.2 H Plt Count 232 MPV 10.0 Neut % (Auto) 90.1 H Lymph % (Auto) 8.4 L [place] % (Auto) 1.3 Eos % (Auto) 0.1 Baso % (Auto) 0.1 Neut # (Auto) 5.2 Lymph # (Auto) 0.5 L [place] # (Auto) 0.1 Eos # (Auto) 0.0 Baso # (Auto) 0.0 Neutrophils % (Manual) 94 H Lymphocytes % (Manual) 5 L Monocytes % (Manual) 1 Platelet Estimate Normal Polychromasia Slight Hypochromasia (manual) Slight Anisocytosis (manual) Slight Puncture Site R bra pCO2 35 pO2 63 L HCO3 25.2 ABG pH 7.45 ABG Total CO2 25.4 ABG O2 Saturation 94.5 L ABG Base Excess 0.5 ABG Hemoglobin 9.5 L ABG Carboxyhemoglobin 1.9 H POC ABG HHb (Measured) 5.3 H ABG Methemoglobin 0.9 Dom Test Na A-a O2 Difference 143.0 Respiratory Index 2.3 Hgb O2 Saturation 91.8 L Vent Mode Prvc Mechanical Rate 20 FiO2 35.0 Tidal Volume 450 PEEP 5 Sodium 141 Potassium 4.6 Chloride 109 H Carbon Dioxide 22 Anion Gap 14 BUN 33 H Creatinine 1.1 Est GFR ( Amer) 59 Est GFR (Non-Af Amer) 49 Random Glucose 157 H D Calcium 8.6 Phosphorus 6.0 H Magnesium 2.4 H Total Bilirubin AST ALT Alkaline Phosphatase Total Protein Albumin Globulin Albumin/Globulin Ratio 08/24/18 08/24/18 06:21 06:21 WBC 4.9 RBC 3.12 L Hgb 9.8 L Hct 29.9 L MCV 95.9 MCH 31.3 H MCHC 32.6 L RDW 17.3 H Plt Count 235 MPV 10.4 Neut % (Auto) 81.5 H Lymph % (Auto) 14.8 L [place] % (Auto) 3.2 Eos % (Auto) 0.0 Baso % (Auto) 0.5 Neut # (Auto) 4.0 Lymph # (Auto) 0.7 L [place] # (Auto) 0.2 Eos # (Auto) 0.0 Baso # (Auto) 0.0 Neutrophils % (Manual) Lymphocytes % (Manual) Monocytes % (Manual) Platelet Estimate Polychromasia Hypochromasia (manual) Anisocytosis (manual) Puncture Site pCO2 pO2 HCO3 ABG pH ABG Total CO2 ABG O2 Saturation ABG Base Excess ABG Hemoglobin ABG Carboxyhemoglobin POC ABG HHb (Measured) ABG Methemoglobin Dom Test A-a O2 Difference Respiratory Index Hgb O2 Saturation Vent Mode Mechanical Rate FiO2 Tidal Volume PEEP Sodium 142 Potassium 4.4 Chloride 111 H Carbon Dioxide 23 Anion Gap 12 BUN 39 H Creatinine 1.2 Est GFR ( Amer) 54 Est GFR (Non-Af Amer) 44 Random Glucose 152 H Calcium 8.7 Phosphorus 5.2 H Magnesium 2.5 H Total Bilirubin 0.6 AST 35 ALT 17 Alkaline Phosphatase 123 Total Protein 5.8 L Albumin 2.9 L Globulin 2.9 Albumin/Globulin Ratio 1.0 Radiology Impressions: Radiology Impressions Chest X-Ray 08/24/18 07:00 IMPRESSION: Endotracheal tube terminates approximately 4.4 cm above the [place]. Nasogastric tube extends to the expected location of the stomach. Marked cardiomegaly. Mild to moderate venous congestion. Small bilateral pleural effusions (left greater than right) and associated consolidations. Gastric lap band. Critical Care Progress Note - Nutrition Nutrition: Nutrition Category Date Time Status Dysphagia/Modified Consistency Diet [DIET] Diets 08/24/18 Dinner Ordered Assessment/Plan - Assessment and Plan (Free Text) Plan: Above patient seen and [facility]. Patient with h/o nose bleeding, pulmonary hemorrhage and kidney failure, suspect vasculitis, ?wegners -Hypoxic respiratory failure: 2nd pulmonary hemorrahge, start solumedrol + frequent suctioning, continuve ventilatoin to keep spo2 >92 -MARITZA; avoid nephrotoxic drugs. monitor urine output -sepsis: continue abx as per ID -PUD ppx -DVT ppx: SCDS 2nd h/o nose bleed -nose bleeding stopped -hb [place], no active bleeding from nose or gut -possile wegners granulomatosus: start high dose of solumedrol cc time 36 minutes - Date & Time Date: 08/23/18 Time: 19:00
--- NOTE | 2018-08-23 12:05 | CP.PCM.PN ---
Subjective - Date & Time of Evaluation Date of Evaluation: 08/23/18 Time of Evaluation: 11:10 - Subjective Subjective: [facility] Dr.Jeffrey Freddie Rivera Consolmagno MSNA,AGNP-BC,[employer] POST-OP Day 7 Embolization 72 year old female PmHx CAD s/p stent, [place], CVA residual left side weakness, brain aneurysm, Ovarian CA, AFIB on eliquis. Admitted to ED uncontrolled epistaxis from left nare. 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 Complicated recovery aspiration pneumonia, b/l effusions remain sedated on precedex now and intubated, in process of being weaned. Objective - Vital Signs/Intake and Output Vital Signs (last 24 hours): Temp Pulse Resp BP Pulse Ox 98.6 F 85 10 L 110/54 L 94 L 08/23/18 08:00 08/23/18 11:00 08/23/18 11:00 08/23/18 10:54 08/23/18 11:00 Intake and Output: 08/23/18 08/23/18 06:59 18:59 Intake Total 1063.9 323 Output Total 620 570 Balance 443.9 -247 - Medications Medications: Current Medications Acetaminophen (Tylenol 325mg Tab) 650 mg NG Q6 PRN PRN Reason: TEMP>100.4 Last Admin: 08/21/18 21:00 Dose: 650 mg Albuterol/Ipratropium (Duoneb 3 Mg/0.5 Mg (3 Ml) Ud) 3 ml INH RQ6 [facility] Last Admin: 08/23/18 07:55 Dose: 3 ml Artificial Tears (Artificial Tears) 0 ml OU Q4H [facility] Last Admin: 08/23/18 09:18 Dose: Not Given Furosemide (Lasix) 20 mg IVP DAILY [facility] Last Admin: 08/23/18 09:21 Dose: Not Given Heparin Sodium (Porcine) (Heparin) 5,000 units SC Q8 [facility] Last Admin: 08/21/18 14:00 Dose: Not Given Aztreonam 1 gm/ Sodium (Chloride) 100 mls @ 100 mls/hr IVPB Q8H [facility]; Protocol Last Admin: 08/23/18 10:28 Dose: 100 mls/hr Propofol (Diprivan) 1,000 mg in 100 mls @ 2.327 mls/hr IV .Q24H PRN; Protocol PRN Reason: Agitation Last Titration: 08/23/18 07:15 Dose: 0 mcg/kg/min, 0 mls/hr Tigecycline 50 mg/ Dextrose 100 mls @ 100 mls/hr IVPB Q12H [facility]; Protocol Last Admin: 08/23/18 04:19 Dose: 100 mls/hr Dexmedetomidine HCl 200 mcg/ (Sodium Chloride) 50 mls @ 3.94 mls/hr IV TITR PRN; Protocol PRN Reason: Agitation Last Titration: 08/23/18 11:47 Dose: 0.3 mcg/kg/hr, 5.92 mls/hr Metoprolol Tartrate (Lopressor) 50 mg PO BID [facility] Last Admin: 08/23/18 09:19 Dose: 50 mg Pantoprazole Sodium (Protonix Inj) 40 mg IVP Q12H [facility] Last Admin: 08/23/18 09:18 Dose: 40 mg - Labs Labs: 08/23/18 06:03 08/23/18 06:03 PT 14.3 SECONDS (9.7-12.2) H 08/17/18 05:52 INR 1.3 08/17/18 05:52 APTT 29.9 SECONDS (21-34) 08/17/18 05:52 - Constitutional Appears: Other (slightly agitated) - Head Exam Head Exam: ATRAUMATIC - Eye Exam Eye Exam: EOMI, PERRL - Respiratory Exam Respiratory Exam: Decreased Breath Sounds - Rectal Exam Rectal Exam: Deferred (Pt is sedated unable to assess) Assessment and Plan - Assessment and Plan (Free Text) Assessment: 72 year old female s/p embolization of left sphenopalatine artery with complete occlusion. Right groin s/p access site open to air no redness, drainage or ecchymosis noted. Remains intubated, arousable with verbal stimuli following verbal commands. Plan: 1-continue supportive care 2-If we can be of further assistance please contact 45 min ICU assessment, and plan
[2018-08-23 21:59] LABS: BASO % 0.1 % (0.0-2.0); EOS % 0.1 % (0.0-4.0); HEMOGLOBIN 9.6 g/dL (11.0-16.0); LYMPH # 0.5 K/uL (1.0-4.3); LYMPH % 8.4 % (20.0-40.0); MEAN CELL VOLUME 95.1 fL (81.0-99.0); MEAN CORPUSCULAR HEMOGLOBIN 32.4 pg (27.0-31.0); MEAN CORPUSCULAR HGB CONC 34.1 g/dL (33.0-37.0); MONO # 0.1 K/uL (0.0-0.8); MONO % 1.3 % (0.0-10.0); NEUT # 5.2 K/uL (1.8-7.0); NEUT % 90.1 % (50.0-75.0); NRBC % 0.1 % (0.0-2.0); PLATELET COUNT 232 K/uL (130-400); RBC 2.96 Mil/uL (3.80-5.20); RED CELL DISTRIBUTION WIDTH 17.2 % (11.5-14.5); WHITE BLOOD COUNT 5.8 K/uL (4.8-10.8)
[2018-08-23 22:22] LABS: CALCIUM 8.6 mg/dl (8.6-10.4)
[2018-08-23 22:35] LABS: ANISOCYTOSIS SLIGHT; HYPOCHROMIC SLIGHT; LYMPHOCYTE 5 % (20-40); MONOCYTE 1 % (0-10); NEUTROPHIL 94 % (50-75); PLATELET ESTIMATE NORMAL (NORMAL); POLYCHROMIC SLIGHT; TOTAL CELLS COUNTED 100
--- NOTE | 2018-08-23 23:13 | CP.PCM.PN ---
Subjective - Date & Time of Evaluation Date of Evaluation: 08/23/18 - Subjective Subjective: patient seen today no nausea, no vomiting, no dizziness, no diarrhea, no fever no shortness of breath Objective - Vital Signs/Intake and Output Vital Signs (last 24 hours): Temp Pulse Resp BP Pulse Ox 97.5 F L 99 H 17 102/56 L 93 L 08/23/18 20:00 08/23/18 20:54 08/23/18 20:54 08/23/18 20:54 08/23/18 20:54 Intake and Output: 08/23/18 08/24/18 18:59 06:59 Intake Total 1048.1 101.2 Output Total 2040 220 Balance -991.9 -118.8 - Medications Medications: Current Medications Acetaminophen (Tylenol 325mg Tab) 650 mg NG Q6 PRN PRN Reason: TEMP>100.4 Last Admin: 08/21/18 21:00 Dose: 650 mg Albuterol/Ipratropium (Duoneb 3 Mg/0.5 Mg (3 Ml) Ud) 3 ml INH RQ6 [facility] Last Admin: 08/23/18 19:18 Dose: 3 ml Artificial Tears (Artificial Tears) 0 ml OU Q4H [facility] Last Admin: 08/23/18 21:52 Dose: 1 drop Furosemide (Lasix) 20 mg IVP DAILY [facility] Last Admin: 08/23/18 09:21 Dose: Not Given Heparin Sodium (Porcine) (Heparin) 5,000 units SC Q8 [facility] Last Admin: 08/21/18 14:00 Dose: Not Given Aztreonam 1 gm/ Sodium (Chloride) 100 mls @ 100 mls/hr IVPB Q8H [facility]; Protocol Last Admin: 08/23/18 18:00 Dose: 100 mls/hr Tigecycline 50 mg/ Dextrose 100 mls @ 100 mls/hr IVPB Q12H [facility]; Protocol Last Admin: 08/23/18 16:07 Dose: 100 mls/hr Dexmedetomidine HCl 200 mcg/ (Sodium Chloride) 50 mls @ 3.94 mls/hr IV TITR PRN; Protocol PRN Reason: Agitation Last Admin: 08/23/18 13:49 Dose: 0.3 mcg/kg/hr, 5.92 mls/hr Propofol (Diprivan) 1,000 mg in 100 mls @ 2.366 mls/hr IV .Q24H PRN; Protocol PRN Reason: TITRATE PER MD ORDER Last Titration: 08/23/18 20:44 Dose: 20 mcg/kg/min, 9.466 mls/hr Methylprednisolone (Solu-Medrol) 60 mg IVP Q8 [facility] Last Admin: 08/23/18 21:45 Dose: 60 mg Metoprolol Tartrate (Lopressor) 50 mg PO BID [facility] Last Admin: 08/23/18 17:57 Dose: 50 mg Pantoprazole Sodium (Protonix Inj) 40 mg IVP Q12H [facility] Last Admin: 08/23/18 21:45 Dose: 40 mg - Labs Labs: 08/23/18 21:43 08/23/18 21:43 PT 14.3 SECONDS (9.7-12.2) H 08/17/18 05:52 INR 1.3 08/17/18 05:52 APTT 29.9 SECONDS (21-34) 08/17/18 05:52 - Constitutional Appears: Well - Head Exam Head Exam: ATRAUMATIC, NORMAL INSPECTION, NORMOCEPHALIC - Eye Exam Eye Exam: EOMI, Normal appearance, PERRL Pupil Exam: NORMAL ACCOMODATION, PERRL - ENT Exam ENT Exam: Mucous Membranes Moist, Normal Exam - Neck Exam Neck Exam: Full ROM, Normal Inspection. absent: Lymphadenopathy - Respiratory Exam Respiratory Exam: Decreased Breath Sounds - Cardiovascular Exam Cardiovascular Exam: REGULAR RHYTHM, +S1, +S2 - GI/Abdominal Exam GI & Abdominal Exam: Soft, Diminished Bowel Sounds - Rectal Exam Rectal Exam: Deferred - Neurological Exam Neurological Exam: Oriented x3 Assessment and Plan (1) Afib Status: Acute (2) GIB (gastrointestinal bleeding) Status: Acute (3) Hx of coronary artery disease Status: Acute (4) Hx of laparoscopic gastric banding Status: Acute (5) Nasal hemorrhage Status: Acute (6) Noncompliance with medication treatment due to overuse of medication Status: Acute (7) Rectal bleeding Status: Acute (8) Osteoarthritis Status: Acute - Assessment and Plan (Free Text) Plan: plan discussed with patient moderate complexity of care Hemoglobin 9.6 Hematocrit 28.1 BUN 33 Glucose 157 Tylenol DuoNeb Lasix Heparin Aztreonam Tigecycline Dexmedetomidine Diprima Solu-Medrol Lopressor Protonix artificial tears medications reviewed vitals reviewed labs reviewed
[2018-08-24] MEDS: Dexmedetomidine Hydrochloride 200 MCG in Sodium Chloride 0.9% 48 ML IV PRN ×2 (01:00→10:13)
[2018-08-24] MEDS: Albuterol-Ipratrop 3 mg / 0.5 (3 ml) UD INH SCH ×4 (01:36→20:20)
[2018-08-24] MEDS: Aritificial Tears (15ml) OU SCH ×6 (02:00→22:00)
[2018-08-24] MEDS: Propofol 10 mg/ml 1,000 MG/100 ML VIAL IV PRN (03:05)
[2018-08-24] MEDS: Aztreonam 1 GM in Sodium Chloride 0.9% 100 ML IVPB SCH ×3 (03:07→18:10)
[2018-08-24] MEDS: Tigecycline 50 MG in Dextrose 5% In Water 100 ML IVPB SCH ×2 (04:13→16:12)
[2018-08-24 06:20] LABS: ARTERIAL BLOOD GAS HCO3 25.2 mmol/L (21-28); ARTERIAL BLOOD GAS HEMOGLOBIN 9.5 g/dL (11.7-17.4); ARTERIAL BLOOD GAS O2 SAT 94.5 % (95-98); ARTERIAL BLOOD GAS PCO2 35 mm/Hg (35-45); ARTERIAL BLOOD GAS PH 7.45 (7.35-7.45); ARTERIAL BLOOD GAS PO2 63 mm/Hg (80-100); ARTERIAL BLOOD GAS TCO2 25.4 mmol/L (22-28)
[2018-08-24 06:25] LABS: BASO % 0.5 % (0.0-2.0); HEMOGLOBIN 9.8 g/dL (11.0-16.0); LYMPH # 0.7 K/uL (1.0-4.3); LYMPH % 14.8 % (20.0-40.0); MEAN CELL VOLUME 95.9 fL (81.0-99.0); MEAN CORPUSCULAR HEMOGLOBIN 31.3 pg (27.0-31.0); MEAN CORPUSCULAR HGB CONC 32.6 g/dL (33.0-37.0); MEAN PLATELET VOLUME 10.4 fL (7.2-11.7); MONO # 0.2 K/uL (0.0-0.8); MONO % 3.2 % (0.0-10.0); NEUT % 81.5 % (50.0-75.0); RBC 3.12 Mil/uL (3.80-5.20); RED CELL DISTRIBUTION WIDTH 17.3 % (11.5-14.5); WHITE BLOOD COUNT 4.9 K/uL (4.8-10.8)
[2018-08-24 06:49] LABS: ALBUMIN 2.9 g/dL (3.5-5.0); CALCIUM 8.7 mg/dl (8.6-10.4)
--- NOTE | 2018-08-24 10:10 | RAD ---
HISTORY: vented COMPARISON: Chest x-ray performed 08/23/18 TECHNIQUE: Chest, one view. FINDINGS: Endotracheal tube terminates approximately 4.4 cm above the [place]. Nasogastric tube extends expected location of the stomach. LUNGS: Mild to moderate venous congestion. Small bilateral pleural effusions (left greater than right) and associated consolidations. No definite pneumothorax. CARDIOVASCULAR: Marked cardiomegaly. Atherosclerotic calcifications of the aorta. OSSEOUS STRUCTURES: Degenerative changes. Osseous demineralization. VISUALIZED UPPER ABDOMEN: Gastric lap band. OTHER FINDINGS: None. IMPRESSION: Endotracheal tube terminates approximately 4.4 cm above the [place]. Nasogastric tube extends to the expected location of the stomach. Marked cardiomegaly. Mild to moderate venous congestion. Small bilateral pleural effusions (left greater than right) and associated consolidations. Gastric lap band.
--- NOTE | 2018-08-24 14:56 | CP.CCUPN ---
CCU Subjective - Physician Review Subjective (Free Text): Patient tolerated CPAP today, decrease ET tube secretions, much less compared to yesterday 08/24/18 14:51 Critical Care Time Spent (in minutes): 35 CCU Objective - Vital Signs / Intake & Output Vital Signs (Last 4 hours): Vital Signs Temp Pulse Resp BP Pulse Ox 08/24/18 14:00 93 H 25 H 94 L 08/24/18 13:54 97 H 27 H 111/67 93 L 08/24/18 13:00 85 27 H 95 08/24/18 12:54 87 23 122/83 95 08/24/18 12:00 99.3 F 87 19 93 L 08/24/18 11:54 82 20 125/75 94 L 08/24/18 11:00 86 18 94 L 08/24/18 10:54 87 20 135/83 95 Intake and Output (Last 8hrs): Intake & Output 08/23/18 08/24/18 08/24/18 22:59 06:59 14:59 Intake Total 828.8 502.0 334.8 Output Total 1120 230 705 Balance -291.2 272.0 -370.2 Weight 172 lb 14.4 oz Intake: IV 75 55 50 Intake, IV Amount 303.8 127.0 144.8 Left Forearm 0 Left Wrist 200 100 Right Wrist 103.8 127.0 35.4 Rt wrist y-site 9.4 Oral 130 Tube Feeding 320 320 80 Other 60 Output: Urine 1120 230 705 Urethral (Jarvis) 1120 230 705 Other: # Bowel Movements 0 - Physical Exam Head: Positive for: Atraumatic, Normocephalic Mouth: Positive for: Moist Mucous Membranes Respiratory/Chest: Positive for: Good Air Exchange, Wheezes Cardiovascular: Positive for: Regular Rate and Rhythm, Normal S1, S2 Abdomen: Positive for: Normal Bowel Sounds. Negative for: Distention Upper Extremity: Positive for: Normal Inspection, NORMAL PULSES. Negative for: Cyanosis, Edema Lower Extremity: Positive for: Normal Inspection, NORMAL PULSES. Negative for: Edema Skin: Positive for: Warm, Dry, Normal Color Psychiatric: Positive for: Oriented x 3 - Medications Active Medications: Active Medications Generic Name Dose Route Start Last Admin Trade Name Freq PRN Reason Stop Dose Admin Acetaminophen 650 mg 08/21/18 21:00 08/21/18 21:00 Tylenol 325mg Tab NG 650 mg Q6 PRN Administration TEMP>100.4 Albuterol/Ipratropium 3 ml 08/18/18 14:00 08/24/18 13:10 Duoneb 3 Mg/0.5 Mg (3 Ml) Ud INH 3 ml RQ6 [facility] Administration Artificial Tears 0 ml 08/19/18 10:00 08/24/18 13:16 Artificial Tears OU 1 drop Q4H [facility] Administration Furosemide 20 mg 08/22/18 11:15 08/24/18 09:29 Lasix IVP 20 mg DAILY [facility] Administration Aztreonam 1 gm/ Sodium 100 mls @ 100 mls/hr 08/16/18 19:00 08/24/18 10:12 Chloride IVPB 100 mls/hr Q8H [facility] Administration Protocol Tigecycline 50 mg/ Dextrose 100 mls @ 100 mls/hr 08/23/18 04:00 08/24/18 04:13 IVPB 100 mls/hr Q12H [facility] Administration Protocol Methylprednisolone 60 mg 08/23/18 14:00 08/24/18 13:14 Solu-Medrol IVP 60 mg Q8 [facility] Administration Metoprolol Tartrate 50 mg 08/19/18 09:32 08/24/18 09:29 Lopressor PO 50 mg BID [facility] Administration Pantoprazole Sodium 40 mg 08/18/18 22:00 08/24/18 09:29 Protonix Inj IVP 40 mg Q12H [facility] Administration - Patient Studies Lab Studies: Microbiology Studies 08/21/18 15:18 Gram Stain - Final Other: Please Indicate Body Fluid Culture - Final Coagulase Neg Staphylococcus Mycobacterial Culture - Preliminary 08/21/18 Unknown Fungal Culture - Preliminary Other: Please Indicate Lab Studies 08/24/18 08/24/18 08/24/18 Range/Units 06:21 06:21 06:05 WBC 4.9 (4.8-10.8) K/uL RBC 3.12 L (3.80-5.20) Mil/uL Hgb 9.8 L (11.0-16.0) g/dL Hct 29.9 L (34.0-47.0) % MCV 95.9 (81.0-99.0) fL MCH 31.3 H (27.0-31.0) pg MCHC 32.6 L (33.0-37.0) g/dL RDW 17.3 H (11.5-14.5) % Plt Count 235 (130-400) K/uL MPV 10.4 (7.2-11.7) fL Neut % (Auto) 81.5 H (50.0-75.0) % Lymph % (Auto) 14.8 L (20.0-40.0) % Winkler % (Auto) 3.2 (0.0-10.0) % Eos % (Auto) 0.0 (0.0-4.0) % Baso % (Auto) 0.5 (0.0-2.0) % Neut # (Auto) 4.0 (1.8-7.0) K/uL Lymph # (Auto) 0.7 L (1.0-4.3) K/uL Winkler # (Auto) 0.2 (0.0-0.8) K/uL Eos # (Auto) 0.0 (0.0-0.7) K/uL Baso # (Auto) 0.0 (0.0-0.2) K/uL Neutrophils % (Manual) (50-75) % Lymphocytes % (Manual) (20-40) % Monocytes % (Manual) (0-10) % Platelet Estimate (NORMAL) Polychromasia Hypochromasia (manual) Anisocytosis (manual) Puncture Site R bra pCO2 35 (35-45) mm/Hg pO2 63 L (80-100) mm/Hg HCO3 25.2 (21-28) mmol/L ABG pH 7.45 (7.35-7.45) ABG Total CO2 25.4 (22-28) mmol/L ABG O2 Saturation 94.5 L (95-98) % ABG Base Excess 0.5 (-2.0-3.0) mmol/L ABG Hemoglobin 9.5 L (11.7-17.4) g/dL ABG Carboxyhemoglobin 1.9 H (0.5-1.5) % POC ABG HHb (Measured) 5.3 H (0.0-5.0) % ABG Methemoglobin 0.9 (0.0-3.0) % Dom Test Na A-a O2 Difference 143.0 mm/Hg Respiratory Index 2.3 Hgb O2 Saturation 91.8 L (95.0-98.0) % Vent Mode Prvc Mechanical Rate 20 FiO2 35.0 % Tidal Volume 450 PEEP 5 Sodium 142 (132-148) mmol/L Potassium 4.4 (3.6-5.2) mmol/L Chloride 111 H (98-107) mmol/L Carbon Dioxide 23 (22-30) mmol/L Anion Gap 12 (10-20) BUN 39 H (7-17) mg/dL Creatinine 1.2 (0.7-1.2) mg/dL Est GFR ( Amer) 54 Est GFR (Non-Af Amer) 44 Random Glucose 152 H (65-105) mg/dL Calcium 8.7 (8.6-10.4) mg/dl Phosphorus 5.2 H (2.5-4.5) mg/dL Magnesium 2.5 H (1.6-2.3) mg/dL Total Bilirubin 0.6 (0.2-1.3) mg/dL AST 35 (14-36) U/L ALT 17 (9-52) U/L Alkaline Phosphatase 123 (38-126) U/L Total Protein 5.8 L (6.3-8.3) g/dL Albumin 2.9 L (3.5-5.0) g/dL Globulin 2.9 (2.2-3.9) gm/dL Albumin/Globulin Ratio 1.0 (1.0-2.1) 08/23/18 08/23/18 Range/Units 21:43 21:43 WBC 5.8 (4.8-10.8) K/uL RBC 2.96 L (3.80-5.20) Mil/uL Hgb 9.6 L (11.0-16.0) g/dL Hct 28.1 L (34.0-47.0) % MCV 95.1 (81.0-99.0) fL MCH 32.4 H (27.0-31.0) pg MCHC 34.1 (33.0-37.0) g/dL RDW 17.2 H (11.5-14.5) % Plt Count 232 (130-400) K/uL MPV 10.0 (7.2-11.7) fL Neut % (Auto) 90.1 H (50.0-75.0) % Lymph % (Auto) 8.4 L (20.0-40.0) % Winkler % (Auto) 1.3 (0.0-10.0) % Eos % (Auto) 0.1 (0.0-4.0) % Baso % (Auto) 0.1 (0.0-2.0) % Neut # (Auto) 5.2 (1.8-7.0) K/uL Lymph # (Auto) 0.5 L (1.0-4.3) K/uL Winkler # (Auto) 0.1 (0.0-0.8) K/uL Eos # (Auto) 0.0 (0.0-0.7) K/uL Baso # (Auto) 0.0 (0.0-0.2) K/uL Neutrophils % (Manual) 94 H (50-75) % Lymphocytes % (Manual) 5 L (20-40) % Monocytes % (Manual) 1 (0-10) % Platelet Estimate Normal (NORMAL) Polychromasia Slight Hypochromasia (manual) Slight Anisocytosis (manual) Slight Puncture Site pCO2 (35-45) mm/Hg pO2 (80-100) mm/Hg HCO3 (21-28) mmol/L ABG pH (7.35-7.45) ABG Total CO2 (22-28) mmol/L ABG O2 Saturation (95-98) % ABG Base Excess (-2.0-3.0) mmol/L ABG Hemoglobin (11.7-17.4) g/dL ABG Carboxyhemoglobin (0.5-1.5) % POC ABG HHb (Measured) (0.0-5.0) % ABG Methemoglobin (0.0-3.0) % Dom Test A-a O2 Difference mm/Hg Respiratory Index Hgb O2 Saturation (95.0-98.0) % Vent Mode Mechanical Rate FiO2 % Tidal Volume PEEP Sodium 141 (132-148) mmol/L Potassium 4.6 (3.6-5.2) mmol/L Chloride 109 H (98-107) mmol/L Carbon Dioxide 22 (22-30) mmol/L Anion Gap 14 (10-20) BUN 33 H (7-17) mg/dL Creatinine 1.1 (0.7-1.2) mg/dL Est GFR ( Amer) 59 Est GFR (Non-Af Amer) 49 Random Glucose 157 H D (65-105) mg/dL Calcium 8.6 (8.6-10.4) mg/dl Phosphorus 6.0 H (2.5-4.5) mg/dL Magnesium 2.4 H (1.6-2.3) mg/dL Total Bilirubin (0.2-1.3) mg/dL AST (14-36) U/L ALT (9-52) U/L Alkaline Phosphatase (38-126) U/L Total Protein (6.3-8.3) g/dL Albumin (3.5-5.0) g/dL Globulin (2.2-3.9) gm/dL Albumin/Globulin Ratio (1.0-2.1) Laboratory Results - last 24 hr 08/23/18 08/23/18 08/24/18 21:43 21:43 06:05 WBC 5.8 RBC 2.96 L Hgb 9.6 L Hct 28.1 L MCV 95.1 MCH 32.4 H MCHC 34.1 RDW 17.2 H Plt Count 232 MPV 10.0 Neut % (Auto) 90.1 H Lymph % (Auto) 8.4 L Winkler % (Auto) 1.3 Eos % (Auto) 0.1 Baso % (Auto) 0.1 Neut # (Auto) 5.2 Lymph # (Auto) 0.5 L Winkler # (Auto) 0.1 Eos # (Auto) 0.0 Baso # (Auto) 0.0 Neutrophils % (Manual) 94 H Lymphocytes % (Manual) 5 L Monocytes % (Manual) 1 Platelet Estimate Normal Polychromasia Slight Hypochromasia (manual) Slight Anisocytosis (manual) Slight Puncture Site R bra pCO2 35 pO2 63 L HCO3 25.2 ABG pH 7.45 ABG Total CO2 25.4 ABG O2 Saturation 94.5 L ABG Base Excess 0.5 ABG Hemoglobin 9.5 L ABG Carboxyhemoglobin 1.9 H POC ABG HHb (Measured) 5.3 H ABG Methemoglobin 0.9 Dom Test Na A-a O2 Difference 143.0 Respiratory Index 2.3 Hgb O2 Saturation 91.8 L Vent Mode Prvc Mechanical Rate 20 FiO2 35.0 Tidal Volume 450 PEEP 5 Sodium 141 Potassium 4.6 Chloride 109 H Carbon Dioxide 22 Anion Gap 14 BUN 33 H Creatinine 1.1 Est GFR ( Amer) 59 Est GFR (Non-Af Amer) 49 Random Glucose 157 H D Calcium 8.6 Phosphorus 6.0 H Magnesium 2.4 H Total Bilirubin AST ALT Alkaline Phosphatase Total Protein Albumin Globulin Albumin/Globulin Ratio 08/24/18 08/24/18 06:21 06:21 WBC 4.9 RBC 3.12 L Hgb 9.8 L Hct 29.9 L MCV 95.9 MCH 31.3 H MCHC 32.6 L RDW 17.3 H Plt Count 235 MPV 10.4 Neut % (Auto) 81.5 H Lymph % (Auto) 14.8 L Winkler % (Auto) 3.2 Eos % (Auto) 0.0 Baso % (Auto) 0.5 Neut # (Auto) 4.0 Lymph # (Auto) 0.7 L Winkler # (Auto) 0.2 Eos # (Auto) 0.0 Baso # (Auto) 0.0 Neutrophils % (Manual) Lymphocytes % (Manual) Monocytes % (Manual) Platelet Estimate Polychromasia Hypochromasia (manual) Anisocytosis (manual) Puncture Site pCO2 pO2 HCO3 ABG pH ABG Total CO2 ABG O2 Saturation ABG Base Excess ABG Hemoglobin ABG Carboxyhemoglobin POC ABG HHb (Measured) ABG Methemoglobin Dom Test A-a O2 Difference Respiratory Index Hgb O2 Saturation Vent Mode Mechanical Rate FiO2 Tidal Volume PEEP Sodium 142 Potassium 4.4 Chloride 111 H Carbon Dioxide 23 Anion Gap 12 BUN 39 H Creatinine 1.2 Est GFR ( Amer) 54 Est GFR (Non-Af Amer) 44 Random Glucose 152 H Calcium 8.7 Phosphorus 5.2 H Magnesium 2.5 H Total Bilirubin 0.6 AST 35 ALT 17 Alkaline Phosphatase 123 Total Protein 5.8 L Albumin 2.9 L Globulin 2.9 Albumin/Globulin Ratio 1.0 Radiology Impressions: Radiology Impressions Chest X-Ray 08/24/18 07:00 IMPRESSION: Endotracheal tube terminates approximately 4.4 cm above the [place]. Nasogastric tube extends to the expected location of the stomach. Marked cardiomegaly. Mild to moderate venous congestion. Small bilateral pleural effusions (left greater than right) and associated consolidations. Gastric lap band. Fingerstick Blood Sugar Results: 141 Review of Systems - Review of Systems Systems not reviewed;Unavailable: Intubated Critical Care Progress Note - Ventilator Checklist Daily Sedation Vacation: Yes Daily Assessment of Readiness to Wean: Yes Daily Spontaneous Breathing Trial: Yes PUD Prophalyxis: Yes - Nutrition Nutrition: Nutrition Category Date Time Status Dysphagia/Modified Consistency Diet [DIET] Diets 08/24/18 Dinner Ordered Assessment/Plan - Assessment and Plan (Free Text) Assessment: Hypoxic respiratory failure: tolerating CPAPm RSBI 58-79, extubate, aerosol mask, continue duo mebs -heart failure/pleural effusion:continue negative balance -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
--- NOTE | 2018-08-24 14:57 | PCM.PROC ---
Procedures Attestation:: I certify that I have explained the specified Operation(s) or Procedure(s), risks, benefits and reasonable alternatives to the Patient and/or other person responsible. The opportunity was given to ask questions and all questions answered - Extubation Clinical Parameters: Resolution/Stabilization of disease process, Hemodynamically Stable, Intact Cough/Gag Reflex, Spontaneous Respirations, Acceptable Vent Settings (FIO2<50%, PEEP<8, PaO2>75, pH>7.25) Weaning Criteria Met: Yes General Weaning Approaches: Pressure Support Ventilation (PSV) Weaning Patient Condition: Patient has been successfully extubated and assessed Oxygen Therapy: O2 via Aerosol Mask Patient Tolerated Procedure: Well
[2018-08-24 18:58] LABS: ABG ALLEN TEST POS; ARTERIAL BLOOD GAS HCO3 24.5 mmol/L (21-28); ARTERIAL BLOOD GAS O2 SAT 96.5 % (95-98); ARTERIAL BLOOD GAS PCO2 39 mm/Hg (35-45); ARTERIAL BLOOD GAS PO2 73 mm/Hg (80-100); ARTERIAL BLOOD GAS TCO2 25.4 mmol/L (22-28)
--- NOTE | 2018-08-24 23:26 | CP.PCM.PN ---
Subjective - Date & Time of Evaluation Date of Evaluation: 08/24/18 - Subjective Subjective: no c/o vomiting, no diarrhea, no fever Objective - Vital Signs/Intake and Output Vital Signs (last 24 hours): Temp Pulse Resp BP Pulse Ox 98.2 F 120 H 23 123/78 88 L 08/24/18 20:00 08/24/18 21:54 08/24/18 21:54 08/24/18 21:54 08/24/18 21:54 Intake and Output: 08/24/18 08/25/18 18:59 06:59 Intake Total 854.8 180 Output Total 1100 0 Balance -245.2 180 - Medications Medications: Current Medications Acetaminophen (Tylenol 325mg Tab) 650 mg NG Q6 PRN PRN Reason: TEMP>100.4 Last Admin: 08/21/18 21:00 Dose: 650 mg Albuterol/Ipratropium (Duoneb 3 Mg/0.5 Mg (3 Ml) Ud) 3 ml INH RQ6 [facility] Last Admin: 08/24/18 20:20 Dose: 3 ml Artificial Tears (Artificial Tears) 0 ml OU Q4H [facility] Last Admin: 08/24/18 18:11 Dose: Not Given Furosemide (Lasix) 20 mg IVP DAILY [facility] Last Admin: 08/24/18 09:29 Dose: 20 mg Aztreonam 1 gm/ Sodium (Chloride) 100 mls @ 100 mls/hr IVPB Q8H [facility]; Protocol Last Admin: 08/24/18 18:10 Dose: 100 mls/hr Tigecycline 50 mg/ Dextrose 100 mls @ 100 mls/hr IVPB Q12H [facility]; Protocol Last Admin: 08/24/18 16:12 Dose: 100 mls/hr Methylprednisolone (Solu-Medrol) 60 mg IVP Q8 [facility] Last Admin: 08/24/18 21:57 Dose: 60 mg Metoprolol Tartrate (Lopressor) 50 mg PO BID [facility] Last Admin: 08/24/18 18:10 Dose: 50 mg Pantoprazole Sodium (Protonix Inj) 40 mg IVP Q12H [facility] Last Admin: 08/24/18 21:57 Dose: 40 mg - Labs Labs: 08/24/18 06:21 08/24/18 06:21 PT 14.3 SECONDS (9.7-12.2) H 08/17/18 05:52 INR 1.3 08/17/18 05:52 APTT 29.9 SECONDS (21-34) 08/17/18 05:52 - Constitutional Appears: Well - Head Exam Head Exam: ATRAUMATIC, NORMAL INSPECTION, NORMOCEPHALIC - Eye Exam Eye Exam: EOMI, Normal appearance, PERRL Pupil Exam: NORMAL ACCOMODATION, PERRL - ENT Exam ENT Exam: Mucous Membranes Moist, Normal Exam - Neck Exam Neck Exam: Full ROM, Normal Inspection. absent: Lymphadenopathy - Respiratory Exam Respiratory Exam: Decreased Breath Sounds - Cardiovascular Exam Cardiovascular Exam: REGULAR RHYTHM, +S1, +S2 - GI/Abdominal Exam GI & Abdominal Exam: Soft, Diminished Bowel Sounds - Rectal Exam Rectal Exam: Deferred - Neurological Exam Neurological Exam: Oriented x3 Assessment and Plan (1) Afib Status: Acute (2) GIB (gastrointestinal bleeding) Status: Acute (3) Hx of coronary artery disease Status: Acute (4) Hx of laparoscopic gastric banding Status: Acute (5) Nasal hemorrhage Status: Acute (6) Noncompliance with medication treatment due to overuse of medication Status: Acute (7) Rectal bleeding Status: Acute (8) Osteoarthritis Status: Acute - Assessment and Plan (Free Text) Plan: Hemoglobin 9.8 Hematocrit 29.9 BUN 39 Glucose 152 Tylenol DuoNeb Lasix Aztreonam Tigecycline Solu-Medrol Lopressor Protonix Moderate to high complexity of care. Plan of care discussed with patient &/or family & staff. Medications reviewed and reconciled. Labs reviewed. Vital reviewed.
[2018-08-25] MEDS: Albuterol-Ipratrop 3 mg / 0.5 (3 ml) UD INH SCH ×4 (01:43→19:24)
[2018-08-25] MEDS: Aritificial Tears (15ml) OU SCH ×6 (02:00→21:52)
[2018-08-25] MEDS: Aztreonam 1 GM in Sodium Chloride 0.9% 100 ML IVPB SCH ×2 (02:18→10:07)
[2018-08-25] MEDS: Tigecycline 50 MG in Dextrose 5% In Water 100 ML IVPB SCH ×2 (03:03→15:05)
[2018-08-25 06:03] LABS: BASO % 0.1 % (0.0-2.0); HEMOGLOBIN 9.4 g/dL (11.0-16.0); LYMPH # 0.9 K/uL (1.0-4.3); LYMPH % 11.6 % (20.0-40.0); MEAN CELL VOLUME 95.4 fL (81.0-99.0); MEAN CORPUSCULAR HEMOGLOBIN 30.7 pg (27.0-31.0); MEAN CORPUSCULAR HGB CONC 32.2 g/dL (33.0-37.0); MEAN PLATELET VOLUME 10.2 fL (7.2-11.7); MONO # 0.4 K/uL (0.0-0.8); MONO % 4.7 % (0.0-10.0); NEUT # 6.4 K/uL (1.8-7.0); NEUT % 83.6 % (50.0-75.0); RBC 3.07 Mil/uL (3.80-5.20); WHITE BLOOD COUNT 7.6 K/uL (4.8-10.8)
[2018-08-25 06:17] LABS: ALB/GLOB RATIO 0.9 (1.0-2.1)
--- NOTE | 2018-08-25 09:06 | CP.PCM.PN ---
Subjective - Date & Time of Evaluation Date of Evaluation: 08/25/18 Time of Evaluation: 09:07 - Subjective Subjective: Patient had no adverse events overnight, saturating well, no fevers overnight Objective - Vital Signs/Intake and Output Vital Signs (last 24 hours): Temp Pulse Resp BP Pulse Ox 98.5 F 118 H 32 H 140/70 93 L 08/25/18 04:00 08/25/18 06:00 08/25/18 06:00 08/25/18 05:55 08/25/18 06:00 Intake and Output: 08/25/18 08/25/18 06:59 18:59 Intake Total 540 Output Total 351 Balance 189 - Medications Medications: Current Medications Acetaminophen (Tylenol 325mg Tab) 650 mg NG Q6 PRN PRN Reason: TEMP>100.4 Last Admin: 08/21/18 21:00 Dose: 650 mg Albuterol/Ipratropium (Duoneb 3 Mg/0.5 Mg (3 Ml) Ud) 3 ml INH RQ6 [facility] Last Admin: 08/25/18 08:01 Dose: 3 ml Artificial Tears (Artificial Tears) 0 ml OU Q4H [facility] Last Admin: 08/25/18 05:42 Dose: 1 drop Furosemide (Lasix) 20 mg IVP DAILY [facility] Last Admin: 08/24/18 09:29 Dose: 20 mg Heparin Sodium (Porcine) (Heparin) 5,000 units SC Q12 [facility] Aztreonam 1 gm/ Sodium (Chloride) 100 mls @ 100 mls/hr IVPB Q8H [facility]; Protocol Last Admin: 08/25/18 02:18 Dose: 100 mls/hr Tigecycline 50 mg/ Dextrose 100 mls @ 100 mls/hr IVPB Q12H [facility]; Protocol Last Admin: 08/25/18 03:03 Dose: 100 mls/hr Methylprednisolone (Solu-Medrol) 40 mg IVP Q8 [facility] Metoprolol Tartrate (Lopressor) 50 mg PO BID [facility] Last Admin: 08/24/18 18:10 Dose: 50 mg Pantoprazole Sodium (Protonix Inj) 40 mg IVP Q12H [facility] Last Admin: 08/24/18 21:57 Dose: 40 mg - Labs Labs: 08/25/18 05:56 08/25/18 05:56 PT 14.3 SECONDS (9.7-12.2) H 08/17/18 05:52 INR 1.3 08/17/18 05:52 APTT 29.9 SECONDS (21-34) 08/17/18 05:52 - Head Exam Head Exam: ATRAUMATIC - Eye Exam Eye Exam: EOMI - ENT Exam ENT Exam: Mucous Membranes Moist - Respiratory Exam Respiratory Exam: Clear to Ausculation Bilateral, NORMAL BREATHING PATTERN. absent: Rales, Rhonchi, Wheezes, Respiratory Distress, Stridor - Cardiovascular Exam Cardiovascular Exam: Irregular Rhythm, +S1, +S2 - GI/Abdominal Exam GI & Abdominal Exam: Soft, Normal Bowel Sounds - Extremities Exam Extremities Exam: Full ROM, Normal Capillary Refill, Normal Inspection - Neurological Exam Neurological Exam: Alert, Awake, Oriented x3 Neuro motor strength exam: Left Upper Extremity: 5, Right Upper Extremity: 5, Left Lower Extremity: 5, Right Lower Extremity: 5 - Skin Skin Exam: Normal Color, Warm Assessment and Plan - Assessment and Plan (Free Text) Assessment: -Hypoxic respiratory failure: extubated, tolerating aerosol mask, avoid NC as it can dry out nose and possible rebleed, pulmonary secretions low, -heart failure/pleural effusion:continue negative balance, start ACEi as BP tolerates -A-fib/CAD:L continue lopressor, hold xarelta (as Ac was the main cause of nose bleeding), cardiology input regarding timing for restarting AC -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
[2018-08-25] MEDS: Sucralfate 1 gm/10 ml Oral Susp UD PO SCH ×3 (09:17→16:59)
--- NOTE | 2018-08-25 11:15 | CP.PCM.PN ---
Subjective - Date & Time of Evaluation Date of Evaluation: 08/25/18 - Subjective Subjective: no c/o vomiting, no diarrhea, no fever Objective - Vital Signs/Intake and Output Vital Signs (last 24 hours): Temp Pulse Resp BP Pulse Ox 98.1 F 114 H 21 150/80 90 L 08/25/18 08:00 08/25/18 09:54 08/25/18 09:54 08/25/18 09:54 08/25/18 09:54 Intake and Output: 08/25/18 08/25/18 06:59 18:59 Intake Total 540 300 Output Total 351 600 Balance 189 -300 - Medications Medications: Current Medications Acetaminophen (Tylenol 325mg Tab) 650 mg NG Q6 PRN PRN Reason: TEMP>100.4 Last Admin: 08/21/18 21:00 Dose: 650 mg Albuterol/Ipratropium (Duoneb 3 Mg/0.5 Mg (3 Ml) Ud) 3 ml INH RQ6 [facility] Last Admin: 08/25/18 08:01 Dose: 3 ml Artificial Tears (Artificial Tears) 0 ml OU Q4H [facility] Last Admin: 08/25/18 09:18 Dose: 1 drop Furosemide (Lasix) 20 mg IVP DAILY [facility] Last Admin: 08/25/18 09:17 Dose: 20 mg Heparin Sodium (Porcine) (Heparin) 5,000 units SC Q12 [facility] Last Admin: 08/25/18 09:17 Dose: 5,000 units Aztreonam 1 gm/ Sodium (Chloride) 100 mls @ 100 mls/hr IVPB Q8H [facility]; Protocol Last Admin: 08/25/18 10:07 Dose: 100 mls/hr Tigecycline 50 mg/ Dextrose 100 mls @ 100 mls/hr IVPB Q12H [facility]; Protocol Last Admin: 08/25/18 03:03 Dose: 100 mls/hr Methylprednisolone (Solu-Medrol) 40 mg IVP Q8 [facility] Metoprolol Tartrate (Lopressor) 50 mg PO BID [facility] Last Admin: 08/25/18 09:19 Dose: 50 mg Pantoprazole Sodium (Protonix Inj) 40 mg IVP Q12H [facility] Last Admin: 08/25/18 09:17 Dose: 40 mg Sucralfate (Carafate Oral Susp) 1 gm PO TID [facility] Last Admin: 08/25/18 09:17 Dose: 1 gm - Labs Labs: 08/25/18 05:56 08/25/18 05:56 PT 14.3 SECONDS (9.7-12.2) H 08/17/18 05:52 INR 1.3 08/17/18 05:52 APTT 29.9 SECONDS (21-34) 08/17/18 05:52 - Constitutional Appears: Well - Head Exam Head Exam: ATRAUMATIC, NORMAL INSPECTION, NORMOCEPHALIC - Eye Exam Eye Exam: EOMI, Normal appearance, PERRL Pupil Exam: NORMAL ACCOMODATION, PERRL - ENT Exam ENT Exam: Mucous Membranes Moist, Normal Exam - Neck Exam Neck Exam: Full ROM, Normal Inspection. absent: Lymphadenopathy - Respiratory Exam Respiratory Exam: Decreased Breath Sounds - Cardiovascular Exam Cardiovascular Exam: REGULAR RHYTHM, +S1, +S2 - GI/Abdominal Exam GI & Abdominal Exam: Soft, Diminished Bowel Sounds - Rectal Exam Rectal Exam: Deferred - Neurological Exam Neurological Exam: Oriented x3 Assessment and Plan (1) Afib Status: Acute (2) GIB (gastrointestinal bleeding) Status: Acute (3) Hx of coronary artery disease Status: Acute (4) Hx of laparoscopic gastric banding Status: Acute (5) Nasal hemorrhage Status: Acute (6) Noncompliance with medication treatment due to overuse of medication Status: Acute (7) Rectal bleeding Status: Acute (8) Osteoarthritis Status: Acute - Assessment and Plan (Free Text) Plan: Hemoglobin 9.4 Hematocrit 29.2 BUN 54 Creatinine 1.3 Glucose 107 Tylenol DuoNeb Lasix Heparin Aztreonam Tigecycline Solu-Medrol Lopressor Protonix Carafate Moderate to high complexity of care. Plan of care discussed with patient &/or family & staff. Medications reviewed and reconciled. Labs reviewed. Vitals reviewed.
[2018-08-25] MEDS: MethylPREDNISolone 40 mg Vial IVP SCH ×2 (13:00→21:50)
[2018-08-25 15:15] LABS: SQUAMOUS EPITHIAL < 1 /hpf (0-5); URINE BILIRUBIN NEGATIVE (NEGATIVE); URINE BLOOD NEGATIVE (NEGATIVE); URINE CLARITY Clear (Clear); URINE COLOR Straw (YELLOW); URINE GLUCOSE (UA) NORMAL (Normal); URINE LEUKOCYTE ESTERASE NEG Leu/uL (Negative); URINE PROTEIN NEGATIVE (NEGATIVE); URINE UROBILINOGEN NORMAL mg/dL (0.2-1.0)
--- NOTE | 2018-08-25 18:26 | CP.PCM.PN ---
Subjective - Date & Time of Evaluation Date of Evaluation: 08/25/18 Time of Evaluation: 12:00 - Subjective Subjective: dictated Objective - Vital Signs/Intake and Output Vital Signs (last 24 hours): Temp Pulse Resp BP Pulse Ox 98 F 92 H 23 139/77 95 08/25/18 12:00 08/25/18 17:54 08/25/18 17:54 08/25/18 17:54 08/25/18 17:54 Intake and Output: 08/25/18 08/25/18 06:59 18:59 Intake Total 540 675 Output Total 351 1551 Balance 189 -876 - Medications Medications: Current Medications Acetaminophen (Tylenol 325mg Tab) 650 mg NG Q6 PRN PRN Reason: TEMP>100.4 Last Admin: 08/21/18 21:00 Dose: 650 mg Albuterol/Ipratropium (Duoneb 3 Mg/0.5 Mg (3 Ml) Ud) 3 ml INH RQ6 [facility] Last Admin: 08/25/18 13:08 Dose: 3 ml Artificial Tears (Artificial Tears) 0 ml OU Q4H [facility] Last Admin: 08/25/18 16:59 Dose: 1 drop Furosemide (Lasix) 20 mg IVP DAILY [facility] Last Admin: 08/25/18 09:17 Dose: 20 mg Heparin Sodium (Porcine) (Heparin) 5,000 units SC Q12 [facility] Last Admin: 08/25/18 09:17 Dose: 5,000 units Tigecycline 50 mg/ Dextrose 100 mls @ 100 mls/hr IVPB Q12H [facility]; Protocol Last Admin: 08/25/18 15:05 Dose: 100 mls/hr Methylprednisolone (Solu-Medrol) 40 mg IVP Q8 [facility] Last Admin: 08/25/18 13:00 Dose: 40 mg Metoprolol Tartrate (Lopressor) 50 mg PO BID [facility] Last Admin: 08/25/18 16:59 Dose: 50 mg Pantoprazole Sodium (Protonix Inj) 40 mg IVP Q12H [facility] Last Admin: 08/25/18 09:17 Dose: 40 mg Sucralfate (Carafate Oral Susp) 1 gm PO TID [facility] Last Admin: 08/25/18 16:59 Dose: 1 gm - Labs Labs: 08/25/18 05:56 08/25/18 05:56 PT 14.3 SECONDS (9.7-12.2) H 08/17/18 05:52 INR 1.3 08/17/18 05:52 APTT 29.9 SECONDS (21-34) 08/17/18 05:52
--- NOTE | 2018-08-25 23:21 | PN ---
DATE: 08/25/2018 INFECTIOUS DISEASE FOLLOWUP NOTE SUBJECTIVE: The patient was seen today. She was very alert. She says she did not want any heparin subcu as she has bled a lot. She says when she coughs she is passing some urine and also stool, so I would discontinue Azactam and just leave her on the Tygacil. I told her we need to get a urine culture again to get her off the antibiotics. She sounded normal and she said she had lost lot of blood and she is concerned about the blood thinners. She remains afebrile. I have seen her after few several days and she says when she has some hiccups she hurts in the chest, but she is on a Venti mask. PHYSICAL EXAMINATION: VITAL SIGNS: She has been afebrile, 98. Her heart rate is 92. She remains in atrial fibrillation. Blood pressure is 139/77, respirations are 22. HEENT: Head is atraumatic, normocephalic. There is a scab on her left nostril which is healing at this time. GENERAL: She is alert, awake, able to communicate and is making sense. NECK: Supple. JVP is flat. LUNGS: Clear. No crackles or rales or wheezing heard at this time. HEART: S1, S2. Irregularly irregular. ABDOMEN: Soft, nontender. No guarding, no rigidity present. EXTREMITIES: Remain with some edema, she says but she has foot protectors and leg protectors, unable to evaluate well. She was being treated for aspiration pneumonia and she also had a UTI where she had VRE and the body fluid which was removed that is pleural fluid had shown coagulase-negative staph probably. It says body fluid AFB culture, so coagulase because probably a skin contaminant and AFB smear was negative for any AFBs. So, at this time, we will leave her on Tygacil and there was a chest x-ray done yesterday which shows ET tube terminates 4.4 but the ET tube is already out, marked cardiomegaly, [id number] venous congestion, small bilateral pleural effusion, left greater than right and associated consolidation, gastric lap band. So, she probably had a lap band which we did not know. So, at this time, the patient seems to be much more improved. There is no active bleeding going on. She is off the ventilator and she is breathing easier. Of course, she is in atrial fibrillation and white count remains normal, so we will see if we can get her off antibiotics sooner and I have ordered a UA and urine C and S to get her off the isolation. Devon León MD
[2018-08-26] MEDS: Albuterol-Ipratrop 3 mg / 0.5 (3 ml) UD INH SCH ×4 (01:16→20:50)
[2018-08-26] MEDS: Aritificial Tears (15ml) OU SCH ×6 (02:03→21:27)
[2018-08-26] MEDS: Tigecycline 50 MG in Dextrose 5% In Water 100 ML IVPB SCH ×2 (04:15→16:35)
[2018-08-26 06:31] LABS: BASO % 0.2 % (0.0-2.0); HEMOGLOBIN 10.1 g/dL (11.0-16.0); MEAN CELL VOLUME 96.3 fL (81.0-99.0); MEAN CORPUSCULAR HEMOGLOBIN 31.6 pg (27.0-31.0); MEAN CORPUSCULAR HGB CONC 32.7 g/dL (33.0-37.0); MEAN PLATELET VOLUME 9.7 fL (7.2-11.7); MONO # 0.5 K/uL (0.0-0.8); NEUT # 5.2 K/uL (1.8-7.0); NEUT % 77.8 % (50.0-75.0); RBC 3.2 Mil/uL (3.80-5.20); RED CELL DISTRIBUTION WIDTH 17.1 % (11.5-14.5); WHITE BLOOD COUNT 6.7 K/uL (4.8-10.8)
[2018-08-26] MEDS: MethylPREDNISolone 40 mg Vial IVP SCH ×3 (06:32→21:26)
[2018-08-26 06:39] LABS: ALBUMIN 3.1 g/dL (3.5-5.0)
--- NOTE | 2018-08-26 07:25 | CP.CCUPN ---
CCU Subjective - Physician Review Subjective (Free Text): ICU PROGRESS NOTE FOR DR. AYLIN WOOD PGY1 Pt seen and examined at bedside this am. Pt is awake, talking, AxO x 4 today. She still has cough, however is denying coughing blood. She is sitting up, tolerating her diet and tolerating aerosol mask. She is denying complaints CCU Objective - Vital Signs / Intake & Output Vital Signs (Last 4 hours): Vital Signs Temp Pulse Resp BP Pulse Ox 08/26/18 06:10 112/93 H 08/26/18 06:00 110 H 27 H 96 08/26/18 04:00 98.6 F 96 Intake and Output (Last 8hrs): Intake & Output 08/25/18 08/26/18 08/26/18 22:59 06:59 14:59 Intake Total 320 100 Output Total 550 400 Balance -230 -300 Weight 79.696 kg Intake: Intake, IV Amount 100 100 Right Wrist 100 Rt wrist y-site 100 Oral 220 0 Output: Urine 550 400 Urine, Voided 550 400 Other: # Voids Urine, Voided 1 # Bowel Movements 1 1 - Physical Exam Head: Positive for: Atraumatic, Normocephalic Mouth: Positive for: Moist Mucous Membranes, Other (dried blood noted on lower lips) Respiratory/Chest: Positive for: Good Air Exchange, Wheezes Cardiovascular: Positive for: Normal S1, S2, Tachycardic Abdomen: Positive for: Normal Bowel Sounds. Negative for: Distention Upper Extremity: Positive for: Normal Inspection, NORMAL PULSES. Negative for: Cyanosis, Edema Lower Extremity: Positive for: Normal Inspection, NORMAL PULSES. Negative for: Edema Skin: Positive for: Warm, Dry, Normal Color Psychiatric: Positive for: Oriented x 3 - Medications Active Medications: Active Medications Generic Name Dose Route Start Last Admin Trade Name Freq PRN Reason Stop Dose Admin Acetaminophen 650 mg 08/21/18 21:00 08/21/18 21:00 Tylenol 325mg Tab NG 650 mg Q6 PRN Administration TEMP>100.4 Albuterol/Ipratropium 3 ml 08/18/18 14:00 08/26/18 01:16 Duoneb 3 Mg/0.5 Mg (3 Ml) Ud INH 3 ml RQ6 [facility] Administration Artificial Tears 0 ml 08/19/18 10:00 08/26/18 06:29 Artificial Tears OU 1 drop Q4H [facility] Administration Furosemide 20 mg 08/22/18 11:15 08/25/18 09:17 Lasix IVP 20 mg DAILY [facility] Administration Heparin Sodium (Porcine) 5,000 units 08/25/18 10:00 08/25/18 21:50 Heparin SC 5,000 units Q12 [facility] Administration Tigecycline 50 mg/ Dextrose 100 mls @ 100 mls/hr 08/23/18 04:00 08/26/18 04:15 IVPB 100 mls/hr Q12H [facility] Administration Protocol Methylprednisolone 40 mg 08/25/18 14:00 08/26/18 06:32 Solu-Medrol IVP 40 mg Q8 [facility] Administration Metoprolol Tartrate 50 mg 08/19/18 09:32 08/25/18 16:59 Lopressor PO 50 mg BID [facility] Administration Pantoprazole Sodium 40 mg 08/18/18 22:00 08/25/18 21:50 Protonix Inj IVP 40 mg Q12H [facility] Administration Sucralfate 1 gm 08/25/18 10:00 08/25/18 16:59 Carafate Oral Susp PO 1 gm TID [facility] Administration - Patient Studies Lab Studies: Lab Studies 08/26/18 08/26/18 08/26/18 Range/Units 06:17 06:17 06:17 WBC 6.7 (4.8-10.8) K/uL RBC 3.20 L (3.80-5.20) Mil/uL Hgb 10.1 L (11.0-16.0) g/dL Hct 30.8 L (34.0-47.0) % MCV 96.3 (81.0-99.0) fL MCH 31.6 H (27.0-31.0) pg MCHC 32.7 L (33.0-37.0) g/dL RDW 17.1 H (11.5-14.5) % Plt Count 328 (130-400) K/uL MPV 9.7 (7.2-11.7) fL Neut % (Auto) 77.8 H (50.0-75.0) % Lymph % (Auto) 15.0 L (20.0-40.0) % [place] % (Auto) 7.0 (0.0-10.0) % Eos % (Auto) 0.0 (0.0-4.0) % Baso % (Auto) 0.2 (0.0-2.0) % Neut # (Auto) 5.2 (1.8-7.0) K/uL Lymph # (Auto) 1.0 (1.0-4.3) K/uL [place] # (Auto) 0.5 (0.0-0.8) K/uL Eos # (Auto) 0.0 (0.0-0.7) K/uL Baso # (Auto) 0.0 (0.0-0.2) K/uL Sodium 142 (132-148) mmol/L Potassium 4.5 (3.6-5.2) mmol/L Chloride 110 H (98-107) mmol/L Carbon Dioxide 24 (22-30) mmol/L Anion Gap 13 (10-20) BUN 61 H (7-17) mg/dL Creatinine 1.2 (0.7-1.2) mg/dL Est GFR ( Amer) 54 Est GFR (Non-Af Amer) 44 Random Glucose 95 (65-105) mg/dL Calcium 9.0 (8.6-10.4) mg/dl Phosphorus 4.8 H (2.5-4.5) mg/dL Magnesium 2.5 H (1.6-2.3) mg/dL Total Bilirubin 0.6 (0.2-1.3) mg/dL AST 21 (14-36) U/L ALT 17 (9-52) U/L Alkaline Phosphatase 111 (38-126) U/L C-React Prot High Sens > 15.00 H (1.00-3.00) mg/L Total Protein 6.3 (6.3-8.3) g/dL Albumin 3.1 L (3.5-5.0) g/dL Globulin 3.2 (2.2-3.9) gm/dL Albumin/Globulin Ratio 1.0 (1.0-2.1) Urine Color (YELLOW) Urine Clarity (Clear) Urine pH (5.0-8.0) Ur Specific [place] (1.003-1.030) Urine Protein (NEGATIVE) mg/dL Urine Glucose (UA) (Normal) mg/dL Urine Ketones (NEGATIVE) mg/dL Urine Blood (NEGATIVE) Urine Nitrate (NEGATIVE) Urine Bilirubin (NEGATIVE) Urine Urobilinogen (0.2-1.0) mg/dL Ur Leukocyte Esterase (Negative) Efrem/uL Urine WBC (Auto) (0-5) /hpf Ur Squamous Epith Cells (0-5) /hpf Hyaline Casts (0-2) /lpf 08/25/18 Range/Units 15:01 WBC (4.8-10.8) K/uL RBC (3.80-5.20) Mil/uL Hgb (11.0-16.0) g/dL Hct (34.0-47.0) % MCV (81.0-99.0) fL MCH (27.0-31.0) pg MCHC (33.0-37.0) g/dL RDW (11.5-14.5) % Plt Count (130-400) K/uL MPV (7.2-11.7) fL Neut % (Auto) (50.0-75.0) % Lymph % (Auto) (20.0-40.0) % [place] % (Auto) (0.0-10.0) % Eos % (Auto) (0.0-4.0) % Baso % (Auto) (0.0-2.0) % Neut # (Auto) (1.8-7.0) K/uL Lymph # (Auto) (1.0-4.3) K/uL [place] # (Auto) (0.0-0.8) K/uL Eos # (Auto) (0.0-0.7) K/uL Baso # (Auto) (0.0-0.2) K/uL Sodium (132-148) mmol/L Potassium (3.6-5.2) mmol/L Chloride (98-107) mmol/L Carbon Dioxide (22-30) mmol/L Anion Gap (10-20) BUN (7-17) mg/dL Creatinine (0.7-1.2) mg/dL Est GFR ( Amer) Est GFR (Non-Af Amer) Random Glucose (65-105) mg/dL Calcium (8.6-10.4) mg/dl Phosphorus (2.5-4.5) mg/dL Magnesium (1.6-2.3) mg/dL Total Bilirubin (0.2-1.3) mg/dL AST (14-36) U/L ALT (9-52) U/L Alkaline Phosphatase (38-126) U/L C-React Prot High Sens (1.00-3.00) mg/L Total Protein (6.3-8.3) g/dL Albumin (3.5-5.0) g/dL Globulin (2.2-3.9) gm/dL Albumin/Globulin Ratio (1.0-2.1) Urine Color Straw (YELLOW) Urine Clarity Clear (Clear) Urine pH 5.0 (5.0-8.0) Ur Specific [place] 1.009 (1.003-1.030) Urine Protein Negative (NEGATIVE) mg/dL Urine Glucose (UA) Normal (Normal) mg/dL Urine Ketones Negative (NEGATIVE) mg/dL Urine Blood Negative (NEGATIVE) Urine Nitrate Negative (NEGATIVE) Urine Bilirubin Negative (NEGATIVE) Urine Urobilinogen Normal (0.2-1.0) mg/dL Ur Leukocyte Esterase Neg (Negative) Efrem/uL Urine WBC (Auto) < 1 (0-5) /hpf Ur Squamous Epith Cells < 1 (0-5) /hpf Hyaline Casts 3-5 H (0-2) /lpf Laboratory Results - last 24 hr 08/25/18 08/26/18 08/26/18 15:01 06:17 06:17 WBC 6.7 RBC 3.20 L Hgb 10.1 L Hct 30.8 L MCV 96.3 MCH 31.6 H MCHC 32.7 L RDW 17.1 H Plt Count 328 MPV 9.7 Neut % (Auto) 77.8 H Lymph % (Auto) 15.0 L [place] % (Auto) 7.0 Eos % (Auto) 0.0 Baso % (Auto) 0.2 Neut # (Auto) 5.2 Lymph # (Auto) 1.0 [place] # (Auto) 0.5 Eos # (Auto) 0.0 Baso # (Auto) 0.0 Sodium Potassium Chloride Carbon Dioxide Anion Gap BUN Creatinine Est GFR ( Amer) Est GFR (Non-Af Amer) Random Glucose Calcium Phosphorus Magnesium Total Bilirubin AST ALT Alkaline Phosphatase C-React Prot High Sens > 15.00 H Total Protein Albumin Globulin Albumin/Globulin Ratio Urine Color Straw Urine Clarity Clear Urine pH 5.0 Ur Specific [place] 1.009 Urine Protein Negative Urine Glucose (UA) Normal Urine Ketones Negative Urine Blood Negative Urine Nitrate Negative Urine Bilirubin Negative Urine Urobilinogen Normal Ur Leukocyte Esterase Neg Urine WBC (Auto) < 1 Ur Squamous Epith Cells < 1 Hyaline Casts 3-5 H 08/26/18 06:17 WBC RBC Hgb Hct MCV MCH MCHC RDW Plt Count MPV Neut % (Auto) Lymph % (Auto) [place] % (Auto) Eos % (Auto) Baso % (Auto) Neut # (Auto) Lymph # (Auto) [place] # (Auto) Eos # (Auto) Baso # (Auto) Sodium 142 Potassium 4.5 Chloride 110 H Carbon Dioxide 24 Anion Gap 13 BUN 61 H Creatinine 1.2 Est GFR ( Amer) 54 Est GFR (Non-Af Amer) 44 Random Glucose 95 Calcium 9.0 Phosphorus 4.8 H Magnesium 2.5 H Total Bilirubin 0.6 AST 21 ALT 17 Alkaline Phosphatase 111 C-React Prot High Sens Total Protein 6.3 Albumin 3.1 L Globulin 3.2 Albumin/Globulin Ratio 1.0 Urine Color Urine Clarity Urine pH Ur Specific [place] Urine Protein Urine Glucose (UA) Urine Ketones Urine Blood Urine Nitrate Urine Bilirubin Urine Urobilinogen Ur Leukocyte Esterase Urine WBC (Auto) Ur Squamous Epith Cells Hyaline Casts Fingerstick Blood Sugar Results: 99 Review of Systems - Review of Systems Review of Systems: per [facility] Critical Care Progress Note - Nutrition Nutrition: Nutrition Category Date Time Status Dysphagia/Modified Consistency Diet [DIET] Diets 08/24/18 Dinner Active Assessment/Plan - Assessment and Plan (Free Text) Assessment: 72 y/o F with PMH of afib previously on xarelto, CAD s/p stents x 3, Hx [place] (2015,2018), 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 Not on anticoagulation. -currently on metoprolol 50mg bid. Will start cardizem 120mg cd -Will f/u with cardiology/interventional neurologist in regards to resuming anticoagulation -Maintain MAP>65 Pulm: Lobar Pneumonia completed 10 days course of aztreonam. Currently on tigecycline, started 08/23 f/u lactate Hypoxic Respiratory Failure -extubated 08/24. Currently saturating well on aerosol mask -continue aerosol mask. Avoid NC as it may cause drying of upper airway -continue duoneb Q6h -Maintain SpO2 >90% on aerosol mask GI: GIB -Resolved. No recent episodes of melena. H/H stable. Hemodynamically stable -Continue protonix, sucralfate : Pre-renal azotemia -likely 2/2 to hypovolemia. Currently -1056ml fluid balance -holding IVF d/t pulmonary vascular congestion and mild-moderate pulm hypertension Heme: Epistaxis -Resolved. No recent episodes of hemoptysis. H/H stable. Hemodynamically stable. -08/16:gamino balloon placed in ED. 08/16: L internal maxillary artery embolization with complete occlusion by interventional neuro. 08/17: Melena followed by 1u pRBC, 2u FFP transfusion. 08/21: bronchoscopy w/ BAL- revealed fresh blood. 08/24: extubated -Consider 2/2 to wegeners granulomatosis. ESR/CRP elevated. continue tapering dose of solumedrol 40Q8. ANCA/anti-SRP Ab sent out. -continue aspiration precautions ID: Sepsis 2/2 lobar pneumonia vs UTI Resolved. Continue tigecycline ID following Urinary tract infection -Afebrile, no leukocytosis. Ucx growing VRE -completed 10 days course of aztreonam -continue tigecycline (started 08/23) -will f/u repeat lactate GI/DVT PPx: protonix/Hep SC Case reviewed with attending physician, Dr. Aylin Wood PGY1
[2018-08-26] MEDS: Sucralfate 1 gm/10 ml Oral Susp UD PO SCH ×3 (09:02→17:13)
[2018-08-26] MEDS: Pantoprazole 40 mg EC Tab PO SCH ×2 (10:00→17:13)
--- NOTE | 2018-08-26 10:11 | RAD ---
Date of service: 08/26/2018 HISTORY: pna COMPARISON: 08/21/2018. CT thorax. 08/22/2018, 08/23/2018, 08/24/2018. Serial chest radiographs. FINDINGS: LUNGS: Improving pulmonary vascular congestion. PLEURA: Stable left pleural effusion. CARDIOVASCULAR: Stable cardiomegaly. Atherosclerotic calcifications identified primarily aortic arch. OSSEOUS STRUCTURES: No significant abnormalities. VISUALIZED UPPER ABDOMEN: Normal. OTHER FINDINGS: Removal of support apparatus since the prior study: Endotracheal tube and nasogastric tube. IMPRESSION: Improving pulmonary vascular congestion. Stable pleural effusions. Persistent massive cardiomegaly unchanged.
[2018-08-26] MEDS ORDERED: Metoprolol 1 mg/ml Inj IVP PRN (10:26)
[2018-08-26 10:57] LABS: ANTI STREPTOLYSIN O NEGATIVE (NEGATIVE)
[2018-08-26] MEDS: diltiaZEM 120 mg/24 Hours CD Cap PO SCH (14:00)
--- NOTE | 2018-08-26 14:48 | CP.PCM.PN ---
Subjective - Date & Time of Evaluation Date of Evaluation: 08/26/18 Time of Evaluation: 14:40 - Subjective Subjective: dictated Objective - Vital Signs/Intake and Output Vital Signs (last 24 hours): Temp Pulse Resp BP Pulse Ox 98.0 F 96 H 17 167/86 H 93 L 08/26/18 12:00 08/26/18 14:00 08/26/18 14:00 08/26/18 13:54 08/26/18 14:00 Intake and Output: 08/26/18 08/26/18 06:59 18:59 Intake Total 220 530 Output Total 400 2 Balance -180 528 - Medications Medications: Current Medications Acetaminophen (Tylenol 325mg Tab) 650 mg NG Q6 PRN PRN Reason: TEMP>100.4 Last Admin: 08/21/18 21:00 Dose: 650 mg Albuterol/Ipratropium (Duoneb 3 Mg/0.5 Mg (3 Ml) Ud) 3 ml INH RQ6 [facility] Last Admin: 08/26/18 13:20 Dose: 3 ml Artificial Tears (Artificial Tears) 0 ml OU Q4H [facility] Last Admin: 08/26/18 14:00 Dose: Not Given Diltiazem HCl (Cardizem Cd) 120 mg PO DAILY [facility] Last Admin: 08/26/18 14:00 Dose: 120 mg Furosemide (Lasix) 20 mg IVP DAILY [facility] Last Admin: 08/26/18 09:04 Dose: 20 mg Heparin Sodium (Porcine) (Heparin) 5,000 units SC Q12 [facility] Last Admin: 08/26/18 09:03 Dose: 5,000 units Tigecycline 50 mg/ Dextrose 100 mls @ 100 mls/hr IVPB Q12H [facility]; Protocol Last Admin: 08/26/18 04:15 Dose: 100 mls/hr Methylprednisolone (Solu-Medrol) 40 mg IVP Q8 [facility] Last Admin: 08/26/18 13:59 Dose: 40 mg Metoprolol Tartrate (Lopressor) 50 mg PO BID [facility] Last Admin: 08/26/18 09:04 Dose: 50 mg Pantoprazole Sodium (Protonix Ec Tab) 40 mg PO BID [facility] Last Admin: 08/26/18 10:00 Dose: Not Given Sucralfate (Carafate Oral Susp) 1 gm PO TID [facility] Last Admin: 08/26/18 14:00 Dose: 1 gm - Labs Labs: 08/26/18 06:17 08/26/18 06:17 PT 14.3 SECONDS (9.7-12.2) H 08/17/18 05:52 INR 1.3 08/17/18 05:52 APTT 29.9 SECONDS (21-34) 08/17/18 05:52
--- NOTE | 2018-08-26 20:58 | CP.PCM.PN ---
Subjective - Date & Time of Evaluation Date of Evaluation: 08/26/18 - Subjective Subjective: patient examined today no nausea no vomiting no fever no dizziness no diarrhea no shortness of breath Objective - Vital Signs/Intake and Output Vital Signs (last 24 hours): Temp Pulse Resp BP Pulse Ox 98.2 F 85 20 151/92 H 97 08/26/18 20:00 08/26/18 20:00 08/26/18 20:00 08/26/18 20:19 08/26/18 20:00 Intake and Output: 08/26/18 08/27/18 18:59 06:59 Intake Total 830 0 Output Total 2 Balance 828 0 - Medications Medications: Current Medications Acetaminophen (Tylenol 325mg Tab) 650 mg NG Q6 PRN PRN Reason: TEMP>100.4 Last Admin: 08/21/18 21:00 Dose: 650 mg Albuterol/Ipratropium (Duoneb 3 Mg/0.5 Mg (3 Ml) Ud) 3 ml INH RQ6 [facility] Last Admin: 08/26/18 20:50 Dose: 3 ml Artificial Tears (Artificial Tears) 0 ml OU Q4H [facility] Last Admin: 08/26/18 17:13 Dose: Not Given Diltiazem HCl (Cardizem Cd) 120 mg PO DAILY [facility] Last Admin: 08/26/18 14:00 Dose: 120 mg Furosemide (Lasix) 20 mg IVP DAILY [facility] Last Admin: 08/26/18 09:04 Dose: 20 mg Heparin Sodium (Porcine) (Heparin) 5,000 units SC Q12 [facility] Last Admin: 08/26/18 09:03 Dose: 5,000 units Tigecycline 50 mg/ Dextrose 100 mls @ 100 mls/hr IVPB Q12H [facility]; Protocol Last Admin: 08/26/18 16:35 Dose: 100 mls/hr Methylprednisolone (Solu-Medrol) 40 mg IVP Q8 [facility] Last Admin: 08/26/18 13:59 Dose: 40 mg Metoprolol Tartrate (Lopressor) 50 mg PO BID [facility] Last Admin: 08/26/18 17:13 Dose: 50 mg Pantoprazole Sodium (Protonix Ec Tab) 40 mg PO BID [facility] Last Admin: 08/26/18 17:13 Dose: 40 mg Sucralfate (Carafate Oral Susp) 1 gm PO TID [facility] Last Admin: 08/26/18 17:13 Dose: 1 gm - Labs Labs: 08/26/18 06:17 08/26/18 06:17 PT 14.3 SECONDS (9.7-12.2) H 08/17/18 05:52 INR 1.3 08/17/18 05:52 APTT 29.9 SECONDS (21-34) 08/17/18 05:52 - Constitutional Appears: Well - Head Exam Head Exam: ATRAUMATIC, NORMAL INSPECTION, NORMOCEPHALIC - Eye Exam Eye Exam: EOMI, Normal appearance, PERRL Pupil Exam: NORMAL ACCOMODATION, PERRL - ENT Exam ENT Exam: Mucous Membranes Moist, Normal Exam - Neck Exam Neck Exam: Full ROM, Normal Inspection. absent: Lymphadenopathy - Respiratory Exam Respiratory Exam: Decreased Breath Sounds - Cardiovascular Exam Cardiovascular Exam: REGULAR RHYTHM, +S1, +S2 - GI/Abdominal Exam GI & Abdominal Exam: Soft, Diminished Bowel Sounds - Rectal Exam Rectal Exam: Deferred - Neurological Exam Neurological Exam: Oriented x3 Assessment and Plan (1) Afib Status: Acute (2) GIB (gastrointestinal bleeding) Status: Acute (3) Hx of coronary artery disease Status: Acute (4) Hx of laparoscopic gastric banding Status: Acute (5) Nasal hemorrhage Status: Acute (6) Noncompliance with medication treatment due to overuse of medication Status: Acute (7) Rectal bleeding Status: Acute (8) Osteoarthritis Status: Acute - Assessment and Plan (Free Text) Plan: plan discussed with patient moderate complexity of care Hemoglobin 10.1 creatinine 30.8 BUN 61 Tylenol DuoNeb Lasix Aztreonam Tigecycline Solu-Medrol Lopressor Protonix medications reviewed labs reviewed vitals reviewed
--- NOTE | 2018-08-26 22:30 | PN ---
DATE: 08/26/2018 INFECTIOUS DISEASE FOLLOWUP NOTE SUBJECTIVE: The patient was seen today. She was waiting in the chair and the nurses were cleaning her and she still had her oxygen. It was nasal O2. She is still coughing a lot and sounds congested, but she denied any blood in the sputum and she is still congested. PHYSICAL EXAMINATION: GENERAL: She is alert and awake, able to communicate. VITAL SIGNS: T-max is 97.7, heart rate of 103, blood pressure is 162/93, and respirations are 21. HEENT: Head is atraumatic and normocephalic. Tongue is dry. NECK: Supple. JVP is flat. LUNGS: Clear. Decreased breath sounds bilaterally. HEART: S1 and S2, irregularly irregular. Mild tachycardia present. ABDOMEN: Soft and nontender. No guarding. No rigidity present. EXTREMITIES: Have no edema, clubbing or cyanosis at this time. LABORATORY DATA: Labs are noted. Labs show white count is 6.7 today, hemoglobin 10.1, hematocrit 30.8, and platelet count is 328. ESR is 40, BUN is 61 and creatinine is 1.2. Phosphorus is 4.88. Magnesium is 2.5. It is still elevated and her C-reactive is more than 15. UA was clean and urine culture came out negative. She did have some hyaline cast. Chest x-ray was done today. Chest x-ray shows removal of the support apparatus since the prior study, ET tube and NG tube, improving pulmonary vascular congestion, stable pleural effusion, and persistent massive cardiomegaly unchanged. ASSESSMENT AND PLAN: So at this time, the patient's urine culture is negative and we will discontinue the isolation. Continue the Tygacil for now and we will follow. She is still to be on cough medication and she does say that she has been ex-smoker and is feeling a little better. Devon León MD
[2018-08-27] MEDS: Aritificial Tears (15ml) OU SCH ×5 (02:09→21:56)
[2018-08-27] MEDS: Albuterol-Ipratrop 3 mg / 0.5 (3 ml) UD INH SCH ×4 (02:27→19:39)
[2018-08-27] MEDS: Tigecycline 50 MG in Dextrose 5% In Water 100 ML IVPB SCH ×2 (03:54→16:17)
[2018-08-27] MEDS: MethylPREDNISolone 40 mg Vial IVP SCH ×3 (05:34→21:55)
[2018-08-27 06:15] LABS: BASO % 0.4 % (0.0-2.0); EOS % 0.1 % (0.0-4.0); HEMOGLOBIN 10.1 g/dL (11.0-16.0); LYMPH # 0.8 K/uL (1.0-4.3); LYMPH % 17.5 % (20.0-40.0); MEAN CELL VOLUME 94.4 fL (81.0-99.0); MEAN CORPUSCULAR HEMOGLOBIN 31.4 pg (27.0-31.0); MEAN CORPUSCULAR HGB CONC 33.3 g/dL (33.0-37.0); MEAN PLATELET VOLUME 9.9 fL (7.2-11.7); MONO # 0.2 K/uL (0.0-0.8); MONO % 3.4 % (0.0-10.0); NEUT # 3.7 K/uL (1.8-7.0); NEUT % 78.6 % (50.0-75.0); NRBC % 0.1 % (0.0-2.0); RBC 3.23 Mil/uL (3.80-5.20); RED CELL DISTRIBUTION WIDTH 16.6 % (11.5-14.5); WHITE BLOOD COUNT 4.7 K/uL (4.8-10.8)
[2018-08-27 06:32] LABS: ALB/GLOB RATIO 1.1 (1.0-2.1); ALBUMIN 3.1 g/dL (3.5-5.0); CALCIUM 8.6 mg/dl (8.6-10.4)
[2018-08-27] MEDS ORDERED: Potassium & Sodium Phosphate PO SCH (10:00)
[2018-08-27] MEDS: Pantoprazole 40 mg EC Tab PO SCH ×2 (10:21→18:33)
[2018-08-27] MEDS: diltiaZEM 120 mg/24 Hours CD Cap PO SCH (10:23)
[2018-08-27] MEDS: Sucralfate 1 gm/10 ml Oral Susp UD PO SCH ×3 (10:24→18:33)
--- NOTE | 2018-08-27 13:35 | CP.CCUPN ---
<Justyn Pierce - Last Filed: 08/27/18 16:03> CCU Subjective - Physician Review Subjective (Free Text): ICU PROGRESS NOTE FOR DR. ASA PIERCE PGY1 Pt seen and examined at bedside this am. Pt is awake, talking, AxO x 4 today. She still has cough, however is denying hematemesis. She is sitting up, tolerating her diet and tolerating aerosol mask. She is denying complaints CCU Objective - Vital Signs / Intake & Output Vital Signs (Last 4 hours): Vital Signs Temp Pulse Resp BP Pulse Ox 08/27/18 13:00 66 14 94 L 08/27/18 12:54 78 13 135/75 91 L 08/27/18 12:30 72 19 91 L 08/27/18 12:00 97.7 F 77 19 89 L 08/27/18 11:54 74 21 126/84 87 L 08/27/18 11:30 84 26 H 91 L 08/27/18 11:00 92 H 17 98 08/27/18 10:54 86 16 133/69 93 L 08/27/18 10:53 92 H 17 94 L 08/27/18 10:30 103 H 20 97 08/27/18 10:23 128/66 08/27/18 10:00 94 H 17 97 08/27/18 09:54 91 H 18 128/66 97 Intake and Output (Last 8hrs): Intake & Output 08/26/18 08/27/18 08/27/18 22:59 06:59 14:59 Intake Total 420 220 240 Output Total 250 100 Balance 420 -30 140 Weight 74.616 kg Intake: Intake, IV Amount 100 100 Left Forearm 100 100 Oral 320 120 240 Output: Urine 250 100 Urine, Voided 250 100 Other: # Voids Urine, Voided 0 0 # Bowel Movements 0 0 1 - Physical Exam Head: Positive for: Atraumatic, Normocephalic Mouth: Positive for: Moist Mucous Membranes, Other (dried blood noted on lower lips) Respiratory/Chest: Positive for: Good Air Exchange, Wheezes Cardiovascular: Positive for: Normal S1, S2, Tachycardic Abdomen: Positive for: Normal Bowel Sounds. Negative for: Distention Upper Extremity: Positive for: Normal Inspection, NORMAL PULSES. Negative for: Cyanosis, Edema Lower Extremity: Positive for: Normal Inspection, NORMAL PULSES. Negative for: Edema Skin: Positive for: Warm, Dry, Normal Color Psychiatric: Positive for: Oriented x 3 - Medications Active Medications: Active Medications Generic Name Dose Route Start Last Admin Trade Name Freq PRN Reason Stop Dose Admin Acetaminophen 650 mg 08/21/18 21:00 08/21/18 21:00 Tylenol 325mg Tab NG 650 mg Q6 PRN Administration TEMP>100.4 Albuterol/Ipratropium 3 ml 08/18/18 14:00 08/27/18 13:33 Duoneb 3 Mg/0.5 Mg (3 Ml) Ud INH 3 ml RQ6 [facility] Administration Artificial Tears 0 ml 08/19/18 10:00 08/27/18 10:24 Artificial Tears OU Not Given Q4H [facility] Diltiazem HCl 120 mg 08/26/18 13:00 08/27/18 10:23 Cardizem Cd PO 120 mg DAILY [facility] Administration Furosemide 20 mg 08/22/18 11:15 08/27/18 10:23 Lasix IVP 20 mg DAILY [facility] Administration Heparin Sodium (Porcine) 5,000 units 08/25/18 10:00 08/27/18 10:23 Heparin SC 5,000 units Q12 [facility] Administration Tigecycline 50 mg/ Dextrose 100 mls @ 100 mls/hr 08/23/18 04:00 08/27/18 03:54 IVPB 100 mls/hr Q12H [facility] Administration Protocol Methylprednisolone 20 mg 08/27/18 14:00 08/27/18 13:15 Solu-Medrol IVP 20 mg Q8 [facility] Administration Metoprolol Tartrate 50 mg 08/19/18 09:32 08/27/18 10:22 Lopressor PO 50 mg BID [facility] Administration Pantoprazole Sodium 40 mg 08/26/18 10:00 08/27/18 10:21 Protonix Ec Tab PO 40 mg BID [facility] Administration Sucralfate 1 gm 08/25/18 10:00 08/27/18 13:15 Carafate Oral Susp PO 1 gm TID [facility] Administration - Patient Studies Lab Studies: Microbiology Studies 08/25/18 15:01 Urine Culture - Final Urine,Catheterized No Growth (<1,000 CFU/ML) Lab Studies 08/27/18 08/27/18 Range/Units 05:59 05:59 WBC 4.7 L (4.8-10.8) K/uL RBC 3.23 L (3.80-5.20) Mil/uL Hgb 10.1 L (11.0-16.0) g/dL Hct 30.5 L (34.0-47.0) % MCV 94.4 (81.0-99.0) fL MCH 31.4 H (27.0-31.0) pg MCHC 33.3 (33.0-37.0) g/dL RDW 16.6 H (11.5-14.5) % Plt Count 288 (130-400) K/uL MPV 9.9 (7.2-11.7) fL Neut % (Auto) 78.6 H (50.0-75.0) % Lymph % (Auto) 17.5 L (20.0-40.0) % [place] % (Auto) 3.4 (0.0-10.0) % Eos % (Auto) 0.1 (0.0-4.0) % Baso % (Auto) 0.4 (0.0-2.0) % Neut # (Auto) 3.7 (1.8-7.0) K/uL Lymph # (Auto) 0.8 L (1.0-4.3) K/uL [place] # (Auto) 0.2 (0.0-0.8) K/uL Eos # (Auto) 0.0 (0.0-0.7) K/uL Baso # (Auto) 0.0 (0.0-0.2) K/uL Sodium 142 (132-148) mmol/L Potassium 4.4 (3.6-5.2) mmol/L Chloride 106 (98-107) mmol/L Carbon Dioxide 25 (22-30) mmol/L Anion Gap 15 (10-20) BUN 63 H (7-17) mg/dL Creatinine 1.1 (0.7-1.2) mg/dL Est GFR ( Amer) 59 Est GFR (Non-Af Amer) 49 Random Glucose 113 H (65-105) mg/dL Calcium 8.6 (8.6-10.4) mg/dl Phosphorus 4.7 H (2.5-4.5) mg/dL Magnesium 2.2 (1.6-2.3) mg/dL Total Bilirubin 0.6 (0.2-1.3) mg/dL AST 27 (14-36) U/L ALT 18 (9-52) U/L Alkaline Phosphatase 106 (38-126) U/L Total Protein 5.9 L (6.3-8.3) g/dL Albumin 3.1 L (3.5-5.0) g/dL Globulin 2.9 (2.2-3.9) gm/dL Albumin/Globulin Ratio 1.1 (1.0-2.1) Laboratory Results - last 24 hr 08/27/18 08/27/18 05:59 05:59 WBC 4.7 L RBC 3.23 L Hgb 10.1 L Hct 30.5 L MCV 94.4 MCH 31.4 H MCHC 33.3 RDW 16.6 H Plt Count 288 MPV 9.9 Neut % (Auto) 78.6 H Lymph % (Auto) 17.5 L [place] % (Auto) 3.4 Eos % (Auto) 0.1 Baso % (Auto) 0.4 Neut # (Auto) 3.7 Lymph # (Auto) 0.8 L [place] # (Auto) 0.2 Eos # (Auto) 0.0 Baso # (Auto) 0.0 Sodium 142 Potassium 4.4 Chloride 106 Carbon Dioxide 25 Anion Gap 15 BUN 63 H Creatinine 1.1 Est GFR ( Amer) 59 Est GFR (Non-Af Amer) 49 Random Glucose 113 H Calcium 8.6 Phosphorus 4.7 H Magnesium 2.2 Total Bilirubin 0.6 AST 27 ALT 18 Alkaline Phosphatase 106 Total Protein 5.9 L Albumin 3.1 L Globulin 2.9 Albumin/Globulin Ratio 1.1 Fingerstick Blood Sugar Results: 183 Review of Systems - Review of Systems Review of Systems: per HPI Critical Care Progress Note - Nutrition Nutrition: Nutrition Category Date Time Status Dysphagia/Modified Consistency Diet [DIET] Diets 08/24/18 Dinner Active Assessment/Plan - Assessment and Plan (Free Text) Assessment: 72 y/o F with PMH of afib previously on xarelto, CAD s/p stents x 3, Hx CA (2015,2018), 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 Not on anticoagulation. -currently on metoprolol 50mg bid & cardizem 120mg qd -Will f/u with cardiology/interventional neurologist in regards to resuming anticoagulation -Maintain MAP>65 Pulm: Lobar Pneumonia Resolved completed 10 days course of aztreonam f/u lactate tomorrow am Hypoxic Respiratory Failure -extubated 08/24. Currently saturating well on aerosol mask -continue aerosol mask. Avoid NC as it may cause drying of upper airway -continue duoneb Q6h -Maintain SpO2 >90% on aerosol mask GI: GIB -Resolved. No recent episodes of melena. H/H stable. Hemodynamically stable -Continue protonix, sucralfate : Pre-renal azotemia -likely 2/2 to hypovolemia vs ingested hemoglobin. Currently -1056ml fluid balance -holding IVF d/t pulmonary vascular congestion and mild-moderate pulm hypertension Heme: Epistaxis -Resolved. No recent episodes of hemoptysis. H/H stable. Hemodynamically stable. -08/16:gamino balloon placed in ED. 08/16: L internal maxillary artery embolization with complete occlusion by interventional neuro. 08/17: Melena followed by 1u pRBC, 2u FFP transfusion. 08/21: bronchoscopy w/ BAL- revealed fresh blood. 08/24: extubated -Consider 2/2 to wegeners granulomatosis. ESR/CRP elevated. -tape solumedrol to dose 20Q8. ANCA/anti-SRP Ab sent out -continue aspiration precautions ID: Sepsis 2/2 lobar pneumonia vs UTI Resolved. Continue tigecycline ID following Urinary tract infection -Afebrile, no leukocytosis. Ucx growing VRE -completed 10 days course of aztreonam -continue tigecycline (started 08/23) -will f/u repeat lactate GI/DVT PPx: protonix/Hep SC Case reviewed with attending physician, Dr. Asa Pierce PGY1 <Malik Augustine - Last Filed: 08/27/18 19:02> CCU Subjective - Physician Review Critical Care Time Spent (in minutes): 40 CCU Objective - Vital Signs / Intake & Output Vital Signs (Last 4 hours): Vital Signs Temp Pulse Resp BP Pulse Ox 08/27/18 18:00 86 17 98 08/27/18 17:54 97 H 14 134/75 86 L 08/27/18 17:30 76 14 100 08/27/18 17:00 80 17 100 08/27/18 16:54 64 16 149/71 97 08/27/18 16:30 76 21 98 08/27/18 16:16 77 20 115/77 08/27/18 16:00 97.8 F 71 15 100 08/27/18 15:30 76 18 92 L 08/27/18 15:20 91 H 22 Intake and Output (Last 8hrs): Intake & Output 08/27/18 08/27/18 08/27/18 06:59 14:59 22:59 Intake Total 220 240 120 Output Total 250 100 700 Balance -30 140 -580 Weight 164 lb 8 oz Intake: Intake, IV Amount 100 Left Forearm 100 Oral 120 240 120 Output: Urine 250 100 700 Urine, Voided 250 100 700 Other: # Voids Urine, Voided 0 # Bowel Movements 0 1 - Medications Active Medications: Active Medications Generic Name Dose Route Start Last Admin Trade Name Freq PRN Reason Stop Dose Admin Acetaminophen 650 mg 08/21/18 21:00 08/21/18 21:00 Tylenol 325mg Tab NG 650 mg Q6 PRN Administration TEMP>100.4 Albuterol/Ipratropium 3 ml 08/18/18 14:00 08/27/18 13:33 Duoneb 3 Mg/0.5 Mg (3 Ml) Ud INH 3 ml RQ6 [facility] Administration Artificial Tears 0 ml 08/19/18 10:00 08/27/18 18:34 Artificial Tears OU Not Given Q4H [facility] Diltiazem HCl 120 mg 08/26/18 13:00 08/27/18 10:23 Cardizem Cd PO 120 mg DAILY [facility] Administration Furosemide 20 mg 08/22/18 11:15 08/27/18 10:23 Lasix IVP 20 mg DAILY [facility] Administration Heparin Sodium (Porcine) 5,000 units 08/25/18 10:00 08/27/18 10:23 Heparin SC 5,000 units Q12 [facility] Administration Tigecycline 50 mg/ Dextrose 100 mls @ 100 mls/hr 08/23/18 04:00 08/27/18 16:17 IVPB 100 mls/hr Q12H [facility] Administration Protocol Methylprednisolone 20 mg 08/27/18 14:00 08/27/18 13:15 Solu-Medrol IVP 20 mg Q8 [facility] Administration Metoprolol Tartrate 50 mg 08/19/18 09:32 08/27/18 18:33 Lopressor PO 50 mg BID [facility] Administration Pantoprazole Sodium 40 mg 08/26/18 10:00 08/27/18 18:33 Protonix Ec Tab PO 40 mg BID [facility] Administration Sucralfate 1 gm 08/25/18 10:00 08/27/18 18:33 Carafate Oral Susp PO 1 gm TID [facility] Administration - Patient Studies Lab Studies: Lab Studies 08/27/18 08/27/18 08/26/18 Range/Units 05:59 05:59 06:17 WBC 4.7 L (4.8-10.8) K/uL RBC 3.23 L (3.80-5.20) Mil/uL Hgb 10.1 L (11.0-16.0) g/dL Hct 30.5 L (34.0-47.0) % MCV 94.4 (81.0-99.0) fL MCH 31.4 H (27.0-31.0) pg MCHC 33.3 (33.0-37.0) g/dL RDW 16.6 H (11.5-14.5) % Plt Count 288 (130-400) K/uL MPV 9.9 (7.2-11.7) fL Neut % (Auto) 78.6 H (50.0-75.0) % Lymph % (Auto) 17.5 L (20.0-40.0) % [place] % (Auto) 3.4 (0.0-10.0) % Eos % (Auto) 0.1 (0.0-4.0) % Baso % (Auto) 0.4 (0.0-2.0) % Neut # (Auto) 3.7 (1.8-7.0) K/uL Lymph # (Auto) 0.8 L (1.0-4.3) K/uL [place] # (Auto) 0.2 (0.0-0.8) K/uL Eos # (Auto) 0.0 (0.0-0.7) K/uL Baso # (Auto) 0.0 (0.0-0.2) K/uL Sodium 142 (132-148) mmol/L Potassium 4.4 (3.6-5.2) mmol/L Chloride 106 (98-107) mmol/L Carbon Dioxide 25 (22-30) mmol/L Anion Gap 15 (10-20) BUN 63 H (7-17) mg/dL Creatinine 1.1 (0.7-1.2) mg/dL Est GFR ( Amer) 59 Est GFR (Non-Af Amer) 49 Random Glucose 113 H (65-105) mg/dL Calcium 8.6 (8.6-10.4) mg/dl Phosphorus 4.7 H (2.5-4.5) mg/dL Magnesium 2.2 (1.6-2.3) mg/dL Total Bilirubin 0.6 (0.2-1.3) mg/dL AST 27 (14-36) U/L ALT 18 (9-52) U/L Alkaline Phosphatase 106 (38-126) U/L Total Protein 5.9 L (6.3-8.3) g/dL Albumin 3.1 L (3.5-5.0) g/dL Globulin 2.9 (2.2-3.9) gm/dL Albumin/Globulin Ratio 1.1 (1.0-2.1) Proteinase 3 (PR3) <1.0 (<1.0) AI Myeloperoxidase Ab <1.0 (<1.0) AI Laboratory Results - last 24 hr 08/26/18 08/27/18 08/27/18 06:17 05:59 05:59 WBC 4.7 L RBC 3.23 L Hgb 10.1 L Hct 30.5 L MCV 94.4 MCH 31.4 H MCHC 33.3 RDW 16.6 H Plt Count 288 MPV 9.9 Neut % (Auto) 78.6 H Lymph % (Auto) 17.5 L [place] % (Auto) 3.4 Eos % (Auto) 0.1 Baso % (Auto) 0.4 Neut # (Auto) 3.7 Lymph # (Auto) 0.8 L [place] # (Auto) 0.2 Eos # (Auto) 0.0 Baso # (Auto) 0.0 Sodium 142 Potassium 4.4 Chloride 106 Carbon Dioxide 25 Anion Gap 15 BUN 63 H Creatinine 1.1 Est GFR ( Amer) 59 Est GFR (Non-Af Amer) 49 Random Glucose 113 H Calcium 8.6 Phosphorus 4.7 H Magnesium 2.2 Total Bilirubin 0.6 AST 27 ALT 18 Alkaline Phosphatase 106 Total Protein 5.9 L Albumin 3.1 L Globulin 2.9 Albumin/Globulin Ratio 1.1 Proteinase 3 (PR3) <1.0 Myeloperoxidase Ab <1.0 Critical Care Progress Note - Nutrition Nutrition: Nutrition Category Date Time Status Dysphagia/Modified Consistency Diet [DIET] Diets 08/24/18 Dinner Active Attending/Attestation - Attestation I have personally seen and examined this patient.: Yes I have fully participated in the care of the patient.: Yes I have reviewed all pertinent clinical information: Yes Notes (Text): 08/27/18 18:56 Patient seen and examined in the intensive care unit. Patient extubated and comfortable in no respiratory distress No further epistaxis or hemoptysis/rectal bleeding Follow-up H&H Consider starting anticoagulation once cleared by GI and ENT
--- NOTE | 2018-08-27 16:54 | CP.PCM.PN ---
Subjective - Date & Time of Evaluation Date of Evaluation: 08/27/18 - Subjective Subjective: patient examined today no nausea no vomiting no diarrhea no dizziness no fever no shortness of breath Objective - Vital Signs/Intake and Output Vital Signs (last 24 hours): Temp Pulse Resp BP Pulse Ox 97.8 F 77 20 115/77 100 08/27/18 16:00 08/27/18 16:16 08/27/18 16:16 08/27/18 16:16 08/27/18 16:00 Intake and Output: 08/27/18 08/27/18 06:59 18:59 Intake Total 340 360 Output Total 250 100 Balance 90 260 - Medications Medications: Current Medications Acetaminophen (Tylenol 325mg Tab) 650 mg NG Q6 PRN PRN Reason: TEMP>100.4 Last Admin: 08/21/18 21:00 Dose: 650 mg Albuterol/Ipratropium (Duoneb 3 Mg/0.5 Mg (3 Ml) Ud) 3 ml INH RQ6 [facility] Last Admin: 08/27/18 13:33 Dose: 3 ml Artificial Tears (Artificial Tears) 0 ml OU Q4H [facility] Last Admin: 08/27/18 10:24 Dose: Not Given Diltiazem HCl (Cardizem Cd) 120 mg PO DAILY [facility] Last Admin: 08/27/18 10:23 Dose: 120 mg Furosemide (Lasix) 20 mg IVP DAILY [facility] Last Admin: 08/27/18 10:23 Dose: 20 mg Heparin Sodium (Porcine) (Heparin) 5,000 units SC Q12 [facility] Last Admin: 08/27/18 10:23 Dose: 5,000 units Tigecycline 50 mg/ Dextrose 100 mls @ 100 mls/hr IVPB Q12H [facility]; Protocol Last Admin: 08/27/18 16:17 Dose: 100 mls/hr Methylprednisolone (Solu-Medrol) 20 mg IVP Q8 [facility] Last Admin: 08/27/18 13:15 Dose: 20 mg Metoprolol Tartrate (Lopressor) 50 mg PO BID [facility] Last Admin: 08/27/18 10:22 Dose: 50 mg Pantoprazole Sodium (Protonix Ec Tab) 40 mg PO BID [facility] Last Admin: 08/27/18 10:21 Dose: 40 mg Sucralfate (Carafate Oral Susp) 1 gm PO TID [facility] Last Admin: 08/27/18 13:15 Dose: 1 gm - Labs Labs: 08/27/18 05:59 08/27/18 05:59 PT 14.3 SECONDS (9.7-12.2) H 08/17/18 05:52 INR 1.3 08/17/18 05:52 APTT 29.9 SECONDS (21-34) 08/17/18 05:52 - Constitutional Appears: Well - Head Exam Head Exam: ATRAUMATIC, NORMAL INSPECTION, NORMOCEPHALIC - Eye Exam Eye Exam: EOMI, Normal appearance, PERRL Pupil Exam: NORMAL ACCOMODATION, PERRL - ENT Exam ENT Exam: Mucous Membranes Moist, Normal Exam - Neck Exam Neck Exam: Full ROM, Normal Inspection. absent: Lymphadenopathy - Respiratory Exam Respiratory Exam: Decreased Breath Sounds - Cardiovascular Exam Cardiovascular Exam: REGULAR RHYTHM, +S1, +S2 - GI/Abdominal Exam GI & Abdominal Exam: Soft, Diminished Bowel Sounds - Rectal Exam Rectal Exam: Deferred - Neurological Exam Neurological Exam: Oriented x3 Assessment and Plan (1) Afib Status: Acute (2) GIB (gastrointestinal bleeding) Status: Acute (3) Hx of coronary artery disease Status: Acute (4) Hx of laparoscopic gastric banding Status: Acute (5) Nasal hemorrhage Status: Acute (6) Noncompliance with medication treatment due to overuse of medication Status: Acute (7) Rectal bleeding Status: Acute (8) Osteoarthritis Status: Acute - Assessment and Plan (Free Text) Plan: WBC 4.7 Hemoglobin 10.1 Hematocrit 30.5 BUN 63 Glucose 113 plan discussed with patient moderate complexity of care aritificial tears carafate oral susp cardizem cd duoneb heparin lasix lopressor protonix ec tab solu-medrol tylenol medications reviewed labs reviewed vitals reviewed
[2018-08-28] MEDS: Albuterol-Ipratrop 3 mg / 0.5 (3 ml) UD INH SCH ×4 (01:29→19:42)
[2018-08-28] MEDS: Aritificial Tears (15ml) OU SCH ×4 (02:26→17:35)
[2018-08-28] MEDS: MethylPREDNISolone 40 mg Vial IVP SCH (06:22)
[2018-08-28 06:24] LABS: BASO % 0.2 % (0.0-2.0); EOS % 0.1 % (0.0-4.0); HEMOGLOBIN 10.6 g/dL (11.0-16.0); LYMPH # 0.6 K/uL (1.0-4.3); LYMPH % 13.2 % (20.0-40.0); MEAN CELL VOLUME 94.4 fL (81.0-99.0); MEAN CORPUSCULAR HGB CONC 32.8 g/dL (33.0-37.0); MEAN PLATELET VOLUME 9.7 fL (7.2-11.7); MONO # 0.2 K/uL (0.0-0.8); MONO % 3.8 % (0.0-10.0); NEUT # 3.9 K/uL (1.8-7.0); NEUT % 82.7 % (50.0-75.0); RBC 3.42 Mil/uL (3.80-5.20); WHITE BLOOD COUNT 4.7 K/uL (4.8-10.8)
[2018-08-28 06:27] LABS: CALCIUM 8.8 mg/dl (8.6-10.4)
[2018-08-28 08:23] VITALS: RESP 14
[2018-08-28] MEDS ORDERED: Sodium Chloride Nasal 0.65% Soln (30ml) NAS SCH (10:00)
[2018-08-28] MEDS: Pantoprazole 40 mg EC Tab PO SCH ×2 (10:51→17:35)
[2018-08-28] MEDS: Sucralfate 1 gm/10 ml Oral Susp UD PO SCH ×2 (10:51→17:35)
[2018-08-28] MEDS: diltiaZEM 120 mg/24 Hours CD Cap PO SCH (10:52)
--- NOTE | 2018-08-28 12:59 | CP.CCUPN ---
<Justyn Pierce - Last Filed: 08/28/18 13:13> CCU Subjective - Physician Review Subjective (Free Text): ICU PROGRESS NOTE FOR DR. DAVIDE PIERCE PGY1 Pt seen and examined at bedside this am. Pt is awake, talking, AxO x 4 today. No epistaxis, melena. Complaining of dry nose, otherwise denying complaints. 08/28/18 13:08 CCU Objective - Vital Signs / Intake & Output Vital Signs (Last 4 hours): Vital Signs Pulse BP Pulse Ox 08/28/18 10:53 167/74 H 08/28/18 08:52 104 H 167/71 H 97 Intake and Output (Last 8hrs): Intake & Output 08/27/18 08/28/18 08/28/18 22:59 06:59 14:59 Intake Total 460 250 Output Total 700 1 Balance -240 249 Weight 75.977 kg Intake: Intake, IV Amount 100 Left Forearm 100 Oral 360 250 Output: Urine 700 Urine, Voided 700 Urine/Stool Mix 1 Other: # Bowel Movements 0 - Physical Exam Head: Positive for: Atraumatic, Normocephalic Mouth: Positive for: Dry, Other (dried blood noted on lower lips) Respiratory/Chest: Positive for: Good Air Exchange, Wheezes Cardiovascular: Positive for: Normal S1, S2, Tachycardic Abdomen: Positive for: Normal Bowel Sounds. Negative for: Distention Upper Extremity: Positive for: Normal Inspection, NORMAL PULSES. Negative for: Cyanosis, Edema Lower Extremity: Positive for: Normal Inspection, NORMAL PULSES. Negative for: Edema Skin: Positive for: Warm, Dry, Normal Color Psychiatric: Positive for: Oriented x 3 - Medications Active Medications: Active Medications Generic Name Dose Route Start Last Admin Trade Name Freq PRN Reason Stop Dose Admin Acetaminophen 650 mg 08/21/18 21:00 08/21/18 21:00 Tylenol 325mg Tab NG 650 mg Q6 PRN Administration TEMP>100.4 Albuterol/Ipratropium 3 ml 08/18/18 14:00 08/28/18 07:30 Duoneb 3 Mg/0.5 Mg (3 Ml) Ud INH 3 ml RQ6 SYED Administration Apixaban 2.5 mg 08/28/18 10:00 08/28/18 10:52 Eliquis PO 2.5 mg BID SYED Administration Artificial Tears 0 ml 05/13/19 10:00 08/28/18 10:51 Artificial Tears OU 1 drop Q4H SYED Administration Diltiazem HCl 120 mg 08/26/18 13:00 08/28/18 10:52 Cardizem Cd PO 120 mg DAILY [facility]ED Administration Furosemide 20 mg 08/22/18 11:15 08/28/18 10:53 Lasix IVP 20 mg DAILY SYED Administration Heparin Sodium (Porcine) 5,000 units 08/25/18 10:00 08/28/18 10:51 Heparin SC 5,000 units Q12 SYED Administration Methylprednisolone 20 mg 08/27/18 14:00 08/28/18 06:22 Solu-Medrol IVP 20 mg Q8 SYED Administration Metoprolol Tartrate 50 mg 08/19/18 09:32 08/28/18 10:52 Lopressor PO 50 mg BID SYED Administration Pantoprazole Sodium 40 mg 08/26/18 10:00 08/28/18 10:51 Protonix Ec Tab PO 40 mg BID SYED Administration Sodium Chloride 0 ml 08/28/18 10:00 08/28/18 10:51 [place] Baby Saline 30 Ml JERI 1 spr DAILY SYED Administration Sucralfate 1 gm 08/25/18 10:00 08/28/18 10:51 Carafate Oral Susp PO 1 gm TID SYED Administration - Patient Studies Lab Studies: Lab Studies 08/28/18 08/28/18 08/26/18 Range/Units 06:09 06:07 06:17 WBC 4.7 L (4.8-10.8) K/uL RBC 3.42 L (3.80-5.20) Mil/uL Hgb 10.6 L (11.0-16.0) g/dL Hct 32.3 L (34.0-47.0) % MCV 94.4 (81.0-99.0) fL MCH 31.0 (27.0-31.0) pg MCHC 32.8 L (33.0-37.0) g/dL RDW 16.0 H (11.5-14.5) % Plt Count 334 (130-400) K/uL MPV 9.7 (7.2-11.7) fL Neut % (Auto) 82.7 H (50.0-75.0) % Lymph % (Auto) 13.2 L (20.0-40.0) % Woods % (Auto) 3.8 (0.0-10.0) % Eos % (Auto) 0.1 (0.0-4.0) % Baso % (Auto) 0.2 (0.0-2.0) % Neut # (Auto) 3.9 (1.8-7.0) K/uL Lymph # (Auto) 0.6 L (1.0-4.3) K/uL Woods # (Auto) 0.2 (0.0-0.8) K/uL Eos # (Auto) 0.0 (0.0-0.7) K/uL Baso # (Auto) 0.0 (0.0-0.2) K/uL Sodium 138 (132-148) mmol/L Potassium 4.0 (3.6-5.2) mmol/L Chloride 104 (98-107) mmol/L Carbon Dioxide 25 (22-30) mmol/L Anion Gap 12 (10-20) BUN 59 H (7-17) mg/dL Creatinine 1.1 (0.7-1.2) mg/dL Est GFR ( Amer) 59 Est GFR (Non-Af Amer) 49 Random Glucose 112 H (65-105) mg/dL Calcium 8.8 (8.6-10.4) mg/dl Phosphorus 4.2 (2.5-4.5) mg/dL Magnesium 2.1 (1.6-2.3) mg/dL Total Bilirubin 0.7 (0.2-1.3) mg/dL AST 25 (14-36) U/L ALT 19 (9-52) U/L Alkaline Phosphatase 105 (38-126) U/L Total Protein 5.9 L (6.3-8.3) g/dL Albumin 3.0 L (3.5-5.0) g/dL Globulin 3.0 (2.2-3.9) gm/dL Albumin/Globulin Ratio 1.0 (1.0-2.1) Proteinase 3 (PR3) <1.0 (<1.0) AI Myeloperoxidase Ab <1.0 (<1.0) AI Laboratory Results - last 24 hr 08/26/18 08/28/18 08/28/18 06:17 06:07 06:09 WBC 4.7 L RBC 3.42 L Hgb 10.6 L Hct 32.3 L MCV 94.4 MCH 31.0 MCHC 32.8 L RDW 16.0 H Plt Count 334 MPV 9.7 Neut % (Auto) 82.7 H Lymph % (Auto) 13.2 L Woods % (Auto) 3.8 Eos % (Auto) 0.1 Baso % (Auto) 0.2 Neut # (Auto) 3.9 Lymph # (Auto) 0.6 L Woods # (Auto) 0.2 Eos # (Auto) 0.0 Baso # (Auto) 0.0 Sodium 138 Potassium 4.0 Chloride 104 Carbon Dioxide 25 Anion Gap 12 BUN 59 H Creatinine 1.1 Est GFR ( Amer) 59 Est GFR (Non-Af Amer) 49 Random Glucose 112 H Calcium 8.8 Phosphorus 4.2 Magnesium 2.1 Total Bilirubin 0.7 AST 25 ALT 19 Alkaline Phosphatase 105 Total Protein 5.9 L Albumin 3.0 L Globulin 3.0 Albumin/Globulin Ratio 1.0 Proteinase 3 (PR3) <1.0 Myeloperoxidase Ab <1.0 Fingerstick Blood Sugar Results: 143 Review of Systems - Review of Systems Review of Systems: per [facility] Critical Care Progress Note - Nutrition Nutrition: Nutrition Category Date Time Status Dysphagia/Modified Consistency Diet [DIET] Diets 08/24/18 Dinner Active Assessment/Plan - Assessment and Plan (Free Text) Assessment: 72 y/o F with PMH of afib previously on xarelto, CAD s/p stents x 3, Hx [place] (2015,2018), 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 -currently on metoprolol 50mg bid & cardizem 120mg qd -Case discussed with cardiology and interventional neurologist (PA) in regards to resuming anticoagulation. Per Dr. Allison ORTIZ, benefits outweigh risks for anticoagulation. Epistaxis was completely occluded during procedure -Will start low dose eliquis 2.5md bid today. Monitor closely for signs of hemoptysis/bleeding -Maintain MAP>65 Pulm: Lobar Pneumonia Resolved completed 10 days course of aztreonam f/u lactate tomorrow am Hypoxic Respiratory Failure -extubated 08/24. Currently saturating well on aerosol mask, no respiratory distress -continue aerosol mask. Avoid NC as it may cause drying of upper airway -continue duoneb Q6h -Maintain SpO2 >90% on aerosol mask GI: GIB -Resolved. No recent episodes of melena. H/H stable. Hemodynamically stable -Continue protonix, sucralfate : Pre-renal azotemia -likely 2/2 to hypovolemia vs ingested hemoglobin. Currently -1056ml fluid balance -holding IVF d/t pulmonary vascular congestion and mild-moderate pulm hypertension Heme: Epistaxis -Resolved. No recent episodes of hemoptysis. H/H stable. Hemodynamically stable. -08/16:gamino balloon placed in ED. 08/16: L internal maxillary artery embolization with complete occlusion by interventional neuro. 08/17: Melena followed by 1u pRBC, 2u FFP transfusion. 08/21: bronchoscopy w/ BAL- revealed fresh blood. 08/24: extubated -Consider 2/2 to wegeners granulomatosis. ESR/CRP elevated. -taper solumedrol to dose 20Q12. ANCA/anti-SRP Ab sent out -continue aspiration precautions -Discussed case with Dr. Cooper's PA in regards to resuming anticoagulation. Benefits outweigh risks, will start eliquis 2.5mg. ID: Sepsis 2/2 lobar pneumonia vs UTI Resolved. UCx grew VRE. Completed tigecycline course. ID following Urinary tract infection -Afebrile, no leukocytosis. Ucx grew VRE -completed 10 days course of aztreonam. completed tigecycline (started 08/23) -will f/u repeat lactate GI/DVT PPx: protonix/Hep SC Case reviewed with attending physician, Dr. Davide Pierce PGY <Malik Augustine - Last Filed: 08/28/18 16:17> CCU Subjective - Physician Review Critical Care Time Spent (in minutes): 45 CCU Objective - Vital Signs / Intake & Output Vital Signs (Last 4 hours): Vital Signs Pulse BP Pulse Ox 08/28/18 13:00 88 99 08/28/18 12:52 95 H 140/81 98 Intake and Output (Last 8hrs): Intake & Output 08/28/18 08/28/18 08/28/18 06:59 14:59 22:59 Intake Total 250 150 Output Total 1 1 Balance 249 149 Weight 167 lb 8 oz Intake: Oral 250 150 Output: Urine/Stool Mix 1 1 Other: # Bowel Movements 0 - Medications Active Medications: Active Medications Generic Name Dose Route Start Last Admin Trade Name Freq PRN Reason Stop Dose Admin Acetaminophen 650 mg 08/21/18 21:00 08/21/18 21:00 Tylenol 325mg Tab NG 650 mg Q6 PRN Administration TEMP>100.4 Albuterol/Ipratropium 3 ml 08/18/18 14:00 08/28/18 13:13 Duoneb 3 Mg/0.5 Mg (3 Ml) Ud INH 3 ml RQ6 SYED Administration Apixaban 2.5 mg 08/28/18 10:00 08/28/18 10:52 Eliquis PO 2.5 mg BID SYED Administration Artificial Tears 0 ml 08/19/18 10:00 08/28/18 10:51 Artificial Tears OU 1 drop Q4H SYED Administration Diltiazem HCl 120 mg 08/26/18 13:00 08/28/18 10:52 Cardizem Cd PO 120 mg DAILY SYED Administration Furosemide 20 mg 08/22/18 11:15 08/28/18 10:53 Lasix IVP 20 mg DAILY SYED Administration Heparin Sodium (Porcine) 5,000 units 08/25/18 10:00 08/28/18 10:51 Heparin SC 5,000 units Q12 SYED Administration Methylprednisolone 20 mg 08/28/18 22:00 Solu-Medrol IVP Q12 SYED Metoprolol Tartrate 50 mg 08/19/18 09:32 08/28/18 10:52 Lopressor PO 50 mg BID SYED Administration Pantoprazole Sodium 40 mg 08/26/18 10:00 08/28/18 10:51 Protonix Ec Tab PO 40 mg BID SYED Administration Sodium Chloride 0 ml 08/28/18 10:00 08/28/18 10:51 [place] Baby Saline 30 Ml JERI 1 spr DAILY SYED Administration Sucralfate 1 gm 08/25/18 10:00 08/28/18 10:51 Carafate Oral Susp PO 1 gm TID SYED Administration - Patient Studies Lab Studies: Lab Studies 08/28/18 08/28/18 Range/Units 06:09 06:07 WBC 4.7 L (4.8-10.8) K/uL RBC 3.42 L (3.80-5.20) Mil/uL Hgb 10.6 L (11.0-16.0) g/dL Hct 32.3 L (34.0-47.0) % MCV 94.4 (81.0-99.0) fL MCH 31.0 (27.0-31.0) pg MCHC 32.8 L (33.0-37.0) g/dL RDW 16.0 H (11.5-14.5) % Plt Count 334 (130-400) K/uL MPV 9.7 (7.2-11.7) fL Neut % (Auto) 82.7 H (50.0-75.0) % Lymph % (Auto) 13.2 L (20.0-40.0) % Woods % (Auto) 3.8 (0.0-10.0) % Eos % (Auto) 0.1 (0.0-4.0) % Baso % (Auto) 0.2 (0.0-2.0) % Neut # (Auto) 3.9 (1.8-7.0) K/uL Lymph # (Auto) 0.6 L (1.0-4.3) K/uL Woods # (Auto) 0.2 (0.0-0.8) K/uL Eos # (Auto) 0.0 (0.0-0.7) K/uL Baso # (Auto) 0.0 (0.0-0.2) K/uL Sodium 138 (132-148) mmol/L Potassium 4.0 (3.6-5.2) mmol/L Chloride 104 (98-107) mmol/L Carbon Dioxide 25 (22-30) mmol/L Anion Gap 12 (10-20) BUN 59 H (7-17) mg/dL Creatinine 1.1 (0.7-1.2) mg/dL Est GFR ( Amer) 59 Est GFR (Non-Af Amer) 49 Random Glucose 112 H (65-105) mg/dL Calcium 8.8 (8.6-10.4) mg/dl Phosphorus 4.2 (2.5-4.5) mg/dL Magnesium 2.1 (1.6-2.3) mg/dL Total Bilirubin 0.7 (0.2-1.3) mg/dL AST 25 (14-36) U/L ALT 19 (9-52) U/L Alkaline Phosphatase 105 (38-126) U/L Total Protein 5.9 L (6.3-8.3) g/dL Albumin 3.0 L (3.5-5.0) g/dL Globulin 3.0 (2.2-3.9) gm/dL Albumin/Globulin Ratio 1.0 (1.0-2.1) Laboratory Results - last 24 hr 08/28/18 08/28/18 06:07 06:09 WBC 4.7 L RBC 3.42 L Hgb 10.6 L Hct 32.3 L MCV 94.4 MCH 31.0 MCHC 32.8 L RDW 16.0 H Plt Count 334 MPV 9.7 Neut % (Auto) 82.7 H Lymph % (Auto) 13.2 L Woods % (Auto) 3.8 Eos % (Auto) 0.1 Baso % (Auto) 0.2 Neut # (Auto) 3.9 Lymph # (Auto) 0.6 L Woods # (Auto) 0.2 Eos # (Auto) 0.0 Baso # (Auto) 0.0 Sodium 138 Potassium 4.0 Chloride 104 Carbon Dioxide 25 Anion Gap 12 BUN 59 H Creatinine 1.1 Est GFR ( Amer) 59 Est GFR (Non-Af Amer) 49 Random Glucose 112 H Calcium 8.8 Phosphorus 4.2 Magnesium 2.1 Total Bilirubin 0.7 AST 25 ALT 19 Alkaline Phosphatase 105 Total Protein 5.9 L Albumin 3.0 L Globulin 3.0 Albumin/Globulin Ratio 1.0 Critical Care Progress Note - Nutrition Nutrition: Nutrition Category Date Time Status Dysphagia/Modified Consistency Diet [DIET] Diets 08/24/18 Dinner Active Attending/Attestation - Attestation I have personally seen and examined this patient.: Yes I have fully participated in the care of the patient.: Yes I have reviewed all pertinent clinical information: Yes Notes (Text): 08/28/18 16:17 Patient seen and examined in the intensive care unit. Case discussed with housestaff in the morning rounds. Started on low-dose Eliquis No further bleeding noted Patient is alert oriented x3 Transferred to telemetry
[2018-08-28 14:27] VITALS: BP 140/81; PULSE 88
--- NOTE | 2018-08-28 14:33 | CP.PCM.PN ---
Subjective - Date & Time of Evaluation Date of Evaluation: 08/28/18 Time of Evaluation: 14:30 - Subjective Subjective: dictated Objective - Vital Signs/Intake and Output Vital Signs (last 24 hours): Temp Pulse Resp BP Pulse Ox 97.9 F 88 14 140/81 99 08/28/18 08:00 08/28/18 13:00 08/28/18 08:00 08/28/18 12:52 08/28/18 13:00 Intake and Output: 08/28/18 08/28/18 06:59 18:59 Intake Total 590 Output Total 1 Balance 589 - Medications Medications: Current Medications Acetaminophen (Tylenol 325mg Tab) 650 mg NG Q6 PRN PRN Reason: TEMP>100.4 Last Admin: 08/21/18 21:00 Dose: 650 mg Albuterol/Ipratropium (Duoneb 3 Mg/0.5 Mg (3 Ml) Ud) 3 ml INH RQ6 [facility] Last Admin: 08/28/18 13:13 Dose: 3 ml Apixaban (Eliquis) 2.5 mg PO BID [facility] Last Admin: 08/28/18 10:52 Dose: 2.5 mg Artificial Tears (Artificial Tears) 0 ml OU Q4H [facility] Last Admin: 08/28/18 10:51 Dose: 1 drop Diltiazem HCl (Cardizem Cd) 120 mg PO DAILY [facility] Last Admin: 08/28/18 10:52 Dose: 120 mg Furosemide (Lasix) 20 mg IVP DAILY [facility] Last Admin: 08/28/18 10:53 Dose: 20 mg Heparin Sodium (Porcine) (Heparin) 5,000 units SC Q12 [facility] Last Admin: 08/28/18 10:51 Dose: 5,000 units Methylprednisolone (Solu-Medrol) 20 mg IVP Q12 [facility] Metoprolol Tartrate (Lopressor) 50 mg PO BID [facility] Last Admin: 08/28/18 10:52 Dose: 50 mg Pantoprazole Sodium (Protonix Ec Tab) 40 mg PO BID [facility] Last Admin: 08/28/18 10:51 Dose: 40 mg Sodium Chloride ([place] Baby Saline 30 Ml) 0 ml JERI DAILY [facility] Last Admin: 08/28/18 10:51 Dose: 1 spr Sucralfate (Carafate Oral Susp) 1 gm PO TID [facility] Last Admin: 08/28/18 10:51 Dose: 1 gm - Labs Labs: 08/28/18 06:09 08/28/18 06:07 PT 14.3 SECONDS (9.7-12.2) H 08/17/18 05:52 INR 1.3 08/17/18 05:52 APTT 29.9 SECONDS (21-34) 08/17/18 05:52
[2018-08-28 17:05] VITALS: TEMP 98; O2SAT 96
--- NOTE | 2018-08-28 18:10 | PN ---
DATE: 08/28/2018 SUBJECTIVE: The patient is awake and alert. She is going to be transferred to rehab, I am told. She denies much coughing. She feels a lot better. She is not actively bleeding anymore, in fact, they have started her on low dose of her Eliquis and discontinued the Tygacil yesterday. PHYSICAL EXAMINATION: VITAL SIGNS: She is afebrile and T-max is 97.9, pulse is 88, saturation is 99%, blood pressure is 140/81, and respirations are 20. GENERAL: She is alert and oriented x3. HEENT: Head is atraumatic and normocephalic. The left nose scab is improving right now. She is not coughing. Tongue is moist. NECK: Supple. LUNGS: Clear. No crackles or rales heard. HEART: S1 and S2, irregularly irregular. ABDOMEN: Soft and nontender. No guarding. No rigidity present. EXTREMITIES: Have no edema, clubbing or cyanosis. LABORATORY DATA: Labs show white count is 4.7, hemoglobin 10.6, hematocrit 32.3, and platelet count is 334. Sodium is 138, potassium 4, chloride is 104, CO2 is 25, and anion gap is 12, BUN 59 and creatinine is 1.1. LFTs are unremarkable. She had a chest x-ray last on 08/26/2018 which was already noted. ASSESSMENT AND PLAN: The patient's urine culture was negative and we had discontinued the isolation. The patient is on her cardiac meds and is off antibiotics at this time with a normal white count and normal temperature. Devon León MD
[2018-08-28] MEDS ORDERED: MethylPREDNISolone 40 mg Vial IVP SCH (22:00)
--- NOTE | 2018-08-29 09:12 | CP.PCM.DIS ---
Provider - Provider Date of Admission: 08/16/18 13:45 Attending physician: Addison Rodriguez MD Consults: 08/16/18 15:28 Otolaryngology Consult Stat Consulting Provider: Huseyin Nelson Consulting Physician: Huseyin Nelson Reason for Consult: epistaxis Additional Comments: I've spoken to Dr. Fontanez already 08/16/18 15:53 Neurology Consult Stat Comment: I've spoken to the doctor already Consulting Provider: Alex Frazier Consulting Physician: Alex Frazier Reason for Consult: epistaxis 08/16/18 15:54 Critical Care Consult Stat Comment: I've spoken to the doctor already Consulting Provider: Malik Augustine Consulting Physician: Malik Augustine Reason for Consult: epistaxis 08/16/18 17:30 Cardiology Consult Routine Comment: followed by Dr. Wilkins Consulting Provider: Francisco Figueroa Consulting Physician: Francisco Figueroa Reason for Consult: CAD s/p stent, NV x2, afib on xarelto, active bleeding 08/19/18 09:36 Infectious Disease Consult Routine Comment: Consulting Provider: Devon León Consulting Physician: Devon León Reason for Consult: aspiration pna, pcn allergy 08/20/18 09:31 Physician Consult Routine Comment: Consulting Provider: Sage Polk Consulting Physician: Sage Polk Reason for Consult: thoracentesis Time Spent in preparation of Discharge (in minutes): 30 Diagnosis - Discharge Diagnosis (1) Afib Status: Acute (2) GIB (gastrointestinal bleeding) Status: Acute (3) Hx of coronary artery disease Status: Acute (4) Hx of laparoscopic gastric banding Status: Acute (5) Nasal hemorrhage Status: Acute (6) Noncompliance with medication treatment due to overuse of medication Status: Acute (7) Rectal bleeding Status: Acute (8) Osteoarthritis Status: Acute Hospital Course - Lab Results Lab Results: Micro Results 08/25/18 15:01 Urine,Catheterized Urine Culture - Final No Growth (<1,000 CFU/ML) 08/21/18 15:18 Other: Please Indicate Gram Stain - Final 08/21/18 15:18 Other: Please Indicate Body Fluid Culture - Final Coagulase Neg Staphylococcus 08/21/18 15:18 Other: Please Indicate Mycobacterial Culture - Preliminary 08/21/18 Unknown Other: Please Indicate Fungal Culture - Preliminary 08/20/18 18:19 Urine,Catheterized Urine Culture - Final Vancomycin Resistant E.faecium 08/16/18 20:30 Blood Blood Culture - Final NO GROWTH AFTER 5 DAYS 08/16/18 20:30 Blood Gram Stain - Final TEST NOT PERFORMED 08/16/18 20:30 Blood Blood Culture - Final NO GROWTH AFTER 5 DAYS 08/16/18 20:30 Blood Gram Stain - Final TEST NOT PERFORMED 08/18/18 14:59 Trachasp Gram Stain - Final 08/18/18 14:59 Trachasp Sputum Culture - Final NORMAL ORAL HIEU Most Recent Lab Values WBC 4.7 K/uL (4.8-10.8) L 08/28/18 06:09 RBC 3.42 Mil/uL (3.80-5.20) L 08/28/18 06:09 Hgb 10.6 g/dL (11.0-16.0) L 08/28/18 06:09 Hct 32.3 % (34.0-47.0) L 08/28/18 06:09 MCV 94.4 fL (81.0-99.0) 08/28/18 06:09 MCH 31.0 pg (27.0-31.0) 08/28/18 06:09 MCHC 32.8 g/dL (33.0-37.0) L 08/28/18 06:09 RDW 16.0 % (11.5-14.5) H 08/28/18 06:09 Plt Count 334 K/uL (130-400) 08/28/18 06:09 MPV 9.7 fL (7.2-11.7) 08/28/18 06:09 Neut % (Auto) 82.7 % (50.0-75.0) H 08/28/18 06:09 Lymph % (Auto) 13.2 % (20.0-40.0) L 08/28/18 06:09 [place] % (Auto) 3.8 % (0.0-10.0) 08/28/18 06:09 Eos % (Auto) 0.1 % (0.0-4.0) 08/28/18 06:09 Baso % (Auto) 0.2 % (0.0-2.0) 08/28/18 06:09 Neut # (Auto) 3.9 K/uL (1.8-7.0) 08/28/18 06:09 Lymph # (Auto) 0.6 K/uL (1.0-4.3) L 08/28/18 06:09 [place] # (Auto) 0.2 K/uL (0.0-0.8) 08/28/18 06:09 Eos # (Auto) 0.0 K/uL (0.0-0.7) 08/28/18 06:09 Baso # (Auto) 0.0 K/uL (0.0-0.2) 08/28/18 06:09 Neutrophils % (Manual) 94 % (50-75) H 08/23/18 21:43 Lymphocytes % (Manual) 5 % (20-40) L 08/23/18 21:43 Monocytes % (Manual) 1 % (0-10) 08/23/18 21:43 Platelet Estimate Normal (NORMAL) 08/23/18 21:43 Polychromasia Slight 08/23/18 21:43 Hypochromasia (manual) Slight 08/23/18 21:43 Anisocytosis (manual) Slight 08/23/18 21:43 ESR 40 mm/hr (0-20) H 08/26/18 06:17 PT 14.3 SECONDS (9.7-12.2) H 08/17/18 05:52 INR 1.3 08/17/18 05:52 APTT 29.9 SECONDS (21-34) 08/17/18 05:52 Fibrinogen 388 mg/dL (200-400) 08/22/18 09:37 Puncture Site Rra 08/24/18 18:55 pCO2 39 mm/Hg (35-45) 08/24/18 18:55 pO2 73 mm/Hg (80-100) L 08/24/18 18:55 HCO3 24.5 mmol/L (21-28) 08/24/18 18:55 ABG pH 7.40 (7.35-7.45) 08/24/18 18:55 ABG Total CO2 25.4 mmol/L (22-28) 08/24/18 18:55 ABG O2 Saturation 96.5 % (95-98) 08/24/18 18:55 ABG Base Excess -0.5 mmol/L (-2.0-3.0) 08/24/18 18:55 ABG Hemoglobin 9.5 g/dL (11.7-17.4) L 08/24/18 06:05 ABG Carboxyhemoglobin 1.9 % (0.5-1.5) H 08/24/18 06:05 POC ABG HHb (Measured) 5.3 % (0.0-5.0) H 08/24/18 06:05 ABG Methemoglobin 0.9 % (0.0-3.0) 08/24/18 06:05 Dom Test Pos 08/24/18 18:55 ABG Potassium 4.4 mmol/L (3.6-5.2) 08/24/18 18:55 A-a O2 Difference 114.0 mm/Hg 08/24/18 18:55 Respiratory Index 1.6 08/24/18 18:55 Hgb O2 Saturation 91.8 % (95.0-98.0) L 08/24/18 06:05 Sodium 144.0 mmol/l (132-148) 08/24/18 18:55 Chloride 112.0 mmol/L (98-107) H 08/24/18 18:55 Glucose 140 mg/dl (65-105) H 08/24/18 18:55 Lactate 1.6 mmol/L (0.7-2.1) 08/24/18 18:55 Liter Flow 3.0 08/24/18 18:55 Vent Mode Prvc 08/24/18 06:05 Mechanical Rate 20 08/24/18 06:05 FiO2 33.0 % 08/24/18 18:55 Tidal Volume 450 08/24/18 06:05 PEEP 5 08/24/18 06:05 Sodium 138 mmol/L (132-148) 08/28/18 06:07 Potassium 4.0 mmol/L (3.6-5.2) 08/28/18 06:07 Chloride 104 mmol/L (98-107) 08/28/18 06:07 Carbon Dioxide 25 mmol/L (22-30) 08/28/18 06:07 Anion Gap 12 (10-20) 08/28/18 06:07 BUN 59 mg/dL (7-17) H 08/28/18 06:07 Creatinine 1.1 mg/dL (0.7-1.2) 08/28/18 06:07 Est GFR ( Amer) 59 08/28/18 06:07 Est GFR (Non-Af Amer) 49 08/28/18 06:07 POC Glucose (mg/dL) 94 mg/dL (65-110) 08/26/18 07:29 Random Glucose 112 mg/dL (65-105) H 08/28/18 06:07 Lactic Acid 0.6 mmol/L (0.7-2.1) L 08/17/18 06:18 Calcium 8.8 mg/dl (8.6-10.4) 08/28/18 06:07 Phosphorus 4.2 mg/dL (2.5-4.5) 08/28/18 06:07 Magnesium 2.1 mg/dL (1.6-2.3) 08/28/18 06:07 Total Bilirubin 0.7 mg/dL (0.2-1.3) 08/28/18 06:07 AST 25 U/L (14-36) 08/28/18 06:07 ALT 19 U/L (9-52) 08/28/18 06:07 Alkaline Phosphatase 105 U/L (38-126) 08/28/18 06:07 Troponin I < 0.0120 ng/mL (0.00-0.120) 08/16/18 20:54 C-React Prot High Sens > 15.00 mg/L (1.00-3.00) H 08/26/18 06:17 NT-Pro-B Natriuret Pep 5000 pg/mL (0-900) H 08/16/18 20:54 Total Protein 5.9 g/dL (6.3-8.3) L 08/28/18 06:07 Albumin 3.0 g/dL (3.5-5.0) L 08/28/18 06:07 Globulin 3.0 gm/dL (2.2-3.9) 08/28/18 06:07 Albumin/Globulin Ratio 1.0 (1.0-2.1) 08/28/18 06:07 Arterial Blood Potassium 4.4 mmol/L (3.6-5.2) 08/24/18 18:55 Urine Color Straw (YELLOW) 08/25/18 15:01 Urine Clarity Clear (Clear) 08/25/18 15:01 Urine pH 5.0 (5.0-8.0) 08/25/18 15:01 Ur Specific [place] 1.009 (1.003-1.030) 08/25/18 15:01 Urine Protein Negative mg/dL (NEGATIVE) 08/25/18 15:01 Urine Glucose (UA) Normal mg/dL (Normal) 08/25/18 15:01 Urine Ketones Negative mg/dL (NEGATIVE) 08/25/18 15:01 Urine Blood Negative (NEGATIVE) 08/25/18 15:01 Urine Nitrate Negative (NEGATIVE) 08/25/18 15:01 Urine Bilirubin Negative (NEGATIVE) 08/25/18 15:01 Urine Urobilinogen Normal mg/dL (0.2-1.0) 08/25/18 15:01 Ur Leukocyte Esterase Neg Efrem/uL (Negative) 08/25/18 15:01 Urine WBC (Auto) < 1 /hpf (0-5) 08/25/18 15:01 Ur Squamous Epith Cells < 1 /hpf (0-5) 08/25/18 15:01 Hyaline Casts 3-5 /lpf (0-2) H 08/25/18 15:01 [place] 6 Profile Negative (NEGATIVE) 08/26/18 06:17 Proteinase 3 (PR3) <1.0 AI (<1.0) 08/26/18 06:17 Myeloperoxidase Ab <1.0 AI (<1.0) 08/26/18 06:17 Anti-Streptolysin O Ab Negative (NEGATIVE) 08/26/18 06:17 Blood Type O POSITIVE 08/22/18 09:37 Antibody Screen Negative 08/22/18 09:37 - Hospital Course Hospital Course: Patient admitted with epistaxis to a point where patient needed to intubate stayed on the ventilator easily for few days family was there spoke to the family every single day eventually she was able to extubate nasal bleeding stopped patient also had a GI bleeding for which GI was consulted patient is with low-dose Eliquis is started patient has not been 60s complaining of diagnosed patient's Eliquis dose is 2.5 p.o. twice daily patient is for the discharge hemoglobin is 10.6 and 32.36 hematocrit creatinine is 1.1 BUN is 59 Patient is encouraged to eat patient is safe for discharge to rehab to [facility] at [place] stable Moderate to high complexity of care. Plan of care discussed with patient &/or family & staff. Medications reviewed and reconciled. Labs reviewed. Vitals reviewed. spoke to family enourage po feeding Discharge Exam - Head Exam Head Exam: ATRAUMATIC, NORMAL INSPECTION, NORMOCEPHALIC - Eye Exam Eye Exam: EOMI, Normal appearance, PERRL Pupil Exam: NORMAL ACCOMODATION, PERRL - ENT Exam ENT Exam: Normal External Ear Exam - Neck Exam Neck exam: Full Rom - Respiratory Exam Respiratory Exam: Decreased Breath Sounds - Cardiovascular Exam Cardiovascular Exam: REGULAR RHYTHM, +S1, +S2 - GI/Abdominal Exam GI & Abdominal Exam: Diminished Bowel Sounds, Distended, Soft - Rectal Exam Rectal Exam: Deferred - Neurological Exam Neurological exam: Oriented x3 Discharge Plan - Discharge Medications Prescriptions: Furosemide [Lasix] 40 mg PO DAILY 30 Days #30 tablet Methylprednisolone [Medrol Dose Pack (21 tabs)] 4 mg PO DAILY #21 mg - Follow Up Plan Condition: STABLE Disposition: HOME/ ROUTINE Instructions: Atrial Fibrillation (DC), Nosebleeds (DC)
[2018-08-30 01:39] LABS: ANCA SCREEN NEGATIVE (NEGATIVE)
--- NOTE | 2018-08-30 08:43 | PQF ---
PROVIDER RESPONSE TEXT: There was no sepsis on admission Sepsis was ruled in.. REVIEWER QUERY TEXT: Clarification of Clinical Diagnostic Findings Please clarify documentation or clinical relevance for the clinical / diagnostic findings or whether those are insignificant or unable to be further specified. The patient's Clinical Indicators include: SEPSIS DOCUMENTATION PLEASE CLARIFY IF SEPSIS WAS R/I==OR ==R/O AND WAS ==SEPSIS PRESENT ON ADMISION Query created by: Aurelia Perkins on 08/29/2018 3:44 PM Electronically signed by: Wen JONES 08/30/2018 8:40 AM
== END 2018-08-28 20:10 | DRG 270 ==
LOC: C.ER 10:21 → C.9E 13:45 → C.6T 14:06 → C.9E 16:08 → C.9I 16:12
PROVIDERS: ADMIT Internal Medicine Nephrology; ATTEND Internal Medicine Nephrology
PROC: 2Y41X5Z Packing of Nasal Region using Packing Material (ICD-10-PCS; principal; 2018-08-16)
PROC: 03V Upper Arteries, Restriction (ICD-10-PCS; 2018-08-16)
PROC: 5A1955Z Respiratory Ventilation, Greater than 96 Consecutive Hours (ICD-10-PCS; 2018-08-16)
PROC: 0B9M8ZX Drainage of Bilateral Lungs, Via Natural or Artificial Opening Endoscopic, Diagnostic (ICD-10-PCS; 2018-08-21)
DX: I74.9 Embolism and thrombosis of unspecified artery (principal); A41.9 Sepsis, unspecified organism; J69.0 Pneumonitis due to inhalation of food and vomit; J96.01 Acute respiratory failure with hypoxia; D68.318 Other hemorrhagic disorder due to intrinsic circulating anticoagulants, antibodies, or inhibitors; M31.30 Wegener's granulomatosis without renal involvement; J98.11 Atelectasis; I48.92 Unspecified atrial flutter; I69.254 Hemiplegia and hemiparesis following other nontraumatic intracranial hemorrhage affecting left non-dominant side; I31.3 Pericardial effusion (noninflammatory); R04.0 Epistaxis; Z95.5 Presence of coronary angioplasty implant and graft; Z91.14 Patient's other noncompliance with medication regimen; Z87.891 Personal history of nicotine dependence; Z79.01 Long term (current) use of anticoagulants; R13.10 Dysphagia, unspecified; J43.9 Emphysema, unspecified; J34.2 Deviated nasal septum; I48.91 Unspecified atrial fibrillation; I25.10 Atherosclerotic heart disease of native coronary artery without angina pectoris; I11.0 Hypertensive heart disease with heart failure; D64.9 Anemia, unspecified; Z85.43 Personal history of malignant neoplasm of ovary; Z98.84 Bariatric surgery status; K27.9 Peptic ulcer, site unspecified, unspecified as acute or chronic, without hemorrhage or perforation